=== PATIENT | male | born 1965 | race Caucasian/White ===

== ENCOUNTER → 2023-09-15 10:35 | Outpatient (REF) | payer MEDICARE, BC, SELFPAY ==
[2023-09-15 15:52] LABS: % Basophils 0.8 % (0-2); % Eosinophils 1.5 % (0-6); % Immature Granulocytes 1.2 % (0-0.5); % Lymphocytes 13.1 % (20.5-51.1); % Monocytes 11.1 % (1.7-9.3); % Neutrophils 72.3 % (42.2-75.2); Absolute Basophils 0.1 10^3/uL (0-0.2); Absolute Eosinophils 0.1 10^3/uL (0-0.7); Absolute Immature Granulocytes 0.1 10^3/uL (0-0.05); Absolute Monocytes 0.9 10^3/uL (0.1-0.6); Absolute Neutrophils 5.7 10^3/uL (1.4-6.5); Hematocrit 36.7 % (39.0-52.0); Hemoglobin 12.4 g/dL (13.0-18.0); Mean Corp Hgb Conc. 33.8 g/dL (33.0-37.0); Mean Corpuscular Hgb 31.1 pg (27.0-31.0); Nucleated Red Blood Cells % 0 % (-); Platelet Count 257 10^3/uL (130-400); Red Blood Cell Count 3.99 10^6/uL (4.70-6.10); Red Cell Dist. Width 13.3 % (11.5-14.5); White Blood Cell Count 7.8 10^3/uL (4.8-10.8)
[2023-09-15 16:05] LABS: ALT (SGPT) 15 U/L (0-50); AST (SGOT) 20 U/L (17-59); Albumin 4.1 g/dl (3.5-5.0); Alkaline Phosphatase 45 U/L (38-126); Blood Urea Nitrogen 20 mg/dl (9-20); Calcium 9.7 mg/dl (8.4-10.2); Carbon Dioxide 25 mmol/L (22-30); Chloride 103 mmol/L (98-107); Glucose 131 mg/dl (70-99); HDL Cholesterol 68 mg/dl; LDL Cholesterol, Calculated 117 mg/dl; Potassium 4.5 mmol/L (3.5-5.1); Sodium 138 mmol/L (135-145); Total Bilirubin 1.1 mg/dl (0.2-1.3); Total Cholesterol 228 mg/dl (50-199); Triglyceride 216 mg/dl (10-149); Very Low Density Lipoprotein 43 mg/dl (0-30); eGFR > 60.00
[2023-09-15 16:24] LABS: Microalbumin, Random Urine 0.6 mg/dl (0.6-1.7); Microalbumin/creatinine Ratio 2.4 mg/g
[2023-09-15 16:31] LABS: PSA, Total - Screen 1.17 ng/ml (0.0-4.0)
[2023-09-16 09:07] LABS: Glycohemoglobin (HgbA1c) 6.5 % (4.0-5.6)
== END ==
LOC: HWLAB 10:35
PROVIDERS: ATTENDING PHYSICIAN Family Medicine
DX: E11.9 Type 2 diabetes mellitus without complications (principal); E78.5 Hyperlipidemia, unspecified; I10 Essential (primary) hypertension; Z12.5 Encounter for screening for malignant neoplasm of prostate
CPT/HCPCS: 36415; 80053; 80061; 82043; 82570; 83036; 85025; G0103

== ENCOUNTER → 2023-12-10 09:44 | Outpatient (REF) | payer MEDICARE, BC, SELFPAY ==
[2023-12-10 12:38] LABS: ALT (SGPT) 25 U/L (0-50); AST (SGOT) 32 U/L (17-59); Alkaline Phosphatase 33 U/L (38-126); Blood Urea Nitrogen 12 mg/dl (9-20); Calcium 8.6 mg/dl (8.4-10.2); Carbon Dioxide 27 mmol/L (22-30); Chloride 98 mmol/L (98-107); Glucose 122 mg/dl (70-99); HDL Cholesterol 88 mg/dl; LDL Cholesterol, Calculated 114 mg/dl; Potassium 3.7 mmol/L (3.5-5.1); Sodium 140 mmol/L (135-145); Total Bilirubin 1.3 mg/dl (0.2-1.3); Total Cholesterol 245 mg/dl (50-199); Total Protein 6.9 g/dl (6.3-8.2); Triglyceride 217 mg/dl (10-149); Very Low Density Lipoprotein 43 mg/dl (0-30); eGFR > 60.00
== END ==
LOC: HWLAB 09:44
PROVIDERS: ATTENDING PHYSICIAN Family Medicine
DX: E78.5 Hyperlipidemia, unspecified (principal); E11.9 Type 2 diabetes mellitus without complications; I10 Essential (primary) hypertension
CPT/HCPCS: 36415; 80053; 80061; 83036

== ENCOUNTER 2024-01-24 21:31 | Inpatient (IN) | payer MEDICARE, BC, SELFPAY ==
[2024-01-24] VITALS (31 sets, daily range): BP systolic 72–152; BP diastolic 29–61; BMI 34.5; BMI 35.1
[2024-01-24 18:58] LABS: Glucose - Point of Care 94 mg/dl (70-99)
[2024-01-24 19:17] LABS: % Basophils 0.4 % (0-2); % Eosinophils 0.1 % (0-6); % Immature Granulocytes 2.5 % (0-0.5); % Lymphocytes 6.5 % (20.5-51.1); % Neutrophils 81.5 % (42.2-75.2); Absolute Immature Granulocytes 0.2 10^3/uL (0-0.05); Absolute Lymphocytes 0.6 10^3/uL (1.2-3.4); Absolute Monocytes 0.8 10^3/uL (0.1-0.6); Absolute Neutrophils 6.9 10^3/uL (1.4-6.5); Hematocrit 38.1 % (39.0-52.0); Hemoglobin 12.1 g/dL (13.0-18.0); Mean Corp Hgb Conc. 31.8 g/dL (33.0-37.0); Mean Corpuscular Hgb 31.6 pg (27.0-31.0); Mean Corpuscular Volume 99.5 fL (80.0-94.0); Mean Platelet Volume 9.7 fL (7.4-10.4); Nucleated Red Blood Cells % 0 % (-); Platelet Count 188 10^3/uL (130-400); Red Blood Cell Count 3.83 10^6/uL (4.70-6.10); Red Cell Dist. Width 13.8 % (11.5-14.5); White Blood Cell Count 8.5 10^3/uL (4.8-10.8)
[2024-01-24 19:40] LABS: ALT (SGPT) 22 U/L (0-50); AST (SGOT) 32 U/L (17-59); Alkaline Phosphatase 54 U/L (38-126); Blood Urea Nitrogen 107 mg/dl (9-20); Calcium 5.2 mg/dl (8.4-10.2); Carbon Dioxide < 5 mmol/L (22-30); Chloride 84 mmol/L (98-107); Glucose 86 mg/dl (70-99); Potassium 5.8 mmol/L (3.5-5.1); Sodium 131 mmol/L (135-145); Total Bilirubin 0.4 mg/dl (0.2-1.3); Total Protein 6.3 g/dl (6.3-8.2)
--- NOTE | 2024-01-24 19:51 | ED.GENMED ---
History of Present Illness
<DONNA Nunez - Last Filed: 01/24/24 23:03>
General
Chief Complaint: Dehydration Symptoms
Source: patient and spouse
Exam Limitations: none
Time Seen by Provider: 01/24/24 19:30
History of Present Illness
History of Present Illness:
This is a 58 year old male that comes in with c/o vomiting and unable to keep anything down. States that this has been going on for the past 3 days. States that he has been unable to take any of his medication. States that he is very dehydrated and
has been vomiting. States that he has abd discomfort, nausea, vomiting. Denies any fever, chills, chest pain, SOB, headache, dizziness, urinary burning.
Past History
<DONNA Nunez - Last Filed: 01/24/24 23:03>
Past History
ED Past Medical History: Cancer (Skin Cancer melanoma), HTN, Hypercholesterolemia, NIDDM and Other (Sleep apnea, CPAP)
ED Past Surgical History: Orthopedic (Right knee Menisectomy) and Other (Deviated septum, Turbinectomy)
Social History
Tobacco: Former smoker
Alcohol: Daily (Vodka, states 2 bottles, )
Personal:
Living: with family
Review of Systems
<DONNA Nunez - Last Filed: 01/24/24 23:03>
Review of Systems
All Other Systems: ROS reviewed and negative except as documented in HPI and ROS
Constitutional: Reports no symptoms; Denies fever or chills
EENT: Reports no symptoms
Respiratory: Reports no symptoms; Denies cough or trouble breathing
Cardiac: Reports no symptoms; Denies chest pain
ABD/GI: Reports abdominal pain, nausea and vomiting; Denies diarrhea
: Reports no symptoms; Denies dysuria, frequency or urgency
Musculoskeletal: Reports no symptoms
Skin: Reports no symptoms
Neurological: Reports no symptoms; Denies dizzy or headache
Psychiatric: Reports no symptoms
Phy Exam
<DONNA Nunez - Last Filed: 01/24/24 23:03>
General Physical Exam
General Presentation: mild distress
General age: appears stated age
General Skin: warm, dry and pale
General Habitus: normal
General Mental: alert
General Hydration: dry mucous membranes
ENT Exam
ENT Exam: TM's normal, pharynx normal and neck supple
Eye Exam
Eye Exam: EOMI
Cardiovascular Exam
Cardiovascular Exam: regular rate/rhythm, no murmur, normal peripheral pulses and other (Slight lower leg edema nonpitting)
Pulmonary Exam
Pulmonary Exam: lungs clear, no respiratory distress, no rales, chest non tender, no crackles, no rhonchi, no wheezing and no cough
Gastrointestinal Exam
Gastrointestinal Exam: normal bowel sounds, non tender, soft, no organomegaly, no pulsatile mass and non distended
Musculoskeletal Exam
Musculoskeletal Exam: full ROM
Skin Exam
Skin Exam: normal color, warm/dry, no rash and no petechia
Psychiatric Exam
Psychiatric Exam: normal mood/affect
Course
<DONNA Nunez - Last Filed: 01/24/24 23:03>
Orders/Labs/Results
Orders:
Orders
01/24/24 19:04
Alcohol Urgent
B-Hydroxybutyrate Urgent
Comment: ADDON
Complete Blood Count/With Diff Urgent
Comprehensive Metabolic Panel Urgent
Creatine Phosphokinase Urgent
Comment: ADDON
Magnesium Urgent
Comment: ADD ON
Phosphorus Urgent
Comment: ADD ON
Serum Osmolality Urgent
Comment: ADD ON
01/24/24 19:48
0.9% Sodium Chloride 1000 ml [Nss] 1,000 ml IV BOLUS
01/24/24 19:49
Sodium Zirconium Cyclosilicate [Lokelma] 10 gram PO NOW STA
01/24/24 19:51
Ondansetron Injectable [Zofran] 4 mg IV NOW STA
01/24/24 19:52
Add On- LAB Urgent
Tests Added?: alcohol
Add On- LAB Urgent
Tests Added?: magnesium Phosphoresis
Lorazepam [Ativan] 0.5 mg IV NOW STA
01/24/24 19:53
Bladder Scan- Treatment ONCE
01/24/24 19:54
Osmolality, Random Urine Urgent
Date Specimen was Collected: 01/24/24
Time Specimen was Collected: 20:19
Urine Drug Abuse Screen Urgent
Date Specimen was Collected: 01/24/24
Time Specimen was Collected: 20:19
01/24/24 20:05
Sodium Bicarbonate 100 meq IV NOW STA
01/24/24 20:07
Navarrete Placement- Treatment ONCE
Reason for insertion: Acute Kidney Injury
01/24/24 20:09
Add On- LAB Urgent
Tests Added?: Aspirin
01/24/24 20:10
Electrocardiogram (*1) Urgent
Reason for Study: Other
Other Reason for Exam: Abnormal labs
EKG- Treatment ONCE
CR Chest Portable - 1 View Urgent
Comment:
Reason For Exam: SOB
Reason Study Needs to be Portable: Patient Unstable
01/24/24 20:13
Add On- LAB Urgent
Tests Added?: serum osmo
01/24/24 20:17
Thiamine Injection 100 mg IV NOW STA
01/24/24 20:29
Consult Nephrology [NEPHROLOGY CONSULT] Urgent
Consulting Provider: Radha Celis
Was physician already notified: Yes
01/24/24 20:37
Prothrombin Time Urgent
VerifyNow Aspirin Urgent
01/24/24 20:50
ABG [Arterial Blood Gas] Urgent
%Oxygen/Room Air: room air
01/24/24 21:00
Calcium Gluconate 4,000 mg 0.9% Sodium Chloride 250 ml [Nss] 250 ml IV ONCE
01/24/24 21:13
Admit/Transfer Patient As Directed
Co-Sign Provider:
Level of Care: Inpatient admission
Assign to:: ICU
Physician / Group: Hospitalist
Diagnosis: Acute renal failure
Reason for Hospitalization: Renal failure
Expected length of stay greater than two midnights?: Yes
ELOS- Estimated Length of Stay in days: 2
I certify the patient meets the requirements for IP care: Yes
PRN Pain Medication Management As Directed
May give lesser potent ordered pain med per pt: Yes
preference::
Protocol:: Medication orders for pain may be administered in a
manner that supports deferring to patient preference
when the pt is:
- Requesting an ordered lesser potent pain medication.
Least to most potent pain medications are defined
as: acetaminophen < NSAID < tramadol < opioids
(morphine, oxycodone, hydromorphone).
- Requesting a lesser dose of the same medication IF
ORDERED.
- Requesting a less intrusive route of administration
if both routes are prescribed by the provider (PO <
IV).
01/24/24 21:15
Dextrose 5%/Water 1000 ml [D5w] 1,000 ml Sodium Bicarbonate 150 meq IV 150 mls/hr
01/24/24 21:16
Add On- LAB Urgent
Tests Added?: CPK, B-Hydroxybutarate
01/24/24 21:30
NORepinephrine 4 MG/250 ML [Levophed] 4 mg in 250 ml IV PER PROTOCOL
Initial dose in mcg/min, then titrate:: 2
Titrate to keep:: SBP > 90 mmHg
Titrate by mcg/min:: 1-2 mcg/min
Frequency of titrations (minutes):: 5
Maximum dose in ICU in mcg/min:: 30
Maximum dose in IMU in mcg/min:: 8
Maximum dose in IVU in mcg/min:: 4
Begin to taper infusion when:: Remained at goal for 4hrs
Taper by mcg/min:: 1-2 mcg/min
Frequency of taper (minutes) if patient maintains goal:: 30
Taper to off?: Yes
If infusion off & no longer maintaining goal:: Contact Provider
01/24/24 21:36
0.9% Sodium Chloride [Nss (Preservative Free)] See Protocol IV PRN PRN
Lorazepam [Ativan] 1 mg IV Q1HPRN PRN
Lorazepam [Ativan] 2 mg IV Q1HPRN PRN
01/24/24 22:00
Flush (0.9% Sodium Chloride) [Flush (Nss)] See Dose Instructions IV PER PROTOCOL
01/24/24 22:39
Bisacodyl [Dulcolax] 10 mg RECTAL [id number] PRN
Docusate W/Senna [Senokot-S] 1 tablet PO BIDPRN PRN
FOLic ACID [Folvite] 1 mg 0.9% Sodium Chloride 50 ml [Nss] 50 ml IV DAILYPRN
Lorazepam [Ativan] 1 mg PO Q2HPRN PRN
Polyethylene Glycol Powder [Miralax] 17 grams PO DAILYPRN PRN
01/24/24 22:39
Case Management Consult Once
Case Management Consult: Other
Comment: Substance abuse counseling
DIETARY CONSULT Routine
Reason for Consult: Nutrition support, possible refeeding guidelines
Urine Drug Abuse Screen Routine
Activity As Directed
Activity Level: With Assistance
MSAS SCORE As Directed
MSAS Score 0-4: Repeat MSAS every 2 hours until 0-4 for three consecutive assessments, then every 4 hours x 48
hours.
MSAS Score 5-7: For MILD withdrawl symptoms. Repeat MSAS and RASS every 2 hours
MSAS Score 8-11: For MODERATE withdrawal symptoms. Repeat MSAS and RASS every 1 hour. Consider ICU or IMU
level of care.
MSAS Score > 11: For SEVERE withdrawal symptoms. Repeat MSAS and RASS every 1 hour. Notify provider, consider
ICU level of care.
MSAS Additional Instructions: If no improvement or no decrease in score from severe to moderate within 12
hours, consult psychiatry
MSAS Notify Provider: Notify provider if patient requires more than 10 mg of Lorazepam in eight hour period.
Vital Signs As Directed
Frequency: Per unit guidelines
DX Deep Vein Thrombosis Video Routine
01/24/24 22:46
GGTP Urgent
Lactic Acid Urgent
PTT Urgent
01/24/24 23:30
Urinalysis Reflex To Culture Urgent
Date Specimen was Collected: 01/24/24
Time Specimen was Collected: 20:19
01/25/24 00:00
Heparin 5,000 units SC Q8
Thiamine Injection 200 mg IV Q8
01/25/24 08:00
FOLic ACID [Folvite] 1 mg PO DAILY
01/28/24 08:00
Thiamine HCl [Vitamin B1] 100 mg PO BID
Abnormal Lab Results
01/24/24 01/24/24 01/24/24
19:04 20:37 20:50
RBC 3.83 L 10^6/uL
(4.70-6.10)
Hgb 12.1 L g/dL
(13.0-18.0)
Hct 38.1 L %
(39.0-52.0)
MCV 99.5 H fL
(80.0-94.0)
MCH 31.6 H pg
(27.0-31.0)
MCHC 31.8 L g/dL
(33.0-37.0)
Abs Immat Gran (auto) 0.2 H 10^3/uL
(0-0.05)
Absolute Neuts (auto) 6.9 H 10^3/uL
(1.4-6.5)
Absolute Lymphs (auto) 0.6 L 10^3/uL
(1.2-3.4)
Absolute Monos (auto) 0.8 H 10^3/uL
(0.1-0.6)
Immature Gran % 2.5 H %
(0-0.5)
Neutrophils % 81.5 H %
(42.2-75.2)
Lymphocytes % 6.5 L %
(20.5-51.1)
PT 16.1 H Sec
(11.4-14.6)
pH 7.09 L*
(7.35-7.45)
pCO2 13 L* mmHg
(35-48)
pO2 134 H mmHg
(83-108)
HCO3 3.9 L* mmol/L
(21-28)
ABG O2 Sat (Measured) 99.4 H %
(94-98)
Sodium 131 L mmol/L
(135-145)
Potassium 5.8 H mmol/L
(3.5-5.1)
Chloride 84 L mmol/L
(98-107)
Carbon Dioxide < 5 L* mmol/L
(22-30)
BUN 107 H* mg/dl
(9-20)
Creatinine > 28.0 H* mg/dL
(0.7-1.3)
Serum Osmolality 318 H mOsm/kg
(275-300)
Calcium 5.2 L* mg/dl
(8.4-10.2)
Phosphorus 14.9 H mg/dl
(2.5-4.5)
Magnesium 1.1 L mg/dl
(1.6-2.3)
Creatine Kinase 243 H U/L
(55-170)
B-Hydroxybutyrate 6.92 H mmol/L
(0.02-0.27)
01/24/24 19:04
01/24/24 19:04
Anemia, hyponatremia, Hyperkalemia, Hypochloremia, Acute renal failure, Hypocalcemia. Magnesium slightly low
Vital Signs
Initial and Last Documented VS:
Initial Vital Signs
Pulse Resp BP Pulse Ox
57 19 102/46 98
01/24/24 18:52 01/24/24 18:52 01/24/24 18:52 01/24/24 18:52
Last Documented Vital Signs
Temp Pulse Resp BP Pulse Ox
92.1 F L 62 23 88/44 99
01/24/24 21:44 01/24/24 21:45 01/24/24 21:45 01/24/24 22:00 01/24/24 21:40
<Catalino To MD - Last Filed: 01/24/24 21:58>
Orders/Labs/Results
Orders:
Orders
01/24/24 19:04
Alcohol Urgent
B-Hydroxybutyrate Urgent
Comment: ADDON
Complete Blood Count/With Diff Urgent
Comprehensive Metabolic Panel Urgent
Creatine Phosphokinase Urgent
Comment: ADDON
Magnesium Urgent
Comment: ADD ON
Phosphorus Urgent
Comment: ADD ON
Serum Osmolality Urgent
Comment: ADD ON
01/24/24 19:48
0.9% Sodium Chloride 1000 ml [Nss] 1,000 ml IV BOLUS
01/24/24 19:49
Sodium Zirconium Cyclosilicate [Lokelma] 10 gram PO NOW STA
01/24/24 19:51
Ondansetron Injectable [Zofran] 4 mg IV NOW STA
01/24/24 19:52
Add On- LAB Urgent
Tests Added?: alcohol
Add On- LAB Urgent
Tests Added?: magnesium Phosphoresis
Lorazepam [Ativan] 0.5 mg IV NOW STA
01/24/24 19:53
Bladder Scan- Treatment ONCE
01/24/24 19:54
Osmolality, Random Urine Urgent
Date Specimen was Collected: 01/24/24
Time Specimen was Collected: 20:19
Urine Drug Abuse Screen Urgent
Date Specimen was Collected: 01/24/24
Time Specimen was Collected: 20:19
01/24/24 20:05
Sodium Bicarbonate 100 meq IV NOW STA
01/24/24 20:07
Navarrete Placement- Treatment ONCE
Reason for insertion: Acute Kidney Injury
01/24/24 20:09
Add On- LAB Urgent
Tests Added?: Aspirin
01/24/24 20:10
Electrocardiogram (*1) Urgent
Reason for Study: Other
Other Reason for Exam: Abnormal labs
EKG- Treatment ONCE
CR Chest Portable - 1 View Urgent
Comment:
Reason For Exam: SOB
Reason Study Needs to be Portable: Patient Unstable
01/24/24 20:13
Add On- LAB Urgent
Tests Added?: serum osmo
01/24/24 20:17
Thiamine Injection 100 mg IV NOW STA
01/24/24 20:29
Consult Nephrology [NEPHROLOGY CONSULT] Urgent
Consulting Provider: Radha Celis
Was physician already notified: Yes
01/24/24 20:37
Prothrombin Time Urgent
VerifyNow Aspirin Urgent
01/24/24 20:50
ABG [Arterial Blood Gas] Urgent
%Oxygen/Room Air: room air
01/24/24 21:00
Calcium Gluconate 4,000 mg 0.9% Sodium Chloride 250 ml [Nss] 250 ml IV ONCE
01/24/24 21:13
Admit/Transfer Patient As Directed
Co-Sign Provider:
Level of Care: Inpatient admission
Assign to:: ICU
Physician / Group: Hospitalist
Diagnosis: Acute renal failure
Reason for Hospitalization: Renal failure
Expected length of stay greater than two midnights?: Yes
ELOS- Estimated Length of Stay in days: 2
I certify the patient meets the requirements for IP care: Yes
PRN Pain Medication Management As Directed
May give lesser potent ordered pain med per pt: Yes
preference::
Protocol:: Medication orders for pain may be administered in a
manner that supports deferring to patient preference
when the pt is:
- Requesting an ordered lesser potent pain medication.
Least to most potent pain medications are defined
as: acetaminophen < NSAID < tramadol < opioids
(morphine, oxycodone, hydromorphone).
- Requesting a lesser dose of the same medication IF
ORDERED.
- Requesting a less intrusive route of administration
if both routes are prescribed by the provider (PO <
IV).
01/24/24 21:15
Dextrose 5%/Water 1000 ml [D5w] 1,000 ml Sodium Bicarbonate 150 meq IV 150 mls/hr
01/24/24 21:16
Add On- LAB Urgent
Tests Added?: CPK, B-Hydroxybutarate
01/24/24 21:30
NORepinephrine 4 MG/250 ML [Levophed] 4 mg in 250 ml IV PER PROTOCOL
Initial dose in mcg/min, then titrate:: 2
Titrate to keep:: SBP > 90 mmHg
Titrate by mcg/min:: 1-2 mcg/min
Frequency of titrations (minutes):: 5
Maximum dose in ICU in mcg/min:: 30
Maximum dose in IMU in mcg/min:: 8
Maximum dose in IVU in mcg/min:: 4
Begin to taper infusion when:: Remained at goal for 4hrs
Taper by mcg/min:: 1-2 mcg/min
Frequency of taper (minutes) if patient maintains goal:: 30
Taper to off?: Yes
If infusion off & no longer maintaining goal:: Contact Provider
01/24/24 21:36
0.9% Sodium Chloride [Nss (Preservative Free)] See Protocol IV PRN PRN
Lorazepam [Ativan] 1 mg IV Q1HPRN PRN
Lorazepam [Ativan] 2 mg IV Q1HPRN PRN
01/24/24 22:00
Flush (0.9% Sodium Chloride) [Flush (Nss)] See Dose Instructions IV PER PROTOCOL
01/24/24 22:39
Bisacodyl [Dulcolax] 10 mg RECTAL [id number] PRN
Docusate W/Senna [Senokot-S] 1 tablet PO BIDPRN PRN
FOLic ACID [Folvite] 1 mg 0.9% Sodium Chloride 50 ml [Nss] 50 ml IV DAILYPRN
Lorazepam [Ativan] 1 mg PO Q2HPRN PRN
Polyethylene Glycol Powder [Miralax] 17 grams PO DAILYPRN PRN
01/24/24 22:39
Case Management Consult Once
Case Management Consult: Other
Comment: Substance abuse counseling
DIETARY CONSULT Routine
Reason for Consult: Nutrition support, possible refeeding guidelines
Urine Drug Abuse Screen Routine
Activity As Directed
Activity Level: With Assistance
MSAS SCORE As Directed
MSAS Score 0-4: Repeat MSAS every 2 hours until 0-4 for three consecutive assessments, then every 4 hours x 48
hours.
MSAS Score 5-7: For MILD withdrawl symptoms. Repeat MSAS and RASS every 2 hours
MSAS Score 8-11: For MODERATE withdrawal symptoms. Repeat MSAS and RASS every 1 hour. Consider ICU or IMU
level of care.
MSAS Score > 11: For SEVERE withdrawal symptoms. Repeat MSAS and RASS every 1 hour. Notify provider, consider
ICU level of care.
MSAS Additional Instructions: If no improvement or no decrease in score from severe to moderate within 12
hours, consult psychiatry
MSAS Notify Provider: Notify provider if patient requires more than 10 mg of Lorazepam in eight hour period.
Vital Signs As Directed
Frequency: Per unit guidelines
DX Deep Vein Thrombosis Video Routine
01/24/24 22:46
GGTP Urgent
Lactic Acid Urgent
PTT Urgent
01/24/24 23:30
Urinalysis Reflex To Culture Urgent
Date Specimen was Collected: 01/24/24
Time Specimen was Collected: 20:19
01/25/24 00:00
Heparin 5,000 units SC Q8
Thiamine Injection 200 mg IV Q8
01/25/24 08:00
FOLic ACID [Folvite] 1 mg PO DAILY
01/28/24 08:00
Thiamine HCl [Vitamin B1] 100 mg PO BID
Abnormal Lab Results
01/24/24 01/24/24 01/24/24
19:04 20:37 20:50
RBC 3.83 L 10^6/uL
(4.70-6.10)
Hgb 12.1 L g/dL
(13.0-18.0)
Hct 38.1 L %
(39.0-52.0)
MCV 99.5 H fL
(80.0-94.0)
MCH 31.6 H pg
(27.0-31.0)
MCHC 31.8 L g/dL
(33.0-37.0)
Abs Immat Gran (auto) 0.2 H 10^3/uL
(0-0.05)
Absolute Neuts (auto) 6.9 H 10^3/uL
(1.4-6.5)
Absolute Lymphs (auto) 0.6 L 10^3/uL
(1.2-3.4)
Absolute Monos (auto) 0.8 H 10^3/uL
(0.1-0.6)
Immature Gran % 2.5 H %
(0-0.5)
Neutrophils % 81.5 H %
(42.2-75.2)
Lymphocytes % 6.5 L %
(20.5-51.1)
PT 16.1 H Sec
(11.4-14.6)
pH 7.09 L*
(7.35-7.45)
pCO2 13 L* mmHg
(35-48)
pO2 134 H mmHg
(83-108)
HCO3 3.9 L* mmol/L
(21-28)
ABG O2 Sat (Measured) 99.4 H %
(94-98)
Sodium 131 L mmol/L
(135-145)
Potassium 5.8 H mmol/L
(3.5-5.1)
Chloride 84 L mmol/L
(98-107)
Carbon Dioxide < 5 L* mmol/L
(22-30)
BUN 107 H* mg/dl
(9-20)
Creatinine > 28.0 H* mg/dL
(0.7-1.3)
Serum Osmolality 318 H mOsm/kg
(275-300)
Calcium 5.2 L* mg/dl
(8.4-10.2)
Phosphorus 14.9 H mg/dl
(2.5-4.5)
Magnesium 1.1 L mg/dl
(1.6-2.3)
Creatine Kinase 243 H U/L
(55-170)
B-Hydroxybutyrate 6.92 H mmol/L
(0.02-0.27)
01/24/24 19:04
01/24/24 19:04
Vital Signs
Initial and Last Documented VS:
Initial Vital Signs
Pulse Resp BP Pulse Ox
57 19 102/46 98
01/24/24 18:52 01/24/24 18:52 01/24/24 18:52 01/24/24 18:52
Last Documented Vital Signs
Temp Pulse Resp BP Pulse Ox
92.1 F L 62 23 88/44 99
01/24/24 21:44 01/24/24 21:45 01/24/24 21:45 01/24/24 22:00 01/24/24 21:40
<DONNA Nunez - Last Filed: 01/24/24 23:03>
MDM/Problems Addressed
Differential Diagnosis Includes:
Alcoholic ketoacidosis,
MDM/Problems Addressed:
This is a 58 year old male that comes in with c/o vomiting for the past 3 days and unable to keep anything down. States that he dose drink about 1 bottle in a week but states that it is 2 bottles.
Will check labs and give IV fluids.
Explained to patient that he will be admitted. Blood work is grossly abnormal. Spoke with the Weight Engineer and orders given. Hospitalist notified about admission. Patient was also seen by Dr. To.
Chronic conditions affecting care: DM
Acute Exacerbation and/or Progression of Chronic Illness: DM
<DONNA Nunez - Last Filed: 01/24/24 23:03>
*Radiology
Radiology exam reviewed: radiology read reviewed (Chest-NO acute cardiopulmonary process)
*Pulse Oximetry
Patient hypoxic: no
*EKG
Interpreted by ED Provider?: Yes
Heart Rate: 61
Rate: normal
Rhythm: sinus
[place]: normal axis
Interval: first degree heart block
QRS Pattern: normal QRS
Ischemia: no ischemia
*Senior Credit Analyst Interpretation
Rate: normal
Heart Rate: 60
Rhythm: sinus
*Critical Care Note
Total Time (30-74mins, 75-104mins- exclusive of procedures): 45 min
ED Attending Note
<DONNA Nunez - Last Filed: 01/24/24 23:03>
-
Portions of this chart may have been created with voice recognition software.� Occasional wrong word or��sound alike� substitutions may have occurred due to the inherent limitations of voice recognition software.
<Catalino To MD - Last Filed: 01/24/24 21:58>
ED Attending Note
Patient seen and examined by attending physician: Yes
I performed the substantive portion of visit, reviewed & personally made and approve the management plan that is documented in note by myself or RODNEY.: Yes
ED Attending Note:
58-year-old male complaining of just not feeling well. Started 2 to 3 days ago. Also did note some decreased urination. Also noted increased breathing last 2 to 3 days. History of alcohol use. States 2-3 daily. states more. Last drink 2
to 3 days ago. Denies overdose or unusual ingestion. Denies aspirin. Denies other alcohols. Denies chest pain.
On exam patient is hyperventilating. Lungs are clear. Clearly hyperventilating. regular rate and rhythm. Abdomen nontender. No suprapubic distention. Warm and dry. Perfusing well.
Patient with significant lab abnormalities including acute renal failure, severe acidosis, hyperkalemia, hypocalcemia.
Lengthy discussion with renal. IV fluids, bicarb x 2 push. Calcium 4 g over an hour. We will add thiamine. Small dose of Ativan. Additional labs and testing including ABG lactic acid osmolalities Navarrete catheter.
Crit care=45
Discharge Plan
Departure
Patient Disposition: Admit
Date of Disposition: 01/24/24
Time of Disposition: 20:11
Admit to: ICU
Presentation/result/management discussed w/ accepting MD/DO: Hospitalist
Patient with high blood pressure during this ER visit?: No
Condition: Fair
Covid-19: Not Applicable
Discharge Problem:
Alcoholic ketoacidosis
Interventions
Interventions:
*Risk Screen - Suicide Last Done: 01/24/24 18:52
*General Assessment Last Done: 01/24/24 18:52
*Neglect/Abuse Screening Last Done: 01/24/24 18:52
ED- Fall Risk Assessment Last Done: 01/24/24 21:23
*Nursing Disposition Last Done: 01/24/24 22:42
ED- Cardiac Assessment Last Done: 01/24/24 21:23
ED- Neurological Assessment Last Done: 01/24/24 21:23
ED- Pulmonary Assessment Last Done: 01/24/24 21:23
Discharge Date and Time
Discharge Date/Time: 01/24/24 22:42
[2024-01-24 19:53] LABS: eGFR 1.59
[2024-01-24] MEDS: NSS 1000 IV (20:06)
[2024-01-24] MEDS: LOKELMA 10 GRAM PO (20:06)
[2024-01-24 20:07] LABS: Alcohol 12 mg/dl; Magnesium 1.1 mg/dl (1.6-2.3)
[2024-01-24] MEDS: ATIVAN 0.5 MG IV (20:08)
[2024-01-24] MEDS: ZOFRAN 4 MG IV (20:08)
[2024-01-24 20:19] LABS: Phosphorus 14.9 mg/dl (2.5-4.5)
[2024-01-24 20:24] LABS: Osmolality Serum 318 mOsm/kg (275-300)
[2024-01-24] MEDS: SODIUM BICARBONATE 100 MEQ IV (20:29)
[2024-01-24] MEDS: THIAMINE INJECTION 100 MG IV (20:32)
[2024-01-24 21:00] LABS: INR 1.27; PT 16.1 Sec (11.4-14.6)
--- NOTE | 2024-01-24 21:02 | HPS.HSE ---
Family Physician
-
Family Physician:
Chief Complaint
-
Dehydration
History of Present Illness
This is a 58-year-old with past medical history significant for diabetes, hypertension, chronic alcohol dependence, who presents to the emergency department with worsening nausea, dehydration and weakness and was found to be in acute renal failure.
Patient was a fairly poor historian. According to spouse he appears to have developed a flulike illness starting about 4 days ago. He said he was in usual state of health prior to that. He is a chronic drinker drinking up to 2 bottles of vodka a
day and up to 5 over a week intermittently. He said about 3 to 4 days ago started having nausea and was unable to tolerate p.o. He reports projectile vomiting but no bilious or bloody emesis. He denies any diarrhea. He denies abdominal pain or
abdominal distention. Patient denies any urinary symptoms but was unable to tell me the last time he urinated. He has no prior history of urinary retention kidney stones or BPH. Patient denies any known fevers or chills. He denies any recent
travels. He does have a child as a sick contact. Patient has recurrent falls but denies any prolonged immobilization. Patient has a chronic cough, prior smoker quit few years ago. He denies any hemoptysis. He denies any lower extremity edema.
He denies any rash. He denies having chest pain. He reports chronic osteo and is pending knee replacement surgery. No known history of RA or lupus or other connective tissue disease. Patient has type 2 diabetes for which he is on metformin and
has no prior history of DKA. He reports that his last drink was less than 48 hours ago. Patient did take few doses of ibuprofen for his cough and neck pain but denies consistent use of NSAIDs.
On arrival in the emergency department his blood pressure was low at 102/46 with a pulse of 57, respiratory rate was 19 and he was afebrile. ECG pending, CBC is mostly unremarkable with a white count of 8.5 but a significant left shift, hemoglobin
was 12 and a platelet count was 188. He has marked abnormalities in electrolytes BUN/creatinine. He is BUN was 107 and a creatinine of 28. Sodium was 131 potassium 5.8 chloride 84 bicarb less than 5 anion gap of 40 his calcium was markedly low at
5.2 with normal albumin and LFTs.
Medical History
Past Medical History
Past Medical History: Reports HTN, Hypercholesterolemia, NIDDM and Psychiatric (Alcohol dependence)
Past Surgical History: Reports Orthopedic
Social History
Tobacco: Former Smoker
Alcohol: Daily
Drug: None
Personal:
Living: With Family
Employment: Employed
Family History
Family History: Not pertinent
Allergies / Home Medications
Allergies reflects when Allergies were last updated in [facility] [facility].
Home Medications with original date entered in [facility]
Allergy/Medication List:
Allergies
Allergy/AdvReac Type Severity Reaction Status Date / Time
naproxen sodium [From Aleve] Allergy Tongue Verified 01/06/23 15:44
Swelling
NSAIDS (Non-Steroidal Allergy Unknown Verified 01/06/23 15:44
Anti-Inflamma
wheat [Wheat] Allergy congestion Verified 01/06/23 15:44
Home Medications
Aspirin 81 mg PO DAILY 07/31/21
Fenofibric Acid 135 mg PO DAILY 07/31/21
Furosemide 20 mg PO DAILY 07/31/21
Losartan Potassium 100 mg PO QPM 07/31/21
Simvastatin 40 mg PO DAILY 07/31/21
amlodipine 5 mg tablet 5 mg PO QPM 07/31/21
carvedilol 25 mg tablet (Coreg) 25 mg PO BID 07/31/21
fexofenadine 180 mg tablet 180 mg PO DAILY 07/31/21
metformin 1,000 mg tablet 2,000 mg PO QPM 07/31/21
oxycodone-acetaminophen 5 mg-325 mg tablet 1 - 2 tab PO Q4HPRN PRN moderate to severe pain #20 tabs 08/06/21
lorazepam 1 mg tablet (Ativan) 1 mg PO TID PRN alcohol withdrawal #10 tabs 01/06/23
Review of Systems
-
History Source: Patient and Family
Constitutional: Reports Fatigue
EENT: Reports No Symptoms
Respiratory: Reports Cough
Cardiac: Reports No Symptoms
Abdomen/GI: Reports Nausea and Vomiting
: Reports No Symptoms
Musculoskeletal: Reports No Symptoms
Skin: Reports No Symptoms
Neurological: Reports Weakness
Endocrine: Reports No Symptoms
Hematologic/Lymphatic: Reports No Symptoms
Psych: Reports No Symptoms
Physical Exam
Vital Signs
Vital Signs
Pulse Resp BP Pulse Ox
57 19 102/46 98
01/24/24 18:52 01/24/24 18:52 01/24/24 18:52 01/24/24 18:52
Physical Exam
General: Well Developed, Well Nourished and Conversant
HEENT: NormoCephalic, Anicteric and Atraumatic
Respiratory: Clear
Cardiac: S1/S2 and Regular Rhythm
Breast: Deferred by me
GI: Soft
Genito-urinary: Navarrete (No urine output)
Musculoskeletal: No Clubbing, No Cyanosis and No Edema
Skin: Warm
Neuro: AO x 3
Hematologic/Lymphatic: No Lymphadenopathy
Psych: Calm
Laboratory Results
-
01/24/24 19:04
01/24/24 19:04
Laboratory Results
PT 16.1 Sec (11.4-14.6) H 01/24/24 20:37
INR 1.27 01/24/24 20:37
Total Bilirubin 0.4 mg/dl (0.2-1.3) 01/24/24 19:04
AST 32 U/L (17-59) 01/24/24 19:04
ALT 22 U/L (0-50) 01/24/24 19:04
Alkaline Phosphatase 54 U/L (38-126) 01/24/24 19:04
Data Reviewed
-
Medical Tests (Nuc Med, Echo, EKG etc): Image Personally Visualized and interpreted
Lab Data: Labs Reviewed by me
Old Records: Reviewed
Impression/Plan
-
IMPRESSION:
58 M with history of significant etoh dependence w/o h/o liver disease presenting to ED with complaints of a few days of nausea and projectile vomiting (non-bloody and non-bilious) without abdominal pain, diarrhea, fevers or chills and was found to
be in anuric renal failure with severe hyperchloremic and AG acidosis. He was initially coherent and providing history but soon decompensated rapidly with etiology essentially unclear. Presumed sepsis of unknown source and likely severe ATN.
PLAN:
1. Sepsis/shock - Hypotensive, hypothermic, no leukocytosis but immature neutrophils on differential. Chest is clear. CT head unremarkable. No urine. Abdomen benign with normal lfts. No recent surgeries and no skin or joint findings
- blood cultures and empiric cefepime and vancomycin
- unable to scan abdomen due to instability
- no ascites, abscess or other fluid collection to check
- on multiple pressors, no known heart disease, consider Echo.
2. Renal Failure - Cr 28, BUN 107. Bicarb < 5. pH 7.08, K 5.8. Anuric. Suspected ATN which may have been ongoing for weeks as phosphate level is 14. Hypocalcemic to 5.2 w/ normal albumin. Looks dehydrated on exam w/ mixed acid base d/o
including lactic/alcohol ketoacidosis, unlikely DKA.
- s/p 2 L bolus of NS
- 100 meq bicarb bushes and initiated bicarb gtt
- 4 g calcium gluconate
- urinary catheter placed
- nephrology aware and made recommendations.
- IR consulted for DIRECTOR SECURITY MANAGEMENT catheter and patient started on CRRT
- etiology of ARF still not clear but likely ATN.
- very poor prognosis due to worsening hemodynamics
- patient intubated due to agitation, need for sedation and reduced capacity for respiratory compensation
3. Pulm
- intubated slightly expectantly due to worsening mental status and acidosis, chest xray clear w/o infiltrates or edema and normal O2 on RA.
- vent settings adjusted to increase CO2 clearance
3. ETOH - daily bottle of vodka drinker. No prior hospitalizations for w/ withdrawal. Developing tremors w/ worsening confusion in ED
- thiamine IV
- on withdrawal protocol initially but now intubated on propofol, monitor for seizures
4. DM II
- accuchecks for now w/ sliding scale coverage
DVT PPX - heparin sq
Code status - Full Code. Discussed prognosis with family and nephrology specifically indicated very poor prognosis but remains full code for now.
[2024-01-24 21:03] LABS: Creatine Phosphokinase 243 U/L (55-170)
[2024-01-24 21:06] LABS: B.E. -23.8 mmol/L; O2 Saturation % 99.4 % (94-98); PO2 134 mmHg (83-108)
[2024-01-24 21:10] LABS: HCO3 3.9 mmol/L (21-28); PCO2 13 mmHg (35-48); pH 7.09 (7.35-7.45)
[2024-01-24] MEDS: CALCIUM GLUCONATE 290 MG IV (21:26)
[2024-01-24] MEDS: SODIUM BICARBONATE 1150 MEQ IV (21:27)
[2024-01-24 21:28] LABS: VerifyNow Aspirin 350 ARU
[2024-01-24] MEDS: LEVOPHED 250 IV (21:32)
[2024-01-24 21:39] LABS: B-Hydroxybutyrate 6.92 mmol/L (0.02-0.27)
[2024-01-24] MEDS: ATIVAN 2 MG IV (21:41)
[2024-01-24] MEDS: SODIUM BICARBONATE 50 MEQ IV (21:56)
[2024-01-24] MEDS: MAXIPIME 2000 MG IV (21:58)
--- NOTE | 2024-01-24 22:15 | W.CON.NEPH ---
Consultation
-
Date/Time Consultation Requested: 01/24/241999
Date/Time Consultation Performed: 01/24/242199
Requesting Provider: Jade Barragan
Performing Provider: Radha Boswell
Reason for Consultation: KALI
Medical History
-
Chief Complaint: n/v, decreased po intake
History of Present Illness:
58 year old male with PMH of DM on metformin, HTN on Amlodipine, coreg, Losartan, HLD on fenofibrate,statin that comes in with c/o vomiting and unable to keep anything down for past 3-4days. He was also not able to take his meds. He reports not able
to urinate for 3days atleast. He drinks alcohol daily 3-4 bottles of Vodka in week and gets shakes when he does not drink as per . history is limited as pt just received Ativan for DT. Reportedly he c/o abd discomfort too, borges placed with no
urine in return. His labs noted cr over 28, bicarb <5, k 5.8, na 131, BUN 107, abad 5.2, mg 1.1. He received 2lit of NS and BP are low at 79 during visit. He received 2 amps of bicarb and Ph was at 7.09. He is also hypothermic on joselito hugger.
Nephrology consulted for KALI and multiple metabolic derangements. No regular use of NSAIDs, only took 2-3 ibuprofen today per .
Past Medical History
HTN
HLD
DM
Obesity
ETOH abuse
Past Surgical History: Other ( Tonsillectomy 09/09/2012 Turbinectomy/deviated septum torn Menicus melanoma Colonoscopy 10/2014 robotic ass lat JULIAN repair umbilical hernia ([facility]) 08/2021 Left TKA DOS 9.8.2021 JS
11/22)
Social History
Tobacco: Former Smoker
Alcohol: Daily (vodka 3-4 bottles in week)
Personal:
Living: With Family
Employment: Retired
Family History
Father lung ca
Mother-cad, HTN
no CKD known-per
Family History: Not Pertinent
Allergies / Home Medications
Allergy/AdvReac Type Severity Reaction Status Date / Time
naproxen sodium [From Aleve] Allergy Tongue Verified 01/06/23 15:44
Swelling
NSAIDS (Non-Steroidal Allergy Unknown Verified 01/06/23 15:44
Anti-Inflamma
wheat [Wheat] Allergy congestion Verified 01/06/23 15:44
�Medication �Instructions �Recorded �Confirmed �Type
Aspirin 81 mg PO DAILY 07/31/21 08/06/21 History
Fenofibric Acid 135 mg PO DAILY 07/31/21 08/06/21 History
Furosemide 20 mg PO DAILY 07/31/21 08/06/21 History
Losartan Potassium 100 mg PO QPM 07/31/21 08/06/21 History
Simvastatin 40 mg PO DAILY 07/31/21 08/06/21 History
amlodipine 5 mg tablet 5 mg PO QPM 07/31/21 08/06/21 History
carvedilol 25 mg tablet (Coreg) 25 mg PO BID 07/31/21 08/06/21 History
fexofenadine 180 mg tablet 180 mg PO DAILY 07/31/21 08/06/21 History
metformin 1,000 mg tablet 2,000 mg PO QPM 07/31/21 08/06/21 History
oxycodone-acetaminophen 5 mg-325 1 - 2 tab PO Q4HPRN PRN moderate 08/06/21 Rx
mg tablet to severe pain #20 tabs
lorazepam 1 mg tablet (Ativan) 1 mg PO TID PRN alcohol withdrawal 01/06/23 Rx
#10 tabs
Review of Systems
-
unable to obtain, pt post ativan
Physical Exam
Vital Signs
Vital Signs
Temp Pulse Resp BP Pulse Ox
92.1 F L 62 23 88/44 99
01/24/24 21:44 01/24/24 21:45 01/24/24 21:45 01/24/24 22:00 01/24/24 21:40
Lab Results
WBC 8.5 10^3/uL (4.8-10.8) 01/24/24 19:04
RBC 3.83 10^6/uL (4.70-6.10) L 01/24/24 19:04
Hgb 12.1 g/dL (13.0-18.0) L 01/24/24 19:04
Hct 38.1 % (39.0-52.0) L 01/24/24 19:04
Plt Count 188 10^3/uL (130-400) 01/24/24 19:04
Sodium 131 mmol/L (135-145) L 01/24/24 19:04
Potassium 5.8 mmol/L (3.5-5.1) H 01/24/24 19:04
Chloride 84 mmol/L (98-107) L 01/24/24 19:04
Carbon Dioxide < 5 mmol/L (22-30) L* 01/24/24 19:04
BUN 107 mg/dl (9-20) H* 01/24/24 19:04
Creatinine > 28.0 mg/dL (0.7-1.3) H* 01/24/24 19:04
eGFR 1.59 01/24/24 19:04
Glucose 86 mg/dl (70-99) 01/24/24 19:04
Calcium 5.2 mg/dl (8.4-10.2) L* 01/24/24 19:04
Phosphorus Cancelled 01/24/24 19:48
Albumin 4.0 g/dl (3.5-5.0) 01/24/24 19:04
Physical Exam
General: Awake and Alert
HEENT: EOMI, Facial Symmetry and Neck Supple
Respiratory: Clear
Cardiac: S1/S2 and Regular Rate/Rhythm
Breast: Deferred by me
Abdomen: Soft and Nontender
Musculoskeletal: No Cyanosis and No Edema
Skin: No Rash
Neuro: Nonfocal/Grossly Intact
Psych: Other (unable to assess)
Data Reviewed
-
Radiology: Report Reviewed by me and Discussed with Family
Medical Tests (Nuc Med, Echo etc): Report Reviewed by me
Labs: Labs Reviewed by me, Discussed with Physician and Discussed with Family
Assessment/Plan
-
IMP:
Severe KALI
Acidemia with severe metabolic acidosis- A gap
hypotension
Hyperkalemia
Hyponatremia
Hypocalcemia
Hypomagnesemia
Hyperphosphatemia
suspected ETOH withdrawal-DTs
h/o HTN
NIDDM
Obesity
ETOH abuse
Plan:
A/w n/v, poor po intake
severe anuric KALI-cr over 28, baseline cr 0.9 in Oct
highly suspect ATN, will send other w/u
need CT abd to r/o any other cause-with c/o abd discomfort
CK not elevated, no UOP in borges
osmo gap only 13 and alcohol level 12, no h/o other alcohol ingestion per history
await L acid and ketone level
acidemia Ph 7.09 post Iv bicarb 2 amps, will try more IV push once abad repleted
cotn iv bicarb gtt as ordered
hyperkalemia expect to improve as acidosis corrects, s/p Lokelma in ER
he will need HD once hemodynamically stabilized
hypotension and hypothermia-w/u per primary
cont NS bolus for hypotension, start pressors to keep MAP>65
he also seem to be in DTs too, ativan prn with cautions
low threshold to intubate
replace mg too
he is critically ill , d/w on phone , understands need of HD
primary team will inform IR to place temp HD catheter when stabilized
will consider CRRT if hemodynamics demand
CC time spent 45min
d/w primary and ER
[2024-01-24 23:04] LABS: APTT 37.1 Sec (23.4-35.0)
[2024-01-24] MEDS: VERSED 2 MG IV (23:05)
[2024-01-24 23:09] LABS: Lactic Acid 8.5 mmol/L (0.7-2.0)
[2024-01-24 23:11] LABS: GGTP 34 U/L (15-73)
--- NOTE | 2024-01-24 23:20 | W.PN.ANESINT ---
Anesthesia Intubation Note
- Intubation Note
Intubation Note:
Diagnosis: Respiratory Distress, Hypoxia
Blade: Glidescope 4
Tube Size: 8.0
Depth: 24
Side Taped: Right
Drugs Used: Versed 2 mg, Propofol 30 mg, Rocuronium 50 mg
Grade View: I
EtCO2 Present: Yes
Atraumatic: Yes
Attempts: 1
Insertion Start and Stop Time: 01/24/242256, 01/24/242301
SaO2 Pre: 100%
SaO2 Post: 100%
Glidescope Used: Yes
Other Airway Adjustments: None
Pre-Oxygenated: Yes
Portable Chest X-Ray: Pending
RSI: Yes
Suctioned: Yes
Bilateral Breath Sounds Confirmed: Yes
Vent Settings:
Settings per ICU_Attending Physician
--- NOTE | 2024-01-24 23:22 | W.PN.ANS.LIN ---
Anesthesia IV & A-Line Note
- IV/Arterial Line
Right Radial Arrow 20 (05/04)
Diagnosis: Norepinephrine and Vasopressin infusion
IV Line Comments: Uneventful Procedure
Allens test completed pre-procedure: Yes
A-Line Comments: Sterile technique as per standard protocol, Uneventful procedure, Seldinger technique used, Ultrasound guided insertion, Biopatch applied
Funtioning A-line in situ: Yes
A-line Insertion Start Time: 23:10
A-line Insertion Stop Time: 23:15
A-line in at:: 23:12
[2024-01-24] MEDS: DIPRIVAN 100 IV (23:30)
[2024-01-24] MEDS: PITRESSIN 100 IV (23:30)
[2024-01-24 23:39] LABS: B.E. -23.9 mmol/L; PCO2 20 mmHg (35-48); PO2 370 mmHg (83-108)
[2024-01-24 23:43] LABS: HCO3 5.3 mmol/L (21-28); pH 7.03 (7.35-7.45)
[2024-01-25] VITALS (9 sets, daily range): BP systolic 93–145; BP diastolic 42–72; BMI 35.1
--- NOTE | 2024-01-25 00:08 | W.PN.UPDATE ---
Addendum entered and electronically signed by DONNA Lebron 01/25/24 03:04:
Case reviewed again with nephrology service Eugenia Medeiros. CRRT ordered. Updated patient Roseann about his condition and explained she was welcome to come in. She will try in the morning. Third pressor added (addis).
Original Note:
Update Note
Progress Note Update
Patient transferred to ICU. Intubated for airway protection and A-Line placed, IR here for HD catheter placement.
[2024-01-25 00:13] LABS: Triglycerides 313 mg/dl (10-149)
[2024-01-25 00:15] LABS: Blood Urea Nitrogen 102 mg/dl (9-20); Calcium 5.6 mg/dl (8.4-10.2); Carbon Dioxide < 5 mmol/L (22-30); Chloride 88 mmol/L (98-107); Glucose 133 mg/dl (70-99); Potassium 5.8 mmol/L (3.5-5.1); Sodium 131 mmol/L (135-145)
[2024-01-25 00:31] LABS: Estimated Creatinine Clearance 4 ml/min; eGFR 1.59
[2024-01-25] MEDS: LEVOPHED 250 IV ×3 (00:55→05:34)
[2024-01-25] MEDS: MAGNESIUM SULFATE 50 IV (00:55)
[2024-01-25] MEDS: SODIUM BICARBONATE 100 MEQ IV (00:55)
[2024-01-25] MEDS: THIAMINE INJECTION 200 MG IV ×4 (00:56→23:46)
[2024-01-25] MEDS: HEPARIN 5000 UNITS SC ×4 (00:56→23:46)
[2024-01-25] MEDS: SUBLIMAZE 50 MCG IV ×4 (00:56→03:05)
--- NOTE | 2024-01-25 01:07 | W.PN.UPDATE ---
Update Note
Progress Note Update
Reviewed case with nursing
pt remains hypotensive and requiring 2nd pressor
ongoing persistent acidemia
hence will start CRRT 2k bath
3ltt- dialysate
will make adjustment after repeat labs
[2024-01-25] MEDS: SUBLIMAZE 100 IV ×3 (01:24→21:02)
[2024-01-25] MEDS: RFP-400 HD Soln (K+ 2 mEq/L) 15000 ML CRRT-IRR ×2 (01:27→05:58)
[2024-01-25] MEDS: CALCIUM GLUCONATE 10% INJECTION 290 MG IV (01:58)
[2024-01-25] MEDS: NEO-SYNEPHRINE 250 IV ×2 (02:03→08:26)
[2024-01-25] MEDS: DIPRIVAN 100 IV ×9 (02:09→22:51)
[2024-01-25 03:24] LABS: Lactic Acid 4.8 mmol/L (0.7-2.0)
[2024-01-25 04:19] LABS: B.E. -17.7 mmol/L; PCO2 23 mmHg (35-48); PO2 277 mmHg (83-108)
[2024-01-25 04:25] LABS: HCO3 8.8 mmol/L (21-28); pH 7.19 (7.35-7.45)
--- NOTE | 2024-01-25 04:33 | PTCARENOTE ---
received patient from ER around 2244. pt with confused conversation and stridor breathing, admits to SOB with turning in bed. on RA, levo/bicarb/IVF infusing. house FIXTURE FABRICATOR REPAIRER to bedside to evaluate patient. patient quickly intubated with #8 ETT, 24 at lip.
AC 18/550/100%/5. prop/fent gtts started. WAREHOUSE DELIVERY MANAGER also placed arterial line at bedside. b/l soft wrist restraints applied. borges and joselito hugger in place upon arrival. rectal temp 92.1. no UOP from borges. IR to bedside to place HD cath with pigtail.
lady repleted. plan originally for HD in AM, but pt BP continued to decrease. repeat labs sent, house FIXTURE FABRICATOR REPAIRER and nephrology updated and decision to initiate CRRT made. CRRT running by 0300. vaso and addis gtts added to maintain MAP >65. pt temp
improving, joselito hugger still on at this time, goal temp 97 degrees. bicarb gtt continues. repeat labs due at 0600. FiO2 decreased to 60% after AM ABG. care ongoing.
[2024-01-25] MEDS: SODIUM BICARBONATE 1150 MEQ IV ×2 (05:01→12:29)
[2024-01-25] MEDS: VANCOCIN 540 MG IV (05:06)
[2024-01-25 06:14] LABS: Ionized Calcium 0.88 mMOL/L (1.15-1.33)
[2024-01-25 06:22] LABS: Hematocrit 32.9 % (39.0-52.0); Hemoglobin 10.8 g/dL (13.0-18.0); Mean Corp Hgb Conc. 32.8 g/dL (33.0-37.0); Mean Corpuscular Hgb 32.2 pg (27.0-31.0); Mean Corpuscular Volume 98.2 fL (80.0-94.0); Platelet Count 177 10^3/uL (130-400); Red Blood Cell Count 3.35 10^6/uL (4.70-6.10); Red Cell Dist. Width 13.6 % (11.5-14.5); White Blood Cell Count 11.4 10^3/uL (4.8-10.8)
[2024-01-25 06:25] LABS: Lactic Acid 2.1 mmol/L (0.7-2.0)
[2024-01-25 06:26] LABS: APTT 34.9 Sec (23.4-35.0)
--- NOTE | 2024-01-25 06:42 | HPS.HSE ---
Family Physician
-
Family Physician: INTERVIEWE UNKNOWN - PT NOT
Chief Complaint
-
Vomiting.
History of Present Illness
This is a 58-year-old with history of hypertension, hyperlipidemia vaa-yzptesr-inilistkq diabetes and chronic alcohol use who presents to the emergency department with nausea vomiting.
Patient is a fairly poor historian despite being alert and oriented unable to provide history. He reports that he is a heavy drinker and drinks vodka bottle daily usually. He stated that he started having nausea and vomiting about 3 to 4 days ago.
It was more persistent today so he decided come to the emergency department. He reports projectile vomiting but it was nonbloody and nonbilious. He denied abdominal pain. He denied having any diarrhea. He denies fevers or chills. He reports
that his last drink was about 36 hours ago. He was unable to tell me when he last urinated. He denies any prior history of urinary symptoms including dysuria, frequency urgency incontinence or urinary retention. No prior history of kidney stones.
Initial vital signs in ED showed a blood pressure 102/46 with a pulse of 57 normal oxygen saturation on room air. Measured temp was 98. A repeat rectal temperature was 92. White count was normal with a left shift hemoglobin and platelets were
within normal limits. He had marked elevation in BUN to 107 and creatinine to 28. Calcium was 5.2. Sodium 121 potassium 5.8 chloride 84 and bicarb was less than 5. pH of 7.0. LFTs were within normal limits with normal lipase. CT of the head
was unremarkable. Chest x-ray shows no acute infiltrates. ECG with a normal sinus rhythm but prolonged QTc of 535. Troponin negative.
Medical History
Past Medical History
Past Medical History: Reports HTN, Hypercholesterolemia and NIDDM
Past Surgical History: Reports Other
Social History
Tobacco: Non-smoker
Alcohol: Daily
Drug: None
Personal:
Living: With Family
Employment: Not Employed
Family History
Family History: Not pertinent
Allergies / Home Medications
Allergies reflects when Allergies were last updated in [facility].
Home Medications with original date entered in [facility]
Allergy/Medication List:
Allergies
Allergy/AdvReac Type Severity Reaction Status Date / Time
naproxen sodium [From Aleve] Allergy Tongue Verified 01/06/23 15:44
Swelling
NSAIDS (Non-Steroidal Allergy Unknown Verified 01/06/23 15:44
Anti-Inflamma
wheat [Wheat] Allergy congestion Verified 01/06/23 15:44
Home Medications
Aspirin 81 mg PO DAILY 07/31/21
Fenofibric Acid 135 mg PO DAILY 07/31/21
Furosemide 20 mg PO DAILY 07/31/21
Losartan Potassium 100 mg PO QPM 07/31/21
Simvastatin 40 mg PO DAILY 07/31/21
amlodipine 5 mg tablet 5 mg PO QPM 07/31/21
carvedilol 25 mg tablet (Coreg) 25 mg PO BID 07/31/21
fexofenadine 180 mg tablet 180 mg PO DAILY 07/31/21
metformin 1,000 mg tablet 2,000 mg PO QPM 07/31/21
oxycodone-acetaminophen 5 mg-325 mg tablet 1 - 2 tab PO Q4HPRN PRN moderate to severe pain #20 tabs 08/06/21
lorazepam 1 mg tablet (Ativan) 1 mg PO TID PRN alcohol withdrawal #10 tabs 01/06/23
Review of Systems
-
History Source: Patient and Family
Constitutional: Reports Fatigue
EENT: Reports No Symptoms
Cardiac: Reports No Symptoms
Abdomen/GI: Reports Nausea and Vomiting
: Reports No Symptoms
Musculoskeletal: Reports No Symptoms
Skin: Reports No Symptoms
Neurological: Reports No Symptoms
Endocrine: Reports No Symptoms
Hematologic/Lymphatic: Reports No Symptoms
Psych: Reports No Symptoms
Physical Exam
Vital Signs
Vital Signs
Temp Pulse Resp BP Pulse Ox
96.6 F L 64 0 111/52 98
01/25/24 06:00 01/25/24 06:15 01/25/24 06:15 01/25/24 04:00 01/25/24 06:15
Physical Exam
General: No Apparent Distress
HEENT: NormoCephalic, Anicteric, Atraumatic, PERRLA and No Ptosis
Respiratory: Clear
Cardiac: S1/S2 and Regular Rhythm
Breast: Deferred by me
GI: Soft, Non Tender, Non Distended and Normal Bowel Sounds
Genito-urinary: Deferred by me
Musculoskeletal: No Clubbing, No Cyanosis and No Edema
Skin: Warm
Neuro: AO x 3
Hematologic/Lymphatic: No Lymphadenopathy
Psych: Anxious
Laboratory Results
-
01/25/24 05:50
Laboratory Results
PT 16.1 Sec (11.4-14.6) H 01/24/24 20:37
INR 1.27 01/24/24 20:37
APTT 34.9 Sec (23.4-35.0) 01/25/24 05:50
pH 7.19 (7.35-7.45) L* 01/25/24 04:02
pCO2 23 mmHg (35-48) L 01/25/24 04:02
pO2 277 mmHg (83-108) H 01/25/24 04:02
HCO3 8.8 mmol/L (21-28) L* 01/25/24 04:02
Lactic Acid 2.1 mmol/L (0.7-2.0) H 01/25/24 05:50
Total Bilirubin 0.4 mg/dl (0.2-1.3) 01/24/24 19:04
AST 32 U/L (17-59) 01/24/24 19:04
ALT 22 U/L (0-50) 01/24/24 19:04
Alkaline Phosphatase 54 U/L (38-126) 01/24/24 19:04
Data Reviewed
-
Diagnostic Radiology: Image Personally Visualized and interpreted
Medical Tests (Nuc Med, Echo, EKG etc): Image Personally Visualized and interpreted
Lab Data: Labs Reviewed by me
Old Records: Reviewed
Impression/Plan
-
IMPRESSION:
Jonathan Arechiga 58N.� h/o NIDDM, alcohol use/dependence and HTN comes in due to vomiting and weakness found to be in anuric renal failure and shock.� Patient initially was hemodynamically stable and oriented but rapidly decompensated with finding of
hypothermia and shock.� Source on known.� CT head normal.� Xray clear.� abdominal exam benign, normal lfts, no urine produced despite borges.� On cefepime/vanc and now on 3 pressors.� �Anuric eliane w/ acidemia.� ATN suspected.� Fluids and electrolyte
corrections as per renal.� Dialysis catheter placed and patient started on CRRT.� Intubated for agitation requiring sedation and compromise of respiratory compensation for acidemia.� Very poor prognosis.� Full code per spouse and family has been
updated�
PLAN:
1. Sepsis - Sepsis of unknown source likely with severe dehydration. Hypothermic and hypotensive. CT head negative and intially mentating well. Xray clear, abdomen benign, normal LFTs. No rash or joint findings.
- admit to icu
- cultures of blood sent, no urine to culture
- no bleeding, no ascites
- Cefepime 2g once pending CRRT, then redose per CRRT
- Vancomycin dosing per CRRT
- consider ID consult but now on multiple pressors rather quickly
2. Pulm - Initially, metabolic acidosis with some respiratory compensation. Agitated and decline in mental status necessitated intubation to prevent metabolic collapse. Lungs clear, no infiltrates.
- vent initially setting for hyperventilation and adjusted as tolerated
- sedatives, propofol for now
- solid fiber paster operator consultation
3. Renal Failure - Anuric renal failure with severe metabolic acidosis. Mixed likely lactic acidosis, ketoacidosis and renal failure. Suspect ATN and likely ongoing for some time with severe elevation in serum phosphate. Normal cpk. No NSAIDs.
- renal consulted and appreciate all recommendations
- IR consulted, dialysis catheter placed and started on CRRT
- dose meds accordingly
- additional renal w/u per nephrology
4. DM II
- q6 sliding scale for now
5. ETOH - suspect ongoing withdrawal
- thiamine iv
- on propofol now and intubated, monitor for seizures
DVT PPX - heparin sq
Code status - Full Code
Extremely guarded and poor prognosis. I, Nephrology and ICU discussed this with family and kept spouse updated.
[2024-01-25 06:53] LABS: Blood Urea Nitrogen 88 mg/dl (9-20); Calcium 6.3 mg/dl (8.4-10.2); Carbon Dioxide 8 mmol/L (22-30); Chloride 88 mmol/L (98-107); Glucose 293 mg/dl (70-99); Magnesium 1.4 mg/dl (1.6-2.3); Phosphorus 10.3 mg/dl (2.5-4.5); Potassium 4.3 mmol/L (3.5-5.1); Sodium 130 mmol/L (135-145)
[2024-01-25] MEDS: MAGNESIUM SULFATE 100 IV ×2 (07:01→16:41)
[2024-01-25 07:06] LABS: Estimated Creatinine Clearance 10 ml/min; eGFR 5.04
[2024-01-25] MEDS: CALCIUM GLUCONATE 130 MG IV ×4 (07:20→22:51)
[2024-01-25] MEDS: ATIVAN 1 MG IV ×3 (07:20→19:53)
[2024-01-25] MEDS: FOLVITE PO (07:21)
[2024-01-25] MEDS: MIRALAX TUBE (07:21)
--- NOTE | 2024-01-25 07:45 | CON.INTV ---
Consultation
Consultation Request
Date/Time Consultation Requested: 01/25/2024-7 AM
Date/Time Consultation Performed: 01/25/2024-7:30 AM
Requesting Provider: Hospitalist
Performing Provider: Dr. Kruse
Reason for Consultation: Ventilator/sepsis/critical care management
Medical History
-
Chief Complaint: Nausea/vomiting
History of Present Illness:
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 Patient is intubated, sedated and review of systems was unobtainable.
Past Medical History
Past Medical History: None (Hypertension. Hyperlipidemia. Diabetes. Alcohol use disorder.)
Social History
Tobacco: Non-smoker
Alcohol: Daily
Drug: None
Personal:
Living: With Family
Occupational Exposures: No known asbestos exposure
Environmental Exposures: No known tuberculosis exposure
Family History
Family History: Reviewed & Not Pertinent
Allergies / Home Medications
Allergies
Allergy/AdvReac Type Severity Reaction Status Date / Time
naproxen sodium [From Aleve] Allergy Tongue Verified 01/06/23 15:44
Swelling
NSAIDS (Non-Steroidal Allergy Unknown Verified 01/06/23 15:44
Anti-Inflamma
wheat [Wheat] Allergy congestion Verified 01/06/23 15:44
Home Medications
�Medication �Instructions �Recorded �Confirmed �Last Taken �Type
Aspirin 81 mg PO DAILY 07/31/21 08/06/21 08/05/21 19:00 History
Fenofibric Acid 135 mg PO DAILY 07/31/21 08/06/21 08/05/21 19:00 History
Furosemide 20 mg PO DAILY 07/31/21 08/06/21 08/05/21 19:00 History
Losartan Potassium 100 mg PO QPM 07/31/21 08/06/21 08/05/21 19:00 History
Simvastatin 40 mg PO DAILY 07/31/21 08/06/21 08/05/21 19:00 History
amlodipine 5 mg tablet 5 mg PO QPM 07/31/21 08/06/21 08/06/21 07:30 History
carvedilol 25 mg tablet (Coreg) 25 mg PO BID 07/31/21 08/06/21 08/06/21 07:30 History
fexofenadine 180 mg tablet 180 mg PO DAILY 07/31/21 08/06/21 08/05/21 20:00 History
metformin 1,000 mg tablet 2,000 mg PO QPM 07/31/21 08/06/21 08/03/21 19:00 History
oxycodone-acetaminophen 5 mg-325 1 - 2 tab PO Q4HPRN PRN moderate 08/06/21 Unknown Rx
mg tablet to severe pain #20 tabs
lorazepam 1 mg tablet (Ativan) 1 mg PO TID PRN alcohol withdrawal 01/06/23 Unknown Rx
#10 tabs
Review of Systems
-
Unable to Obtain full review of systems at this time due to: Patient Intubation
Vitals / Labs / Diagnostic Testing
Vital Signs
Temp Pulse Resp BP Pulse Ox
96.7 F L 67 18 111/52 97
01/25/24 07:37 01/25/24 07:37 01/25/24 07:37 01/25/24 07:37 01/25/24 07:37
Lab Data
01/25/24 05:50
01/25/24 05:50
Laboratory Results
01/24/24 01/24/24 01/24/24
20:37 20:50 22:46
PT 16.1 H
INR 1.27
APTT 37.1 H
pH 7.09 L*
pCO2 13 L*
pO2 134 H
HCO3 3.9 L*
O2 Delivery Level
01/24/24 01/25/24 01/25/24
23:28 04:02 05:50
PT
INR
APTT 34.9
pH 7.03 L* 7.19 L*
pCO2 20 L 23 L
pO2 370 H 277 H
HCO3 5.3 L* 8.8 L*
O2 Delivery Level
Diagnostic Testing:
Physical Exam
-
Exam:
Well-nourished and well-developed in no apparent distress
HEENT-atraumatic, normocephalic, oral tracheal intubation
Neck-supple, no JVD, no bruit
Heart-regular rate and rhythm-no murmurs, rubs or gallops
Chest-clear to auscultation, no wheezes, crackles
Abdomen-soft, nontender, nondistended, no hepatosplenomegaly
Extremities-no cyanosis, clubbing, edema and good peripheral pulses
Integument-intact, no rashes, lesions or ecchymosis
Neurologically not alert, not oriented and not moving extremities sedated on a ventilator
Assessment
-
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
Sepsis of unclear source
Severe metabolic acidosis-ABG 01/24/2024--13/134/7.09
Lactic acidosis
KALI-BUN/creatinine-107/>28
Respiratory failure-due to severe acidosis
Intubated 01/24/2024
Extubated
Alcohol use disorder with suspected withdrawal
Leukocytosis-WBC 11.4
Aspiration risk-left basilar infiltrate-atelectasis versus pneumonia
Nsegmz-ozighblcxt-gnygcnxevf 10.8
Hyperkalemia
Mild hyponatremia
Conditions present prior to admission:
Hypertension
Hyperlipidemia
Diabetes
Alcohol use disorder
Plan
Admit patient to medical intensive care unit for persistent hypotension despite fluid resuscitation requiring pressors
Patient intubated mechanically ventilated
Ventilator settings reviewed
ABG reviewed
Minute ventilation increased-to maximally compensate
Follow ABG
VAP prevention protocol
Nebulizers if needed-currently not bronchospastic
Spontaneous breathing trial once stabilized
Follow chest x-ray
Nephrology following-correspondence reviewed-reviewed the case with them
Emergent hemodialysis for electrolyte correction, etc.
Bicarb drip
Follow ABG
Replace electrolytes as needed
Obtain cultures
Empiric antibiotics
Consider Infectious disease consultation
Monitor leukocytosis
Fluid resuscitation with 30 mL/kg crystalloid-preferably lactated ringer-(less KALI) with subsequent boluses as needed-currently on bicarb drip due to severe metabolic acidosis
Monitor lactate
Follow CVP if possible
Attempt noninvasive bedside tissue perfusion evaluation to see if fluid bolus responsive
Measure pulse pressure and stroke volume variation if patient on ventilator, passively breathing without arrhythmia and with temporary large tidal volume ventilation and if > 13% then likely fluid bolus responsive
If patient active then consider measuring bedside leg lift for 3 minutes and if cardiac output increases or if there is a rise of 2-4 on end-tidal CO2 then fluid bolus
If bedside ultrasound available then measure IVC diameter variation to evaluate for fluid bolus responsiveness
Begin pressors as needed for MAP goal of 65-Norepinephrine first, then Vasopressin and consider Angiotensin II if continues to be hypotensive
Consider methylene blue if available-specific inhibitor of induced nitric oxide synthase iNOS and its downstream enzyme soluble guanylate cyclase-noninferiority study shown to reduce time to vasopressor discontinuation, decreased ICU length of stay,
hospital stay but no change in mortality-published Critical Care 05/13/2022
If persistently hypotensive then consider checking random cortisol-hydrocortisone if random less than 3, if 3-15 then consider ACTH stimulation test
If persistently hyperthermic then correcting hyperthermia can decrease pressor requirements, increased chances of reversal of shock and decrease mortality
Alcohol withdrawal treatment protocol
Follow MSAS
Alcohol withdrawal treatment protocol will continue
Supplements glucose and thiamine to prevent Wernicke's encephalopathy
Supplement multivitamins and folate
Replete deficiencies and glucose, potassium, magnesium and phosphorus
Benzodiazepines as needed-diazepam or lorazepam
Precedex drip if needed
If refractory DTs then would consider Phenobarbital 130-260 mg IV every 20 minutes
Alcohol cessation counseling
Consider psychiatry evaluation
Consider rehabilitation
DVT prophylaxis-on subcu heparin
Early nutrition if possible
Early mobilization/bedside range of motion
Critical care statement: A total of 65 minutes of critical care time was provided for this patient today. This includes management of unstable vital signs, evaluation of the patient at bedside, reviewing the patient's pertinent medical records
including radiographs, management of ventilator, spontaneous breathing trial, pressors microbiology, laboratory evaluations, and discussion with primary team, consultants, pharmacy, nutrition, physical therapy, case management, charge nurse,
critical care nursing, and respiratory therapy.
Diagnostic data:
Chest x-ray 01/24/2024-NAD
Chest x-ray 01/25/2024-low lung volumes, mild left basilar atelectasis
Data Reviewed
-
EKG: Report reviewed by me
Radiology: Image personally visualized and interpreted and Report reviewed by me
Medical Tests (Nuc Med, Echo etc): Report reviewed by me
Labs: Labs reviewed by me
Old Records: Reviewed
Critical Care Time (in minutes): 65
--- NOTE | 2024-01-25 07:48 | W.PN.HOSP.TC ---
Today's Communication/Plan
-
Continue pressors, antibiotics, mechanical ventilation
IV fluids, wean off pressors and ventilator as per ICU team
Continue CRRT as per nephrology
Assessment / Plan
Assessment / Plan
Physical Exam
General: No Apparent Distress
HEENT: Normocephalic
Respiratory: Equal air entry bilaterally. Intubated with mechanical ventilation ongoing.
Cardiac: S1/S2 and Regular Rhythm
GI: Soft, Non Tender, Non Distended and Normal Bowel Sounds
Musculoskeletal: No Cyanosis and No Edema
Skin: Warm
Neuro: Sedated
Assessment/Plan
Jonathan Arechiga 58N.� h/o NIDDM, alcohol use/dependence and HTN presented with vomiting and weakness found to be in anuric renal failure and shock.� Patient initially was hemodynamically stable and oriented but rapidly decompensated with finding of
hypothermia and shock.� Source unknown.� CT head normal.� Xray clear.� abdominal exam benign, normal lfts, no urine produced despite borges.� On cefepime/vanc and now on 3 pressors.� �Anuric kali w/ acidemia.� ATN suspected.� Fluids and electrolyte
corrections as per renal.� Dialysis catheter placed and patient started on CRRT.� Intubated for agitation requiring sedation and compromise of respiratory compensation for acidemia.� Very poor prognosis.� Full code per spouse and family has been
updated�
Sepsis of unknown source likely with severe dehydration
Concern for Septic Shock
Acute Hypoxic Respiratory Failure -- Secondary to Acidosis
Hypothermic and hypotensive.
- Continue monitoring in ICU
- cultures of blood sent, no urine to culture
- no bleeding, no ascites
- Continue broad spectrum antibiotics -- Cefepime and Vancomycin
- ID consulted, appreciate their evaluation and recommendations
- Continue mechanical ventilation
- IV fluids as per calibration tester
Severe metabolic acidosis
Lactic acidosis
KALI
Hyperkalemia
Hyponatremia
-Continue CRRT
-Appreciate Nephrology
Leukocytosis-WBC 11.4
Aspiration risk-left basilar infiltrate-atelectasis versus pneumonia
-Continue antibiotics as above
Puiofp-boldzklriw-dzrkpekitt 10.8
Hypertension - hold home antihypertensives
Hyperlipidemia
Diabetes Mellitus
Alcohol Use Disorder - suspect ongoing withdrawal
- thiamine iv
- on propofol now and intubated, monitor for seizures
DVT PPX - heparin sq
Code status - Full Code
I spoke to patient's family today inside patient's room. All questions and concerns answered to satisfaction.
High risk encounter since shock needing 3 pressors.
Anticipated Discharge: > 48 hours
Subjective/Interval History
-
Date of Service: January 25, 2024
Patient was seen and examined. He remained intubated and sedated.
Objective Data
-
Labs:
Laboratory Results
01/24/24 01/24/24 01/24/24
19:04 20:37 20:50
WBC
Hgb
Hct
Plt Count
PT 16.1 H
INR 1.27
APTT
HCO3 3.9 L*
Sodium
Potassium
Chloride
Carbon Dioxide
BUN
Creatinine > 28.0 H*
Glucose
Calcium
01/24/24 01/24/24 01/24/24
22:46 23:27 23:28
WBC
Hgb
Hct
Plt Count
PT
INR
APTT 37.1 H
HCO3 5.3 L*
Sodium 131 L
Potassium 5.8 H
Chloride 88 L
Carbon Dioxide < 5 L*
BUN 102 H*
Creatinine > 28 H*
Glucose 133 H
Calcium 5.6 L*
01/25/24 01/25/24
04:02 05:50
WBC 11.4 H
Hgb 10.8 L
Hct 32.9 L
Plt Count 177
PT
INR
APTT 34.9
HCO3 8.8 L*
Sodium 130 L
Potassium 4.3 D
Chloride 88 L
Carbon Dioxide 8 L*
BUN 88 H
Creatinine 10.7 H*
Glucose 293 H
Calcium 6.3 L*
Vital Signs:
Vital Signs
Temp Pulse Resp BP Pulse Ox
96.7 F L 67 18 111/52 97
01/25/24 07:37 01/25/24 07:37 01/25/24 07:37 01/25/24 07:37 01/25/24 07:37
I&O
01/24/24 01/25/24 01/26/24
06:59 06:59 06:59
Intake Total 2196.8 / 2543.0 346.2 / 346.2
Output Total 15.75 / 18.67 2.92 / 2.92
Balance 2181.05 / 2524.33 343.28 / 343.28
--- NOTE | 2024-01-25 08:09 | PHA.VAN.IN ---
Assessment
- Assessment
Renal Function: Other (Currently on CRRT)
Minimum Temperature: 92.1
Concomitant Antimicrobials: Cefepime x1, regimen TBD per ID
Plan
- Plan
Initial / Loading Dose: Vanco 2G loading dose given 01/25/24 at 0506
Maintenance Regimen: Dose by level
Monitoring: Random level at 01/25/24 1600
Pharmacokinetics Vancomycin I
- -
Patient Age: 58
Patient Sex: Male
Vancomycin Day #: 1
Indication: Other
Requesting Provider: Kd Gonzáles
Pertinent Antimicrobial Allergies:
No known Antibiotics Allergies
Height / Weight:
Height 5 ft 11 in
Actual Weight 114 kg
- Vital Signs / Lab Results
Temp Pulse Resp BP Pulse Ox
96.7 F L 67 18 111/52 97
01/25/24 07:37 01/25/24 07:37 01/25/24 07:37 01/25/24 07:37 01/25/24 07:37
Lab Results - Hematology
01/24/24 01/25/24
19:04 05:50
WBC 8.5 11.4 H
Lab Results - Chemistry
01/24/24 01/24/24 01/25/24
19:04 23:27 05:50
BUN 107 H* 102 H* 88 H
Creatinine > 28.0 H* > 28 H* 10.7 H*
Estimated Creat Clear 4 10
Albumin 4.0
01/24/24 01/25/24 01/25/24
22:46 02:43 05:50
Lactic Acid 8.5 H* 4.8 H* 2.1 H
Lab Results - Urine
01/24/24
23:27
Urine Nitrite (Reflex) Cancelled
Leukocyte Esterase Rfl Cancelled
--- NOTE | 2024-01-25 09:33 | PTCARENOTE ---
Critical care update with draw operator team, nephrology and respiratory cares team all at bedside. Follow up new orders with renal at bedside. Bath changes asper Renal, CRRT as ordered with hourly or more frequent trends, protocol labs. Ventilator
changes with pulmonary/draw operator team at bedside. Ongoing assessment with respiratory cares team. Family at bedside. Updated concerns, plan in cares, updates with md and review critical care team, function and plan of cares. Ongoing emotional
support and supportive cares with teaching as needed.
--- NOTE | 2024-01-25 09:57 | W.PN.NEPH.PH ---
Today's Communication / Plan
-
see plan
Assessment/Plan
-
IMP:
Severe KALI
Acidemia with severe metabolic acidosis- A gap
hypotension
Hyperkalemia
Hyponatremia
Hypocalcemia
Hypomagnesemia
Hyperphosphatemia
suspected ETOH withdrawal-DTs
h/o HTN
NIDDM
Obesity
ETOH abuse
Plan:
A/w n/v, poor po intake
severe anuric KALI-cr over 28 on admit, baseline cr 0.9 in Dec
highly suspect ATN, will send serologies
need abd imaging to r/o any other cause
CK not elevated, 35cc UOP in borges
osmo gap only 13 and alcohol level 12, no h/o other alcohol ingestion per history
elevated L acid and B hydroxy-L acid better now
acidemia improving on bicarb IVF, s/p VDRF now
CRRT initiated midnight for refractory acidosis
now that k is normal change to 4k bath
cont replace abad, mg per protocol, check vit d and PTH
As acidosis improves likely adjust IVF later today
cont pressors to keep MAP>65, currently on 3
concentrate all drips
cont sedation for DTs
he is critically ill
CC time spent 35min
d/w nursing and ICU
-
-
Date of Service: January 25, 2024
CC / HPI / ROS
-
Chief Complaint:
KALI
History of Present Illness:
CRRT started at 3 am for refractory acidosis
now on 3 pressors. no fever
last Ph 7.19 at 4am, bicarb 8, k at 4.3
hb decreasing to 10.8
abad 6.3, mg 1.4
Review of Systems:
sedated and intubated, 60% Fio2
Labs
-
Labs:
WBC 11.4 10^3/uL (4.8-10.8) H 01/25/24 05:50
RBC 3.35 10^6/uL (4.70-6.10) L 01/25/24 05:50
Hgb 10.8 g/dL (13.0-18.0) L 01/25/24 05:50
Hct 32.9 % (39.0-52.0) L 01/25/24 05:50
Plt Count 177 10^3/uL (130-400) 01/25/24 05:50
eGFR 5.04 01/25/24 05:50
Albumin 4.0 g/dl (3.5-5.0) 01/24/24 19:04
Physical Exam
-
Vital Signs:
Vital Signs
Temp Pulse Resp BP Pulse Ox
97.4 F 62 0 119/59 98
01/25/24 09:00 01/25/24 09:15 01/25/24 09:15 01/25/24 08:00 01/25/24 09:15
Cardiovascular:: Regular rate and rhythm
Respiratory:: Bilateral: CTA (clear antriorly)
Lung Excursion:: Abnormal
Abdomen:: Nontender and Soft
Extremity Edema:: None: Bilateral:
Borges Catheter: Yes
[2024-01-25] MEDS: PITRESSIN 100 IV ×2 (10:20→18:01)
[2024-01-25] MEDS: NEO-SYNEPHRINE 1% 260 MG IV (10:20)
[2024-01-25] MEDS: LEVOPHED 258 MG IV ×2 (10:21→17:12)
[2024-01-25 10:22] LABS: B.E. -9.4 mmol/L; PCO2 28 mmHg (35-48); PO2 143 mmHg (83-108); pH 7.34 (7.35-7.45)
[2024-01-25 10:25] LABS: Ionized Calcium 0.99 mMOL/L (1.15-1.33)
[2024-01-25 10:26] LABS: HCO3 15.1 mmol/L (21-28)
[2024-01-25 10:34] LABS: Amphetamines Negative (Negative); Barbiturates Negative (Negative); Benzodiazepines Negative (Negative); Buprenorphine Negative (Negative); Cocaine Negative (Negative); Marijuana Negative (Negative); Methadone Negative (Negative); Methamphetamines Negative (Negative); Opiates Negative (Negative); Phencyclidine Negative (Negative); Tricyclic Antidepressants Negative (Negative)
--- NOTE | 2024-01-25 10:38 | CON.ID ---
Consultation
-
Date/Time Consultation Requested: 01/25/2024 0948
Date/Time Consultation Performed: 01/25/2024 1038
Requesting Provider: Dr. Birmingham
Performing Provider: Dr. Wade
Reason for Consultation: Clinical sepsis
Chief Complaint / Past History
History of Present Illness
Jonathan Arechiga is a 58-year-old man being evaluated at the request of Dr. Birmingham regarding clinical sepsis. History is obtained from chart review, and that obtained from the patient's and daughter who are at the bedside. No history was
available from the patient as the patient is currently intubated.
The patient has a significant past medical history for DM, hypertension, and daily vodka ingestion, who presented to [facility] late last evening with complaints of vomiting for the past 3 days. At that time he admitted to abdominal
discomfort, but denied any fevers, chills, chest pain, shortness of breath..
According to the family, he has been characterized as an alcoholic for at least the past 10 years, but his drinking has worsened and increased over the past 3 years since he retired. He reportedly has several drinks daily, with a full bottle of
vodka on the weekends. Family believes that he had not urinated for 3 days prior to admission. No history of fevers prior to admission, but he reported occasional chills.
In the emergency room he was found to be in acute renal failure, and has been started on CRRT. Additionally, he developed respiratory distress, and has been intubated. He is currently on 3 pressors, on the vent in the ICU.
Past History
Additional Past Medical History:
HTN
Dyslipidemia
DM
Sleep apnea (CPAP)
Additional Past Surgical History:
Left knee replacement
Allergy History:
naproxen sodium [From Aleve] Allergy (Verified 01/06/23 15:44)
Tongue Swelling
NSAIDS (Non-Steroidal Anti-Inflamma Allergy (Verified 01/06/23 15:44)
Unknown
wheat [Wheat] Allergy (Verified 01/06/23 15:44)
congestion
Medications Reviewed: Yes
Current Antibiotics:
Vancomycin
Cefepime
Social History
Tobacco: Former Smoker
Alcohol: Chronic Alcoholic (1 bottle vodka Sat / Sun. 2-3 drinks Mon-Fri.)
Drug: None
Personal:
Living: With Family
Employment: Retired
Family History
Family History: Not Pertinent
Review of Systems
Vital Signs
Temp Pulse Resp BP Pulse Ox
97.1 F 62 0 119/59 98
01/25/24 10:00 01/25/24 09:15 01/25/24 09:15 01/25/24 08:00 01/25/24 09:15
Physical Exam
Physical Exam
Constitutional: Acutely Ill, Chronically Ill and Toxic
Head: Normocephalic
Eyes: Pupils Equal, Pupils Round, No Conjunctival Hemorrhage and Sclera Anicteric
Oral: Other (ET tube in place.)
Cardiovascular: S1/S2; Negative S3/S4
Pulmonary: Coarse; Negative Rhonchi
Gastrointestinal: Soft, Non Distended, Decreased Bowel Sounds, No Rebound and No Guarding
Genito-Urinary: Navarrete and Clear Urine
Extremities: Edema; Negative Cyanosis or Erythema
Neurological: Other (Responsive to touch.)
Lab / Diagnostic Study Results
Abs Immat Gran (auto) 0.2 10^3/uL (0-0.05) H 01/24/24 19:04
Absolute Neuts (auto) 6.9 10^3/uL (1.4-6.5) H 01/24/24 19:04
Absolute Lymphs (auto) 0.6 10^3/uL (1.2-3.4) L 01/24/24 19:04
Absolute Monos (auto) 0.8 10^3/uL (0.1-0.6) H 01/24/24 19:04
Absolute Basos (auto) 0.0 10^3/uL (0-0.2) 01/24/24 19:04
Immature Gran % 2.5 % (0-0.5) H 01/24/24 19:04
Neutrophils % 81.5 % (42.2-75.2) H 01/24/24 19:04
Lymphocytes % 6.5 % (20.5-51.1) L 01/24/24 19:04
Monocytes % 9.0 % (1.7-9.3) 01/24/24 19:04
Eosinophils % 0.1 % (0-6) 01/24/24 19:04
Basophils % 0.4 % (0-2) 01/24/24 19:04
PT 16.1 Sec (11.4-14.6) H 01/24/24 20:37
INR 1.27 01/24/24 20:37
Lactic Acid 2.1 mmol/L (0.7-2.0) H 01/25/24 05:50
Microbiology Results
Micro:
01/25/24 10:10 MRSA Screen - Pending
Nose
01/24/24 22:37 Blood Culture - Pending
Blood/Venous
01/24/24 22:37 Blood Culture - Pending
Blood/Venous
Imaging:
01/25/2024 CXR (portable): Low lung volumes with mild left base atelectasis noted. No acute infiltrate seen. Please see full dictation for additional detail. Film personally viewed.
Assessment / Plan
VDRF
KALI; currently on CRRT
Hypotension; on 3 pressors
Clinical sepsis
Leukocytosis
Lactic acidosis
HTN
Dyslipidemia
DM
Sleep apnea (CPAP)
Recommendations:
Continue with current antibiotic therapy.
Given KALI and CRRT, vancomycin will be dosed by levels.
Will continue cefepime at 2 g every 24 hours.
Monitor white count temperature curve.
Will follow pending blood cultures. Repeat blood cultures x 2 should patient spike a temperature greater than 101 degrees.
Wean pressors as able, keep MAP greater than 65.
Continue with supportive measures.
Patient critically ill on vent, on 3 pressors, in intensive care unit.
Care Review
Plan reviewed with: Nurse and Physician (Hospitalist)
[2024-01-25 10:39] LABS: Blood Urea Nitrogen 72 mg/dl (9-20); Calcium 7.1 mg/dl (8.4-10.2); Carbon Dioxide 13 mmol/L (22-30); Chloride 91 mmol/L (98-107); Glucose 288 mg/dl (70-99); Magnesium 2.3 mg/dl (1.6-2.3); Phosphorus 7.6 mg/dl (2.5-4.5); Potassium 4.2 mmol/L (3.5-5.1); Sodium 128 mmol/L (135-145)
[2024-01-25 10:40] LABS: Lactic Acid 2.1 mmol/L (0.7-2.0)
[2024-01-25 10:50] LABS: Estimated Creatinine Clearance 12 ml/min; eGFR 6.94
[2024-01-25] MEDS: RFP-401 HD Soln (K+ 4 mEq/L) 15000 ML CRRT-IRR ×2 (10:56→16:08)
--- NOTE | 2024-01-25 11:00 | W.PN.UPDATE ---
Update Note
Progress Note Update
CRRT note:
Orders adjusted to 4k bath
dialysate changed to 1.5lit/hr,
dose meds GFR 25cc/min
cont labs checks
bld flow 200-300ml/min
no UF
[2024-01-25] MEDS: NOVOLOG FLEXPEN-MODERATE RESISTANCE 5 UNITS SC (11:40)
--- NOTE | 2024-01-25 12:14 | PTCARENOTE ---
Update again with patient family. Going home at this assessment. CRRT continues with adjustments as per nephrology. Continue taper wean pressors as ordered. Assessment remains unchanged. Patient wakes easily follows commands then falls asleep. Nods
appropriate to simple questions. Follow up labs as ordered and as per renal. Continue with critical care nursing at bedside. Follow up consults. Hospitalist team at bedside, infectious disease team at bedside continue follow up with trauma therapist
team. Oral cares skin cares as per unit based protocols.
--- NOTE | 2024-01-25 14:31 | CM ---
Spoke with Varun and dgt Celine in room due to pt intubated. 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 Pt has been retired x 3 years and alcohol consumption
has increased to 3-5 bottles of Vodka or wine.Last 3 days he has had N/V which increased.He has had increased falls.Family wants him in an in patient alcohol rehab at [place]. [place] [facility] will have [facility] follow up when appropriate.He has hx of
HTN, increased cholesterol,depression.He has a hx of DUI.
Pharmacy [facility]
PCP DR Mehta
PLAN CM ill continue to assess and assist with dc planning
[2024-01-25 16:08] LABS: Ionized Calcium 1.02 mMOL/L (1.15-1.33)
[2024-01-25 16:09] LABS: Hematocrit 28.8 % (39.0-52.0); Hemoglobin 10.3 g/dL (13.0-18.0); Mean Corp Hgb Conc. 35.8 g/dL (33.0-37.0); Mean Corpuscular Hgb 31.8 pg (27.0-31.0); Mean Corpuscular Volume 88.9 fL (80.0-94.0); Mean Platelet Volume 9.6 fL (7.4-10.4); Platelet Count 152 10^3/uL (130-400); Red Blood Cell Count 3.24 10^6/uL (4.70-6.10); Red Cell Dist. Width 13.2 % (11.5-14.5); White Blood Cell Count 9.4 10^3/uL (4.8-10.8)
--- NOTE | 2024-01-25 16:16 | SUR.PHASEI ---
LA BASILIC PICC RETRACTED 2.5CM PER INDICATED BY RADIOLOGIST, PRIMARY RN AWARE.
[2024-01-25 16:19] LABS: Lactic Acid 3.4 mmol/L (0.7-2.0)
[2024-01-25 16:22] LABS: Blood Urea Nitrogen 65 mg/dl (9-20); Calcium 7.6 mg/dl (8.4-10.2); Carbon Dioxide 17 mmol/L (22-30); Chloride 93 mmol/L (98-107); Estimated Creatinine Clearance 14 ml/min; Glucose 246 mg/dl (70-99); Magnesium 1.9 mg/dl (1.6-2.3); Potassium 3.8 mmol/L (3.5-5.1); Sodium 128 mmol/L (135-145); eGFR 8.11
[2024-01-25 16:24] LABS: Vancomycin Random 14.6 ug/ml
[2024-01-25 16:28] LABS: Absolute Neutrophils -Man Diff 7.1 10^3/uL (1.4-6.5); Band Neutrophils 0 % (0-3); Lymphocytes 14 % (20-51); Monocytes 10 % (2-9); Normal RBC Morphology Yes; Platelets Checked Yes; Segmented Neutrophils 76 % (42-75); Smudge Cells Slight; Total Cells Counted 100
--- NOTE | 2024-01-25 16:45 | PTCARENOTE ---
Assessment unchanged. Patient sleeping lightly on sedation. Weaned neosynephrine to off. Levophed presently at 16mcg/min. CRRT continues with lyte replacement as ordered. Weaned fio2 to 50% on ventilator. PICC line placed follow up vac protocols and
line cares. Continue oral cares and skin cares. Update with Lens Silverer ongoing. Continue follow up ivf and drips. Critical care nursing remains at bedside. Updates with patient ongoing, with supportive cares and emotional support.
[2024-01-25] MEDS: NOVOLOG FLEXPEN-MODERATE RESISTANCE 3 UNITS SC (18:01)
[2024-01-25] MEDS: VANCOCIN HCL 500 MG 100 IV (18:33)
[2024-01-25] MEDS: SODIUM BICARBONATE 1075 MEQ IV (19:18)
[2024-01-25 20:03] LABS: Ionized Calcium 1.13 mMOL/L (1.15-1.33)
[2024-01-25 20:24] LABS: Blood Urea Nitrogen 58 mg/dl (9-20); Calcium 7.7 mg/dl (8.4-10.2); Carbon Dioxide 21 mmol/L (22-30); Chloride 93 mmol/L (98-107); Estimated Creatinine Clearance 14 ml/min; Glucose 213 mg/dl (70-99); Magnesium 2.5 mg/dl (1.6-2.3); Potassium 3.5 mmol/L (3.5-5.1); Sodium 129 mmol/L (135-145); eGFR 8.25
[2024-01-25 20:25] LABS: Lactic Acid 4.4 mmol/L (0.7-2.0)
[2024-01-25] MEDS: KCL 100 IV (20:37)
--- NOTE | 2024-01-25 20:47 | PTCARENOTE ---
assessment as documented. 1999 CRRT labs sent. K and calcium to be repleted. LA 4.4, ICU TUBE CLOSING MACHINE OPERATOR aware, will keep trending. pt responds to verbal stimuli, nods appropriately, is restless at times, MSAS with PRN ativan continues. SB on monnitor. arterial
line leveled and zeroed, MAP goal >65, titrating levo and vaso per protocol. #8 ETT, 24 @ lip, adjusted to center. AC 22/550/5/50%. pt remains NPO. borges intact, oliguria noted. prop/fent continue for sedation. new bicarb gtt hung. CRRT continues,
4K bath, TFR 1.5, BFR 250, no UF ordered. next set of labs due at 0000. family updated via phone. care continues.
[2024-01-25] MEDS: MAXIPIME 2000 MG IV (21:06)
[2024-01-25] MEDS: STERILE WATER FOR INJECTION 10 ML IV (21:06)
[2024-01-25 21:53] LABS: Urine Albumin 2+ (Neg - Trace); Urine Bilirubin Negative (Negative); Urine Character Very Cloudy (Clear); Urine Color Amber; Urine Glucose 1+ (Negative); Urine Ketone Negative (Negative); Urine Leukocyte 2+ (Negative); Urine Nitrite Negative (Negative); Urine Occult Blood 4+ (Negative); Urine Specific Gravity 1.015 (<1.030); Urine Urobilinogen Negative (Neg - 1+)
[2024-01-25 22:05] LABS: Osmolality Urine 294 mOsm/kg (300-900)
[2024-01-25 22:07] LABS: Urine Granular Cast 0-2 /LPF (0); Urine Red Blood Cell 30-40 /HPF (0-2)
[2024-01-25 22:08] LABS: Urine Bacteria Moderate (Negative)
[2024-01-25 22:16] LABS: Urine Sodium 96 mmol/L (30-90)
[2024-01-25] MEDS: NOVOLOG FLEXPEN-MODERATE RESISTANCE 1 UNITS SC (23:57)
[2024-01-26] VITALS (9 sets, daily range): BP systolic 97–134; BP diastolic 56–71; BMI 37.9
[2024-01-26 00:07] LABS: Ionized Calcium 1.21 mMOL/L (1.15-1.33)
[2024-01-26 00:08] LABS: Glucose - Point of Care 178 mg/dl (70-99)
--- NOTE | 2024-01-26 00:15 | PTCARENOTE ---
midnight labs sent. no change in assessment noted. weaning pressors as tolerated, CRRT ongoing. care continues.
[2024-01-26] MEDS: RFP-401 HD Soln (K+ 4 mEq/L) 15000 ML CRRT-IRR ×3 (00:18→20:12)
[2024-01-26 00:21] LABS: Lactic Acid 3.2 mmol/L (0.7-2.0)
[2024-01-26 00:29] LABS: Blood Urea Nitrogen 54 mg/dl (9-20); Calcium 8.5 mg/dl (8.4-10.2); Carbon Dioxide 20 mmol/L (22-30); Chloride 96 mmol/L (98-107); Estimated Creatinine Clearance 16 ml/min; Glucose 166 mg/dl (70-99); Magnesium 2.3 mg/dl (1.6-2.3); Phosphorus 3.3 mg/dl (2.5-4.5); Potassium 3.9 mmol/L (3.5-5.1); Sodium 131 mmol/L (135-145); eGFR 9.52
[2024-01-26] MEDS: ATIVAN 1 MG IV ×4 (01:23→23:51)
[2024-01-26] MEDS: DIPRIVAN 100 IV ×7 (01:23→19:55)
[2024-01-26 01:51] LABS: Complement C3 103 mg/dl (88-165)
[2024-01-26] MEDS: LEVOPHED 258 MG IV (03:50)
[2024-01-26] MEDS: SODIUM BICARBONATE 1075 MEQ IV (03:50)
[2024-01-26 04:08] LABS: B.E. 1.8 mmol/L; HCO3 22.5 mmol/L (21-28); O2 Saturation % 99.5 % (94-98); PCO2 24 mmHg (35-48); PO2 85 mmHg (83-108); pH 7.58 (7.35-7.45)
[2024-01-26 04:10] LABS: O2 Therapy 40
[2024-01-26 04:15] LABS: Ionized Calcium 1.18 mMOL/L (1.15-1.33)
[2024-01-26 04:33] LABS: INR 1.09; PT 14.4 Sec (11.4-14.6)
[2024-01-26 04:35] LABS: Hematocrit 28.6 % (39.0-52.0); Hemoglobin 10.6 g/dL (13.0-18.0); Mean Corp Hgb Conc. 37.1 g/dL (33.0-37.0); Mean Corpuscular Hgb 32.8 pg (27.0-31.0); Mean Corpuscular Volume 88.5 fL (80.0-94.0); Mean Platelet Volume 9.6 fL (7.4-10.4); Platelet Count 130 10^3/uL (130-400); Red Blood Cell Count 3.23 10^6/uL (4.70-6.10); Red Cell Dist. Width 13.2 % (11.5-14.5); White Blood Cell Count 7.3 10^3/uL (4.8-10.8)
[2024-01-26 04:46] LABS: Lactic Acid 2.6 mmol/L (0.7-2.0)
[2024-01-26 04:47] LABS: Albumin 2.5 g/dl (3.5-5.0); Carbon Dioxide 21 mmol/L (22-30); Estimated Creatinine Clearance 16 ml/min; eGFR 9.52
[2024-01-26 04:49] LABS: APTT 35.2 Sec (23.4-35.0)
[2024-01-26 04:56] LABS: ALT (SGPT) 25 U/L (0-50); AST (SGOT) 34 U/L (17-59); Alkaline Phosphatase 65 U/L (38-126); Blood Urea Nitrogen 49 mg/dl (9-20); Calcium 8.2 mg/dl (8.4-10.2); Chloride 97 mmol/L (98-107); Glucose 118 mg/dl (70-99); Magnesium 2.2 mg/dl (1.6-2.3); Phosphorus 2.8 mg/dl (2.5-4.5); Potassium 3.8 mmol/L (3.5-5.1); Sodium 132 mmol/L (135-145); Total Bilirubin 0.4 mg/dl (0.2-1.3); Total Protein 4.7 g/dl (6.3-8.2)
[2024-01-26] MEDS: CALCIUM GLUCONATE 130 MG IV ×2 (05:21→20:37)
--- NOTE | 2024-01-26 05:25 | PTCARENOTE ---
AM labs sent, no changes in assessment noted. calcium repleted this AM. US at bedside currently. care ongoing.
[2024-01-26] MEDS: NOVOLOG FLEXPEN-MODERATE RESISTANCE SC ×3 (05:26→17:19)
[2024-01-26] MEDS: SUBLIMAZE 100 IV ×2 (05:56→17:11)
--- NOTE | 2024-01-26 07:05 | W.PN.INTV ---
Today's Communication / Plan
Recommendations
Remains critically ill, on CRRT per renal
Adjust vent settings, repeat ABG
Add phenobarb protocol, wean sedation/pressors as tolerated
Check ECHO
Abx continued, check urine/sputum cultures
Trend labs
Assessment
-
58-year-old male with history of hypertension, hyperlipidemia, diabetes and chronic alcohol abuse presented with nausea, vomiting felt to be septic, severe acidosis, KALI requiring intubation and emergent dialysis-forecast analyst consulted for alcohol
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
Sepsis of unclear source, possible UTI (UA + mod bacteria/+LE)
Severe metabolic acidosis-ABG 01/24/2024--13/134/7.09
Lactic acidosis
KALI-BUN/creatinine-107/>28
Respiratory failure-due to severe acidosis
Intubated 01/24/2024
Extubated
Alcohol use disorder with suspected withdrawal
Leukocytosis-WBC 11.4
Aspiration risk-left basilar infiltrate-atelectasis versus pneumonia
Zfgydn-saldfazfez-ojphfbinno 10.8
Hyperkalemia
Mild hyponatremia
Conditions present prior to admission:
Hypertension
Hyperlipidemia
Diabetes
Alcohol use disorder
NIDDM
Plan
Sedation: Fent/prop
On MSAS for severe ETOH w/d likely-drinks 2L per day (liquor, reportedly)
Add on high dose phenobarb taper, wean sedation as tolerated
Precedex if needed
Thiamine/Folate
Head CT 2022 negative in past, some mild volume loss/leukoaraiosis
Eval MS further upon extubation
Unstable, placed on pressors, weaning down
H/o HTN, no other cardiac history noted
Prio ECHO in 2014 with normal biV function
No clear reason for hypotension, will recheck ECHO
Monitor on telemetry
Patient intubated mechanically ventilated, hypoxemia/unresponsiveness
Ventilator settings reviewed--550/22/50/5+, change RR to 14 (based on CO2)
ABG(s) reviewed, repeat pending change
Nebulizers if needed-currently not bronchospastic
Spontaneous breathing trial once stabilized
Follow chest x-ray--overall low lung volumes, no acute findings
NPO, DHT placement today
Can start TFs, PO meds
Aspiration precautions
GI ppx, add on
Monitor BMs
Severe KALI, new, improving
Likely combo pre-renal and intrinsic renal disease
Nephrology following-correspondence reviewed
Emergent hemodialysis for electrolyte correction, CRRT ongoing
Eventual transition to HD when able
Volume removal
Replace electrolytes as needed, serial labs
Renal US pending, may need eventual bx
Placed on abx for presumed infection
Cultures reviewed-- negative blood, UA + but no reflex to urine
Add urine and sputum culture
If culture negative, would d/c abx and observe off
Monitor leukocytosis
Procal likely of no value in setting of renal failure
No bleeding/coagulopathy noted, follow CBC
Mild anemia, likely critically ill/dilutional
Transfused as needed for Hb <7, plt <10
DVT ppx
No history of thyroid disease
TSH 1.58
NIDDM, on metformin as OP
Follow q6 PRN SS
Hba1c 12/07/23 6.0, prior 6.5
Diagnostic data:
Chest x-ray 01/24/2024-NAD
Chest x-ray 01/25/2024-low lung volumes, mild left basilar atelectasis
ECHO 12/02/14- Normal biventricular size and systolic function without regional wall motion abnormality. No significant valvular disease. No prior study available for comparison.
-----
Critical Care time 76 mins -- The patient is admitted for acute critical illness for the treatment of vital organ failure and/or prevention of further life-threatening conditions. Total care includes time spent in review of history, physical exam,
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
Case presented by resident (see separate note).
Subjective Dataa
Subjective Data
Date of Service:
Date of Service: January 26, 2024
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
Subjective:
No events ON, remains critically ill on vent
CRRT ongoing
Weaning off pressors/sedation
Objective Data
Data Reviewed
Vital Signs / I&O / Oxygen:
Vital Signs
Temp Pulse Resp BP Pulse Ox
97.7 F 52 0 124/65 97
01/26/24 04:07 01/26/24 06:30 01/26/24 06:30 01/26/24 06:14 01/26/24 06:30
Intake and Output
01/25/24 01/26/24 01/27/24
06:59 06:59 06:59
Intake Total 2196.8 / 2543.0 6360.0 / 6360.0
Output Total 15.75 / 18.67 366.96 / 366.96
Balance 2181.05 / 2524.33 5993.04 / 5993.04
SaO2 [A/C] 96
SaO2 97
Physical Exam
General: Comfortable and Other (NAD)
HEENT: Normocephalic, Anicteric and Moist Mucous Membranes
Cardiovascular: S1-S2 and Regular Rhythm
Respiratory: Clear, Non-Labored Respirations and ET Tube
GI: Soft, Non Distended and Non Tender
Neurology: No Motor Deficits, Lethargic (sedated/intubated) and Non Verbal
Skin: Warm, Dry and Good Color
Labs/Micro/Reports
Lab Data
01/26/24 03:59
Laboratory Results
01/25/24 01/26/24
10:10 03:59
PT 14.4
INR 1.09
APTT 35.2 H
pH 7.34 L 7.58 H
pCO2 28 L 24 L
pO2 143 H 85
HCO3 15.1 L* 22.5
O2 Delivery Level 40
Microbiology
01/24/24 22:37 Blood/Venous Blood Culture - Preliminary
No Growth in 24 hours- Final report to follow
01/24/24 22:37 Blood/Venous Blood Culture - Preliminary
No Growth in 24 hours- Final report to follow
[2024-01-26] MEDS: HEPARIN 5000 UNITS SC ×3 (07:41→23:32)
[2024-01-26] MEDS: MIRALAX TUBE (07:41)
[2024-01-26] MEDS: THIAMINE INJECTION 200 MG IV ×3 (07:41→23:32)
[2024-01-26] MEDS: FOLVITE PO (07:48)
[2024-01-26 07:53] LABS: Absolute Neutrophils -Man Diff 4.9 10^3/uL (1.4-6.5); Band Neutrophils 4 % (0-3); Eosinophils 1 % (0-6); Lymphocytes 16 % (20-51); Metamyelocytes 1 % (-); Monocytes 14 % (2-9); Normal RBC Morphology Yes; Platelets Checked Yes; Segmented Neutrophils 64 % (42-75)
[2024-01-26 07:54] LABS: Total Cells Counted 100
--- NOTE | 2024-01-26 07:58 | W.PN.NEPH.PH ---
Today's Communication / Plan
-
DC sodium bicarbonate IV fluid
Maintain pressors to keep systolic blood pressure over 110
CRRT orders provided, maintain even I's and O's
ABG reviewed respiratory alkalosis noted with subsequent alkalemia
Decrease ventilation re PCO2 at 24
Assessment/Plan
-
IMP:
Severe KALI
Acidemia with severe metabolic acidosis- A gap
hypotension
Hyperkalemia
Hyponatremia
Hypocalcemia
Hypomagnesemia
Hyperphosphatemia
suspected ETOH withdrawal-DTs
h/o HTN
NIDDM
Obesity
ETOH abuse
Plan:
A/w n/v, poor po intake
severe anuric KALI-cr over 28 on admit, baseline cr 0.9 in Oct
highly suspect ATN, s/p serologies sent
renal u/s report pending
CK not elevated,325 cc UOP in borges
alkalemia on ABG (d/c hco3 IVFs)
osmo gap only 13 and alcohol level 12, no h/o other alcohol ingestion per history
elevated L acid and B hydroxy-L acid better now
acidemia improving on bicarb IVF and CRRT
CRRT initiated midnight for refractory acidosis in setting of KALI
continue pressors to keep MAP>65, currently on 3
concentrated all drips
continue sedation for DTs
he is critically ill , remains intubated and on CRRT with one pressor support
CC time spent 31min
d/w nursing and ICU
-
-
Date of Service: January 26, 2024
CC / HPI / ROS
-
Chief Complaint:
KALI
History of Present Illness:
CRRT started for refractory acidosis and KALI
now on 1 pressors.
last Ph 7.58
hb decreasing to 10.6
Review of Systems:
sedated and intubated, 40% Fio2
weight up 9Kg
Labs
-
Labs:
WBC 7.3 10^3/uL (4.8-10.8) 01/26/24 03:59
RBC 3.23 10^6/uL (4.70-6.10) L 01/26/24 03:59
Hgb 10.6 g/dL (13.0-18.0) L 01/26/24 03:59
Hct 28.6 % (39.0-52.0) L 01/26/24 03:59
Plt Count 130 10^3/uL (130-400) 01/26/24 03:59
eGFR 9.52 01/26/24 03:59
Albumin 2.5 g/dl (3.5-5.0) L D 01/26/24 03:59
Physical Exam
-
Vital Signs:
Vital Signs
Temp Pulse Resp BP Pulse Ox
96.1 F L 48 0 124/65 97
01/26/24 07:53 01/26/24 07:45 01/26/24 07:45 01/26/24 06:14 01/26/24 07:57
Cardiovascular:: Regular rate and rhythm
Respiratory:: Bilateral: CTA (coarse anteriorally)
Lung Excursion:: Abnormal
Abdomen:: Nontender and Soft
Extremity Edema:: None: Bilateral:
Borges Catheter: Yes
--- NOTE | 2024-01-26 08:16 | W.PN.UPDATE ---
Update Note
Progress Note Update
CRRT note'
sbp 130 on one pressor support
u/f even
qb250 ml/minute
4K bath
1.5 liter replacement rate
[2024-01-26 09:07] LABS: Ionized Calcium 1.22 mMOL/L (1.15-1.33)
--- NOTE | 2024-01-26 09:12 | W.PN.HOSP.TC ---
Today's Communication/Plan
-
see note
Assessment / Plan
Assessment / Plan
1. Acute renal failure requiring CKRT
Hyperkalemia
Severe metabolic acidosis
Hyponatremia
Hyperphosphatemia
Hypocalcemia
Hypomagnesemia
-Reason for initial renal failure remains unclear,suspected combination of hypovolemia/shock related ATN with intrinsic renal disease
-Renal ultrasound showing renal cyst. Normal kidney parenchyma
-UA showed some pyuria, mild microalbuminuria and some hematuria
-Vasculitis panel has been sent, result pending
-At admission creatinine greater than 28 requiring emergent dialysis catheter placement and initiation of CKRT
-Nephrology on board and managing renal replacement therapy, Possibly may transition to interval hemodialysis next 24 to 48-hours
-Calcium/magnesium replacement as needed. RF Associated electrolyte imbalance has been improved, continue monitoring with RT.
2. Septic shock
-Chest x-ray clear. UA showing some pyuria and bacteriuria
-Blood culture/respiratory culture has been collected
-Patient was on vancomycin and cefepime, vancomycin has been discontinued.
-WBC has normalized, have some bandemia. Afebrile. Hypothermic with CRRT likely, continue monitor.
-Patient on small dose of vasopressor, continue weaning off as possible
3. Lactic acidosis
-trended down
4. Alcohol use disorder
Alcohol withdrawal
-At admission blood alcohol level of 12, reported 1 bottle of vodka drinking daily
-Despite being on fentanyl/propofol patient was awake and having high RAAS score
-Patient started on phenobarbital protocol with as needed Ativan
5. Chronic normocytic anemia
-suspecting alcohol use related bone marrow suppression
-can have mixed Anemia as well, check iron/B12/Folate
6. Hypothermia
-Likely with CKRT
-TSH/free T4 within normal limit. Random cortisol marginally low 8.1
7. Vent dependent respiratory failure
-Patient intubated for airway protection and with severe metabolic derangement
-Vent weaning per hair worker
Essential Hypertension - hold home antihypertensives
Hyperlipidemia
Type II DM - A1c 6 in dec 24
DVT PPX - heparin sq
Code status - Full Code
Total critical care time 43 mins. Total critical care time documented does not include time spent on separately billed procedures or the services of residents, students, nurses or physician assistants. I personally saw and examined the patient. I
have reviewed all diagnostic interpretations and treatment plans as written. I was present for the garcia portions of any procedures performed and the inclusive time noted in any critical care statement. Critical care time includes patient management
by me, time spent at the patients bedside, time to review lab and imaging results, discussing patient care, documentation in the medical record, and time spent with the family or caregiver.
Anticipated Discharge: > 48 hours
Subjective/Interval History
-
Date of Service: January 26, 2024
Patient remains intubated on small dose of vasopressor
Sedated with propofol/fentanyl
Remains hypothermic and requiring external warming blanket
No major events overnight
Objective Data
-
Labs:
Laboratory Results
01/25/24 01/26/24 01/26/24
23:58 03:59 08:52
WBC 7.3
Hgb 10.6 L
Hct 28.6 L
Plt Count 130
PT 14.4
INR 1.09
APTT 35.2 H
HCO3 22.5
Sodium 131 L 132 L
Potassium 3.9 3.8
Chloride 96 L 97 L
Carbon Dioxide 20 L 21 L
BUN 54 H 49 H
Creatinine 6.3 H* 6.3 H*
Glucose 166 H 118 H
Calcium 8.5 8.2 L Pending
Total Bilirubin 0.4
AST 34
ALT 25
Alkaline Phosphatase 65
01/26/24
08:53
WBC
Hgb
Hct
Plt Count
PT
INR
APTT
HCO3
Sodium Pending
Potassium Pending
Chloride Pending
Carbon Dioxide Pending
BUN Pending
Creatinine Pending
Glucose Pending
Calcium Pending
Total Bilirubin
AST
ALT
Alkaline Phosphatase
Vital Signs:
Vital Signs
Temp Pulse Resp BP Pulse Ox
96.1 F L 46 0 134/71 99
01/26/24 08:00 01/26/24 09:00 01/26/24 09:00 01/26/24 07:58 01/26/24 09:00
I&O
01/25/24 01/26/24 01/27/24
06:59 06:59 06:59
Intake Total 2196.8 / 2543.0 6360.0 / 6504.2 330.0 / 330.0
Output Total 15.75 / 18.67 366.96 / 368.40 67.92 / 67.92
Balance 2181.05 / 2524.33 5993.04 / 6135.80 262.08 / 262.08
Review of Systems
-
Unable to obtain full review of systems at this time due to: Patient Intubation
Physical Exam
-
General: Comfortable
HEENT: Other (Mechanically ventilated)
Respiratory: Clear to Auscultation
Cardiac: Regular Rhythm and S1/S2; Negative Murmur or Rub
GI: Soft, Nontender and Nondistended
Musculoskeletal: Edema, Right Lower Extrem and Edema, Left Lower Extrem
Neuro: Sedated
Psych: Calm
[2024-01-26 09:18] LABS: Lactic Acid 1.9 mmol/L (0.7-2.0)
[2024-01-26 09:25] LABS: Vancomycin Random 13.3 ug/ml
[2024-01-26 09:25] LABS: Blood Urea Nitrogen 46 mg/dl (9-20); Calcium 8.5 mg/dl (8.4-10.2); Carbon Dioxide 22 mmol/L (22-30); Chloride 97 mmol/L (98-107); Estimated Creatinine Clearance 19 ml/min; Glucose 117 mg/dl (70-99); Magnesium 2.1 mg/dl (1.6-2.3); Phosphorus 2.7 mg/dl (2.5-4.5); Potassium 3.6 mmol/L (3.5-5.1); Sodium 131 mmol/L (135-145); eGFR 10.74
[2024-01-26] MEDS: FOLVITE 50.2 MG IV (09:36)
--- NOTE | 2024-01-26 09:41 | PHA.VAN.FU ---
Vancomycin Assessment / Plan
- Assessment
Hemodialysis Schedule: Other ([facility] @ 1.5 L/H)
WBC's are: WNL
Concomitant Antimicrobials: cefepime
- Assessment - Therapeutic Drug Monitoring
Random Level: 13.3 - drawn ~14.5H after previous dose of 500mg
- Dosing Plan
Dosing by Level: Re-dose today (Vanc 1250mg, ~10mg/kg)
- Monitoring Plan
Random Level: 01/26 06
- Follow Up
Pharmacy will continue to follow.
Vancomycin Follow UP
- -
Patient Age: 58
Patient Sex: Male
Vancomycin Day #: 2
Indication: Other
Requesting Provider: Sree Gonzáles / Dr. Wade
Pertinent Antimicrobial Allergies:
No known Antibiotics Allergies
Height / Weight:
Height 5 ft 11 in
Actual Weight 123.3 kg
Pertinent Past Medical History: BMI ~38, DM
- Vital Signs / Lab Results
Temp Pulse Resp BP Pulse Ox
96.1 F L 46 0 134/71 99
01/26/24 08:00 01/26/24 09:00 01/26/24 09:00 01/26/24 07:58 01/26/24 09:00
Lab Results - Hematology
01/24/24 01/25/24 01/25/24
19:04 05:50 15:54
WBC 8.5 11.4 H 9.4
Band Neutrophils 0
01/26/24
03:59
WBC 7.3
Band Neutrophils 4 H
Lab Results - Chemistry
01/24/24 01/24/24 01/25/24
19:04 23:27 05:50
BUN 107 H* 102 H* 88 H
Creatinine > 28.0 H* > 28 H* 10.7 H*
Estimated Creat Clear 4 10
Albumin 4.0
01/25/24 01/25/24 01/25/24
10:10 15:54 19:57
BUN 72 H 65 H 58 H
Creatinine 8.2 H* 7.2 H* 7.1 H*
Estimated Creat Clear 12 14 14
Albumin
01/25/24 01/26/24 01/26/24
23:58 03:59 08:53
BUN 54 H 49 H 46 H
Creatinine 6.3 H* 6.3 H* 5.7 H*
Estimated Creat Clear 16 16 19
Albumin 2.5 L D
01/24/24 01/25/24 01/25/24
22:46 02:43 05:50
Lactic Acid 8.5 H* 4.8 H* 2.1 H
01/25/24 01/25/24 01/25/24
10:10 15:54 19:57
Lactic Acid 2.1 H 3.4 H 4.4 H*
01/25/24 01/26/24 01/26/24
23:58 04:01 08:53
Lactic Acid 3.2 H 2.6 H 1.9
Lab Results - Urine
01/25/24
21:45
Urine Nitrite Negative
Ur Leukocyte Esterase 2+ A
Urine WBC 11-15 A
Urine Bacteria Moderate A
Microbiology Results
01/24/24 22:37 Blood Culture - Preliminary
Blood/Venous No Growth in 24 hours- Final report to follow
01/24/24 22:37 Blood Culture - Preliminary
Blood/Venous No Growth in 24 hours- Final report to follow
Therapeutic Drug Monitoring
Random Vancomycin 13.3 ug/ml 01/26/24 08:52
[2024-01-26 10:02] LABS: Calcium 8.5 mg/dl (8.4-10.2)
[2024-01-26 10:53] LABS: Free T4 1.65 ng/dl (0.78-2.19)
[2024-01-26 11:07] LABS: Cortisol, Random 8.1 ug/dl; TSH 1.58 uIU/ml (0.47-4.68)
--- NOTE | 2024-01-26 11:46 | PTCARENOTE ---
Updated am rounds. Follow up with critical care team, Mds Nurse, respiratory cares team and pharmacy all at bedside for continued plan of cares. at bedside, updated events of day. Follow up plan of cares and emotional support ongoing. Update
with hospitalist team, nephrology updates, assessment and CRRT review ongoing and as per protocol. Circuit and cartridge change secondary to clot/pressure alarms. Line cares, follow up return to CRRT ongoing. Continue with assessment and lab trends.
Update with nephrology review events and ongoing CRRT plans. Critical care nursing remains at bedside.
[2024-01-26] MEDS: VANCOCIN 275 MG IV (12:27)
[2024-01-26] MEDS: PHENOBARBITAL 97.5 MG IV ×3 (12:32→23:32)
--- NOTE | 2024-01-26 13:15 | W.PN.ID1 ---
Date of Service
Date of Service: January 26, 2024
Today's Communication
Narrow to cefepime. Discontinue further vancomycin.
Assessment / Plan
VDRF
KALI; currently on CRRT
Hypotension
- Improved; now on single pressor
Clinical sepsis
Leukocytosis
Lactic acidosis
HTN
Dyslipidemia
DM
Sleep apnea (CPAP)
Recommendations:
Cultures no growth to date.
Narrow to cefepime alone.
Monitor white count temperature curve.
Will follow pending blood cultures. Repeat blood cultures x 2 should patient spike a temperature greater than 101 degrees.
Wean pressors as able, keep MAP greater than 65.
Continue with supportive measures.
Patient critically ill on vent, on pressor, in intensive care unit.
Chief Complaint
-: Clinical Sepsis
Subjective / Review of Systems
Patient seen and examined. Remains on vent at this time. Continues on CRRT. Pressors being weaned.
Vital Signs / Physical Exam
Vital Signs
Vital Signs
Temp Pulse Resp BP Pulse Ox
97.1 F 48 0 134/71 96
01/26/24 13:00 01/26/24 13:00 01/26/24 13:00 01/26/24 07:58 01/26/24 13:00
Physical Exam
Constitutional: Acutely Ill, Toxic and Obese
Head: Normocephalic
Eyes: Sclera Anicteric
Cardiovascular: S1/S2; Negative S3/S4
Pulmonary: Other (ET tube to vent)
Gastrointestinal: Non Distended, Decreased Bowel Sounds, No Rebound and No Guarding
Extremities: Edema; Negative Cyanosis or Erythema
Skin: Negative Rash or Jaundice
Lines: HD Cath (Right IJ temporary catheter)
Objective Data
Lab Data
Lab Results
01/26/24 03:59
PT 14.4 Sec (11.4-14.6) 01/26/24 03:59
INR 1.09 01/26/24 03:59
APTT 35.2 Sec (23.4-35.0) H 01/26/24 03:59
Estimated Creat Clear 19 ml/min 01/26/24 08:53
Lactic Acid 1.9 mmol/L (0.7-2.0) 01/26/24 08:53
Total Bilirubin 0.4 mg/dl (0.2-1.3) 01/26/24 03:59
GGT 34 U/L (15-73) 01/24/24 22:46
AST 34 U/L (17-59) 01/26/24 03:59
ALT 25 U/L (0-50) 01/26/24 03:59
Alkaline Phosphatase 65 U/L (38-126) 01/26/24 03:59
Most recent labs reviewed.
Micro Results:
01/26/24 08:53 Urine Culture - Pending
Urine
01/24/24 22:37 Blood Culture - Preliminary
Blood/Venous No Growth in 24 hours- Final report to follow
01/24/24 22:37 Blood Culture - Preliminary
Blood/Venous No Growth in 24 hours- Final report to follow
01/25/24 10:10 MRSA Screen - Pending
Nose
Imaging:
01/25/2024 CXR (portable): Low lung volumes with mild left base atelectasis noted. No acute infiltrate seen. Please see full dictation for additional detail. Film personally viewed.
Care Review
Plan reviewed with: Nurse
--- NOTE | 2024-01-26 13:17 | W.PN.INTV ---
Today's Communication / Plan
Recommendations
Continue CRRT
Wean pressors and sedation as able
Adjust vent settings pending repeat ABG
Dobbhoff tube placement
Echo pending
Cultures pending
And phenobarbital taper for alcohol withdrawal
Assessment
-
58-year-old male with history of hypertension, hyperlipidemia, diabetes and alcohol use disorder presented with nausea, vomiting, no urine output for prior 3 days diagnosed with severe septic shock, severe acidosis, KALI with cr >28 requiring
intubation and emergent dialysis. Addmited to ICU for acute hypoxemic failure on mechanical ventilation, CRRT for KALI with severe acidosis and alcohol withdrawal.
#Sepsis of unclear source, possible UTI (UA + mod bacteria/+LE)
#Severe metabolic acidosis-ABG 01/24/2024--13/134/7.09
#Lactic acidosis
#KALI-BUN/creatinine-107/>28
#Respiratory failure-due to severe acidosis
Intubated 01/24/2024
#Alcohol use disorder with suspected withdrawal
#Leukocytosis-WBC 11.4
#Aspiration risk-left basilar infiltrate-atelectasis versus pneumonia
#Elipos-egquskpyyt-sucacqnjzf 10.8
#Hyperkalemia
#Mild hyponatremia
Conditions present prior to admission:
Hypertension
Hyperlipidemia
Type 2 diabetes
Alcohol use disorder
Plan
Neurology
-Alcohol use disorder
-Sedation with mechanical ventilation
-MSAS
-Reportedly drinks a bottle of vodka a day
-Thiamine and folic acid
-Phenobarbital taper
-Precedex if needed
Respiratory
-Acute hypoxemic respiratory failure secondary to severe acidosis
-Intubated 01/24/2024
-Signs of resp. alkalosis on ABG ->decrease RR. 550/22/50/5+ -> RR14
-Repeat ABG pending
-Nebs if needed - currently not bronchospastic
-SBT when stable
-Aspiration precautions
Cardiovascular
-Septic shock 2/2 unclear source
-On levo, able to wean off vasopressin and phenylephrine - continue to wean as able
-Nss with sodium bicarb discontinued per nephro
-CRRT net neutral
-Monitor I&O
-No clear cause for shock
-Repeat Echo pending to rule out cariogenic cause
-Prior echo 12/2014 EF 50-60%
GI
- dobhoff tube placement today
- early nutrition as possible - start tube feeds and PO meds
- Protonix IV GI prophylaxsis
Renal
-Severe KALI
-Acidemia with severe metabolic acidosis
-Cr >28 on admission. 6.3 today
-Unclear etiology - likely pre-renal vs intra-renal?
-Renal US simple right renal cyst - unremarkable for post-renal causes, no hydronephrosis
-On CRRT
-Net neutral volume goals
-Replete electrolytes per protocol
-Nephrology following
-Plans to transition to HD when stable
ID
Septic shock with unclear source
-Cefepime and vancomycin day 3 renally dosed
-Source of infx unclear - UA 2+ LE and mod bacteria -> culture.
-Sputum culture and blood cultures pending
-Chest x-ray low lung ordonez with mild basilar atelectasis not highly concerning for pneumonia
-Consider d/c vanco pending MRSA swab and narrow to ceftriaxone
-WBC wnl - monitor
-Pro-abad unlikely to be helpful in setting of renal failure
Hemeonc
-DVT SQ heparin q8
-Anemia
-Likely dilutional in setting of critically ill pt recieving fluids
-Transfuse <7
Endocrine
-Hx DM2
-On metformin at home
-Last hgA1c 12/07/23 6.0
-BG goals 140-180
-SSI as needed
-No hx of thyroid disorder
DVT SQ Heparin q8
Full code
Subjective Dataa
Subjective Data
Date of Service:
Date of Service: January 26, 2024
Chief Complaint: Loom Starter Follow Up
Review of Systems
General: Unobtainable - Sedation
Objective Data
Data Reviewed
Vital Signs / I&O / Oxygen:
Vital Signs
Temp Pulse Resp BP Pulse Ox
97.1 F 48 0 134/71 96
01/26/24 13:00 01/26/24 13:00 01/26/24 13:00 01/26/24 07:58 01/26/24 13:00
Intake and Output
01/25/24 01/26/24 01/27/24
06:59 06:59 06:59
Intake Total 2196.8 / 2543.0 6360.0 / 6504.2 748.4 / 748.4
Output Total 15.75 / 18.67 366.96 / 368.40 209.12 / 209.12
Balance 2181.05 / 2524.33 5993.04 / 6135.80 539.28 / 539.28
SaO2 [A/C] 96
SaO2 96
Physical Exam
General: Respiratory Distress (Mechanical intubation) and Fever (n)
HEENT: Normocephalic
Cardiovascular: S1-S2
Respiratory: Clear and ET Tube
GI: Soft, Non Distended and Normal Bowel Sounds (decreased )
Neurology: Unresponsive (Evaluation s/p Ativan ) and Other (Mechanical intubation)
Skin: Warm
Labs/Micro/Reports
Lab Data
01/26/24 03:59
Laboratory Results
01/26/24
03:59
PT 14.4
INR 1.09
APTT 35.2 H
pH 7.58 H
pCO2 24 L
pO2 85
HCO3 22.5
O2 Delivery Level 40
Microbiology
01/24/24 22:37 Blood/Venous Blood Culture - Preliminary
No Growth in 24 hours- Final report to follow
01/24/24 22:37 Blood/Venous Blood Culture - Preliminary
No Growth in 24 hours- Final report to follow
[2024-01-26] MEDS: MAXIPIME 2000 MG IV ×2 (13:50→22:02)
[2024-01-26] MEDS: STERILE WATER FOR INJECTION 10 ML IV ×2 (13:50→22:02)
--- NOTE | 2024-01-26 15:05 | CM ---
CM following re:discharge planning.
Discussed in rounds, reviewed pt's chart, met with pt. Per Rounds meeting, pt remains intubated and sedated, continue CRRT, continue supportive care.
D/C plan: uncertain at this time and will depend on pt's progress
CM will follow with discharge plan updates as hospitalization progresses
[2024-01-26 15:07] LABS: B.E. -0.6 mmol/L; HCO3 22.8 mmol/L (21-28); O2 Saturation % 99.2 % (94-98); PCO2 32 mmHg (35-48); PO2 91 mmHg (83-108); pH 7.46 (7.35-7.45)
[2024-01-26 15:26] LABS: Blood Urea Nitrogen 43 mg/dl (9-20); Calcium 8.2 mg/dl (8.4-10.2); Carbon Dioxide 23 mmol/L (22-30); Chloride 98 mmol/L (98-107); Estimated Creatinine Clearance 21 ml/min; Glucose 109 mg/dl (70-99); Phosphorus 3.2 mg/dl (2.5-4.5); Potassium 3.6 mmol/L (3.5-5.1); Sodium 131 mmol/L (135-145); eGFR 12.27
--- NOTE | 2024-01-26 16:46 | PTCARENOTE ---
No noted assessment changes. CRRT continues as ordered. Follow up lab trends ongoing. Follow up with critical care team and outside sales representative. Abg as noted, weaned to 40% fio2 Oral cares and et cares with respiratory cares team. Family and at bedside
home at this time. Continue supportive cares, emotional support and teaching thru shift. Follow up medications with pharmacy team and via [facility]. Critical care nursing remains at bedside.
--- NOTE | 2024-01-26 18:12 | PTCARENOTE ---
Hospitalist update at bedside. Continue with lab, assessment, drip and critical care review. Will update labs follow nephrology plan of cares. CRRT continues as ordered. Complete skin cares CHG cares provided.
[2024-01-26 19:53] LABS: Ionized Calcium 1.19 mMOL/L (1.15-1.33)
[2024-01-26 20:20] LABS: Blood Urea Nitrogen 39 mg/dl (9-20); Calcium 8.2 mg/dl (8.4-10.2); Carbon Dioxide 22 mmol/L (22-30); Chloride 99 mmol/L (98-107); Estimated Creatinine Clearance 22 ml/min; Glucose 105 mg/dl (70-99); Magnesium 1.9 mg/dl (1.6-2.3); Phosphorus 2.9 mg/dl (2.5-4.5); Potassium 3.6 mmol/L (3.5-5.1); Sodium 132 mmol/L (135-145)
[2024-01-26] MEDS: MAGNESIUM SULFATE 100 IV (20:37)
--- NOTE | 2024-01-26 20:50 | PTCARENOTE ---
assessment as documented, 1999 labs sent, mag and calcium repleted. CRRT continues, 4K bath, TFR 1.5, BFR 270, no UF at this time. levo/fent/prop gtts continue, titrated per protocols. joselito flores w/ goal temp 97. #8 ETT, 24 @ lip, adjusted to
center. AC 14/550/5/40%. pt remains NPO. borges with improving UOP. q4h labs continue. care ongoing.
[2024-01-27] MEDS: DIPRIVAN 100 IV ×4 (00:07→23:36)
[2024-01-27] MEDS: NOVOLOG FLEXPEN-MODERATE RESISTANCE SC ×4 (00:15→17:32)
[2024-01-27 00:26] LABS: Glucose - Point of Care 97 mg/dl (70-99)
[2024-01-27 00:41] LABS: Blood Urea Nitrogen 36 mg/dl (9-20); Calcium 8.6 mg/dl (8.4-10.2); Carbon Dioxide 22 mmol/L (22-30); Chloride 99 mmol/L (98-107); Estimated Creatinine Clearance 24 ml/min; Glucose 106 mg/dl (70-99); Potassium 3.6 mmol/L (3.5-5.1); Sodium 131 mmol/L (135-145); eGFR 14.26
--- NOTE | 2024-01-27 00:44 | PTCARENOTE ---
assessment unchanged, midnight labs sent, no lytes to be repleted. CRRT continues, levo gtt currently titrated off, pt maintaining MAP goal. care ongoing
[2024-01-27] MEDS: SUBLIMAZE 100 IV ×2 (02:15→13:50)
[2024-01-27 04:18] LABS: B.E. 1.4 mmol/L; HCO3 24.4 mmol/L (21-28); O2 Saturation % 99.3 % (94-98); PCO2 32 mmHg (35-48); PO2 93 mmHg (83-108); pH 7.49 (7.35-7.45)
[2024-01-27 04:25] LABS: O2 Therapy 40%
[2024-01-27] MEDS: RFP-401 HD Soln (K+ 4 mEq/L) 15000 ML CRRT-IRR ×2 (04:26→21:55)
[2024-01-27 04:36] LABS: Hematocrit 28.3 % (39.0-52.0); Hemoglobin 9.8 g/dL (13.0-18.0); Mean Corp Hgb Conc. 34.6 g/dL (33.0-37.0); Mean Corpuscular Hgb 31.8 pg (27.0-31.0); Mean Corpuscular Volume 91.9 fL (80.0-94.0); Mean Platelet Volume 9.6 fL (7.4-10.4); Platelet Count 96 10^3/uL (130-400); Red Blood Cell Count 3.08 10^6/uL (4.70-6.10); Red Cell Dist. Width 13.8 % (11.5-14.5); White Blood Cell Count 6.3 10^3/uL (4.8-10.8)
[2024-01-27 05:01] LABS: ALT (SGPT) 20 U/L (0-50); AST (SGOT) 29 U/L (17-59); Albumin 2.1 g/dl (3.5-5.0); Alkaline Phosphatase 60 U/L (38-126); Blood Urea Nitrogen 33 mg/dl (9-20); Calcium 8.6 mg/dl (8.4-10.2); Carbon Dioxide 22 mmol/L (22-30); Chloride 101 mmol/L (98-107); Estimated Creatinine Clearance 27 ml/min; Glucose 102 mg/dl (70-99); Iron 97 ug/dl (49-181); Magnesium 2.6 mg/dl (1.6-2.3); Phosphorus 2.7 mg/dl (2.5-4.5); Potassium 3.5 mmol/L (3.5-5.1); Sodium 134 mmol/L (135-145); Total Bilirubin 0.2 mg/dl (0.2-1.3); Total Protein 4.2 g/dl (6.3-8.2); Triglycerides 321 mg/dl (10-149); eGFR 16.93
[2024-01-27 05:10] LABS: Percent Saturation 67 % (20-50); Total Iron Binding Capacity 144 ug/dl (261-462)
[2024-01-27] MEDS: KCL 100 IV (05:15)
[2024-01-27 06:00] VITALS: BMI 38.8
[2024-01-27 06:06] LABS: Folate 3.4 ng/ml (2.76-20); Vitamin B12 309 pg/ml (239-931)
--- NOTE | 2024-01-27 06:12 | PTCARENOTE ---
AM labs sent, K repleted. CRRT continues. assessment unchanged. pressors off completely at this time. prop/fent continue. care ongoing.
[2024-01-27 06:23] LABS: Glucose - Point of Care 105 mg/dl (70-99)
[2024-01-27 06:36] VITALS: BP 113/66
--- NOTE | 2024-01-27 07:07 | W.PN.INTV ---
Today's Communication / Plan
Recommendations
Remains on CRRT, now off pressors
Wean sedation to off, continue ETOH w/d protocol
DHT placement, TFs to begin
Volume removal per HD
Stop abx and observe
Eval for SBT trials if off sedation
Assessment
-
58-year-old male with history of hypertension, hyperlipidemia, diabetes and chronic alcohol abuse presented with nausea, vomiting felt to be septic, severe acidosis, KALI requiring intubation and emergent dialysis-claim adjuster consulted for alcohol
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
Sepsis of unclear source, possible UTI (UA + mod bacteria/+LE)
Severe metabolic acidosis-ABG 01/24/2024--13/134/7.09
Lactic acidosis
KALI-BUN/creatinine-107/>28
Respiratory failure-due to severe acidosis s/p intubation 01/24/2024
Acute HFpEF, volume overload
Alcohol use disorder with suspected withdrawal
Leukocytosis-WBC 11.4
Aspiration risk-left basilar infiltrate-atelectasis versus pneumonia
Uxbatl-iedzvfjcoy-axqqyzxkbi 10.8
Hyperkalemia
Mild hyponatremia
Moderate PH on ECHO, likely due to volume overload
Conditions present prior to admission:
Hypertension
Hyperlipidemia
Diabetes
Alcohol use disorder
NIDDM
Plan
Sedation: Fent/prop-wean to off
On MSAS for severe ETOH w/d likely-drinks 2L per day (liquor, reportedly)
High dose phenobarb taper, continue
Precedex if needed
Thiamine/Folate
Head CT 2022 negative in past, some mild volume loss/leukoaraiosis
Eval MS further upon extubation
Currently off pressors, doing well
H/o HTN, no other cardiac history noted
Prio ECHO in 2014 with normal biV function
Repeat ECHO stable function but there is moderately elevated PASP-56mmHg
Diuresis as tolerated, per HD
Monitor on telemetry
Patient intubated mechanically ventilated, hypoxemia/unresponsiveness
Ventilator settings reviewed--550/22/50/5+, change TV to 500
ABG(s) reviewed, repeat pending change
Nebulizers if needed-currently not bronchospastic
Spontaneous breathing trial once stabilized
Follow chest x-ray--overall low lung volumes, no acute findings
NPO, DHT placement today
Can start TFs, PO meds
Aspiration precautions
GI ppx, add on
Monitor BMs
Severe KALI, new, improving
Likely combo pre-renal and intrinsic renal disease
Nephrology following-correspondence reviewed
Emergent hemodialysis for electrolyte correction, CRRT ongoing
Eventual transition to HD when able
Volume removal
Replace electrolytes as needed, serial labs
Renal US neg
Placed on abx for presumed infection
Cultures reviewed-- negative blood, UA + but no reflex to urine
urine and sputum culture negative
d/c abx and observe off
Monitor leukocytosis
Procal likely of no value in setting of renal failure
No bleeding/coagulopathy noted, follow CBC
Mild anemia, likely critically ill/dilutional
Transfused as needed for Hb <7, plt <10
DVT ppx
No history of thyroid disease
TSH 1.58
NIDDM, on metformin as OP
Follow q6 PRN SS
Hba1c 12/07/23 6.0, prior 6.5
Diagnostic data:
Chest x-ray 01/24/2024-NAD
Chest x-ray 01/25/2024-low lung volumes, mild left basilar atelectasis
ECHO 12/02/14- Normal biventricular size and systolic function without regional wall motion abnormality. No significant valvular disease. No prior study available for comparison.
01/26/24- Normal biventricular size and systolic function without regional wall motion abnormality. Estimated LVEF 65-70%. Trace tricuspid regurgitation. Severely elevated PASP. Estimated pulmonary
artery pressure of 56 mmHg. Assuming a right atrial pressure of 15 mmHg. Compared to 12/02/14: PASP has increased from 39 mmHg to 56 mmHg.
-----
Critical Care time 75 mins -- The patient is admitted for acute critical illness for the treatment of vital organ failure and/or prevention of further life-threatening conditions. Total care includes time spent in review of history, physical exam,
medications, hemodynamic/ventilator parameters, laboratory data, imaging and discussion with house staff, pharmacy, respiratory therapy, fourdrinier operator, and nursing.
Case presented by resident (see separate note).
Subjective Dataa
Subjective Data
Date of Service:
Date of Service: January 27, 2024
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
Subjective:
No acute events ON, remains critically ill
On CRRT
Objective Data
Data Reviewed
Vital Signs / I&O / Oxygen:
Vital Signs
Temp Pulse Resp BP Pulse Ox
97.6 F 52 0 113/66 97
01/27/24 06:00 01/27/24 06:36 01/27/24 06:36 01/27/24 06:36 01/27/24 06:36
Intake and Output
01/26/24 01/27/24 01/28/24
06:59 06:59 06:59
Intake Total 6360.0 / 6504.2 1608.5 / 1608.5
Output Total 366.96 / 368.40 973.89 / 975.36 1.47 / 1.47
Balance 5993.04 / 6135.80 634.61 / 633.14 -1.47 / -1.47
SaO2 [A/C] 97
SaO2 97
Physical Exam
General: Respiratory Distress (Mechanical intubation) and Fever (n)
HEENT: Normocephalic, Anicteric and Moist Mucous Membranes
Cardiovascular: S1-S2, Regular Rhythm and Peripheral Edema
Respiratory: Crackles, Non-Labored Respirations and ET Tube
GI: Soft, Non Distended, Non Tender and Normal Bowel Sounds (decreased )
Neurology: Unresponsive (Evaluation s/p Ativan ), Lethargic, Non Verbal and Other (Mechanical intubation/sedated)
Skin: Warm and Dry
Labs/Micro/Reports
Lab Data
01/27/24 04:04
Laboratory Results
01/26/24 01/27/24
14:54 04:04
pH 7.46 H 7.49 H
pCO2 32 L 32 L
pO2 91 93
HCO3 22.8 24.4
O2 Delivery Level 40%
Microbiology
01/24/24 22:37 Blood/Venous Blood Culture - Preliminary
No Growth in 48 hours- Final report to follow
01/24/24 22:37 Blood/Venous Blood Culture - Preliminary
No Growth in 48 hours- Final report to follow
01/26/24 14:54 Sputum Gram Stain - Preliminary
01/25/24 10:10 Nose MRSA Screen - Final
No Methicillin Resistant Staphylococcus aureus isolated.
[2024-01-27] MEDS: FOLVITE PO (07:58)
[2024-01-27] MEDS: MIRALAX TUBE (07:59)
[2024-01-27] MEDS: NSS (PRESERVATIVE FREE) 10 ML IV (07:59)
[2024-01-27] MEDS: HEPARIN 5000 UNITS SC ×3 (07:59→23:36)
[2024-01-27] MEDS: PROTONIX IV 40 MG IV (08:00)
--- NOTE | 2024-01-27 08:00 | PTCARENOTE ---
Addendum entered by Shon Awad RN 01/28/24 17:37:
As per Dr. Guzman's request yesterday, urine output has been documented in I+O flowsheet only, not in CRRT flowsheet. Will communicate to oncoming shift as well.
Original Note:
Pt rec'd from previous RN 06:45, maintained on CRRT, see flowsheet. Plan discussed with Nephrology Dr. Guzman. Orders rec'd. Pt remains sedated and intubated with fent and prop infusing via left PICC, see worklist. Pt is arousable to voice, opens
eyes slowly but does not follow commands. Localizes to pain. Pt tolerating current vent settings AC 15/550/40%/5. #8 ETT 24 at lip on right side. Oral care provided, suctioned for small amount blood tinged secretions. Lung sounds extremely coarse
t/o. +2 Generalized anasarca noted. Round obese abd with hypo BS. Borges remains in place for KALI, urine output clear yellow. Pt maintained on Q2 turning schedule, borges care and oral hygiene care provided, skin assessed. Safe environment
maintained.
[2024-01-27] MEDS: THIAMINE INJECTION 200 MG IV ×2 (08:01→15:38)
[2024-01-27] MEDS: PHENOBARBITAL 97.5 MG IV ×3 (08:01→21:35)
[2024-01-27 08:10] VITALS: BP 106/82
--- NOTE | 2024-01-27 08:10 | W.PN.NEPH.PH ---
Today's Communication / Plan
-
CRRT provided
Assessment/Plan
-
IMP:
Severe KALI
Acidemia with severe metabolic acidosis- A gap
hypotension
Hyperkalemia
Hyponatremia
Hypocalcemia
Hypomagnesemia
Hyperphosphatemia
suspected ETOH withdrawal-DTs
h/o HTN
NIDDM
Obesity
ETOH abuse
Plan:
A/w n/v, poor po intake
severe anuric KALI-cr over 28 on admit, baseline cr 0.9 in Dec
highly suspect ATN, s/p serologies sent
renal u/s report : without siginificant findings
CK not elevated,940 cc UOP in borges
weights up > 12kg, will set u/f to 50cc net negative per hr
osmo gap only 13 and alcohol level 12, no h/o other alcohol ingestion per history
elevated L acid and B hydroxy-L acid better now
acidemia resolved after CRRT
concentrated all drips
continue sedation for DTs
he is critically ill , remains intubated and on CRRT
CC time spent 31min
d/w nursing and ICU
-
-
Date of Service: January 27, 2024
CC / HPI / ROS
-
Chief Complaint:
KALI
History of Present Illness:
CRRT started for refractory acidosis and KALI
now off pressors
remains intubated
Review of Systems:
sedated and intubated, 40% Fio2
weight up 12Kg
non oliguric
Labs
-
Labs:
WBC 6.3 10^3/uL (4.8-10.8) 01/27/24 04:04
RBC 3.08 10^6/uL (4.70-6.10) L 01/27/24 04:04
Hgb 9.8 g/dL (13.0-18.0) L 01/27/24 04:04
Hct 28.3 % (39.0-52.0) L 01/27/24 04:04
Plt Count 96 10^3/uL (130-400) L D 01/27/24 04:04
eGFR 16.93 01/27/24 04:04
Albumin 2.1 g/dl (3.5-5.0) L 01/27/24 04:04
Physical Exam
-
Vital Signs:
Vital Signs
Temp Pulse Resp BP Pulse Ox
97.9 F 53 0 113/66 96
01/27/24 07:00 01/27/24 07:30 01/27/24 07:30 01/27/24 06:36 01/27/24 07:43
Cardiovascular:: Regular rate and rhythm
Respiratory:: Bilateral: Coarse
Lung Excursion:: Abnormal
Abdomen:: Nontender and Soft
Bowel Sounds:: Decreased
Extremity Edema:: +1: Bilateral:
Borges Catheter: Yes
--- NOTE | 2024-01-27 08:25 | W.PN.UPDATE ---
Update Note
Progress Note Update
CRRT note'
sbp 106 now off pressors
u/f to be 50cc/hr
qb250 ml/minute
4K bath
1.5 liter replacement rate
[2024-01-27 08:30] LABS: Ionized Calcium 1.29 mMOL/L (1.15-1.33)
--- NOTE | 2024-01-27 08:45 | W.PN.INTV ---
Today's Communication / Plan
Recommendations
CRRT net negative -50 cc/hr
Continue cefepime per ID discretion, but will likely dc as cultures unremarkable
Wean sedation
SBT
Repeat CBC in pm to monitor ptl
Start tube feeds
Assessment
-
58-year-old male with history of hypertension, hyperlipidemia, diabetes and alcohol use disorder presented with nausea, vomiting, no urine output for prior 3 days diagnosed with severe septic shock, severe acidosis, KALI with cr >28 requiring
intubation and emergent dialysis. Addmited to ICU for acute hypoxemic failure on mechanical ventilation, CRRT for KALI with severe acidosis and alcohol withdrawal.
#Sepsis of unclear source, possible UTI (UA + mod bacteria/+LE)
#Severe metabolic acidosis-ABG 01/24/2024--13/134/7.09
#Lactic acidosis
#KALI-BUN/creatinine-107/>28
#Respiratory failure-due to severe acidosis
Intubated 01/24/2024
#Alcohol use disorder with suspected withdrawal
#Leukocytosis-WBC 11.4
#Aspiration risk-left basilar infiltrate-atelectasis versus pneumonia
#Rlochj-saffbvzqqn-kdxixjaltb 10.8
#Hyperkalemia
#Mild hyponatremia
Conditions present prior to admission:
Hypertension
Hyperlipidemia
Type 2 diabetes
Alcohol use disorder
Plan
Neurology
-Alcohol use disorder
-Sedation with mechanical ventilation
-MSAS - Reportedly drinks a bottle of vodka a day
-Thiamine and folic acid
-Phenobarbital taper
-Precedex if needed
-This am on propofol 25, fentanyl 100 current RAAS -5 ->wean sedation with goal RAAS -1 to 0
Respiratory
-Acute hypoxemic respiratory failure secondary to severe acidosis
-Intubated 01/24/2024
-SBT pending weaning off sedation as no longer on pressors
-Signs of resp. alkalosis on ABG ->decrease RR. 550/22/50/5+ -> 550/14/50/5 -> repeat ABG still slight resp. alkalosis. Decrease TV
-Will attempt SBT today after decrease sedation
-Supplemental O2 as needed
-Nebs if needed - currently not bronchospastic
-Aspiration precautions
Cardiovascular
-Septic shock 2/2 unclear source
-Weaned off levo, vasopressin and phenylephrine - currently hemodynamically stable
-Volume overload with increase of 14kg since admission - lower extremity edema present
-will monitor BP as CRRT net negative 50cc/hr today
-Monitor I&O
-No clear cause for shock
-Repeat Echo LVEF 65-70%, pulm artery pressure 39-56 mmHg with trace tricuspid regurg ruling out cardiac etiology for shock
-Elevated pulm artery pressures likely secondary to volume overload
-LA downtrending
-Hx HTN - holding all home antihypertensives until increase in BP
GI
- dobhoff tube placement today
- early nutrition as possible - start tube feeds and PO meds
- Protonix IV GI prophylaxis - will consider d/c if tolerates tube feeds and successful SBT as no hx GERD
Renal
-Severe KALI
-Acidemia with severe metabolic acidosis
-Cr >28 on admission. 3.9 today
-Unclear etiology - likely pre-renal vs intra-renal?
-Renal US simple right renal cyst - unremarkable for post-renal causes, no hydronephrosis
-Suspect ATN per nephro - serologies pending
-Vasculitis work up also started per hospitalist team
-On CRRT on net negative -50cc/hr as currently volume overloaded
-Replete electrolytes per protocol
-Nephrology following
-Plans to transition to HD when stable
-Follow strict I&Os
-Hypothermia
-likely secondary to CRRT
-TSH/free T4 wnl. Random cortisol marginally low 8.1
ID
-Septic shock with unclear source
-Cefepime day 4 renally dosed, vanco d/c yesterday per ID - consider d/c antibiotics all together as no apparent source, afebrile and WBC wnl
-Source of infx unclear - UA 2+ LE and mod bacteria -> culture no growth
-Sputum culture no growth
-Prelim blood cultures no growth in 48 hrs
-Chest x-ray low lung ordonez with mild basilar atelectasis not highly concerning for pneumonia
-WBC wnl - monitor
-Pro-abad unlikely to be helpful in setting of renal failure
Hemeonc
-DVT SQ heparin q8
-Anemia
-Macrocytic anemia 12.1 on admission, folate and B12 wnl - chronic alcoholic
-Hg 10.6 ->9.8 Likely dilutional in setting of critically ill pt receiving fluids
-Transfuse <7
-Thrombocytopenia
-130->96 drop from yesterday to today
-Repeat CBC in afternoon
-Unlikely to be HIT as today is day 4 of his hospital stay, but will monitor
Endocrine
-Hx DM2
-On metformin 2,000 hs at home
-Last hgA1c 12/07/23 6.0
-BG goals 140-180
-DHT placement successful with tube feed starting today
-Accuchecks per protocol with mod sliding scale insulin as needed
-No hx of thyroid disorder
DVT SQ Heparin q8
Full code
Subjective Dataa
Subjective Data
Date of Service:
Date of Service: January 27, 2024
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
Review of Systems
General: Unobtainable - Sedation
Objective Data
Data Reviewed
Vital Signs / I&O / Oxygen:
Vital Signs
Temp Pulse Resp BP Pulse Ox
97.9 F 53 0 113/66 96
01/27/24 07:00 01/27/24 07:30 01/27/24 07:30 01/27/24 06:36 01/27/24 07:43
Intake and Output
01/26/24 01/27/24 01/28/24
06:59 06:59 06:59
Intake Total 6360.0 / 6504.2 1608.5 / 1635.6 27.1 / 27.1
Output Total 366.96 / 368.40 973.89 / 975.36 2.94 / 2.94
Balance 5993.04 / 6135.80 634.61 / 660.24 24.16 / 24.16
SaO2 [A/C] 97
SaO2 96
Physical Exam
General: Respiratory Distress (Mechanical intubation) and Fever (n)
HEENT: Normocephalic
Cardiovascular: S1-S2
Respiratory: Clear and ET Tube
GI: Soft, Non Distended and Normal Bowel Sounds (decreased )
Neurology: Unresponsive (Evaluation s/p Ativan ) and Other (Mechanical intubation)
Skin: Warm
Labs/Micro/Reports
Lab Data
01/27/24 04:04
Laboratory Results
01/26/24 01/27/24
14:54 04:04
pH 7.46 H 7.49 H
pCO2 32 L 32 L
pO2 91 93
HCO3 22.8 24.4
O2 Delivery Level 40%
Microbiology
01/24/24 22:37 Blood/Venous Blood Culture - Preliminary
No Growth in 48 hours- Final report to follow
01/24/24 22:37 Blood/Venous Blood Culture - Preliminary
No Growth in 48 hours- Final report to follow
01/26/24 14:54 Sputum Gram Stain - Preliminary
01/25/24 10:10 Nose MRSA Screen - Final
No Methicillin Resistant Staphylococcus aureus isolated.
[2024-01-27 08:52] LABS: Blood Urea Nitrogen 31 mg/dl (9-20); Calcium 8.4 mg/dl (8.4-10.2); Carbon Dioxide 25 mmol/L (22-30); Chloride 103 mmol/L (98-107); Estimated Creatinine Clearance 26 ml/min; Glucose 95 mg/dl (70-99); Magnesium 2.4 mg/dl (1.6-2.3); Phosphorus 2.6 mg/dl (2.5-4.5); Potassium 4.4 mmol/L (3.5-5.1); Sodium 134 mmol/L (135-145); eGFR 15.49
[2024-01-27] MEDS: MAXIPIME 2000 MG IV (09:39)
[2024-01-27] MEDS: STERILE WATER FOR INJECTION 10 ML IV (09:42)
[2024-01-27] MEDS: SUBLIMAZE 50 MCG IV ×6 (10:04→23:44)
--- NOTE | 2024-01-27 10:29 | PTCARENOTE ---
Grand rounds with care team completed, orders rec'd. Nephrology at bedside, case reviewed, orders rec'd to edit UF rate, see flowsheet. DHT placed at 10:20 via right nare (70cm) pt tolerated well. CXR pending. and daughter at bedside, emotional
support provided.
[2024-01-27] MEDS: NSS (PRESERVATIVE FREE) 0.5 ML IV ×2 (10:46→11:47)
[2024-01-27] MEDS: ATIVAN 1 MG IV ×2 (10:46→11:47)
[2024-01-27 11:00] LABS: Intact PTH 34.4 pg/ml (13.6-85.8)
[2024-01-27 11:40] VITALS: BP 156/75
[2024-01-27 11:49] LABS: Glucose - Point of Care 97 mg/dl (70-99)
[2024-01-27 11:56] VITALS: BP_SYST 156
[2024-01-27] MEDS: SODIUM PHOSPHATE IV (12:00)
[2024-01-27] MEDS: SODIUM PHOSPHATE 260 MEQ IV (12:01)
[2024-01-27 12:36] LABS: Ionized Calcium 1.31 mMOL/L (1.15-1.33)
[2024-01-27 12:39] LABS: Blood Urea Nitrogen 29 mg/dl (9-20); Calcium 8.5 mg/dl (8.4-10.2); Carbon Dioxide 26 mmol/L (22-30); Chloride 103 mmol/L (98-107); Estimated Creatinine Clearance 29 ml/min; Glucose 108 mg/dl (70-99); Magnesium 2.4 mg/dl (1.6-2.3); Phosphorus 2.5 mg/dl (2.5-4.5); Sodium 135 mmol/L (135-145); eGFR 18.04
[2024-01-27] MEDS: RFP-401 HD Soln (K+ 4 mEq/L) 5000 ML CRRT-IRR ×3 (12:39→13:48)
--- NOTE | 2024-01-27 12:57 | W.PN.ID1 ---
Date of Service
Date of Service: January 27, 2024
Today's Communication
Discontinue further antibiotics with close clinical observation.
Assessment / Plan
VDRF
KALI; currently on CRRT
Hypotension
- resolved; now off pressors.
Clinical sepsis
- appears resolved
Leukocytosis
- resolved
Lactic acidosis
HTN
Dyslipidemia
DM
Sleep apnea (CPAP)
Recommendations:
Cultures no growth to date.
White count is normalized. Pressors now off.
Discontinue further antibiotics with close clinical observation.
Monitor white count temperature curve.
Repeat blood cultures x 2 should patient spike a temperature greater than 101 degrees.
Continue with supportive measures.
Patient remains critically ill on vent in intensive care unit.
����������������������������������������������������������
Chief Complaint
-: Clinical Sepsis
Subjective / Review of Systems
Patient seen and examined. Remains intubated on vent, but pressors have been weaned to off.
Review of Systems: No Fever
Vital Signs / Physical Exam
Vital Signs
Vital Signs
Temp Pulse Resp BP Pulse Ox
98 F 71 13 106/82 95
01/27/24 08:00 01/27/24 11:56 01/27/24 11:56 01/27/24 08:10 01/27/24 12:16
Physical Exam
Constitutional: Comfortable, Acutely Ill, Non-toxic and Obese
Head: Normocephalic
Eyes: Sclera Anicteric
Cardiovascular: Regular Rate and S1/S2; Negative S3/S4
Pulmonary: Other (ET tube to vent)
Gastrointestinal: Non Distended, Decreased Bowel Sounds, No Rebound and No Guarding
Extremities: Edema (3+ B/L LE); Negative Cyanosis or Erythema
Skin: Negative Rash or Jaundice
Neurological: Other (Sedated)
Lines: HD Cath (Right IJ temporary catheter)
Objective Data
Lab Data
Lab Results
01/27/24 12:12
PT 14.4 Sec (11.4-14.6) 01/26/24 03:59
INR 1.09 01/26/24 03:59
APTT 35.2 Sec (23.4-35.0) H 01/26/24 03:59
Estimated Creat Clear 29 ml/min 01/27/24 12:12
Lactic Acid 1.9 mmol/L (0.7-2.0) 01/26/24 08:53
Total Bilirubin 0.2 mg/dl (0.2-1.3) 01/27/24 04:04
GGT 34 U/L (15-73) 01/24/24 22:46
AST 29 U/L (17-59) 01/27/24 04:04
ALT 20 U/L (0-50) 01/27/24 04:04
Alkaline Phosphatase 60 U/L (38-126) 01/27/24 04:04
Most recent labs reviewed.
Micro Results:
01/26/24 14:54 Respiratory Culture - Preliminary
Sputum NO GROWTH
Gram Stain - Preliminary
01/26/24 08:53 Urine Culture - Preliminary
Urine NO GROWTH
01/24/24 22:37 Blood Culture - Preliminary
Blood/Venous No Growth in 48 hours- Final report to follow
01/24/24 22:37 Blood Culture - Preliminary
Blood/Venous No Growth in 48 hours- Final report to follow
01/25/24 10:10 MRSA Screen - Final
Nose No Methicillin Resistant Staphylococcus aureus isolated.
Imaging:
01/25/2024 CXR (portable): Low lung volumes with mild left base atelectasis noted. No acute infiltrate seen. Please see full dictation for additional detail. Film personally viewed.
Care Review
Plan reviewed with: Physician (Critical Care Sequins Slinger; Critical Care Attending)
--- NOTE | 2024-01-27 13:31 | PTCARENOTE ---
SAT initiated; Pt is awake and following commands appropriately. SBT initiated by RT, pt tolerated SBT for approx 20 min. Frequently alarming for apnea, backup settings activated x2 during wean. RT notified and placed back on AC settings. Elevated
SBPs during wean up to 190s noted. Elevated CPOT bolused with PRN IV Fent, see MAR, gtt restarted-see flowsheet.
--- NOTE | 2024-01-27 14:04 | CM ---
CM following re:discharge planning.
Discussed in rounds, reviewed pt's chart, met with pt. Pt's family at bedside. Per Rounds meeting, pt remains intubated and sedated, continue CRRT, continue supportive care.
D/C plan: uncertain at this time and will depend on pt's progress
CM will follow with discharge plan updates as hospitalization progresses
[2024-01-27 16:04] LABS: Ionized Calcium 1.25 mMOL/L (1.15-1.33)
--- NOTE | 2024-01-27 16:09 | W.PN.HOSP.TC ---
Today's Communication/Plan
-
see note
Assessment / Plan
Assessment / Plan
1. Acute renal failure requiring CKRT
Hyperkalemia
Severe metabolic acidosis
Hyponatremia
Hyperphosphatemia
Hypocalcemia
Hypomagnesemia
-Reason for initial renal failure remains unclear,suspected combination of hypovolemia/shock related ATN with intrinsic renal disease
-Renal ultrasound showing renal cyst. Normal kidney parenchyma
-UA showed some pyuria, mild microalbuminuria and some hematuria
-Vasculitis panel has been sent, result pending. Complement level WNL.
-At admission creatinine greater than 28 requiring emergent dialysis catheter placement and initiation of CKRT
-Nephrology on board and managing renal replacement therapy, Possibly may transition to interval hemodialysis next 24 to 48-hours
-Calcium/magnesium replacement as needed. RF Associated electrolyte imbalance has been improved, continue monitoring with RT.
2. Septic shock - Improved
-Chest x-ray clear. UA showing some pyuria and bacteriuria
-Blood culture/respiratory culture has been collected
-WBC has normalized, have some bandemia. Afebrile. Hypothermic with CRRT likely, continue monitor.
-Patient on small dose of vasopressor, continue weaning off as possible
-Patient on cefepime only. vanc has been discontinued.
3. Lactic acidosis - resolved
4. Alcohol use disorder
Alcohol withdrawal
-At admission blood alcohol level of 12, reported 1 bottle of vodka drinking daily
-Despite being on fentanyl/propofol patient was not sedated at times
-Patient started on phenobarbital protocol with as needed Ativan
5. Chronic normocytic anemia
-suspecting alcohol use related bone marrow suppression
-B12/Folate/Iron studies normal
6. Hypothermia
-Likely with CKRT
-TSH/free T4 within normal limit. Random cortisol marginally low 8.1
7. Vent dependent respiratory failure
-Patient intubated for airway protection and with severe metabolic derangement
-Vent weaning per detective private eye
Essential Hypertension - hold home antihypertensives
Hyperlipidemia
Type II DM - A1c 6 in dec 24
DVT PPX - heparin sq
Code status - Full Code
Total critical care time 36 mins. Total critical care time documented does not include time spent on separately billed procedures or the services of residents, students, nurses or physician assistants. I personally saw and examined the patient. I
have reviewed all diagnostic interpretations and treatment plans as written. I was present for the garcia portions of any procedures performed and the inclusive time noted in any critical care statement. Critical care time includes patient management
by me, time spent at the patients bedside, time to review lab and imaging results, discussing patient care, documentation in the medical record, and time spent with the family or caregiver.
Anticipated Discharge: > 48 hours
Subjective/Interval History
-
Date of Service: January 27, 2024
remains intubated
off of levophed, A-line in place continue to monitor
on CKRT,
no acute events reported
Objective Data
-
Labs:
Laboratory Results
01/27/24 01/27/24 01/27/24
04:04 08:22 12:12
WBC 6.3
Hgb 9.8 L
Hct 28.3 L
Plt Count 96 L D
HCO3 24.4
Sodium 134 L 134 L 135
Potassium 3.5 4.4 D 4.0
Chloride 101 103 103
Carbon Dioxide 22 25 26
BUN 33 H 31 H 29 H
Creatinine 3.9 H 4.2 H* 3.7 H
Glucose 102 H 95 108 H
Calcium 8.6 8.4 8.5
Total Bilirubin 0.2
AST 29
ALT 20
Alkaline Phosphatase 60
01/27/24
15:50
WBC Pending
Hgb Pending
Hct Pending
Plt Count Pending
HCO3
Sodium Pending
Potassium Pending
Chloride Pending
Carbon Dioxide Pending
BUN Pending
Creatinine Pending
Glucose Pending
Calcium Pending
Total Bilirubin
AST
ALT
Alkaline Phosphatase
Vital Signs:
Vital Signs
Temp Pulse Resp BP Pulse Ox
97.5 F 66 0 156/75 96
01/27/24 15:22 01/27/24 15:00 01/27/24 15:00 01/27/24 11:40 01/27/24 15:23
I&O
01/26/24 01/27/24 01/28/24
06:59 06:59 06:59
Intake Total 6360.0 / 6504.2 1608.5 / 1635.6 615.5 / 615.5
Output Total 366.96 / 368.40 973.89 / 1030.36 939.47 / 939.47
Balance 5993.04 / 6135.80 634.61 / 605.24 -323.97 / -323.97
Review of Systems
-
Unable to obtain full review of systems at this time due to: Acuity and Patient Intubation
Physical Exam
-
General: Comfortable
HEENT: Other (Mechanically ventilated)
Respiratory: Clear to Auscultation
Cardiac: Regular Rhythm and S1/S2; Negative Murmur or Rub
GI: Soft, Nontender and Nondistended
Musculoskeletal: Edema, Right Lower Extrem and Edema, Left Lower Extrem
Neuro: Sedated
Psych: Calm
[2024-01-27 16:13] LABS: Blood Urea Nitrogen 27 mg/dl (9-20); Calcium 8.3 mg/dl (8.4-10.2); Carbon Dioxide 25 mmol/L (22-30); Chloride 103 mmol/L (98-107); Estimated Creatinine Clearance 30 ml/min; Glucose 125 mg/dl (70-99); Magnesium 2.2 mg/dl (1.6-2.3); Phosphorus 4.1 mg/dl (2.5-4.5); Potassium 3.8 mmol/L (3.5-5.1); Sodium 135 mmol/L (135-145); eGFR 18.64
[2024-01-27 16:22] LABS: Hematocrit 29.8 % (39.0-52.0); Hemoglobin 10.3 g/dL (13.0-18.0); Mean Corp Hgb Conc. 34.6 g/dL (33.0-37.0); Mean Corpuscular Hgb 32.5 pg (27.0-31.0); Mean Platelet Volume 9.9 fL (7.4-10.4); Platelet Count 93 10^3/uL (130-400); Red Blood Cell Count 3.17 10^6/uL (4.70-6.10); Red Cell Dist. Width 13.8 % (11.5-14.5); White Blood Cell Count 7.4 10^3/uL (4.8-10.8)
--- NOTE | 2024-01-27 17:17 | PTCARENOTE ---
Pt reassessed; Warming blanket reapplied for temp 96.8 at 16:50. Pt turned and repositioned, resting when undisturbed, tolerating vent settings. Safe environment maintained.
[2024-01-27 17:38] LABS: Glucose - Point of Care 101 mg/dl (70-99)
--- NOTE | 2024-01-27 19:30 | PTCARENOTE ---
On assessment pt intubated and sedated, maintained on CRRT see flow sheet, pt coughing and restless at this time PRN meds given see MAR, opens eyes but does not follow commands, FEN and PROP gtt infusingper orders, SR on the monitor, +2 generalized
edema, + pulses, #8 ETT, 24 at the lip, lungs coarse, oral care provided, hypoactive BS, TF at 10ml per hour, borges in place, joselito hugger on at this time, skin assessed, RIJ port for CRRT, L PICC and R radial brenda in place.
[2024-01-27 20:24] LABS: Ionized Calcium 1.25 mMOL/L (1.15-1.33)
[2024-01-27 20:44] LABS: Blood Urea Nitrogen 25 mg/dl (9-20); Calcium 8.3 mg/dl (8.4-10.2); Carbon Dioxide 26 mmol/L (22-30); Chloride 103 mmol/L (98-107); Estimated Creatinine Clearance 32 ml/min; Glucose 108 mg/dl (70-99); Magnesium 2.1 mg/dl (1.6-2.3); Phosphorus 3.3 mg/dl (2.5-4.5); Potassium 3.8 mmol/L (3.5-5.1); Sodium 134 mmol/L (135-145); eGFR 19.96
[2024-01-28] MEDS: NOVOLOG FLEXPEN-MODERATE RESISTANCE SC ×4 (00:01→17:06)
[2024-01-28 00:03] LABS: Glucose - Point of Care 95 mg/dl (70-99)
--- NOTE | 2024-01-28 00:47 | PTCARENOTE ---
no changes from prior assessment, oral and karla care completed see flow sheet, pt repositioned q2h, CRRT maintained.
[2024-01-28] MEDS: SUBLIMAZE 100 IV (02:00)
[2024-01-28] MEDS: SUBLIMAZE 50 MCG IV ×2 (02:45→05:56)
[2024-01-28 03:50] LABS: ANA, IgG Reflex to HEp-2 None Detected (None Detected)
[2024-01-28 03:56] LABS: Blood Urea Nitrogen 24 mg/dl (9-20); Calcium 8.3 mg/dl (8.4-10.2); Carbon Dioxide 26 mmol/L (22-30); Chloride 104 mmol/L (98-107); Estimated Creatinine Clearance 33 ml/min; Glucose 113 mg/dl (70-99); Magnesium 2.1 mg/dl (1.6-2.3); Phosphorus 3.2 mg/dl (2.5-4.5); Potassium 3.9 mmol/L (3.5-5.1); Sodium 138 mmol/L (135-145); eGFR 20.69
[2024-01-28 04:38] LABS: Ionized Calcium 1.23 mMOL/L (1.15-1.33)
--- NOTE | 2024-01-28 04:42 | PTCARENOTE ---
pt restless around 0230, PRN meds given see MAR, increased TF to 20ml/hr per order and tolerating
--- NOTE | 2024-01-28 04:46 | DOWNTIME ---
There was a [employer] Client Nurse Assessor Downtime on 01/28/2024 from 0100 to 01/28/2024 at 0350. Downtime documentation of patient's care, including medication administrations, has been reconciled in the electronic record per guidelines. Refer to the
patient's paper chart under the miscellaneous tab to see printed paper medication records and downtime forms.
[2024-01-28 05:03] LABS: ALT (SGPT) 19 U/L (0-50); AST (SGOT) 26 U/L (17-59); Albumin 2.1 g/dl (3.5-5.0); Alkaline Phosphatase 65 U/L (38-126); Blood Urea Nitrogen 22 mg/dl (9-20); Calcium 8.3 mg/dl (8.4-10.2); Carbon Dioxide 26 mmol/L (22-30); Chloride 105 mmol/L (98-107); Estimated Creatinine Clearance 34 ml/min; Glucose 126 mg/dl (70-99); Potassium 3.7 mmol/L (3.5-5.1); Sodium 138 mmol/L (135-145); Total Bilirubin 0.3 mg/dl (0.2-1.3); Total Protein 4.5 g/dl (6.3-8.2); eGFR 21.47
[2024-01-28 05:11] LABS: Hematocrit 31.2 % (39.0-52.0); Hemoglobin 10.1 g/dL (13.0-18.0); Mean Corp Hgb Conc. 32.4 g/dL (33.0-37.0); Mean Corpuscular Hgb 31.7 pg (27.0-31.0); Mean Corpuscular Volume 97.8 fL (80.0-94.0); Mean Platelet Volume 9.8 fL (7.4-10.4); Platelet Count 93 10^3/uL (130-400); Red Blood Cell Count 3.19 10^6/uL (4.70-6.10); Red Cell Dist. Width 13.9 % (11.5-14.5); White Blood Cell Count 7.5 10^3/uL (4.8-10.8)
[2024-01-28] MEDS: RFP-401 HD Soln (K+ 4 mEq/L) 15000 ML CRRT-IRR (05:47)
[2024-01-28 05:58] LABS: Glucose - Point of Care 108 mg/dl (70-99)
[2024-01-28 06:00] VITALS: BMI 38.5
--- NOTE | 2024-01-28 06:49 | W.PN.INTV ---
Today's Communication / Plan
Recommendations
CRRT with net negative 100-200 cc/hr
Consider SBT tmrw after volume removal
Goal off of sedation continue PRN lorazepam for alcohol withdrawal and Dilaudid for pain
ABG pending
Assessment
-
58-year-old male with history of hypertension, hyperlipidemia, diabetes and alcohol use disorder presented with nausea, vomiting, no urine output for prior 3 days diagnosed with severe septic shock, severe acidosis, KALI with cr >28 requiring
intubation and emergent dialysis. Admitted to ICU for acute hypoxemic failure on mechanical ventilation, CRRT for KALI with severe acidosis and alcohol withdrawal.
#Sepsis of unclear source, possible UTI (UA + mod bacteria/+LE)
#Severe metabolic acidosis-ABG 01/24/2024--/134/7.09
#Lactic acidosis
#KALI-BUN/creatinine-107/>28
#Respiratory failure-due to severe acidosis
Intubated 01/24/2024
#Alcohol use disorder with suspected withdrawal
#Leukocytosis-WBC 11.4
#Aspiration risk-left basilar infiltrate-atelectasis versus pneumonia
#Wbemyh-sckpbjrsem-lygjbbajjn 10.8
#Hyperkalemia
#Mild hyponatremia
Conditions present prior to admission:
Hypertension
Hyperlipidemia
Diabetes
Alcohol use disorder
NIDDM
Plan
Neurology
-Alcohol use disorder
-Sedation with mechanical ventilation
-Propofol 25->10 and fentanyl 100 ->125
-RAAS -1 to 0 following commands
-MSAS 0-2 overnight - Reportedly drinks a bottle of vodka a day
-MSAS/ lorazepam for signs of withdrawal per nursing observations
-Thiamine and folic acid
-Phenobarb taper scheduled to finish yesterday -> will continue one more day as aim to come off sedatives
-Goal to come off propofol and fentanyl -> PRN lorazepam for alcohol withdrawal
-PRN Dilaudid for pain
Respiratory
-Acute hypoxemic respiratory failure secondary to severe acidosis
-Intubated 01/24/2024
-SBT yesterday failed
-Repeat chest x-ray am increase RLL airspace opacities - likely failed in setting of volume overload
-Will repeat SBT potentially tomorrow after more fluid taken off per CRRT
-Vent settings 500/14/50/5 - ABG pending
-Aspiration precautions
-Nebs not needed - not bronchospastic with no hx pulm disease
Cardiovascular
-Shock 2/2 unclear source
-Weaned off levo, vasopressin and phenylephrine - currently hemodynamically stable
-Volume overload with admission weight 112kg now 125.1 - lower extremity edema present
-will monitor BP as CRRT net negative 100-200cc/hr
-Monitor I&O
-No clear cause for shock - cultures all (-)
-Repeat Echo LVEF 65-70%, pulm artery pressure 39-56 mmHg with trace tricuspid regurg ruling out cardiac etiology for shock
-Elevated pulm artery pressures likely secondary to volume overload
GI
- NPO, Tolerating DHT feeds
- Aspiration precaution
- Protonix IV GI prophylaxis - will consider d/c if tolerates tube feeds and successful SBT as no hx GERD
- Bowel regimen today as no bowel movement since admission and decreased bowel sounds
Renal
-Severe KALI
-Acidemia with severe metabolic acidosis
-Cr >28 on admission. 3.2 today
-Unclear etiology - likely pre-renal vs intra-renal combo?
-Renal US simple right renal cyst - unremarkable for post-renal causes, no hydronephrosis
-Suspect ATN per nephro - serologies pending
-Vasculitis work up also started per hospitalist team
-On CRRT on net negative -100 to 200 cc/hr as currently volume overloaded
-Replete electrolytes per protocol
-Nephrology following
-Plans to transition to HD when stable
-Follow strict I&Os
-Urine output range 30-60mls/hr in last 24 hrs
-Hypothermia
-Keven hugger
-likely secondary to CRRT
-TSH/free T4 wnl. Random cortisol marginally low 8.1
ID
-Shock secondary to unknown source
-Placed on antibiotics for presumed infx
-Urine, sputum, blood cultures (-), chest x-ray not suspicious for pneumonia, remains afebrile, WBC wnl
-Anti-biotics d/c and observe
-Pro-abad not helpful in setting of renal failure
-Cont to monitor WBC and temp.
HemeOnc
-DVT SQ heparin q8
-Anemia
-Macrocytic anemia 12.1 on admission, folate and B12 wnl - chronic alcoholic
-Hg steady slow decline from admission 12.1 ->>>10.1 today in setting of volume overload
-Transfuse <7
-Thrombocytopenia
-130->96 drop from yesterday ->93
-Unlikely to be HIT as today is day 5 of his hospital stay and now appears to be steady
-More likely secondary to CRRT
-Monitor ptl
Endocrine
-Hx DM2
-On metformin 2,000 hs at home
-Last hgA1c 12/07/23 6.0
-BG goals 140-180
-Monitor BG with now regular tube feeds
-Accuchecks per protocol with mod sliding scale insulin as needed
-No hx of thyroid disorder
Diagnostic data:
Chest x-ray 01/24/2024- no acute cardiopulmonary findings
Chest x-ray 01/25/2024-low lung volumes, mild left basilar atelectasis
Chest x-ray 01/27/2024 - Low lung volumes, increase RLL airspace opacities from prior. Correct ET tube placement
ECHO 12/02/14- Normal biventricular size and systolic function without regional wall motion abnormality. No significant valvular disease. No prior study available for comparison.
01/26/24- Normal biventricular size and systolic function without regional wall motion abnormality. Estimated LVEF 65-70%. Trace tricuspid regurgitation. Severely elevated PASP. Estimated pulmonary
artery pressure of 56 mmHg. Assuming a right atrial pressure of 15 mmHg. Compared to 12/02/14: PASP has increased from 39 mmHg to 56 mmHg.
Subjective Dataa
Subjective Data
Date of Service:
Date of Service: January 28, 2024
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
Review of Systems
General: Pain (Nodded no to pain ) and Other (Full ROS unobtainable, on vent)
Objective Data
Data Reviewed
Vital Signs / I&O / Oxygen:
Vital Signs
Temp Pulse Resp BP Pulse Ox
97.5 F 75 0 156/75 94
01/28/24 06:00 01/28/24 06:00 01/28/24 06:00 01/27/24 11:40 01/28/24 06:00
Intake and Output
01/26/24 01/27/24 01/28/24
06:59 06:59 06:59
Intake Total 6360.0 / 6504.2 1608.5 / 1635.6 1189.7 / 1189.7
Output Total 366.96 / 368.40 973.89 / 1030.36 3518.47 / 3518.47
Balance 5993.04 / 6135.80 634.61 / 605.24 -2328.77 / -2328.77
SaO2 [A/C] 97
SaO2 94
Physical Exam
General: Respiratory Distress (Mechanical intubation) and Fever (n)
HEENT: Normocephalic, Anicteric and Moist Mucous Membranes
Cardiovascular: S1-S2, Regular Rhythm and Peripheral Edema
Respiratory: Crackles, Non-Labored Respirations and ET Tube
GI: Soft, Non Distended, Non Tender and Normal Bowel Sounds (decreased )
Neurology: Unresponsive (Evaluation s/p Ativan ), Lethargic, Non Verbal and Other (Mechanical intubation/sedated)
Skin: Warm and Dry
Labs/Micro/Reports
Lab Data
01/28/24 04:13
Microbiology
01/24/24 22:37 Blood/Venous Blood Culture - Preliminary
No Growth in 72 hours- Final report to follow
01/24/24 22:37 Blood/Venous Blood Culture - Preliminary
No Growth in 72 hours- Final report to follow
01/26/24 14:54 Sputum Respiratory Culture - Preliminary
NO GROWTH
01/26/24 14:54 Sputum Gram Stain - Preliminary
01/26/24 08:53 Urine Urine Culture - Preliminary
NO GROWTH
01/25/24 10:10 Nose MRSA Screen - Final
No Methicillin Resistant Staphylococcus aureus isolated.
--- NOTE | 2024-01-28 07:09 | W.PN.INTV ---
Today's Communication / Plan
Recommendations
Doing well with weaning sedation, keep awake/calm
Reviewed dosing off sedation, change fent to dilaudid
MSAS continued
UF per renal
Await SBT trials until more dry
Assessment
-
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
Sepsis of unclear source, possible UTI (UA + mod bacteria/+LE)
Severe metabolic acidosis-ABG 01/24/2024--/134/7.09
Lactic acidosis
KALI-BUN/creatinine-107/>28
Respiratory failure-due to severe acidosis s/p intubation 01/24/2024
Acute HFpEF, volume overload
Alcohol use disorder with suspected withdrawal
Leukocytosis-WBC 11.4
Aspiration risk-left basilar infiltrate-atelectasis versus pneumonia
Zppdhe-qajvaadpwj-lhutrffhgc 10.8
Hyperkalemia
Mild hyponatremia
Moderate PH on ECHO, likely due to volume overload
Thrombocytopenia
Conditions present prior to admission:
Hypertension
Hyperlipidemia
Diabetes
Alcohol use disorder
NIDDM
Plan
Sedation: Fent/prop-wean to off
On MSAS for severe ETOH w/d likely-drinks 2L per day (liquor, reportedly)
High dose phenobarb taper, continue
Precedex if needed
Thiamine/Folate
Head CT 2022 negative in past, some mild volume loss/leukoaraiosis
Keep off gtts, ativan/MSAS to be used
Currently off pressors, doing well
H/o HTN, no other cardiac history noted
Prio ECHO in 2014 with normal biV function
Repeat ECHO stable function but there is moderately elevated PASP-56mmHg
Diuresis as tolerated, per HD
Monitor on telemetry
Patient intubated mechanically ventilated, hypoxemia/unresponsiveness
Ventilator settings reviewed--550/22/50/5+, change TV to 500
ABG(s) reviewed, repeat pending change
Nebulizers if needed-currently not bronchospastic
Follow chest x-ray--overall low lung volumes, more congestion noted on today's report
SBT trials are premature given significant volume overload
Hold trials until more diuresis occurs
NPO, DHT placement with TFs to goal
Aspiration precautions
GI ppx continued
Monitor BMs, bowel regiment PRN
Severe KALI, new, improving
Likely combo pre-renal and intrinsic renal disease
Nephrology following-correspondence reviewed
Emergent hemodialysis for electrolyte correction, CRRT likely transition to UF
Eventual transition to HD when able
Volume removal
Replace electrolytes as needed, serial labs
Renal US neg
Placed on abx for presumed infection
Cultures reviewed-- negative blood, UA + but no reflex to urine
urine and sputum culture negative
d/c abx and observe off
Monitor leukocytosis
Procal likely of no value in setting of renal failure
No bleeding/coagulopathy noted, follow CBC
Mild anemia, likely critically ill/dilutional
Transfused as needed for Hb <7, plt <10
DVT ppx
No history of thyroid disease
TSH 1.58
NIDDM, on metformin as OP
Follow q6 PRN SS
Hba1c 12/07/23 6.0, prior 6.5
Diagnostic data:
Chest x-ray 01/24/2024-NAD
Chest x-ray 01/25/2024-low lung volumes, mild left basilar atelectasis
ECHO 12/02/14- Normal biventricular size and systolic function without regional wall motion abnormality. No significant valvular disease. No prior study available for comparison.
01/26/24- Normal biventricular size and systolic function without regional wall motion abnormality. Estimated LVEF 65-70%. Trace tricuspid regurgitation. Severely elevated PASP. Estimated pulmonary
artery pressure of 56 mmHg. Assuming a right atrial pressure of 15 mmHg. Compared to 12/02/14: PASP has increased from 39 mmHg to 56 mmHg.
-----
Critical Care time 75 mins -- The patient is admitted for acute critical illness for the treatment of vital organ failure and/or prevention of further life-threatening conditions. Total care includes time spent in review of history, physical exam,
medications, hemodynamic/ventilator parameters, laboratory data, imaging and discussion with house staff, pharmacy, respiratory therapy, community mental health social worker, and nursing.
Case presented by resident (see separate note).
Subjective Dataa
Subjective Data
Date of Service:
Date of Service: January 28, 2024
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
Subjective:
Doing well today, more awake, on less sedation
SBT yesterday with fail
Still edematous
Objective Data
Data Reviewed
Vital Signs / I&O / Oxygen:
Vital Signs
Temp Pulse Resp BP Pulse Ox
97.5 F 75 0 156/75 94
01/28/24 06:00 01/28/24 06:00 01/28/24 06:00 01/27/24 11:40 01/28/24 06:00
Intake and Output
01/27/24 01/28/24 01/29/24
06:59 06:59 06:59
Intake Total 1608.5 / 1635.6 1189.7 / 1254.8 65.1 / 65.1
Output Total 973.89 / 1030.36 3518.47 / 3699.47 181 / 181
Balance 634.61 / 605.24 -2328.77 / -2444.67 -115.9 / -115.9
SaO2 [A/C] 97
SaO2 94
Physical Exam
General: Respiratory Distress (Mechanical intubation) and Fever (n)
HEENT: Normocephalic, Anicteric and Moist Mucous Membranes
Cardiovascular: S1-S2, Regular Rhythm and Peripheral Edema
Respiratory: Crackles, Non-Labored Respirations and ET Tube
GI: Soft, Non Distended, Non Tender and Normal Bowel Sounds (decreased )
Neurology: Awake, Alert, Oriented, No Motor Deficits and Other (nodding yes/no)
Skin: Warm and Dry
Labs/Micro/Reports
Lab Data
01/28/24 04:13
Microbiology
01/24/24 22:37 Blood/Venous Blood Culture - Preliminary
No Growth in 72 hours- Final report to follow
01/24/24 22:37 Blood/Venous Blood Culture - Preliminary
No Growth in 72 hours- Final report to follow
01/26/24 14:54 Sputum Respiratory Culture - Preliminary
NO GROWTH
01/26/24 14:54 Sputum Gram Stain - Preliminary
01/26/24 08:53 Urine Urine Culture - Preliminary
NO GROWTH
01/25/24 10:10 Nose MRSA Screen - Final
No Methicillin Resistant Staphylococcus aureus isolated.
--- NOTE | 2024-01-28 08:00 | PTCARENOTE ---
Pt rec'd from shift coordinator intubated and sedated, maintained on CRRT see flow sheet, pt calm and resting when undisturbed at this time, opens eyes and does follow commands, FEN and PROP gtt infusing per orders, SR on the monitor, +2 generalized
edema, + pulses, #8 ETT, 24 at the lip, lungs coarse, oral care provided, borges care done, hypoactive BS, TF at 10ml per hour, increased at 0900 to 20 ml/hr per orders, borges in place, joselito hugger off at this time, skin assessed, RIJ for CRRT, L
PICC and R radial brenda in place. Safe environment maintained. Meds and assessement as documented, see MAY.
[2024-01-28] MEDS: MIRALAX 17 GRAMS TUBE (08:23)
[2024-01-28] MEDS: LUMINAL 64.8 MG PO (08:23)
[2024-01-28] MEDS: FOLVITE 1 MG PO (08:23)
[2024-01-28] MEDS: VITAMIN B1 100 MG PO ×2 (08:23→21:10)
[2024-01-28] MEDS: PROTONIX IV 40 MG IV (08:23)
[2024-01-28] MEDS: HEPARIN 5000 UNITS SC ×2 (08:24→15:42)
[2024-01-28] MEDS: NSS (PRESERVATIVE FREE) 10 ML IV ×2 (08:24→10:02)
[2024-01-28 08:31] LABS: Ionized Calcium 1.25 mMOL/L (1.15-1.33)
[2024-01-28 08:36] VITALS: BP 126/85
[2024-01-28 08:55] LABS: Blood Urea Nitrogen 21 mg/dl (9-20); Calcium 8.2 mg/dl (8.4-10.2); Carbon Dioxide 29 mmol/L (22-30); Chloride 104 mmol/L (98-107); Estimated Creatinine Clearance 35 ml/min; Glucose 121 mg/dl (70-99); Phosphorus 2.9 mg/dl (2.5-4.5); Potassium 3.8 mmol/L (3.5-5.1); Sodium 136 mmol/L (135-145)
--- NOTE | 2024-01-28 09:06 | CM ---
Patient seen at bedside. Patient remains in ICU at this time. Per review of chart and speaking with nursing, concern about alcohol consumption expressed by family early in the hospital stay. CM will need to resend referrals to [facility] as appropriate
pending patient and family confirmation of intrest.. CM will continue to follow for discharge planning needs.
Plan; pending patient functional assessments and needs.
[2024-01-28] MEDS: HEPARIN 1200 UNITS INTRACATH ×2 (09:35)
--- NOTE | 2024-01-28 09:48 | PTCARENOTE ---
CRRT machine alarming, clots noted in line, Edge Molder Dr. Celis notified, summer internship Dr. Villarreal and care team at bedside for rounds, CRRT stopped at this time. Arterial and venous lines flushed and hep locked per MD order. Orders rec'd for PRN
Dilaudid and Ativan, fent and prop gtts stopped at 09:42.
[2024-01-28] MEDS: ATIVAN 1 MG IV ×3 (10:02→19:38)
--- NOTE | 2024-01-28 10:06 | W.PN.ID1 ---
Date of Service
Date of Service: January 28, 2024
Today's Communication
Continue to observe off antibiotics.
Assessment / Plan
VDRF
KALI; remains on CRRT
Hypotension
- resolved; now off pressors.
Clinical sepsis
- appears resolved. Cultures have remained negative.
Leukocytosis
- resolved
Lactic acidosis
HTN
Dyslipidemia
DM
Sleep apnea (CPAP)
Recommendations:
Cultures no growth to date.
White count is normalized. Pressors now off.
Continue with close clinical observation while off antibiotics.
Monitor white count temperature curve.
Repeat blood cultures x 2 should patient spike a temperature greater than 101 degrees.
Continue with supportive measures.
Patient remains critically ill on vent in intensive care unit.
����������������������������������������������������������
Chief Complaint
-: Clinical Sepsis
Subjective / Review of Systems
Patient seen and examined. Remains vent dependent at this time. Continues on CRRT.
Review of Systems: No Fever
Vital Signs / Physical Exam
Vital Signs
Vital Signs
Temp Pulse Resp BP Pulse Ox
97.7 F 69 0 126/85 92
01/28/24 07:29 01/28/24 09:00 01/28/24 09:00 01/28/24 08:36 01/28/24 09:00
Physical Exam
Constitutional: Comfortable, Acutely Ill, Non-toxic and Obese
Head: Normocephalic
Eyes: Sclera Anicteric
Cardiovascular: Regular Rate and S1/S2; Negative S3/S4
Pulmonary: Other (ET tube to vent)
Gastrointestinal: Non Distended, Decreased Bowel Sounds, No Rebound and No Guarding
Extremities: Edema (3+ B/L LE); Negative Cyanosis or Erythema
Skin: Negative Rash or Jaundice
Neurological: Other (Sedated, but arousable to touch and voice. Sedation being weaned.)
Psychological: Calm
Lines: HD Cath (Right IJ temporary catheter)
Objective Data
Lab Data
Lab Results
01/28/24 04:13
01/28/24 08:21
PT 14.4 Sec (11.4-14.6) 01/26/24 03:59
INR 1.09 01/26/24 03:59
APTT 35.2 Sec (23.4-35.0) H 01/26/24 03:59
Estimated Creat Clear 35 ml/min 01/28/24 08:21
Lactic Acid 1.9 mmol/L (0.7-2.0) 01/26/24 08:53
Total Bilirubin 0.3 mg/dl (0.2-1.3) 01/28/24 04:13
GGT 34 U/L (15-73) 01/24/24 22:46
AST 26 U/L (17-59) 01/28/24 04:13
ALT 19 U/L (0-50) 01/28/24 04:13
Alkaline Phosphatase 65 U/L (38-126) 01/28/24 04:13
Most recent labs reviewed.
Micro Results:
01/26/24 08:53 Urine Culture - Final
Urine NO GROWTH
01/24/24 22:37 Blood Culture - Preliminary
Blood/Venous No Growth in 72 hours- Final report to follow
01/24/24 22:37 Blood Culture - Preliminary
Blood/Venous No Growth in 72 hours- Final report to follow
01/26/24 14:54 Respiratory Culture - Preliminary
Sputum NO GROWTH
Gram Stain - Preliminary
01/25/24 10:10 MRSA Screen - Final
Nose No Methicillin Resistant Staphylococcus aureus isolated.
Imaging:
01/28/2024 CXR (portable): Extremely low lung volumes, with crowding of the central/vascular markings. No pneumothorax seen. No pneumothorax or significant pleural effusion seen. Please see full dictation for additional detail. Film personally
viewed.
01/25/2024 CXR (portable): Low lung volumes with mild left base atelectasis noted. No acute infiltrate seen. Please see full dictation for additional detail. Film personally viewed.
Care Review
Plan reviewed with: Physician (Critical Care)
--- NOTE | 2024-01-28 11:26 | W.PN.NEPH.PH ---
Today's Communication / Plan
-
start SCUF
Assessment/Plan
-
IMP:
Severe KALI
Acidemia with severe metabolic acidosis- A gap
hypotension
Hyperkalemia
Hyponatremia
Hypocalcemia
Hypomagnesemia
Hyperphosphatemia
suspected ETOH withdrawal-DTs
h/o HTN
NIDDM
Obesity
ETOH abuse
Plan:
A/w n/v, poor po intake
severe anuric KALI-cr over 28 on admit, baseline cr 0.9 in Dec
highly suspect ATN, s/p serologies sent
renal u/s report : without siginificant findings
non oliguric with borges
however wt significantly high 13kg, will resume CRRT in form of SCUF as he does not need clearance at this time
UF gaol 150-200cc/hr and can try lasix as needed too
BP stable off pressors
concentrated all drips
continue ativan for DTs
he is critically ill , remains intubated
CC time spent 31min
d/w nursing and ICU
-
-
Date of Service: January 28, 2024
CC / HPI / ROS
-
Chief Complaint:
KALI
History of Present Illness:
CRRT started for refractory acidosis and KALI, off this am since clotted circuit
now off pressors, bp labile
remains intubated, 13kg over admit wt
plt low 93
Review of Systems:
sedated and intubated, 40% Fio2
non oliguric
Labs
-
Labs:
WBC 7.5 10^3/uL (4.8-10.8) 01/28/24 04:13
RBC 3.19 10^6/uL (4.70-6.10) L 01/28/24 04:13
Hgb 10.1 g/dL (13.0-18.0) L 01/28/24 04:13
Hct 31.2 % (39.0-52.0) L 01/28/24 04:13
Plt Count 93 10^3/uL (130-400) L 01/28/24 04:13
eGFR 22.30 01/28/24 08:21
Physical Exam
-
Vital Signs:
Vital Signs
Temp Pulse Resp BP Pulse Ox
97.7 F 76 0 126/85 96
01/28/24 07:29 01/28/24 11:00 01/28/24 11:00 01/28/24 08:36 01/28/24 11:00
Cardiovascular:: Regular rate and rhythm
Respiratory:: Bilateral: Coarse
Lung Excursion:: Abnormal
Abdomen:: Nontender and Soft
Extremity Edema:: +2: Bilateral:
Borges Catheter: Yes
[2024-01-28 11:27] LABS: ALT (SGPT) 19 U/L (0-50); AST (SGOT) 25 U/L (17-59); Albumin 2.2 g/dl (3.5-5.0); Alkaline Phosphatase 70 U/L (38-126); Direct Bilirubin 0.2 mg/dl (0.0-0.4); Total Bilirubin 0.3 mg/dl (0.2-1.3); Total Protein 4.5 g/dl (6.3-8.2)
[2024-01-28 12:05] LABS: B.E. -1.8 mmol/L; HCO3 23.1 mmol/L (21-28); O2 Saturation % 98.1 % (94-98); PCO2 39 mmHg (35-48); PO2 85 mmHg (83-108); pH 7.38 (7.35-7.45)
[2024-01-28 12:08] LABS: Ionized Calcium 1.24 mMOL/L (1.15-1.33)
[2024-01-28 12:19] LABS: Blood Urea Nitrogen 23 mg/dl (9-20); Calcium 8.3 mg/dl (8.4-10.2); Carbon Dioxide 27 mmol/L (22-30); Chloride 104 mmol/L (98-107); Estimated Creatinine Clearance 32 ml/min; Glucose 136 mg/dl (70-99); Potassium 3.7 mmol/L (3.5-5.1); Sodium 136 mmol/L (135-145); eGFR 19.96
--- NOTE | 2024-01-28 13:03 | PTCARENOTE ---
CRRT restarted at 13:00 per orders- SCUF mode- see flowsheet. Pt resting comfortably s/p previous Ativan administration at 10:00. Daughter and in to visit briefly, update provided.
--- NOTE | 2024-01-28 13:14 | W.PN.HOSP.TC ---
Today's Communication/Plan
-
HD/CKRT per nephro
vent weaning effort per pulm
monitor off abx
Assessment / Plan
Assessment / Plan
1. Acute renal failure requiring CKRT
Hyperkalemia
Severe metabolic acidosis
Hyponatremia
Hyperphosphatemia
Hypocalcemia
Hypomagnesemia
-Reason for initial renal failure remains unclear,suspected combination of hypovolemia/shock related ATN with intrinsic renal disease
-Renal ultrasound showing renal cyst. Normal kidney parenchyma
-UA showed some pyuria, mild microalbuminuria and some hematuria
-Vasculitis panel has been sent, result pending. Complement level WNL.
-At admission creatinine greater than 28 requiring emergent dialysis catheter placement and initiation of CKRT
-Nephrology on board and managing renal replacement therapy, Possibly may transition to interval hemodialysis tomorrow.
-Calcium/magnesium replacement as needed. RF Associated electrolyte imbalance has been improved, continue monitoring with RT.
2. Septic shock - Improved
-Chest x-ray clear. UA showing some pyuria and bacteriuria
-Blood culture/respiratory culture has been collected
-WBC has normalized, have some bandemia. Afebrile. Hypothermic with CRRT likely, continue monitor.
-Patient on small dose of vasopressor, continue weaning off as possible
-Patient taken off of abx and planned to be monitored.
3. Lactic acidosis - resolved
4. Alcohol use disorder
Alcohol withdrawal
-At admission blood alcohol level of 12, reported 1 bottle of vodka drinking daily
-Despite being on fentanyl/propofol patient was not sedated at times
-Patient started on phenobarbital protocol with as needed Ativan
5. Chronic normocytic anemia
-suspecting alcohol use related bone marrow suppression
-B12/Folate/Iron studies normal
6. Hypothermia
-Likely with CKRT
-TSH/free T4 within normal limit. Random cortisol marginally low 8.1
7. Vent dependent respiratory failure
-Patient intubated for airway protection and with severe metabolic derangement
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
8. Thrombocytopenia
-CKRT related? HIT is differential
-b12/folate wnl. was presumably septic but now better. not bacteremic
-continue monitor
Essential Hypertension - hold home antihypertensives
Hyperlipidemia
Type II DM - A1c 6 in dec 24
DVT PPX - heparin sq
Code status - Full Code
Total critical care time 38 mins. Total critical care time documented does not include time spent on separately billed procedures or the services of residents, students, nurses or physician assistants. I personally saw and examined the patient. I
have reviewed all diagnostic interpretations and treatment plans as written. I was present for the garcia portions of any procedures performed and the inclusive time noted in any critical care statement. Critical care time includes patient management
by me, time spent at the patients bedside, time to review lab and imaging results, discussing patient care, documentation in the medical record, and time spent with the family or caregiver.
Anticipated Discharge: > 48 hours
Subjective/Interval History
-
Date of Service: January 28, 2024
Remains intubated on vent
off of vasopressors
remains off of warming blanket
no reported acute issues overnight
Objective Data
-
Labs:
Laboratory Results
01/28/24 01/28/24 01/28/24
00:04 04:13 08:21
WBC 7.5
Hgb 10.1 L
Hct 31.2 L
Plt Count 93 L
HCO3
Sodium 138 138 136
Potassium 3.9 3.7 3.8
Chloride 104 105 104
Carbon Dioxide 26 26 29
BUN 24 H 22 H 21 H
Creatinine 3.3 H 3.2 H 3.1 H
Glucose 113 H 126 H 121 H
Calcium 8.3 L 8.3 L 8.2 L
Total Bilirubin 0.3 0.3
AST 26 25
ALT 19 19
Alkaline Phosphatase 65 70
01/28/24 01/28/24 01/28/24
11:52 11:53 16:00
WBC
Hgb
Hct
Plt Count
HCO3 23.1
Sodium 136 Pending
Potassium 3.7 Pending
Chloride 104 Pending
Carbon Dioxide 27 Pending
BUN 23 H Pending
Creatinine 3.4 H Pending
Glucose 136 H Pending
Calcium 8.3 L Pending
Total Bilirubin
AST
ALT
Alkaline Phosphatase
Vital Signs:
Vital Signs
Temp Pulse Resp BP Pulse Ox
99.7 F 78 0 126/85 95
01/28/24 12:20 01/28/24 12:00 01/28/24 12:00 01/28/24 08:36 01/28/24 12:00
I&O
01/27/24 01/28/24 01/29/24
06:59 06:59 06:59
Intake Total 1608.5 / 1635.6 1189.7 / 1254.8 585.3 / 585.3
Output Total 973.89 / 1030.36 3518.47 / 3699.47 609 / 609
Balance 634.61 / 605.24 -2328.77 / -2444.67 -23.7 / -23.7
Review of Systems
-
Unable to obtain full review of systems at this time due to: Patient Intubation
Physical Exam
-
General: Comfortable
Respiratory: Clear to Auscultation and Other (intubated on MV)
Cardiac: Regular Rhythm and S1/S2; Negative Murmur or Rub
GI: Soft, Nontender and Nondistended
Musculoskeletal: Edema, Right Lower Extrem and Edema, Left Lower Extrem
Neuro: Sedated
Psych: Calm
[2024-01-28] MEDS: NSS (PRESERVATIVE FREE) 0.5 ML IV ×2 (13:44→19:38)
[2024-01-28] MEDS: SENOKOT-S 1 TABLET PO (13:54)
[2024-01-28] MEDS: LUMINAL 32.4 MG PO (13:55)
--- NOTE | 2024-01-28 15:32 | W.PN.UPDATE ---
Update Note
Progress Note Update
SCUF note:
Pt seen during CRRT
UF was at 150cc/he, will increase to 200cc/hr
bld flow 150-300cc/min
BP stable in 140 range
f/u labs later today
[2024-01-28] MEDS: PHENOBARBITAL 97.5 MG IV ×2 (15:42→21:10)
[2024-01-28 16:11] LABS: Ionized Calcium 1.23 mMOL/L (1.15-1.33)
[2024-01-28 16:34] LABS: Blood Urea Nitrogen 25 mg/dl (9-20); Calcium 8.3 mg/dl (8.4-10.2); Carbon Dioxide 26 mmol/L (22-30); Chloride 105 mmol/L (98-107); Estimated Creatinine Clearance 32 ml/min; Glucose 136 mg/dl (70-99); Phosphorus 3.2 mg/dl (2.5-4.5); Potassium 3.8 mmol/L (3.5-5.1); Sodium 135 mmol/L (135-145); eGFR 19.96
--- NOTE | 2024-01-28 16:52 | PTCARENOTE ---
Pt remains off sedation, PRN lorazepam administered twice this afternoon for periods of agitation with +response; see flowsheet for times. Pt with occ periods of desaturation to mid 80s, suctioned frequently for thick wang sputum, RT and freight traffic consultant
notified-orders rec'd for sputum culture and CXR which were both obtained. Pt turned and repositioned, CHG bath completed. PRN Senna given for constipation. Safe environment maintained.
[2024-01-28] MEDS: DILAUDID 0.5 MG IV ×2 (17:23→22:13)
--- NOTE | 2024-01-28 17:27 | PTCARENOTE ---
Tube feeds increased to 40 ml/hr at this time per order. Pt nodding 'yes' when asked if he was in pain, PRN Dilaudid administered per orders. and daughter in to visit.
[2024-01-28 17:56] LABS: Myeloperoxidase Antibody 0 AU/mL (0-19); Serine Protease-3, IgG 0 AU/mL (0-19)
--- NOTE | 2024-01-28 20:00 | PTCARENOTE ---
CRRT maintained as ordered, SCUF, 200 extra off hourly. Pt remains off all drips, PRNs as needed for agitation along with ATC Phenobarb taper. Following simple commands, calm in between care. Afebrile. NSR, BP maintained without pressors. Remains
intubated, rhonchi/rales throughout. Tolerating tube feeds. No BM. Bowel regimen. Hypoactive bowel sounds. Navarrete draining 30-40 clear, yellow urine. Will monitor closely.
[2024-01-28 20:13] LABS: Ionized Calcium 1.22 mMOL/L (1.15-1.33)
[2024-01-28 20:27] LABS: Lactic Acid 0.7 mmol/L (0.7-2.0)
[2024-01-28 20:32] LABS: Blood Urea Nitrogen 28 mg/dl (9-20); Calcium 8.4 mg/dl (8.4-10.2); Carbon Dioxide 26 mmol/L (22-30); Chloride 104 mmol/L (98-107); Estimated Creatinine Clearance 30 ml/min; Glucose 134 mg/dl (70-99); Phosphorus 3.4 mg/dl (2.5-4.5); Potassium 3.7 mmol/L (3.5-5.1); Sodium 136 mmol/L (135-145); eGFR 18.64
[2024-01-29 00:01] LABS: Ionized Calcium 1.22 mMOL/L (1.15-1.33)
--- NOTE | 2024-01-29 00:13 | PTCARENOTE ---
Pt reassessed, no change in previous assessment. Will monitor.
[2024-01-29 00:16] LABS: Blood Urea Nitrogen 28 mg/dl (9-20); Calcium 8.4 mg/dl (8.4-10.2); Carbon Dioxide 26 mmol/L (22-30); Chloride 104 mmol/L (98-107); Estimated Creatinine Clearance 28 ml/min; Glucose 135 mg/dl (70-99); Magnesium 2.1 mg/dl (1.6-2.3); Phosphorus 3.4 mg/dl (2.5-4.5); Potassium 3.6 mmol/L (3.5-5.1); Sodium 135 mmol/L (135-145); eGFR 17.47
[2024-01-29] MEDS: NOVOLOG FLEXPEN-MODERATE RESISTANCE SC ×4 (00:30→17:57)
[2024-01-29] MEDS: DILAUDID 0.5 MG IV ×3 (01:13→21:53)
[2024-01-29] MEDS: ATIVAN 1 MG IV ×3 (02:21→18:14)
--- NOTE | 2024-01-29 05:00 | PTCARENOTE ---
Pt reassessed, no change in assessment. AM labs sent and resulted. Care provided. WIll monitor.
[2024-01-29 05:18] LABS: Ionized Calcium 1.21 mMOL/L (1.15-1.33)
[2024-01-29 05:26] LABS: Hemoglobin 10.8 g/dL (13.0-18.0); Mean Corp Hgb Conc. 33.8 g/dL (33.0-37.0); Mean Corpuscular Hgb 32.6 pg (27.0-31.0); Mean Corpuscular Volume 96.7 fL (80.0-94.0); Mean Platelet Volume 10.2 fL (7.4-10.4); Platelet Count 113 10^3/uL (130-400); Red Blood Cell Count 3.31 10^6/uL (4.70-6.10); Red Cell Dist. Width 13.7 % (11.5-14.5); White Blood Cell Count 11.9 10^3/uL (4.8-10.8)
[2024-01-29 05:32] VITALS: BMI 37.0
[2024-01-29 05:34] LABS: ALT (SGPT) 17 U/L (0-50); AST (SGOT) 23 U/L (17-59); Albumin 2.3 g/dl (3.5-5.0); Alkaline Phosphatase 80 U/L (38-126); Blood Urea Nitrogen 31 mg/dl (9-20); Calcium 8.3 mg/dl (8.4-10.2); Carbon Dioxide 27 mmol/L (22-30); Chloride 105 mmol/L (98-107); Estimated Creatinine Clearance 27 ml/min; Glucose 121 mg/dl (70-99); Potassium 3.8 mmol/L (3.5-5.1); Sodium 138 mmol/L (135-145); Total Bilirubin 0.2 mg/dl (0.2-1.3); Total Protein 4.8 g/dl (6.3-8.2); eGFR 16.93
[2024-01-29 05:36] LABS: Magnesium 2.1 mg/dl (1.6-2.3); Phosphorus 3.7 mg/dl (2.5-4.5)
[2024-01-29] MEDS: NSS (PRESERVATIVE FREE) 0.5 ML IV (05:44)
--- NOTE | 2024-01-29 06:13 | W.PN.INTV ---
Today's Communication / Plan
Recommendations
Continue volume removal per HD
Wean phenobarb taper today, keep off sedation
Repeat sputum culture sent given copious secretions
SBT trials
Monitor CBC
Assessment
-
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
Sepsis of unclear source, possible UTI (UA + mod bacteria/+LE)
Severe metabolic acidosis-ABG 01/24/2024--13/134/7.09
Lactic acidosis
KALI-BUN/creatinine-107/>28
Respiratory failure-due to severe acidosis s/p intubation 01/24/2024
Acute HFpEF, volume overload
Alcohol use disorder with suspected withdrawal
Leukocytosis-WBC 11.4
Aspiration risk-left basilar infiltrate-atelectasis versus pneumonia
Zuxlhc-ytzhblwayg-yvgngxqwmx 10.8
Hyperkalemia
Mild hyponatremia
Moderate PH on ECHO, likely due to volume overload
Thrombocytopenia
Conditions present prior to admission:
Hypertension
Hyperlipidemia
Diabetes
Alcohol use disorder
NIDDM
Plan
Sedation: Fent/prop-weaned off x 24 hours
On MSAS for severe ETOH w/d likely-drinks 2L per day (liquor, reportedly)
High dose phenobarb taper, will start to wean today
Thiamine/Folate
Head CT 2022 negative in past, some mild volume loss/leukoaraiosis
Keep off gtts, ativan/MSAS to be used
Currently off pressors, doing well
H/o HTN, no other cardiac history noted
Prio ECHO in 2014 with normal biV function
Repeat ECHO stable function but there is moderately elevated PASP-56mmHg
Diuresis as tolerated, per HD
Monitor on telemetry
Patient intubated mechanically ventilated, hypoxemia/unresponsiveness
Ventilator settings reviewed--550/22/50/5+, change TV to 500
ABG(s) reviewed, repeat with adequate ventilation
Nebulizers if needed-currently not bronchospastic
Follow chest x-ray--overall low lung volumes, more R sided edema
SBT trials daily
NPO, DHT placement with TFs to goal
Aspiration precautions
GI ppx continued
Monitor BMs, bowel regiment PRN
Severe KALI, new, improving
Likely combo pre-renal and intrinsic renal disease
Nephrology following-correspondence reviewed
Emergent hemodialysis for electrolyte correction, CRRT likely transition to UF
Eventual transition to HD when able
Volume removal
Replace electrolytes as needed, serial labs
Renal US neg
Placed on abx for presumed infection
Cultures reviewed-- negative blood, UA + but no reflex to urine
urine and sputum culture negative
d/c abx and observe off
Monitor leukocytosis
Procal likely of no value in setting of renal failure
No bleeding/coagulopathy noted, plts are declining but within functional range
Mild anemia, likely critically ill/dilutional
Continue to follow CBC
Transfused as needed for Hb <7, plt <10
DVT ppx
No history of thyroid disease
TSH 1.58
NIDDM, on metformin as OP
Follow q6 PRN SS
Hba1c 12/07/23 6.0, prior 6.5
Diagnostic data:
Chest x-ray 01/24/2024-NAD
Chest x-ray 01/25/2024-low lung volumes, mild left basilar atelectasis
ECHO 12/02/14- Normal biventricular size and systolic function without regional wall motion abnormality. No significant valvular disease. No prior study available for comparison.
01/26/24- Normal biventricular size and systolic function without regional wall motion abnormality. Estimated LVEF 65-70%. Trace tricuspid regurgitation. Severely elevated PASP. Estimated pulmonary
artery pressure of 56 mmHg. Assuming a right atrial pressure of 15 mmHg. Compared to 12/02/14: PASP has increased from 39 mmHg to 56 mmHg.
-----
Critical Care time 40 mins -- The patient is admitted for acute critical illness for the treatment of vital organ failure and/or prevention of further life-threatening conditions. Total care includes time spent in review of history, physical exam,
medications, hemodynamic/ventilator parameters, laboratory data, imaging and discussion with house staff, pharmacy, respiratory therapy, screw machine operator single spindle, and nursing.
Subjective Dataa
Subjective Data
Date of Service:
Date of Service: January 29, 2024
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
Subjective:
Hypoxia noted, more sputum production but not requiring more on vent
Sedation off, more awake
Objective Data
Data Reviewed
Vital Signs / I&O / Oxygen:
Vital Signs
Temp Pulse Resp BP Pulse Ox
98.1 F 72 0 126/85 99
01/29/24 05:37 01/29/24 05:00 01/29/24 05:00 01/28/24 08:36 01/29/24 04:00
Intake and Output
01/27/24 01/28/24 01/29/24
06:59 06:59 06:59
Intake Total 1608.5 / 1635.6 1189.7 / 1254.8 1855.3 / 1855.3
Output Total 973.89 / 1030.36 3518.47 / 3699.47 5596 / 5596
Balance 634.61 / 605.24 -2328.77 / -2444.67 -3740.7 / -3740.7
SaO2 [A/C] 99
SaO2 100
Physical Exam
General: Respiratory Distress (Mechanical intubation) and Fever (n)
HEENT: Normocephalic, Anicteric and Moist Mucous Membranes
Cardiovascular: S1-S2, Regular Rhythm and Peripheral Edema
Respiratory: Crackles, Rhonchi (R), Non-Labored Respirations and ET Tube
GI: Soft, Non Distended, Non Tender and Normal Bowel Sounds (decreased )
Neurology: Awake, Alert, Oriented, No Motor Deficits and Other (nodding yes/no)
Skin: Warm and Dry
Labs/Micro/Reports
Lab Data
01/29/24 04:51
01/29/24 04:51
Laboratory Results
01/28/24
11:52
pH 7.38
pCO2 39
pO2 85
HCO3 23.1
O2 Delivery Level
Microbiology
01/24/24 22:37 Blood/Venous Blood Culture - Preliminary
No Growth in 4 days- Final report to follow
01/24/24 22:37 Blood/Venous Blood Culture - Preliminary
No Growth in 4 days- Final report to follow
01/26/24 14:54 Sputum Respiratory Culture - Final
NO GROWTH
01/26/24 14:54 Sputum Gram Stain - Final
01/26/24 08:53 Urine Urine Culture - Final
NO GROWTH
01/25/24 10:10 Nose MRSA Screen - Final
No Methicillin Resistant Staphylococcus aureus isolated.
--- NOTE | 2024-01-29 07:26 | W.PN.INTV ---
Today's Communication / Plan
Recommendations
Continue CRRT at net negative -200
SBT
Sputum cultures pending
Taper off phenobarb
Assessment
-
58-year-old male with history of hypertension, hyperlipidemia, diabetes and alcohol use disorder presented with nausea, vomiting, no urine output for prior 3 days diagnosed with severe septic shock, severe acidosis, KALI with cr >28 requiring
intubation and emergent dialysis. Admitted to ICU for acute hypoxemic failure on mechanical ventilation, CRRT for KALI with severe acidosis and alcohol withdrawal.
#Sepsis of unclear source, possible UTI (UA + mod bacteria/+LE)
#Severe metabolic acidosis-ABG 01/24/2024--13/134/7.09
#Lactic acidosis
#KALI-BUN/creatinine-107/>28
#Respiratory failure-due to severe acidosis
Intubated 01/24/2024
#Alcohol use disorder with suspected withdrawal
#Leukocytosis-WBC 11.4
#Aspiration risk-left basilar infiltrate-atelectasis versus pneumonia
#Oxwiug-ydssdwknbh-oeldicguot 10.8
#Hyperkalemia
#Mild hyponatremia
Conditions present prior to admission:
Hypertension
Hyperlipidemia
Diabetes
Alcohol use disorder
NIDDM
Plan
Neurology
-Alcohol use disorder
-Sedation with mechanical ventilation
-Off propofol and fentanyl as of yesterday 10am
-Goal RAAS -1 to 0. At goal RAAS -1 to 0 following commands, nodding yes and no, wanted to watch sports on TV yesterday per nursing report
-MSAS/ lorazepam for signs of withdrawal per nursing observations - did require a few pushes of lorazepam and Dilaudid overnight
-Thiamine and folic acid
-Wean phenobarb taper today
-PRN lorazepam for alcohol withdrawal
-PRN Dilaudid for pain
Respiratory
-Acute hypoxemic respiratory failure secondary to severe acidosis
-Intubated 01/24/2024
-SBT today as down 5kg since yesterday
-Repeat chest x-ray 01/27 am increase RLL airspace opacities - chest x-ray 01/27 pm ordered as pt experienced a few desaturation events and increased sputum production
-Increased RLL airspace opacities noted from prior am chest x-ray - sputum culture sent
-Vent settings today 500/14/50/5
-yesterday ABG good - no signs of resp. alkalosis
-Aspiration precautions
-Nebs not needed - not bronchospastic with no hx pulm disease
Cardiovascular
-Shock 2/2 unclear source
-Weaned off levo, vasopressin and phenylephrine since 01/26 - currently hemodynamically stable
-Volume overload with admission weight 112kg - yesterday 125.1 kg ->120.2 - lower extremity edema present
-will monitor BP as CRRT net negative 200cc/hr
-Monitor I&O
-No clear cause for shock - cultures all (-)
-Repeat Echo LVEF 65-70%, pulm artery pressure 39-56 mmHg with trace tricuspid regurg ruling out cardiac etiology for shock
-Elevated pulm artery pressures likely secondary to volume overload
-Hx HTN
-Cont to hold antihypertensives until BP increases
GI
- NPO, Tolerating DHT feeds now at goal 50ml/hr
- Aspiration precaution
- Protonix IV GI prophylaxis - will consider d/c if tolerates tube feeds and successful SBT as no hx GERD
- Bowel regimen today as no bowel movement since admission - increased bowel sounds this am
- LFTs all wnl
Renal
-Severe KALI
-Acidemia with severe metabolic acidosis
-Cr >28 on admission. 3.2->3.9 today - monitor
-Unclear etiology - likely pre-renal vs intra-renal combo?
-Renal US simple right renal cyst - unremarkable for post-renal causes, no hydronephrosis
-Suspect ATN per nephro
-Proteinase, myeloperoxidase and CHANDA IgG (-), complement wnl
-On SCUF with net negative - 200 cc/hr as currently volume overloaded
-Replete electrolytes per protocol
-Nephrology following
-Plans to transition to HD when stable
-Follow strict I&Os
-Urine output range 30-60mls/hr in last 24 hrs
-Hypothermia - resolved
ID
-Shock secondary to unknown source
-Placed on antibiotics for presumed infx
-Original Urine, sputum, blood cultures (-), chest x-ray not suspicious for pneumonia, remains afebrile
-WBC 11.4 on 01/24, then downtrended wnl until today 01/28 with WBC 11.9
-Increased resp. secretions yesterday and increased airspace opacities on chest x-ray from prior
-Repeat sputum culture pending
-Anti-biotics d/c on 01/26 - Now cont to monitor WBC and temp closely
-Pro-abad not helpful in setting of renal failure
HemeOnc
-DVT SQ heparin q8
-Anemia
-Macrocytic anemia 12.1 on admission, folate and B12 wnl - chronic alcoholic
-Hg steady slow decline from admission 12.1 ->>>10.8 today in setting of volume overload
-Transfuse <7
-Thrombocytopenia
-130->96 drop from yesterday ->93 ->113
-Unlikely to be HIT as today is day 5 of his hospital stay and now appears to be steady/improving
-More likely secondary to CRRT
-Monitor ptl
Endocrine
-Hx DM2
-On metformin 2,000 hs at home
-Last hgA1c 12/07/23 6.0
-BG goals 140-180
-Monitor BG with now regular tube feeds
-Accuchecks per protocol with mod sliding scale insulin as needed
-No hx of thyroid disorder
Imaging:
Chest x-ray 01/24/2024- no acute cardiopulmonary findings
Chest x-ray 01/25/2024-low lung volumes, mild left basilar atelectasis
Chest x-ray 01/28/2024 6:00 am- Low lung volumes, increase RLL airspace opacities from prior. Correct ET tube placement
Chest x-ray 01/28/2024 15:56 pm -low lung volumes, increased right lower lobe airspace opacities from a.m. x-ray
ECHO 12/02/14- Normal biventricular size and systolic function without regional wall motion abnormality. No significant valvular disease. No prior study available for comparison.
01/26/24- Normal biventricular size and systolic function without regional wall motion abnormality. Estimated LVEF 65-70%. Trace tricuspid regurgitation. Severely elevated PASP. Estimated pulmonary
artery pressure of 56 mmHg. Assuming a right atrial pressure of 15 mmHg. Compared to 12/02/14: PASP has increased from 39 mmHg to 56 mmHg.
Subjective Dataa
Subjective Data
Date of Service:
Date of Service: January 29, 2024
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
Review of Systems
General: Unobtainable - Pat Unresp
Objective Data
Data Reviewed
Vital Signs / I&O / Oxygen:
Vital Signs
Temp Pulse Resp BP Pulse Ox
98.1 F 68 0 126/85 99
01/29/24 07:17 01/29/24 07:00 01/29/24 07:00 01/28/24 08:36 01/29/24 07:00
Intake and Output
01/28/24 01/29/24 01/30/24
06:59 06:59 06:59
Intake Total 1189.7 / 1254.8 1930.3 / 2005.3 75 / 75
Output Total 3518.47 / 3699.47 5631 / 5906 275 / 275
Balance -2328.77 / -2444.67 -3700.7 / -3900.7 -200 / -200
SaO2 [A/C] 99
SaO2 99
Physical Exam
General: Respiratory Distress (Mechanical intubation) and Fever (n)
HEENT: Normocephalic, Anicteric and Moist Mucous Membranes
Cardiovascular: S1-S2, Regular Rhythm and Peripheral Edema
Respiratory: Crackles (n), Rhonchi (n), Non-Labored Respirations, ET Tube and Other (Course breath sounds)
GI: Soft, Non Distended and Normal Bowel Sounds (increased bowel sounds)
Neurology: Awake, Alert, Oriented, No Motor Deficits and Other (nodding yes/no)
Skin: Warm and Dry
Labs/Micro/Reports
Lab Data
01/29/24 04:51
Laboratory Results
01/28/24
11:52
pH 7.38
pCO2 39
pO2 85
HCO3 23.1
O2 Delivery Level
Microbiology
01/24/24 22:37 Blood/Venous Blood Culture - Preliminary
No Growth in 4 days- Final report to follow
01/24/24 22:37 Blood/Venous Blood Culture - Preliminary
No Growth in 4 days- Final report to follow
01/26/24 14:54 Sputum Respiratory Culture - Final
NO GROWTH
01/26/24 14:54 Sputum Gram Stain - Final
01/26/24 08:53 Urine Urine Culture - Final
NO GROWTH
01/25/24 10:10 Nose MRSA Screen - Final
No Methicillin Resistant Staphylococcus aureus isolated.
[2024-01-29 07:57] VITALS: BP_SYST 147
[2024-01-29 08:02] VITALS: BP_SYST 147
--- NOTE | 2024-01-29 08:05 | PTCARENOTE ---
Received pt with eyes close.Eyes open to voice.Nods/shakes head appropriately to questions.Consistently follows commands.Assists with repositioning.Dnies anxiety or pain at this time.SR noted.Right HD cath intact.Right radial A Line intact and
zeroed,placed at midaxillary.Left DL PICC intact.No blood return from both ports.VAT RN made aware.+2 Anasarca.#8 ETT to vent.SBT 5/5 initiated at 0757.Coarse breath sounds throughout.Suctioned for moderate amount thick wang secretions.POX
97%Dobbhoff intact with Nepro at goal.No BM.Navarrete draining yellow urine.CRRT SCUF is ongoing as per MD order.Skin integrity intact.Plan of care discussed with pt.
[2024-01-29 08:15] VITALS: BP_SYST 147
[2024-01-29] MEDS: MIRALAX 17 GRAMS TUBE (08:21)
[2024-01-29] MEDS: NSS (PRESERVATIVE FREE) 10 ML IV (08:21)
[2024-01-29] MEDS: PROTONIX IV 40 MG IV (08:21)
[2024-01-29] MEDS: VITAMIN B1 100 MG PO ×2 (08:21→19:18)
[2024-01-29] MEDS: HEPARIN 5000 UNITS SC ×3 (08:21→16:28)
[2024-01-29] MEDS: LUMINAL 64.8 MG PO ×3 (08:21→22:02)
[2024-01-29] MEDS: FOLVITE 1 MG PO (08:21)
[2024-01-29 08:29] LABS: Ionized Calcium 1.25 mMOL/L (1.15-1.33)
[2024-01-29 08:33] VITALS: BP_SYST 125
[2024-01-29 08:41] LABS: Lactic Acid 0.7 mmol/L (0.7-2.0)
[2024-01-29 08:49] LABS: Blood Urea Nitrogen 29 mg/dl (9-20); Calcium 7.6 mg/dl (8.4-10.2); Carbon Dioxide 24 mmol/L (22-30); Chloride 107 mmol/L (98-107); Estimated Creatinine Clearance 29 ml/min; Glucose 134 mg/dl (70-99); Magnesium 1.9 mg/dl (1.6-2.3); Phosphorus 3.3 mg/dl (2.5-4.5); Potassium 3.2 mmol/L (3.5-5.1); Sodium 138 mmol/L (135-145); eGFR 18.64
[2024-01-29 08:51] VITALS: BP_SYST 147
[2024-01-29] MEDS: KCL 100 IV (09:23)
[2024-01-29 09:24] VITALS: BP_SYST 147
[2024-01-29] MEDS: MAGNESIUM SULFATE 100 IV (09:37)
--- NOTE | 2024-01-29 09:45 | W.PN.ID1 ---
Date of Service
Date of Service: January 29, 2024
Today's Communication
Continue with close clinical observation while off antibiotics.
Monitor white count temperature curve.
Repeat blood cultures x 2 should patient spike a temperature greater than 101 degrees.
Continue with supportive measures.
Patient remains critically ill on vent in intensive care unit.
Assessment / Plan
VDRF
KALI; remains on CRRT
Hypotension
- resolved; now off pressors.
Clinical sepsis
- appears resolved. Cultures have remained negative.
Leukocytosis
- resolved
Lactic acidosis
HTN
Dyslipidemia
DM
Sleep apnea (CPAP)
Recommendations:
Cultures no growth to date.
Repeat resp culture 01/27- in progress - will follow up
White count is normalized. Pressors remain off
Continue with close clinical observation while off antibiotics.
Monitor white count temperature curve.
Repeat blood cultures x 2 should patient spike a temperature greater than 101 degrees.
Continue with supportive measures.
Patient remains critically ill on vent in intensive care unit.
����������������������������������������������������������
Chief Complaint
-: Clinical Sepsis
Subjective / Review of Systems
afebrile
bp stable
no significant events overnight
Vital Signs / Physical Exam
Vital Signs
Vital Signs
Temp Pulse Resp BP Pulse Ox
98.1 F 78 11 126/85 98
01/29/24 07:17 01/29/24 09:24 01/29/24 09:24 01/28/24 08:36 01/29/24 09:24
Physical Exam
Constitutional: No Acute Distress
Cardiovascular: Regular Rate and S1/S2; Negative Murmur or Rub
Pulmonary: Clear and Symmetric; Negative Wheezes or Rales
Gastrointestinal: Soft, Non Tender, Non Distended and Normal Bowel Sounds
Skin: Warm and Dry; Negative Rash or Jaundice
Lines: Other (ETT - no sputum, lines no erythema/tenderness or drainage)
Objective Data
Lab Data
Lab Results
01/29/24 04:51
PT 14.4 Sec (11.4-14.6) 01/26/24 03:59
INR 1.09 01/26/24 03:59
APTT 35.2 Sec (23.4-35.0) H 01/26/24 03:59
Estimated Creat Clear 29 ml/min 01/29/24 08:16
Lactic Acid 0.7 mmol/L (0.7-2.0) 01/29/24 08:16
Total Bilirubin 0.2 mg/dl (0.2-1.3) 01/29/24 04:51
GGT 34 U/L (15-73) 01/24/24 22:46
AST 23 U/L (17-59) 01/29/24 04:51
ALT 17 U/L (0-50) 01/29/24 04:51
Alkaline Phosphatase 80 U/L (38-126) 01/29/24 04:51
Most recent labs reviewed.
Micro Results:
01/24/24 22:37 Blood Culture - Preliminary
Blood/Venous No Growth in 4 days- Final report to follow
01/24/24 22:37 Blood Culture - Preliminary
Blood/Venous No Growth in 4 days- Final report to follow
01/28/24 16:05 Respiratory Culture - Pending
Endotracheal Gram Stain - Pending
01/26/24 14:54 Respiratory Culture - Final
Sputum NO GROWTH
Gram Stain - Final
01/26/24 08:53 Urine Culture - Final
Urine NO GROWTH
01/25/24 10:10 MRSA Screen - Final
Nose No Methicillin Resistant Staphylococcus aureus isolated.
Imaging:
01/28/2024 CXR (portable): Extremely low lung volumes, with crowding of the central/vascular markings. No pneumothorax seen. No pneumothorax or significant pleural effusion seen. Please see full dictation for additional detail. Film personally
viewed.
01/25/2024 CXR (portable): Low lung volumes with mild left base atelectasis noted. No acute infiltrate seen. Please see full dictation for additional detail. Film personally viewed.
--- NOTE | 2024-01-29 09:58 | PTCARENOTE ---
Pt stacking breathsand tachypneic .RT made aware.SBT ended at 0930.Pt tolerated SBT for 90 minutes. Potassium and Magnesium repleted as ordered.
[2024-01-29] MEDS: SENNA SYRUP 8.8 MG TUBE ×2 (10:11→19:18)
[2024-01-29] MEDS: DULCOLAX 10 MG RECTAL (10:12)
--- NOTE | 2024-01-29 10:26 | W.PN.NEPH.PH ---
Today's Communication / Plan
-
cont SCUF
Assessment/Plan
-
IMP:
Severe KALI
Acidemia with severe metabolic acidosis- A gap
hypotension
Hyperkalemia
Hyponatremia
Hypocalcemia
Hypomagnesemia
Hyperphosphatemia
suspected ETOH withdrawal-DTs
h/o HTN
NIDDM
Obesity
ETOH abuse
Plan:
A/w n/v, poor po intake
severe anuric KALI-cr over 28 on admit, baseline cr 0.9 in Dec
highly suspect ATN, neg serologies
renal u/s report : without siginificant findings
non oliguric with borges
improving hypervolemia with SCUF, 5kg down, still 7kg up from admit
will cont SCUF today, if filter clots not resume CRRT
likely will plan HD soon based on his labs
can try lasix as needed too
BP stable
continue supportive care, remains on vent
he is critically ill
CC time spent 31min
d/w nursing
-
-
Date of Service: January 29, 2024
CC / HPI / ROS
-
Chief Complaint:
KALI
History of Present Illness:
CRRT started for refractory acidosis and KALI, off this am since clotted circuit
BP stable
remains intubated, 7kg over admit wt, probably wean soon
plt low 113, WBC increasing to 11.9, no fever
Review of Systems:
off sedation and intubated, 40% Fio2
non oliguric
Labs
-
Labs:
WBC 11.9 10^3/uL (4.8-10.8) H 01/29/24 04:51
RBC 3.31 10^6/uL (4.70-6.10) L 01/29/24 04:51
Hgb 10.8 g/dL (13.0-18.0) L 01/29/24 04:51
Hct 32.0 % (39.0-52.0) L 01/29/24 04:51
Plt Count 113 10^3/uL (130-400) L D 01/29/24 04:51
eGFR 18.64 01/29/24 08:16
Albumin 2.3 g/dl (3.5-5.0) L 01/29/24 04:51
Physical Exam
-
Vital Signs:
Vital Signs
Temp Pulse Resp BP Pulse Ox
98 F 78 11 126/85 96
01/29/24 11:10 01/29/24 09:24 01/29/24 09:24 01/28/24 08:36 01/29/24 11:12
Cardiovascular:: Regular rate and rhythm
Respiratory:: Bilateral: Coarse
Lung Excursion:: Abnormal
Abdomen:: Nontender and Soft
Extremity Edema:: +2: Bilateral:
Borges Catheter: Yes
[2024-01-29 11:41] LABS: Glucose - Point of Care 114 mg/dl (70-99)
[2024-01-29] MEDS: CATHFLO/ACTIVASE 2 MG INTRACATH (11:46)
--- NOTE | 2024-01-29 12:30 | PTCARENOTE ---
Pt assessed.Small amount hemoptysis during ETT suctioning noted.MD made aware and at bedside.VAT RN flushed PICC with Actiflow. + liquid brown BM.
--- NOTE | 2024-01-29 12:30 | W.PN.HOSP.TC ---
Today's Communication/Plan
-
vent weaning per web administrator
f/u electrolytes, replace PRN
HD per nephro
Assessment / Plan
Assessment / Plan
1. Acute renal failure requiring CKRT
Hyperkalemia
Severe metabolic acidosis
Hyponatremia
Hyperphosphatemia
Hypocalcemia
Hypomagnesemia
-Reason for initial renal failure remains unclear,suspected combination of hypovolemia/shock related ATN with intrinsic renal disease
-Renal ultrasound showing renal cyst. Normal kidney parenchyma
-UA showed some pyuria, mild microalbuminuria and some hematuria
-Vasculitis panel has been sent, result pending. Complement level WNL.
-At admission creatinine greater than 28 requiring emergent dialysis catheter placement and initiation of CKRT
-Calcium/magnesium replacement as needed. RF Associated electrolyte imbalance has been improved, continue monitoring with RT.
-Nephrology considering transition from CKRT to intermittent HD
2. Septic shock - Improved
-Chest x-ray clear. UA showing some pyuria and bacteriuria
-Blood culture/respiratory culture remains NTD
-WBC has normalized, have some bandemia. Afebrile. Hypothermic with CKRT likely, continue monitor.
-Patient taken off of abx and planned to be monitored.
3. Lactic acidosis - resolved
4. Alcohol use disorder
Alcohol withdrawal
-At admission blood alcohol level of 12, reported 1 bottle of vodka drinking daily
-Despite being on fentanyl/propofol patient was not sedated at times
-Patient started on phenobarbital protocol with as needed Ativan
5. Chronic normocytic anemia
-suspecting alcohol use related bone marrow suppression
-B12/Folate/Iron studies normal
6. Hypothermia
-Likely with CKRT
-TSH/free T4 within normal limit. Random cortisol marginally low 8.1
7. Vent dependent respiratory failure
-Patient intubated for airway protection and with severe metabolic derangement
-Vent weaning per web administrator
8. Thrombocytopenia - Improving
-CKRT related? HIT is differential
-b12/folate wnl. was presumably septic but now better. not bacteremic
-continue monitor
Essential Hypertension - hold home antihypertensives
Hyperlipidemia
Type II DM - A1c 6 in dec 24
DVT PPX - heparin sq
Code status - Full Code
Total critical care time 36 mins. Total critical care time documented does not include time spent on separately billed procedures or the services of residents, students, nurses or physician assistants. I personally saw and examined the patient. I
have reviewed all diagnostic interpretations and treatment plans as written. I was present for the garcia portions of any procedures performed and the inclusive time noted in any critical care statement. Critical care time includes patient management
by me, time spent at the patients bedside, time to review lab and imaging results, discussing patient care, documentation in the medical record, and time spent with the family or caregiver.
Anticipated Discharge: > 48 hours
Subjective/Interval History
-
Date of Service: January 29, 2024
remains on vent
waking up off sedation
no need of pressors
no fever
no acute issues overnight
Objective Data
-
Labs:
Laboratory Results
01/29/24 01/29/24 01/29/24
04:51 08:16 12:19
WBC 11.9 H
Hgb 10.8 L
Hct 32.0 L
Plt Count 113 L D
Sodium 138 138 Pending
Potassium 3.8 3.2 L Pending
Chloride 105 107 Pending
Carbon Dioxide 27 24 Pending
BUN 31 H 29 H Pending
Creatinine 3.9 H 3.6 H Pending
Glucose 121 H 134 H Pending
Calcium 8.3 L 7.6 L Pending
Total Bilirubin 0.2
AST 23
ALT 17
Alkaline Phosphatase 80
01/29/24
16:00
WBC
Hgb
Hct
Plt Count
Sodium Pending
Potassium Pending
Chloride Pending
Carbon Dioxide Pending
BUN Pending
Creatinine Pending
Glucose Pending
Calcium Pending
Total Bilirubin
AST
ALT
Alkaline Phosphatase
Vital Signs:
Vital Signs
Temp Pulse Resp BP Pulse Ox
98 F 78 11 126/85 96
01/29/24 11:10 01/29/24 09:24 01/29/24 09:24 01/28/24 08:36 01/29/24 11:12
I&O
01/28/24 01/29/24 01/30/24
06:59 06:59 06:59
Intake Total 1189.7 / 1254.8 1930.3 / 2005.3 709.1 / 709.1
Output Total 3518.47 / 3699.47 5631 / 5936 2375 / 2375
Balance -2328.77 / -2444.67 -3700.7 / -3930.7 -1665.9 / -1665.9
Review of Systems
-
Respiratory: Reports No Symptoms
Cardiac: Reports No Symptoms
Abdomen/GI: Reports No Symptoms
Physical Exam
-
General: Comfortable
Respiratory: Clear to Auscultation and Other (intubated on MV)
Cardiac: Regular Rhythm and S1/S2; Negative Murmur or Rub
GI: Soft, Nontender and Nondistended
Musculoskeletal: Edema, Right Lower Extrem and Edema, Left Lower Extrem
Neuro: Awake (following command off sedation)
Psych: Calm
--- NOTE | 2024-01-29 12:31 | W.PN.UPDATE ---
Update Note
Progress Note Update
CRRT notes:
SCUF 200cc/hr to continue, aim another 5kg wt loss by am
bld flow 270cc/min
no heparin
[2024-01-29 12:50] LABS: Ionized Calcium 1.26 mMOL/L (1.15-1.33)
[2024-01-29 12:54] LABS: Lactic Acid 1.1 mmol/L (0.7-2.0)
[2024-01-29 13:07] LABS: Blood Urea Nitrogen 33 mg/dl (9-20); Calcium 8.5 mg/dl (8.4-10.2); Carbon Dioxide 26 mmol/L (22-30); Chloride 104 mmol/L (98-107); Estimated Creatinine Clearance 26 ml/min; Glucose 136 mg/dl (70-99); Magnesium 3.2 mg/dl (1.6-2.3); Phosphorus 3.6 mg/dl (2.5-4.5); Potassium 4.1 mmol/L (3.5-5.1); Sodium 137 mmol/L (135-145); eGFR 16.43
--- NOTE | 2024-01-29 16:11 | PTCARENOTE ---
Pt assessed.No change in assessment noted.Liquid brown BM x 3.Left PICC exchanged to midline as per MD order.
[2024-01-29 16:24] LABS: Ionized Calcium 1.23 mMOL/L (1.15-1.33)
[2024-01-29 16:37] LABS: Lactic Acid 0.7 mmol/L (0.7-2.0)
[2024-01-29 16:42] LABS: Blood Urea Nitrogen 35 mg/dl (9-20); Calcium 8.6 mg/dl (8.4-10.2); Carbon Dioxide 26 mmol/L (22-30); Chloride 104 mmol/L (98-107); Estimated Creatinine Clearance 27 ml/min; Glucose 131 mg/dl (70-99); Phosphorus 3.6 mg/dl (2.5-4.5); Sodium 136 mmol/L (135-145); eGFR 16.93
[2024-01-29 17:47] LABS: Glucose - Point of Care 126 mg/dl (70-99)
[2024-01-29 19:59] LABS: Ionized Calcium 1.24 mMOL/L (1.15-1.33)
[2024-01-29 20:11] LABS: Lactic Acid 0.9 mmol/L (0.7-2.0)
[2024-01-29 20:22] LABS: Blood Urea Nitrogen 37 mg/dl (9-20); Calcium 8.7 mg/dl (8.4-10.2); Carbon Dioxide 26 mmol/L (22-30); Chloride 103 mmol/L (98-107); Estimated Creatinine Clearance 26 ml/min; Glucose 134 mg/dl (70-99); Magnesium 2.9 mg/dl (1.6-2.3); Phosphorus 3.7 mg/dl (2.5-4.5); Potassium 4.1 mmol/L (3.5-5.1); Sodium 137 mmol/L (135-145); eGFR 15.95
[2024-01-30] MEDS: NOVOLOG FLEXPEN-MODERATE RESISTANCE SC ×4 (00:30→17:42)
[2024-01-30] MEDS: DILAUDID 0.5 MG IV ×6 (00:39→21:27)
[2024-01-30] MEDS: HEPARIN 5000 UNITS SC ×3 (00:40→16:35)
[2024-01-30 00:56] LABS: Ionized Calcium 1.24 mMOL/L (1.15-1.33)
[2024-01-30 01:18] LABS: Blood Urea Nitrogen 38 mg/dl (9-20); Calcium 8.7 mg/dl (8.4-10.2); Carbon Dioxide 27 mmol/L (22-30); Chloride 103 mmol/L (98-107); Estimated Creatinine Clearance 26 ml/min; Glucose 131 mg/dl (70-99); Magnesium 2.8 mg/dl (1.6-2.3); Phosphorus 3.8 mg/dl (2.5-4.5); Potassium 3.9 mmol/L (3.5-5.1); Sodium 138 mmol/L (135-145); Triglycerides 125 mg/dl (10-149); eGFR 16.43
--- NOTE | 2024-01-30 02:00 | PTCARENOTE ---
CRRT alarming. Unable to restart. Blood was successfully returned. Treatment ended shortly before 0200. Order noted to hold CRRT with possibility of regular HD in the near future. No change in previous assessment. Will monitor.
[2024-01-30] MEDS: ATIVAN 1 MG IV ×3 (02:53→20:07)
[2024-01-30] MEDS: NSS (PRESERVATIVE FREE) 0.5 ML IV (02:53)
[2024-01-30 04:21] LABS: PCO2 42 mmHg (35-48); PO2 116 mmHg (83-108)
[2024-01-30 04:53] LABS: Hematocrit 30.7 % (39.0-52.0); Hemoglobin 10.3 g/dL (13.0-18.0); Mean Corp Hgb Conc. 33.6 g/dL (33.0-37.0); Mean Corpuscular Hgb 32.1 pg (27.0-31.0); Mean Corpuscular Volume 95.6 fL (80.0-94.0); Platelet Count 144 10^3/uL (130-400); Red Blood Cell Count 3.21 10^6/uL (4.70-6.10)
[2024-01-30 05:03] LABS: Blood Urea Nitrogen 41 mg/dl (9-20); Calcium 8.6 mg/dl (8.4-10.2); Carbon Dioxide 27 mmol/L (22-30); Chloride 104 mmol/L (98-107); Estimated Creatinine Clearance 26 ml/min; Glucose 126 mg/dl (70-99); Magnesium 2.8 mg/dl (1.6-2.3); Sodium 138 mmol/L (135-145); eGFR 16.43
[2024-01-30 05:04] VITALS: BMI 35.1
--- NOTE | 2024-01-30 05:11 | PTCARENOTE ---
Pt reassessed, no change in previous assessment. AM care provided. Labs sent and resulted. Pt calm with PRN agitation meds. Copious amount of secretions via ETT, aggressive pulmonary toileting overnight. Will continue to monitor.
--- NOTE | 2024-01-30 07:03 | W.PN.INTV ---
Today's Communication / Plan
Recommendations
Transition to HD at nephrology discretion
40mg IV lasix
Monitor WBC and temp
SBT
Repeat sputum culture sent
Assessment
-
58-year-old male with history of hypertension, hyperlipidemia, diabetes and alcohol use disorder presented with nausea, vomiting, no urine output for prior 3 days diagnosed with severe septic shock, severe acidosis, KALI with cr >28 requiring
intubation and emergent dialysis. Admitted to ICU for acute hypoxemic failure on mechanical ventilation, CRRT for KALI with severe acidosis and alcohol withdrawal.
#Sepsis of unclear source, possible UTI (UA + mod bacteria/+LE)
#Severe metabolic acidosis-ABG 01/24/2024--134/7.09
#Lactic acidosis
#KALI-BUN/creatinine-107/>28
#Respiratory failure-due to severe acidosis
Intubated 01/24/2024
#Alcohol use disorder with suspected withdrawal
#Leukocytosis-WBC 11.4
#Aspiration risk-left basilar infiltrate-atelectasis versus pneumonia
#Vdhfdx-xlkdedmavy-rhhmlwghkk 10.8
#Hyperkalemia
#Mild hyponatremia
Conditions present prior to admission:
Hypertension
Hyperlipidemia
Diabetes
Alcohol use disorder
NIDDM
Plan
Neurology
-Alcohol use disorder
-Sedation with mechanical ventilation
-Off propofol and fentanyl 01/27
-Goal RAAS -1 to 0. At goal RAAS -1 to 0 following commands, nodding yes and no, wanted to watch sports on TV
-MSAS/lorazepam for signs of withdrawal per nursing observations - did not require overnight
-PRN Dilaudid for pain - did require 3 0.5 pushes overnight
-Thiamine and folic acid
-Wean phenobarb taper today
Respiratory
-Acute hypoxemic respiratory failure secondary to severe acidosis
-Intubated 01/24/2024
-SBT yesterday failed due to increased WOB ->re-attempt today
-Increased airspace opacities in chest x-ray Repeat chest x-ray 01/27 am increase RLL airspace opacities - chest x-ray 01/27 pm ordered as pt experienced a few desaturation events and increased sputum production
-Increased RLL airspace opacities noted from prior am chest x-ray - sputum culture pending
-Repeat chest x-ray 01/29 am due to increasing amount of desat events and increased secretions-> improved aeration since prior
-Vent settings today 500/14/40/5+
-ABG good
-Aspiration precautions
-Nebs not needed - not bronchospastic with no hx pulm disease
Cardiovascular
-Shock 2/2 unclear source
-Weaned off levo, vasopressin and phenylephrine since 01/26 - currently hemodynamically stable
-Volume overload with admission weight 112kg - yesterday 125.1 kg ->120.2 ->114.1 today
-Increased left upper extremity edema compared to right -> RUE US pending to rule out DVT
-CRRT clotted overnight -> plans for hemodialysis for fluid removal per nephrology
-40mg IV lasix one time dose in the meantime
-Monitor I&O
-No clear cause for shock - cultures all (-)
-Repeat Echo LVEF 65-70%, pulm artery pressure 39-56 mmHg with trace tricuspid regurg ruling out cardiac etiology for shock
-Elevated pulm artery pressures likely secondary to volume overload
-Hx HTN
-Cont to hold antihypertensives until BP increases
GI
- NPO, Tolerating DHT feeds now at goal 50ml/hr
- Decrease free fluid flushes with feeds to 10ml instead of 25 as goal to decrease fluid intake per nephro
- Aspiration precaution
- Protonix IV GI prophylaxis on vent >48 hrs -> famotidine renally dosed to decrease fluid intake
- Patient had a bowel movement - now rectal trumpet placed
- LFTs all wnl
Renal
-Severe KALI
-Acidemia with severe metabolic acidosis
-Cr >28 on admission. 3.9->4.0 today - monitor
-Unclear etiology - likely pre-renal vs intra-renal combo?
-Renal US simple right renal cyst - unremarkable for post-renal causes, no hydronephrosis
-Suspect ATN per nephro
-Proteinase, myeloperoxidase and CHANDA IgG (-), complement wnl
-SCUF clogged overnight now off -> plans for HD today
-One dose 40mg IV lasix to remove fluid in the meantime
-Replete electrolytes as needed
-Nephrology following
-Follow strict I&Os - maintain Navarrete
-Urine output range 30-60mls/hr in last 24 hrs
-Hypothermia - resolved
ID
-Shock secondary to unknown source
-Placed on antibiotics for presumed infx
-Original Urine, sputum, blood cultures (-), chest x-ray not suspicious for pneumonia, remains afebrile
-WBC 11.4 on 01/24, then downtrended wnl until 01/28 with WBC 11.9 -> now 14.0
-Increased resp. secretions yesterday and increased airspace opacities on chest x-ray 01/27 from prior -> sputum culture sent -> negative
-Repeat chest xray 01/29 am revealed improvement from prior ->repeat culture pending
-Anti-biotics d/c on 01/26 - Now cont to monitor WBC and temp closely
-ID sent another sputum culture - cont off antibiotics and observe
-Pro-abad not helpful in setting of renal failure
HemeOnc
-DVT SQ heparin q8
-Anemia
-Macrocytic anemia 12.1 on admission, folate and B12 wnl - chronic alcoholic
-Hg steady slow decline from admission 12.1 ->>>10.3 today in setting of volume overload
-Transfuse <7
-Thrombocytopenia
-130->96 drop from yesterday ->93 ->113->144 - resolving
-Unlikely to be HIT as today is day 5 of his hospital stay and now appears to be steady/improving
-More likely secondary to CRRT
-Monitor ptl
Endocrine
-Hx DM2
-On metformin 2,000 hs at home
-Last hgA1c 12/07/23 6.0
-BG goals 140-180
-Monitor BG with now regular tube feeds
-Accuchecks per protocol with mod sliding scale insulin as needed
-No hx of thyroid disorder
Imaging:
Chest x-ray 01/24/2024- no acute cardiopulmonary findings
Chest x-ray 01/25/2024-low lung volumes, mild left basilar atelectasis
Chest x-ray 01/28/2024 6:00 am- Low lung volumes, increase RLL airspace opacities from prior. Correct ET tube placement
Chest x-ray 01/28/2024 15:56 pm -low lung volumes, increased right lower lobe airspace opacities from a.m. x-ray
Chest x-ray 01/30/2024 improvement from prior with increased aeration in RLL. LLL mild hazy opacification remains
ECHO 12/02/14- Normal biventricular size and systolic function without regional wall motion abnormality. No significant valvular disease. No prior study available for comparison.
01/26/24- Normal biventricular size and systolic function without regional wall motion abnormality. Estimated LVEF 65-70%. Trace tricuspid regurgitation. Severely elevated PASP. Estimated pulmonary
artery pressure of 56 mmHg. Assuming a right atrial pressure of 15 mmHg. Compared to 12/02/14: PASP has increased from 39 mmHg to 56 mmHg.
Subjective Dataa
Subjective Data
Date of Service:
Date of Service: January 30, 2024
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
Review of Systems
General: Unobtainable - Pat Unresp
Objective Data
Data Reviewed
Vital Signs / I&O / Oxygen:
Vital Signs
Temp Pulse Resp BP Pulse Ox
98.2 F 73 0 126/85 96
01/30/24 05:10 01/30/24 06:00 01/30/24 06:00 01/28/24 08:36 01/30/24 06:00
Intake and Output
01/29/24 01/30/24 01/31/24
06:59 06:59 06:59
Intake Total 1930.3 / 2004.3 2201.1 / 220.1
Output Total 5631 / 5936 6702 / 6702
Balance -3700.7 / -3930.7 -4500.9 / -4500.9
SaO2 [CPAP/PSV] 97
SaO2 [A/C] 98
SaO2 96
Physical Exam
General: Respiratory Distress (Mechanical intubation) and Fever (n)
HEENT: Normocephalic, Anicteric and Moist Mucous Membranes
Cardiovascular: S1-S2, Regular Rhythm and Peripheral Edema (Increased left upper extremity as compared to right )
Respiratory: Crackles (n), Rhonchi (n), Non-Labored Respirations, ET Tube and Other (Course breath sounds)
GI: Soft, Non Distended and Normal Bowel Sounds
Neurology: Awake, Alert, Oriented and Other (nodding yes/no)
Skin: Warm and Dry
Labs/Micro/Reports
Lab Data
01/30/24 04:09
01/30/24 04:09
Laboratory Results
01/30/24
04:09
pH 7.40
pCO2 42
pO2 116 H
HCO3 26.0
O2 Delivery Level
Microbiology
01/24/24 22:37 Blood/Venous Blood Culture - Final
No Growth - Final Report
01/24/24 22:37 Blood/Venous Blood Culture - Final
No Growth - Final Report
01/28/24 16:05 Endotracheal Gram Stain - Preliminary
01/26/24 14:54 Sputum Respiratory Culture - Final
NO GROWTH
01/26/24 14:54 Sputum Gram Stain - Final
01/26/24 08:53 Urine Urine Culture - Final
NO GROWTH
--- NOTE | 2024-01-30 07:31 | W.PN.INTV ---
Today's Communication / Plan
Recommendations
Low sat on vent, likely de-recruiting on SBT
Sputum cultures negative thus far, observe off abx
Add lasix trials, follow UO/weights
Continue phenobarb taper to off
Assessment
-
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
Sepsis of unclear source, possible UTI (UA + mod bacteria/+LE)
Severe metabolic acidosis-ABG 01/24/2024--13/134/7.09
Lactic acidosis
KALI-BUN/creatinine-107/>28
Respiratory failure-due to severe acidosis s/p intubation 01/24/2024
Acute HFpEF, volume overload
Alcohol use disorder with suspected withdrawal
Leukocytosis-WBC 11.4
Aspiration risk-left basilar infiltrate-atelectasis versus pneumonia
Chwzxj-csdnledanp-vscuxmuwyf 10.8
Hyperkalemia
Mild hyponatremia
Moderate PH on ECHO, likely due to volume overload
Thrombocytopenia
Conditions present prior to admission:
Hypertension
Hyperlipidemia
Diabetes
Alcohol use disorder
NIDDM
Plan
Sedation: Fent/prop-weaned off x 48 hours
On MSAS for severe ETOH w/d likely-drinks 2L per day (liquor, reportedly)
High dose phenobarb taper, weaning down
Thiamine/Folate
Head CT 2022 negative in past, some mild volume loss/leukoaraiosis
Keep off gtts, ativan/MSAS to be used
RASS: 0 to -1
Currently off pressors, doing well
H/o HTN, no other cardiac history noted
Prio ECHO in 2014 with normal biV function
Repeat ECHO stable function but there is moderately elevated PASP-56mmHg
Diuresis as tolerated, per HD
Monitor on telemetry
Patient intubated mechanically ventilated, hypoxemia/unresponsiveness
Ventilator settings reviewed--550/22/50/5+, change TV to 500
ABG(s) reviewed, repeat with adequate ventilation
Nebulizers if needed-currently not bronchospastic
Follow chest x-ray--overall low lung volumes, more R sided edema
Repeat CXR today given low sats on vent
SBT trials daily but likely de-recruiting with trials
NPO, DHT placement with TFs to goal
Aspiration precautions
GI ppx continued
Monitor BMs, bowel regiment PRN
Severe KALI, new, improving
Likely combo pre-renal and intrinsic renal disease
Nephrology following-correspondence reviewed
Emergent hemodialysis for electrolyte correction, CRRT likely transition to UF
Eventual transition to HD when able
Volume removal
Replace electrolytes as needed, serial labs
Renal US neg
Lasix trial today
Placed on abx for presumed infection
Cultures reviewed-- negative blood, UA + but no reflex to urine
urine and sputum culture negative
d/c abx and observe off
Monitor leukocytosis
Procal likely of no value in setting of renal failure
No bleeding/coagulopathy noted, plts are declining but within functional range
Mild anemia, likely critically ill/dilutional
Continue to follow CBC
Transfused as needed for Hb <7, plt <10
DVT ppx
No history of thyroid disease
TSH 1.58
NIDDM, on metformin as OP
Follow q6 PRN SS
Hba1c 12/07/23 6.0, prior 6.5
Diagnostic data:
Chest x-ray 01/24/2024-NAD
Chest x-ray 01/25/2024-low lung volumes, mild left basilar atelectasis
ECHO 12/02/14- Normal biventricular size and systolic function without regional wall motion abnormality. No significant valvular disease. No prior study available for comparison.
01/26/24- Normal biventricular size and systolic function without regional wall motion abnormality. Estimated LVEF 65-70%. Trace tricuspid regurgitation. Severely elevated PASP. Estimated pulmonary
artery pressure of 56 mmHg. Assuming a right atrial pressure of 15 mmHg. Compared to 12/02/14: PASP has increased from 39 mmHg to 56 mmHg.
-----
Critical Care time 40 mins -- The patient is admitted for acute critical illness for the treatment of vital organ failure and/or prevention of further life-threatening conditions. Total care includes time spent in review of history, physical exam,
medications, hemodynamic/ventilator parameters, laboratory data, imaging and discussion with house staff, pharmacy, respiratory therapy, production control supervisor, and nursing.
Subjective Dataa
Subjective Data
Date of Service:
Date of Service: January 30, 2024
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
Subjective:
Remains intubated, SBT trials daily but not able to last long
Copious secretions noted, not blood tinged
Hypoxia on vent, 90%
No other events
Objective Data
Data Reviewed
Vital Signs / I&O / Oxygen:
Vital Signs
Temp Pulse Resp BP Pulse Ox
98.2 F 73 0 126/85 96
01/30/24 05:10 01/30/24 06:00 01/30/24 06:00 01/28/24 08:36 01/30/24 07:23
Intake and Output
01/29/24 01/30/24 01/31/24
06:59 06:59 06:59
Intake Total 1930.3 / 2004.3 2201.1 / 2201.1
Output Total 5631 / 5936 6702 / 6702
Balance -3700.7 / -3930.7 -4500.9 / -4500.9
SaO2 [CPAP/PSV] 97
SaO2 [A/C] 98
SaO2 96
Physical Exam
General: Respiratory Distress (Mechanical intubation) and Fever (n)
HEENT: Normocephalic, Anicteric and Moist Mucous Membranes
Cardiovascular: S1-S2, Regular Rhythm and Peripheral Edema
Respiratory: Crackles (n), Rhonchi (n), Non-Labored Respirations, ET Tube and Other (Course breath sounds)
GI: Soft, Non Distended and Normal Bowel Sounds (increased bowel sounds)
Neurology: Awake, Alert, Oriented, No Motor Deficits and Other (nodding yes/no)
Skin: Warm and Dry
Labs/Micro/Reports
Lab Data
01/30/24 04:09
01/30/24 04:09
Laboratory Results
01/30/24
04:09
pH 7.40
pCO2 42
pO2 116 H
HCO3 26.0
O2 Delivery Level
Microbiology
01/24/24 22:37 Blood/Venous Blood Culture - Final
No Growth - Final Report
01/24/24 22:37 Blood/Venous Blood Culture - Final
No Growth - Final Report
01/28/24 16:05 Endotracheal Gram Stain - Preliminary
01/26/24 14:54 Sputum Respiratory Culture - Final
NO GROWTH
01/26/24 14:54 Sputum Gram Stain - Final
01/26/24 08:53 Urine Urine Culture - Final
NO GROWTH
[2024-01-30] MEDS: LUMINAL 64.8 MG PO ×3 (07:46→21:43)
[2024-01-30] MEDS: PROTONIX IV 40 MG IV (07:46)
[2024-01-30] MEDS: MIRALAX 17 GRAMS TUBE (07:46)
[2024-01-30] MEDS: NSS (PRESERVATIVE FREE) 10 ML IV ×2 (07:46→13:31)
[2024-01-30] MEDS: VITAMIN B1 100 MG PO ×2 (07:46→20:07)
[2024-01-30] MEDS: SENNA SYRUP 8.8 MG TUBE (07:46)
[2024-01-30] MEDS: FOLVITE 1 MG PO (07:46)
--- NOTE | 2024-01-30 08:00 | PTCARENOTE ---
Received pt from previous RN. Pt opens eyes spontaneously, nods head appropriately, follows commands. Restraints in place (see order). NSR on the monitor. Received pt on AC 14/500/40%/5, O2 sat 96%, lungs coarse/crackles/rhonchi. ETT #8 24 @ lip
left. Frequent frothy sputum. Dobbhoff in the right nare, TF nepro @ 50ml/hr, [address]. Navarrete in place for acute kidney, hygiene provided. Q2T provided. Safe environment maintained.
--- NOTE | 2024-01-30 08:50 | W.PN.ID1 ---
Addendum entered and electronically signed by Yen Olmos MD 01/30/24 12:44:
gram stain on sputum back - moderate GNR
added meropenem - deescalate pending ID/sensi
Original Note:
Date of Service
Date of Service: January 30, 2024
Today's Communication
send sputum will follow up gram stain
scheduled cathartics held, has PRNs available; diarrhea is due to cathartics
Assessment / Plan
VDRF
KALI; remains on CRRT
Hypotension
- resolved; now off pressors.
Clinical sepsis
- appears resolved. Cultures have remained negative.
Leukocytosis
- resolved
Lactic acidosis
HTN
Dyslipidemia
DM
Sleep apnea (CPAP)
Recommendations:
increasing leukocytosis today
note copious secretions for the ETT - repeat resp gram stain/culture - will follow up gram stain
liquid stool x3 on two scheduled cathartics and two PRN cathartics - held BID scheduled senna, and miralax for now; PRNs available - diarrhea is due to cathartics, no workup warranted at this moment
CBC with diff in the AM
01/24 MRSA screen negative
Pressors remain off
Monitor temperature curve.
Repeat blood cultures x 2 should patient spike a temperature greater than 101 degrees or develop shock.
Continue with supportive measures.
Patient remains critically ill on vent in intensive care unit.
����������������������������������������������������������
Chief Complaint
-: Clinical Sepsis
Subjective / Review of Systems
afebrile
bp stable
remains on the vent, 40% FiO2
copious secretions via ETT reported however looks frothy
CRRT held - may start HD soon
liquid stool x3 on two scheduled cathartics and two PRN cathartics - held BID scheduled senna - diarrhea is due to cathartics, no workup warranted
Vital Signs / Physical Exam
Vital Signs
Vital Signs
Temp Pulse Resp BP Pulse Ox
99.1 F 84 0 126/85 92
01/30/24 08:00 01/30/24 08:00 01/30/24 06:00 01/28/24 08:36 01/30/24 08:44
Objective Data
Lab Data
Lab Results
01/30/24 04:09
01/30/24 04:09
PT 14.4 Sec (11.4-14.6) 01/26/24 03:59
INR 1.09 01/26/24 03:59
APTT 35.2 Sec (23.4-35.0) H 01/26/24 03:59
Estimated Creat Clear 26 ml/min 01/30/24 04:09
Lactic Acid 0.9 mmol/L (0.7-2.0) 01/29/24 19:48
Total Bilirubin 0.2 mg/dl (0.2-1.3) 01/29/24 04:51
GGT 34 U/L (15-73) 01/24/24 22:46
AST 23 U/L (17-59) 01/29/24 04:51
ALT 17 U/L (0-50) 01/29/24 04:51
Alkaline Phosphatase 80 U/L (38-126) 01/29/24 04:51
Most recent labs reviewed. note increased wbc count, plt improved
Micro Results:
01/28/24 16:05 Respiratory Culture - Preliminary
Endotracheal Usual Respiratory Laina
Gram Stain - Preliminary
01/24/24 22:37 Blood Culture - Final
Blood/Venous No Growth - Final Report
01/24/24 22:37 Blood Culture - Final
Blood/Venous No Growth - Final Report
01/26/24 14:54 Respiratory Culture - Final
Sputum NO GROWTH
Gram Stain - Final
01/26/24 08:53 Urine Culture - Final
Urine NO GROWTH
01/25/24 10:10 MRSA Screen - Final
Nose No Methicillin Resistant Staphylococcus aureus isolated.
Imaging:
01/28/2024 CXR (portable): Extremely low lung volumes, with crowding of the central/vascular markings. No pneumothorax seen. No pneumothorax or significant pleural effusion seen. Please see full dictation for additional detail. Film personally
viewed.
01/25/2024 CXR (portable): Low lung volumes with mild left base atelectasis noted. No acute infiltrate seen. Please see full dictation for additional detail. Film personally viewed.
Care Review
Plan reviewed with: Nurse (secretions)
[2024-01-30] MEDS: LASIX 40 MG IV (09:27)
--- NOTE | 2024-01-30 09:50 | PTCARENOTE ---
PRN Dilaudid given (see MAR). Pt more awake, attempting to pull ETT. Pt mouthing he has to pee, pt is reassured he has a catheter in his bladder and his urine is emptying into the bag. Pt bladder scanned, bladder is empty.
--- NOTE | 2024-01-30 10:36 | W.PN.NEPH.PH ---
Today's Communication / Plan
-
ok for lasix trial
HD today
Assessment/Plan
-
IMP:
Severe KALI
Acidemia with severe metabolic acidosis- A gap
hypotension
Hyperkalemia
Hyponatremia
Hypocalcemia
Hypomagnesemia
Hyperphosphatemia
suspected ETOH withdrawal-DTs
h/o HTN
NIDDM
Obesity
ETOH abuse
Plan:
A/w n/v, poor po intake
severe anuric KALI-cr over 28 on admit, baseline cr 0.9 in Dec
highly suspect ATN, neg serologies
renal u/s report : without siginificant findings
non oliguric -keep borges
improving hypervolemia with SCUF, 6kg down
cr slowly increasing and persistent hypervolemia on exam
will do HD today , add lasix
wean vent per ICU
BP stable
continue supportive care
CC time spent 31min
d/w nursing and ICU
-
-
Date of Service: January 30, 2024
CC / HPI / ROS
-
Chief Complaint:
KALI
History of Present Illness:
CRRT started for refractory acidosis and KALI, 01/24
BP stable
remains intubated, wt decreasing, off SCUF since 2am
plt improved, WBC increasing to 14, no fever
Review of Systems:
off sedation and intubated, 40% Fio2
non oliguric
Labs
-
Labs:
WBC 14.0 10^3/uL (4.8-10.8) H 01/30/24 04:09
RBC 3.21 10^6/uL (4.70-6.10) L 01/30/24 04:09
Hgb 10.3 g/dL (13.0-18.0) L 01/30/24 04:09
Hct 30.7 % (39.0-52.0) L 01/30/24 04:09
Plt Count 144 10^3/uL (130-400) D 01/30/24 04:09
Sodium 138 mmol/L (135-145) 01/30/24 04:09
Potassium 4.0 mmol/L (3.5-5.1) 01/30/24 04:09
Chloride 104 mmol/L (98-107) 01/30/24 04:09
Carbon Dioxide 27 mmol/L (22-30) 01/30/24 04:09
BUN 41 mg/dl (9-20) H 01/30/24 04:09
Creatinine 4.0 mg/dL (0.7-1.3) H 01/30/24 04:09
eGFR 16.43 01/30/24 04:09
Glucose 126 mg/dl (70-99) H 01/30/24 04:09
Calcium 8.6 mg/dl (8.4-10.2) 01/30/24 04:09
Phosphorus 3.8 mg/dl (2.5-4.5) 01/30/24 00:38
Albumin 2.3 g/dl (3.5-5.0) L 01/29/24 04:51
Physical Exam
-
Vital Signs:
Vital Signs
Temp Pulse Resp BP Pulse Ox
99.1 F 81 0 155/72 95
01/30/24 08:00 01/30/24 10:00 01/30/24 06:00 01/30/24 09:27 01/30/24 10:00
Cardiovascular:: Regular rate and rhythm
Respiratory:: Bilateral: Coarse
Lung Excursion:: Abnormal
Abdomen:: Nontender and Soft
Extremity Edema:: +1: Bilateral:
Borges Catheter: Yes
--- NOTE | 2024-01-30 10:38 | PTCARENOTE ---
Reviewed plan of care during rounds. Discussed with Dr. Celis borges to be maintained due to KALI. 40 mg of IV Lasix x1 administered (see MAR), will monitor urinary output for pt response for possibly another dose or HD later in the day. Sputum
culture sent due to copious frothy wang colored sputum, chest xray obtained.
--- NOTE | 2024-01-30 10:49 | W.PN.HOSP.TC ---
Today's Communication/Plan
-
vent weaning effort ongoing, failing SBT
Nephro planning to do HD
abx per ID
Assessment / Plan
Assessment / Plan
1. Acute renal failure requiring CKRT
Hyperkalemia
Severe metabolic acidosis
Hyponatremia
Hyperphosphatemia
Hypocalcemia
Hypomagnesemia
-Reason for initial renal failure remains unclear,suspected combination of hypovolemia/shock related ATN with intrinsic renal disease
-Renal ultrasound showing renal cyst. Normal kidney parenchyma
-UA showed some pyuria, mild microalbuminuria and some hematuria
-Vasculitis panel has been sent, result pending. Complement level WNL.
-At admission creatinine greater than 28 requiring emergent dialysis catheter placement and initiation of CKRT
-Calcium/magnesium replacement as needed. RF Associated electrolyte imbalance has been improved, continue monitoring with RT.
-Nephrology considering transition from CKRT to intermittent HD
2. Septic shock - Improved
-Chest x-ray clear. UA showing some pyuria and bacteriuria
-Blood culture/respiratory culture remains NTD
-WBC has normalized, have some bandemia. Afebrile. Hypothermic with CKRT likely, continue monitor.
-ID considering restarting abx with increasing leukocytosis
3. Lactic acidosis - resolved
4. Alcohol use disorder
Alcohol withdrawal
-At admission blood alcohol level of 12, reported 1 bottle of vodka drinking daily
-Despite being on fentanyl/propofol patient was not sedated at times
-Patient started on phenobarbital protocol with as needed Ativan
5. Chronic normocytic anemia
-suspecting alcohol use related bone marrow suppression
-B12/Folate/Iron studies normal
6. Hypothermia
-Likely with CKRT
-TSH/free T4 within normal limit. Random cortisol marginally low 8.1
7. Vent dependent respiratory failure
-Patient intubated for airway protection and with severe metabolic derangement
-Vent weaning per health and safety director
8. Thrombocytopenia -Resolved
-CKRT related? HIT is differential
-b12/folate wnl. was presumably septic but now better. not bacteremic
-continue monitor
Essential Hypertension - hold home antihypertensives
Hyperlipidemia
Type II DM - A1c 6 in dec 24
DVT PPX - heparin sq
Code status - Full Code
Total critical care time 34 mins. Total critical care time documented does not include time spent on separately billed procedures or the services of residents, students, nurses or physician assistants. I personally saw and examined the patient. I
have reviewed all diagnostic interpretations and treatment plans as written. I was present for the garcia portions of any procedures performed and the inclusive time noted in any critical care statement. Critical care time includes patient management
by me, time spent at the patients bedside, time to review lab and imaging results, discussing patient care, documentation in the medical record, and time spent with the family or caregiver.
Anticipated Discharge: > 48 hours
Subjective/Interval History
-
Date of Service: January 30, 2024
remains intubated
not on vasopressors
aferbrile
on CKRT
no other issues reported
Objective Data
-
Labs:
Laboratory Results
01/30/24 01/30/24
00:38 04:09
WBC 14.0 H
Hgb 10.3 L
Hct 30.7 L
Plt Count 144 D
HCO3 26.0
Sodium 138 138
Potassium 3.9 4.0
Chloride 103 104
Carbon Dioxide 27 27
BUN 38 H 41 H
Creatinine 4.0 H 4.0 H
Glucose 131 H 126 H
Calcium 8.7 8.6
Vital Signs:
Vital Signs
Temp Pulse Resp BP Pulse Ox
99.1 F 81 0 155/72 95
01/30/24 08:00 01/30/24 10:00 01/30/24 06:00 01/30/24 09:27 01/30/24 10:00
I&O
01/29/24 01/30/24 01/31/24
06:59 06:59 06:59
Intake Total 1930.3 / 2004.3 2201.1 / 2276.1 360 / 360
Output Total 5631 / 5936 6702 / 6702 245 / 245
Balance -3700.7 / -3930.7 -4500.9 / -4425.9 115 / 115
Review of Systems
-
Unable to obtain full review of systems at this time due to: Acuity and Patient Intubation
Physical Exam
-
General: Comfortable
Respiratory: Clear to Auscultation and Other (intubated on MV)
Cardiac: Regular Rhythm and S1/S2; Negative Murmur or Rub
GI: Soft, Nontender and Nondistended
Musculoskeletal: Edema, Right Lower Extrem and Edema, Left Lower Extrem
Neuro: Sedated
Psych: Calm
[2024-01-30 11:37] LABS: Glucose - Point of Care 131 mg/dl (70-99)
--- NOTE | 2024-01-30 12:24 | CM ---
CM following re:discharge planning.
Discussed in rounds, reviewed pt's chart, met with pt. Per Rounds meeting, pt remains intubated and sedated, temporary HD treatment today, continue supportive care.
D/C plan: uncertain at this time and will depend on pt's progress
CM will follow with discharge plan updates as hospitalization progresses
--- NOTE | 2024-01-30 12:36 | PTCARENOTE ---
SBT ongoing 5/5 and 40% FiO2, O2 sat 92%. HD orders. No other changes from previous assessment. Safe environment maintained.
[2024-01-30] MEDS: HEPARIN 500 UNITS IV ×2 (12:45→13:45)
[2024-01-30] MEDS: MANNITOL 25% 12.5 GRAMS IV (13:05)
[2024-01-30] MEDS: FLEXBUMIN 25% FOR HEMODIALYSIS 12.5 GRAMS IV (13:05)
--- NOTE | 2024-01-30 13:14 | PTCARENOTE ---
s/p repositioning after HD initiated. Pt awake, moving his head side to side. Increase tidal volumes 900's on ventilator. HENSON, restless. Hydromorphone administered as ordered and pt was placed back on AC by RPT. HD nurse Mila having difficulty with
rising venous pressures. Will initiate Levophed PRN MAP>65 as ordered.
[2024-01-30 13:29] LABS: Hepatitis B Surface Antigen Negative (Negative)
[2024-01-30 13:47] LABS: Hepatitis B Core Ab, Total Negative (Negative); Hepatitis B Surface Antibody Negative; Hepatitis C Antibody Negative (Negative)
--- NOTE | 2024-01-30 15:06 | W.PN.NEPH.HD ---
Assessment
-
pt seen during HD
catheter seem very positional and venous port have issues
ok for alteplase after HD
Bp sensitive to dilaudid
UF as tolerates
no significant response to lasix earlier
Progress Note - Hemodialysis
-
Date of Service: January 30, 2024
Duration: 30 minutes and 3 hours
Potassium Bath: 3
Calcium Bath: 2.5
Opti-Dialyzer: 160
Ultrafiltration: Other (2.5-3kg)
Blood Flow: 300
Dialysate Flow: 600
Heparin: yesx2
EPO: no
[2024-01-30] MEDS: CATHFLO/ACTIVASE 2 MG INTRACATH (16:13)
[2024-01-30] MEDS: HEPARIN 1200 UNITS INTRACATH (16:13)
[2024-01-30] MEDS: MERREM 500 MG IV (16:34)
[2024-01-30] MEDS: STERILE WATER FOR INJECTION 10 ML IV (16:35)
[2024-01-30 17:54] LABS: Glucose - Point of Care 140 mg/dl (70-99)
[2024-01-30] MEDS: PRECEDEX 100 IV (21:42)
[2024-01-30 22:17] VITALS: BP 82/43
[2024-01-30] MEDS: ProAmatine 5 MG TUBE (22:30)
--- NOTE | 2024-01-30 23:37 | PTCARENOTE ---
Assumed care of pt at 1900. Received pt intubated, #8 ETT, 24cm at lip, AC 14/500/40/5. Pt with large amount of frothy, blood tinged secretions. Course rhonchi throughout all lung ordonez. Pt not on any continuous sedation, has received Ativan x1 and
Dilaudid x1 so far this shift, see EMAR. At one point, during bedside ultrasound, pt was dyssynchronous with the vent, hypertensive in 220s, tachycardic, sats dropping, coughing. This necessitated the Dilaudid push, and in addition Precedex was
added, started around 2145. Within 30 minutes pt was sustaining a BP in the low 80s, MAPs in 50s. Precedex stopped when BP low, Midodrine administered, see EMAR. BP now 132/58. See nursing shift assessment flowsheet for full physical assessment
details.
[2024-01-31] MEDS: NOVOLOG FLEXPEN-MODERATE RESISTANCE SC ×4 (00:06→17:45)
[2024-01-31 00:16] LABS: Glucose - Point of Care 114 mg/dl (70-99)
[2024-01-31] MEDS: HEPARIN 5000 UNITS SC ×4 (00:30→23:22)
[2024-01-31] MEDS: ATIVAN 1 MG IV ×2 (00:47→21:37)
--- NOTE | 2024-01-31 01:17 | PTCARENOTE ---
Midnight assessment unchanged. BP improved after Midodrine and then pt became hypertensive again, when agitated and coughing will go up to the 200s. Precedex restarted at 0.2mcg/kg/min, see med titration flowsheet for details. Continues on same vent
settings, current SpO2 92%. SR 80s on monitor. Continues with frothy pink sputum.
[2024-01-31] MEDS: DILAUDID 0.5 MG IV ×2 (03:22→22:31)
[2024-01-31 03:49] VITALS: BMI 34.3
--- NOTE | 2024-01-31 04:47 | PTCARENOTE ---
Assessment unchanged. SR 60s on monitor. Continues on Precedex at 0.2mcg/kg/min. Remains on same vent settings, SpO2 currently 93%, has dropped to 88-89% range occasionally. Still with large amount of frothy blood-tinged secretions through ETT and
thick oral secretions as well. CHG cloth bath done, linens changed.
[2024-01-31 04:52] LABS: B.E. 4.4 mmol/L; HCO3 29.2 mmol/L (21-28); O2 Saturation % 98.6 % (94-98); PCO2 44 mmHg (35-48); PO2 78 mmHg (83-108); pH 7.43 (7.35-7.45)
[2024-01-31 05:06] LABS: Hematocrit 27.1 % (39.0-52.0); Hemoglobin 9.1 g/dL (13.0-18.0); Mean Corp Hgb Conc. 33.6 g/dL (33.0-37.0); Mean Corpuscular Hgb 32.5 pg (27.0-31.0); Mean Corpuscular Volume 96.8 fL (80.0-94.0); Mean Platelet Volume 9.5 fL (7.4-10.4); Platelet Count 165 10^3/uL (130-400); Red Cell Dist. Width 14.4 % (11.5-14.5); White Blood Cell Count 16.2 10^3/uL (4.8-10.8)
[2024-01-31] MEDS: ProAmatine 5 MG TUBE (05:09)
[2024-01-31 05:22] LABS: Blood Urea Nitrogen 35 mg/dl (9-20); Calcium 8.3 mg/dl (8.4-10.2); Carbon Dioxide 28 mmol/L (22-30); Chloride 103 mmol/L (98-107); Estimated Creatinine Clearance 35 ml/min; Glucose 130 mg/dl (70-99); Magnesium 2.3 mg/dl (1.6-2.3); Potassium 4.2 mmol/L (3.5-5.1); Sodium 138 mmol/L (135-145); eGFR 24.16
--- NOTE | 2024-01-31 07:07 | W.PN.INTV ---
Today's Communication / Plan
Recommendations
Trial of lasix, minimal output
HD planning per renal
SBT trials continued, not quite lasting several hours, cautious extubation given prolongation
Maintain supportive care
Assessment
-
58-year-old male with history of hypertension, hyperlipidemia, diabetes and chronic alcohol abuse presented with nausea, vomiting felt to be septic, severe acidosis, KALI requiring intubation and emergent dialysis-community development officer consulted for alcohol
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
Sepsis of unclear source, possible UTI (UA + mod bacteria/+LE)
Severe metabolic acidosis-ABG 01/24/2024--13/134/7.09
Lactic acidosis
KALI-BUN/creatinine-107/>28
Respiratory failure-due to severe acidosis s/p intubation 01/24/2024
Acute HFpEF, volume overload
Alcohol use disorder with suspected withdrawal
Leukocytosis-WBC 11.4
Aspiration risk-left basilar infiltrate-atelectasis versus pneumonia
Jdmqqj-axhbedniik-djhdhufrqs 10.8
Hyperkalemia
Mild hyponatremia
Moderate PH on ECHO, likely due to volume overload
Thrombocytopenia
Conditions present prior to admission:
Hypertension
Hyperlipidemia
Diabetes
Alcohol use disorder
NIDDM
Plan
Sedation: Fent/prop-weaned off >72 hours
On MSAS for severe ETOH w/d likely-drinks 2L per day (liquor, reportedly)
High dose phenobarb taper, weaning down to off
Thiamine/Folate
Head CT 2022 negative in past, some mild volume loss/leukoaraiosis
Keep off gtts, ativan/MSAS to be used
RASS: 0 to -1
Currently off pressors, doing well
H/o HTN, no other cardiac history noted
Prio ECHO in 2014 with normal biV function
Repeat ECHO stable function but there is moderately elevated PASP-56mmHg
Diuresis as tolerated, per HD
Monitor on telemetry
Patient intubated mechanically ventilated, hypoxemia/unresponsiveness
Ventilator settings reviewed--550/22/50/5+, change TV to 500
ABG(s) reviewed, repeat with adequate ventilation
Nebulizers if needed-currently not bronchospastic
Follow chest x-ray--overall low lung volumes, more R sided edema
Repeat CXR 01/29--improved
SBT trials daily but not able to prolong efforts
NPO, DHT placement with TFs to goal
Aspiration precautions
GI ppx continued
Monitor BMs, bowel regiment PRN
Severe KALI, new, improving
Likely combo pre-renal and intrinsic renal disease
Nephrology following-correspondence reviewed
Emergent hemodialysis for electrolyte correction, CRRT likely transition to UF
Eventual transition to HD when able
Volume removal
Replace electrolytes as needed, serial labs
Renal US neg
Lasix trial today--minimal output, continue diuresis
Placed on abx for presumed infection
Cultures reviewed-- negative blood, UA + but no reflex to urine
urine and sputum culture negative
d/c abx and observe off
Monitor leukocytosis
Procal likely of no value in setting of renal failure
No bleeding/coagulopathy noted, plts are declining but within functional range
Mild anemia, likely critically ill/dilutional
Continue to follow CBC
Transfused as needed for Hb <7, plt <10
DVT ppx
No history of thyroid disease
TSH 1.58
NIDDM, on metformin as OP
Follow q6 PRN SS
Hba1c 12/07/23 6.0, prior 6.5
Diagnostic data:
Chest x-ray 01/24/2024-NAD
Chest x-ray 01/25/2024-low lung volumes, mild left basilar atelectasis
ECHO 12/02/14- Normal biventricular size and systolic function without regional wall motion abnormality. No significant valvular disease. No prior study available for comparison.
01/26/24- Normal biventricular size and systolic function without regional wall motion abnormality. Estimated LVEF 65-70%. Trace tricuspid regurgitation. Severely elevated PASP. Estimated pulmonary
artery pressure of 56 mmHg. Assuming a right atrial pressure of 15 mmHg. Compared to 12/02/14: PASP has increased from 39 mmHg to 56 mmHg.
-----
Critical Care time 36 mins -- The patient is admitted for acute critical illness for the treatment of vital organ failure and/or prevention of further life-threatening conditions. Total care includes time spent in review of history, physical exam,
medications, hemodynamic/ventilator parameters, laboratory data, imaging and discussion with house staff, pharmacy, respiratory therapy, plastering supervisor, and nursing.
Subjective Dataa
Subjective Data
Date of Service:
Date of Service: January 31, 2024
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
Subjective:
Remains intubated, trials daily
Awake/alert, following commands
Secretions noted
Objective Data
Data Reviewed
Vital Signs / I&O / Oxygen:
Vital Signs
Temp Pulse Resp BP Pulse Ox
99.6 F 58 0 87/40 93
01/31/24 03:41 01/31/24 06:00 01/31/24 04:00 01/31/24 05:09 01/31/24 06:00
Intake and Output
01/30/24 01/31/24 02/01/24
06:59 06:59 06:59
Intake Total 2201.1 / 2276.1 1785 / 1785
Output Total 6702 / 6702 1385 / 1385
Balance -4500.9 / -4425.9 400 / 400
SaO2 [CPAP/PSV] 97
SaO2 [A/C] 90
SaO2 93
Physical Exam
General: Respiratory Distress (Mechanical intubation) and Fever (n)
HEENT: Normocephalic, Anicteric and Moist Mucous Membranes
Cardiovascular: S1-S2, Regular Rhythm and Peripheral Edema (Increased left upper extremity as compared to right )
Respiratory: Crackles (n), Rhonchi (n), Non-Labored Respirations, ET Tube and Other (Course breath sounds)
GI: Soft, Non Distended and Normal Bowel Sounds
Neurology: Awake, Alert, Oriented and Other (nodding yes/no)
Skin: Warm and Dry
Labs/Micro/Reports
Lab Data
01/31/24 04:44
01/31/24 04:44
Laboratory Results
01/31/24
04:44
pH 7.43
pCO2 44
pO2 78 L
HCO3 29.2 H
O2 Delivery Level
Microbiology
01/30/24 09:37 Sputum Gram Stain - Preliminary
01/28/24 16:05 Endotracheal Respiratory Culture - Preliminary
Usual Respiratory Laina
01/28/24 16:05 Endotracheal Gram Stain - Preliminary
01/24/24 22:37 Blood/Venous Blood Culture - Final
No Growth - Final Report
01/24/24 22:37 Blood/Venous Blood Culture - Final
No Growth - Final Report
01/26/24 14:54 Sputum Respiratory Culture - Final
NO GROWTH
01/26/24 14:54 Sputum Gram Stain - Final
01/26/24 08:53 Urine Urine Culture - Final
NO GROWTH
--- NOTE | 2024-01-31 08:00 | PTCARENOTE ---
pt on vent , precedex increased this am for agitation and restlessness , pt needs frequent oral and ETT suctioning for clear mucous , NSR on monitor BP is 162/73, labs noted , plan of wean on CPAP and PS today as tolerated, then to return to
previous vent settings overnight as per pipe supervisor , pt is drowsy but follows commands
[2024-01-31 08:08] LABS: Absolute Neutrophils -Man Diff 11.1 10^3/uL (1.4-6.5); Atypical Lymphocytes 1 %; Band Neutrophils 1 % (0-3); Eosinophils 1 % (0-6); Lymphocytes 8 % (20-51); Metamyelocytes 5 % (-); Monocytes 14 % (2-9); Myelocytes 2 % (-); Platelets Checked Yes; Segmented Neutrophils 68 % (42-75)
[2024-01-31 08:09] LABS: Anisocytosis 1+; Hypochromasia 1+; Normal RBC Morphology No; Polychromasia 1+; Total Cells Counted 100
--- NOTE | 2024-01-31 08:23 | W.PN.ID1 ---
Date of Service
Date of Service: January 31, 2024
Today's Communication
note copious secretions for the ETT - moderate GNR on gram stain of resp secretions
continue meropenem - deescalate as able
Assessment / Plan
VDRF
KALI; remains on CRRT
Hypotension
- resolved; now off pressors.
Clinical sepsis
- appears resolved. Cultures have remained negative.
Leukocytosis
- resolved
Lactic acidosis
HTN
Dyslipidemia
DM
Sleep apnea (CPAP)
Recommendations:
further increasing leukocytosis today
note copious secretions for the ETT - moderate GNR on gram stain of resp secretions
continue meropenem - deescalate as able
Pressors remain off
Monitor temperature curve.
Repeat blood cultures x 2 should patient spike a temperature greater than 101 degrees or develop shock.
Continue with supportive measures.
Patient remains critically ill on vent in intensive care unit.
����������������������������������������������������������
Chief Complaint
-: Clinical Sepsis and Pneumonia
Subjective / Review of Systems
afebrile
mild hypotension since last night - new
RR 0 recorded most of last 24 hours - asked RN to address
ongoing large amount of frothy secretions in ETT, some thick secretions as well
HD started yesterday
Vital Signs / Physical Exam
Vital Signs
Vital Signs
Temp Pulse Resp BP Pulse Ox
99.6 F 58 0 87/40 93
01/31/24 03:41 01/31/24 06:00 01/31/24 04:00 01/31/24 05:09 01/31/24 06:00
Physical Exam
Constitutional: No Acute Distress
Cardiovascular: Regular Rate and S1/S2; Negative Murmur or Rub
Pulmonary: Symmetric and Coarse; Negative Wheezes or Rales
Gastrointestinal: Soft, Non Tender, Non Distended and Normal Bowel Sounds
Skin: Warm and Dry; Negative Rash or Jaundice
Neurological: Negative Awake
Lines: Other (intubated)
Objective Data
Lab Data
Lab Results
01/31/24 04:44
01/31/24 04:44
PT 14.4 Sec (11.4-14.6) 01/26/24 03:59
INR 1.09 01/26/24 03:59
APTT 35.2 Sec (23.4-35.0) H 01/26/24 03:59
Estimated Creat Clear 35 ml/min 01/31/24 04:44
Lactic Acid 0.9 mmol/L (0.7-2.0) 01/29/24 19:48
Total Bilirubin 0.2 mg/dl (0.2-1.3) 01/29/24 04:51
GGT 34 U/L (15-73) 01/24/24 22:46
AST 23 U/L (17-59) 01/29/24 04:51
ALT 17 U/L (0-50) 01/29/24 04:51
Alkaline Phosphatase 80 U/L (38-126) 01/29/24 04:51
Most recent labs reviewed
further increased leukocytosis 14 to 16, no left shift, eos present
PV US: SVT of l arm
01/29 CXR: report slightly improved aeration, my read: possible
Micro Results:
01/30/24 09:37 Respiratory Culture - Pending
Sputum Gram Stain - Preliminary
gram stain moderate GNR, many wbc
01/28/24 16:05 Respiratory Culture - Preliminary
Endotracheal Usual Respiratory Laina
Gram Stain - Preliminary
01/24/24 22:37 Blood Culture - Final
Blood/Venous No Growth - Final Report
01/24/24 22:37 Blood Culture - Final
Blood/Venous No Growth - Final Report
01/26/24 14:54 Respiratory Culture - Final
Sputum NO GROWTH
Gram Stain - Final
01/26/24 08:53 Urine Culture - Final
Urine NO GROWTH
01/25/24 10:10 MRSA Screen - Final
Nose No Methicillin Resistant Staphylococcus aureus isolated.
Imaging:
01/28/2024 CXR (portable): Extremely low lung volumes, with crowding of the central/vascular markings. No pneumothorax seen. No pneumothorax or significant pleural effusion seen. Please see full dictation for additional detail. Film personally
viewed.
01/25/2024 CXR (portable): Low lung volumes with mild left base atelectasis noted. No acute infiltrate seen. Please see full dictation for additional detail. Film personally viewed.
--- NOTE | 2024-01-31 08:30 | W.PN.NEPH.PH ---
Today's Communication / Plan
-
Observe
Next dialysis will be planned for Friday if needed
Will follow I's and O's, if patient becomes more positive over next 24 hours we will also add IV Lasix
Weights currently at admission weight
Assessment/Plan
-
IMP:
Severe KALI
Acidemia with severe metabolic acidosis- A gap
hypotension
Hyperkalemia
Hyponatremia
Hypocalcemia
Hypomagnesemia
Hyperphosphatemia
suspected ETOH withdrawal-DTs
h/o HTN
NIDDM
Obesity
ETOH abuse
Plan:
A/w n/v, poor po intake
severe anuric KALI-cr over 28 on admit, baseline cr 0.9 in Oct
highly suspect ATN, neg serologies
renal u/s report : without siginificant findings
non oliguric -keep borges
improving hypervolemia with SCUF, 6kg down
cr slowly increasing and persistent hypervolemia on exam , uop ~760cc
Patient remains critically ill with acute renal failure on ventilator
wean vent per ICU
BP stable
continue supportive care
CC time spent 31min
d/w nursing and ICU
-
-
Date of Service: January 31, 2024
CC / HPI / ROS
-
Chief Complaint:
KALI
History of Present Illness:
CRRT started for refractory acidosis and KALI, 01/24
BP stable, elevated
remains intubated, wt decreasing,
Had dialysis yesterday
plt improved, WBC increasing to 14, no fever
Review of Systems:
off sedation and intubated, 40% Fio2
non oliguric via borges: 760cc
Labs
-
Labs:
WBC 16.2 10^3/uL (4.8-10.8) H 01/31/24 04:44
RBC 2.80 10^6/uL (4.70-6.10) L 01/31/24 04:44
Hgb 9.1 g/dL (13.0-18.0) L 01/31/24 04:44
Hct 27.1 % (39.0-52.0) L 01/31/24 04:44
Plt Count 165 10^3/uL (130-400) 01/31/24 04:44
Sodium 138 mmol/L (135-145) 01/31/24 04:44
Potassium 4.2 mmol/L (3.5-5.1) 01/31/24 04:44
Chloride 103 mmol/L (98-107) 01/31/24 04:44
Carbon Dioxide 28 mmol/L (22-30) 01/31/24 04:44
BUN 35 mg/dl (9-20) H 01/31/24 04:44
Creatinine 2.9 mg/dL (0.7-1.3) H 01/31/24 04:44
eGFR 24.16 01/31/24 04:44
Glucose 130 mg/dl (70-99) H 01/31/24 04:44
Calcium 8.3 mg/dl (8.4-10.2) L 01/31/24 04:44
Phosphorus 3.8 mg/dl (2.5-4.5) 01/30/24 00:38
Albumin 2.3 g/dl (3.5-5.0) L 01/29/24 04:51
Physical Exam
-
Vital Signs:
Vital Signs
Temp Pulse Resp BP Pulse Ox
99.6 F 58 0 87/40 94
01/31/24 03:41 01/31/24 06:00 01/31/24 04:00 01/31/24 05:09 01/31/24 08:18
Cardiovascular:: Regular rate and rhythm
Respiratory:: Bilateral: Coarse
Lung Excursion:: Abnormal
Abdomen:: Nontender and Soft
Extremity Edema:: +1: Bilateral:
Borges Catheter: Yes
Other Findings::
GEN: Intubated but arousable and weakly follows commands
[2024-01-31] MEDS: LUMINAL 32.4 MG PO ×3 (08:31→21:37)
[2024-01-31] MEDS: PEPCID 10 MG TUBE (08:31)
[2024-01-31] MEDS: FOLVITE 1 MG PO (08:31)
[2024-01-31] MEDS: VITAMIN B1 100 MG PO ×2 (08:31→21:37)
--- NOTE | 2024-01-31 08:42 | W.PN.HOSP.TC ---
Today's Communication/Plan
-
see note
Assessment / Plan
Assessment / Plan
1. Acute renal failure requiring CKRT
Hyperkalemia
Severe metabolic acidosis
Hyponatremia
Hyperphosphatemia
Hypocalcemia
Hypomagnesemia
-Reason for initial renal failure remains unclear,suspected combination of hypovolemia/shock related ATN with intrinsic renal disease
-Renal ultrasound showing renal cyst. Normal kidney parenchyma
-UA showed some pyuria, mild microalbuminuria and some hematuria
-Vasculitis panel has been sent, result pending. Complement level WNL.
-At admission creatinine greater than 28 requiring emergent dialysis catheter placement and initiation of CKRT
-Calcium/magnesium replacement as needed. RF Associated electrolyte imbalance has been improved, continue monitoring with RT.
-Patient off of CKRT, next HD on friday
-Started on IV lasix - monitor UOP
2. Septic shock - Improved
-Chest x-ray clear. UA showing some pyuria and bacteriuria
-Blood culture/respiratory culture remains NTD
-WBC has normalized, have some bandemia. Afebrile. Hypothermic with CKRT likely, continue monitor.
-ID started empiric abx based on ET tube gram stain
3. Lactic acidosis - resolved
4. Alcohol use disorder
Alcohol withdrawal
-At admission blood alcohol level of 12, reported 1 bottle of vodka drinking daily
-Despite being on fentanyl/propofol patient was not sedated at times
-Patient started on phenobarbital protocol with as needed Ativan
5. Chronic normocytic anemia
-suspecting alcohol use related bone marrow suppression
-B12/Folate/Iron studies normal
6. Hypothermia
-Likely with CKRT
-TSH/free T4 within normal limit. Random cortisol marginally low 8.1
7. Vent dependent respiratory failure
-Patient intubated for airway protection and with severe metabolic derangement
-Vent weaning per sterile processing manager
8. Thrombocytopenia -Resolved
-CKRT related? HIT is differential
-b12/folate wnl. was presumably septic but now better. not bacteremic
-continue monitor
Essential Hypertension - hold home antihypertensives
Hyperlipidemia
Type II DM - A1c 6 in dec 24
DVT PPX - heparin sq
Code status - Full Code
Total critical care time 33 mins. Total critical care time documented does not include time spent on separately billed procedures or the services of residents, students, nurses or physician assistants. I personally saw and examined the patient. I
have reviewed all diagnostic interpretations and treatment plans as written. I was present for the garcia portions of any procedures performed and the inclusive time noted in any critical care statement. Critical care time includes patient management
by me, time spent at the patients bedside, time to review lab and imaging results, discussing patient care, documentation in the medical record, and time spent with the family or caregiver.
Anticipated Discharge: > 48 hours
Subjective/Interval History
-
Date of Service: January 31, 2024
remains intubated
not on pressors
afebrile
UOP remains < 1 L
Objective Data
-
Labs:
Laboratory Results
01/31/24
04:44
WBC 16.2 H
Hgb 9.1 L
Hct 27.1 L
Plt Count 165
HCO3 29.2 H
Sodium 138
Potassium 4.2
Chloride 103
Carbon Dioxide 28
BUN 35 H
Creatinine 2.9 H
Glucose 130 H
Calcium 8.3 L
Vital Signs:
Vital Signs
Temp Pulse Resp BP Pulse Ox
99.6 F 58 0 87/40 94
01/31/24 07:05 01/31/24 06:00 01/31/24 04:00 01/31/24 05:09 01/31/24 08:18
I&O
01/30/24 01/31/24 02/01/24
06:59 06:59 06:59
Intake Total 2201.1 / 2276.1 1785 / 1785
Output Total 6702 / 6702 1385 / 1385
Balance -4500.9 / -4425.9 400 / 400
Review of Systems
-
Unable to obtain full review of systems at this time due to: Acuity and Patient Intubation
Physical Exam
-
General: Comfortable
Respiratory: Clear to Auscultation and Other (intubated on MV)
Cardiac: Regular Rhythm and S1/S2; Negative Murmur or Rub
GI: Soft, Nontender and Nondistended
Musculoskeletal: Edema, Right Lower Extrem and Edema, Left Lower Extrem
Neuro: Sedated
Psych: Calm
[2024-01-31 11:20] LABS: Glucose - Point of Care 128 mg/dl (70-99)
[2024-01-31] MEDS: PRECEDEX 100 IV ×2 (12:03→23:22)
[2024-01-31 12:21] LABS: Glucose - Point of Care 122 mg/dl (70-99)
--- NOTE | 2024-01-31 13:26 | PTCARENOTE ---
no changes , tolerating CPAP and PS wean , pt family at bedside and updated on current plan of care and condition
[2024-01-31] MEDS: STERILE WATER FOR INJECTION 10 ML IV (17:46)
[2024-01-31] MEDS: MERREM 500 MG IV (17:46)
[2024-01-31 17:50] LABS: Glucose - Point of Care 145 mg/dl (70-99)
--- NOTE | 2024-01-31 17:53 | PTCARENOTE ---
tolerating vent wean on Cpap and PS since 0800 , urine output increasing throughout day
--- NOTE | 2024-01-31 20:29 | PTCARENOTE ---
Assumed care of pt at 1900. Received pt intubated, #8 ETT 24cm at lip, pt has been on a wean since this AM, PS of 8, PEEP 5, 40% FiO2. Pt currently with SpO2 91%, TV have been 350-500 range, RR in high teens to low 20s. Pt still with copious frothy
secretions in ETT, sometimes blood tinged, and thick clear oral secretions. Course rhonchi noted throughout all lung ordonez. See nursing shift assessment flowsheet for full physical assessment details. Pt currently on Precedex infusion at
0.3mcg/kg/min. SB/SR on monitor, 50s-60s.
[2024-02-01] VITALS (15 sets, daily range): BP systolic 134–168; BP diastolic 74–95; PULSE 2–84; BMI 34.4
[2024-02-01] MEDS: NOVOLOG FLEXPEN-MODERATE RESISTANCE SC ×3 (00:04→12:14)
[2024-02-01 00:06] LABS: Glucose - Point of Care 142 mg/dl (70-99)
--- NOTE | 2024-02-01 00:30 | PTCARENOTE ---
Assessment unchanged. Remains on same vent settings, continues on Precedex infusion. Sinus dustin on monitor, HR in 50s. Has required PRN doses of Dilaudid and Ativan, each x1, see EMAR.
[2024-02-01] MEDS: DILAUDID 0.5 MG IV ×2 (01:56→06:27)
--- NOTE | 2024-02-01 04:15 | PTCARENOTE ---
Assessment unchanged. Precedex continues, now at 0.4mcg/kg/min. SpO2 94% on same vent settings, SB 50s on monitor. Has received two more doses of Dilaudid, for a total of 3 this shift (plus the one dose of Ativan from earlier). Pt has been trying to
talk over the tube and becoming more agitated, and his BP will go up to the 170s-180s.
[2024-02-01 06:25] LABS: Glucose - Point of Care 128 mg/dl (70-99)
[2024-02-01 06:55] LABS: Blood Urea Nitrogen 48 mg/dl (9-20); Calcium 8.7 mg/dl (8.4-10.2); Carbon Dioxide 28 mmol/L (22-30); Chloride 103 mmol/L (98-107); Estimated Creatinine Clearance 36 ml/min; Glucose 141 mg/dl (70-99); Potassium 4.2 mmol/L (3.5-5.1); Sodium 140 mmol/L (135-145)
[2024-02-01 07:04] LABS: Hematocrit 28.7 % (39.0-52.0); Hemoglobin 9.1 g/dL (13.0-18.0); Mean Corp Hgb Conc. 31.7 g/dL (33.0-37.0); Mean Corpuscular Hgb 31.9 pg (27.0-31.0); Mean Corpuscular Volume 100.7 fL (80.0-94.0); Mean Platelet Volume 9.3 fL (7.4-10.4); Platelet Count 229 10^3/uL (130-400); Red Blood Cell Count 2.85 10^6/uL (4.70-6.10); Red Cell Dist. Width 14.3 % (11.5-14.5); White Blood Cell Count 13.6 10^3/uL (4.8-10.8)
--- NOTE | 2024-02-01 07:25 | W.PN.INTV ---
Today's Communication / Plan
Recommendations
SBT trials improving, able to tolerate >12 hours yesterday
Plan to extubate today, BIPAP PRN/nightly use
Continue diuresis per renal
OOB, PT/OT post extubation
Keep DHT, speech eval
Assessment
-
58-year-old male with history of hypertension, hyperlipidemia, diabetes and chronic alcohol abuse presented with nausea, vomiting felt to be septic, severe acidosis, KALI requiring intubation and emergent dialysis-etl informatica architect consulted for alcohol
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
Sepsis of unclear source, possible UTI (UA + mod bacteria/+LE)
Severe metabolic acidosis-ABG 01/24/2024--13/134/7.09
Lactic acidosis
KALI-BUN/creatinine-107/>28
Respiratory failure-due to severe acidosis s/p intubation 01/24/2024
Acute HFpEF, volume overload
Alcohol use disorder with suspected withdrawal
Leukocytosis-WBC 11.4
Aspiration risk-left basilar infiltrate-atelectasis versus pneumonia
Otgdoq-cnpgrxwhya-zsryofnhrr 10.8
Hyperkalemia
Mild hyponatremia
Moderate PH on ECHO, likely due to volume overload
Thrombocytopenia
Conditions present prior to admission:
Hypertension
Hyperlipidemia
Diabetes
Alcohol use disorder
NIDDM
Plan
Sedation: Fent/prop-weaned off >72 hours
On MSAS for severe ETOH w/d likely-drinks 2L per day (liquor, reportedly)
High dose phenobarb taper, weaning down to off
Thiamine/Folate
Head CT 2022 negative in past, some mild volume loss/leukoaraiosis
Keep off gtts, ativan/MSAS to be used
RASS: 0 to -1
Currently off pressors, doing well
H/o HTN, no other cardiac history noted
Prio ECHO in 2014 with normal biV function
Repeat ECHO stable function but there is moderately elevated PASP-56mmHg
Diuresis as tolerated, per HD
Monitor on telemetry
Patient intubated mechanically ventilated, hypoxemia/unresponsiveness
Ventilator settings reviewed--550/22/50/5+, change TV to 500
ABG(s) reviewed, repeat with adequate ventilation
Nebulizers if needed-currently not bronchospastic
Follow chest x-ray--overall low lung volumes, more R sided edema
Repeat CXR 01/29--improved
SBT trials, able to >12 hours yesterday
Extubate today with plan for BIPAP at night/PRN
NPO, DHT placement with TFs to goal
Aspiration precautions
GI ppx continued
Monitor BMs, bowel regiment PRN
Severe KALI, new, improving
Likely combo pre-renal and intrinsic renal disease
Nephrology following-correspondence reviewed
Emergent hemodialysis for electrolyte correction, CRRT likely transition to UF
Eventual transition to HD when able
Volume removal
Replace electrolytes as needed, serial labs
Renal US neg
Lasix trial today--minimal output, continue diuresis
Placed on abx for presumed infection
Cultures reviewed-- negative blood, UA + but no reflex to urine
urine and sputum culture negative
d/c abx and observe off
Monitor leukocytosis
Procal likely of no value in setting of renal failure
No bleeding/coagulopathy noted, plts are declining but within functional range
Mild anemia, likely critically ill/dilutional
Continue to follow CBC
Transfused as needed for Hb <7, plt <10
DVT ppx
No history of thyroid disease
TSH 1.58
NIDDM, on metformin as OP
Follow q6 PRN SS
Hba1c 12/07/23 6.0, prior 6.5
Diagnostic data:
Chest x-ray 01/24/2024-NAD
Chest x-ray 01/25/2024-low lung volumes, mild left basilar atelectasis
ECHO 12/02/14- Normal biventricular size and systolic function without regional wall motion abnormality. No significant valvular disease. No prior study available for comparison.
01/26/24- Normal biventricular size and systolic function without regional wall motion abnormality. Estimated LVEF 65-70%. Trace tricuspid regurgitation. Severely elevated PASP. Estimated pulmonary
artery pressure of 56 mmHg. Assuming a right atrial pressure of 15 mmHg. Compared to 12/02/14: PASP has increased from 39 mmHg to 56 mmHg.
-----
Critical Care time 38 mins -- The patient is admitted for acute critical illness for the treatment of vital organ failure and/or prevention of further life-threatening conditions. Total care includes time spent in review of history, physical exam,
medications, hemodynamic/ventilator parameters, laboratory data, imaging and discussion with house staff, pharmacy, respiratory therapy, unleavened dough mixer, and nursing.
Subjective Dataa
Subjective Data
Date of Service:
Date of Service: February 01, 2024
Chief Complaint: Survey Engineer Follow Up
Subjective:
Doing well today on wean, no events ON
Remains intubated but able to open eyes/communicate
Objective Data
Data Reviewed
Vital Signs / I&O / Oxygen:
Vital Signs
Temp Pulse Resp BP Pulse Ox
99.6 F 61 14 87/40 96
02/01/24 07:00 02/01/24 06:00 02/01/24 06:00 01/31/24 05:09 02/01/24 06:00
Intake and Output
01/31/24 02/01/24 02/02/24
06:59 06:59 06:59
Intake Total 1785 / 1785 1799.6 / 1799.6
Output Total 1385 / 1385 1400 / 1400
Balance 400 / 400 399.6 / 399.6
SaO2 [CPAP/PSV] 95
SaO2 [A/C] 96
SaO2 96
Physical Exam
General: Respiratory Distress (Mechanical intubation) and Fever (n)
HEENT: Normocephalic, Anicteric and Moist Mucous Membranes
Cardiovascular: S1-S2, Regular Rhythm and Peripheral Edema (Increased left upper extremity as compared to right )
Respiratory: Crackles, Non-Labored Respirations, ET Tube and Other (Course breath sounds)
GI: Soft, Non Distended and Normal Bowel Sounds
Neurology: Awake, Alert, Oriented, No Motor Deficits and Other (nodding yes/no)
Skin: Warm and Dry
Labs/Micro/Reports
Lab Data
02/01/24 04:47
02/01/24 04:47
Microbiology
01/30/24 09:37 Sputum Respiratory Culture - Preliminary
01/30/24 09:37 Sputum Gram Stain - Preliminary
01/28/24 16:05 Endotracheal Respiratory Culture - Final
Usual Respiratory Laina
01/28/24 16:05 Endotracheal Gram Stain - Final
01/24/24 22:37 Blood/Venous Blood Culture - Final
No Growth - Final Report
01/24/24 22:37 Blood/Venous Blood Culture - Final
No Growth - Final Report
[2024-02-01] MEDS: HEPARIN 5000 UNITS SC ×3 (08:03→23:01)
[2024-02-01] MEDS: FOLVITE 1 MG PO (08:03)
[2024-02-01] MEDS: PRECEDEX 100 IV (08:03)
[2024-02-01] MEDS: VITAMIN B1 100 MG PO ×2 (08:04→20:07)
[2024-02-01] MEDS: PEPCID 10 MG TUBE (08:04)
[2024-02-01] MEDS: LUMINAL 32.4 MG PO ×3 (08:04→21:47)
[2024-02-01] MEDS: NSS (PRESERVATIVE FREE) IV (08:04)
--- NOTE | 2024-02-01 08:07 | W.PN.NEPH.PH ---
Today's Communication / Plan
-
80 mg IV Lasix
Evaluation for possible dialysis tomorrow
Maintain Borges catheter
Assessment/Plan
-
IMP:
Severe KALI
Acidemia with severe metabolic acidosis- A gap
hypotension
Hyperkalemia
Hyponatremia
Hypocalcemia
Hypomagnesemia
Hyperphosphatemia
suspected ETOH withdrawal-DTs
h/o HTN
NIDDM
Obesity
ETOH abuse
Plan:
A/w n/v, poor po intake
severe anuric KALI-cr over 28 on admit, baseline cr 0.9 in Dec
highly suspect ATN, neg serologies
renal u/s report : without significant findings
non oliguric -keep borges,weights stable,
last HD was Friday, creatinine down to 2.8
We will give 80 mg of IV Lasix and evaluate for possible dialysis tomorrow, he may be recovering
Possible extubation today
cr slowly increasing and persistent hypervolemia on exam , uop ~1 liter
Patient remains critically ill with acute renal failure on ventilator
wean vent per ICU
BP stable
continue supportive care
CC time spent 31min
d/w nursing and ICU
-
-
Date of Service: February 01, 2024
CC / HPI / ROS
-
Chief Complaint:
KALI
History of Present Illness:
CRRT started for refractory acidosis and KALI, 01/24
BP stable, elevated
remains intubated, wt decreasing,
Last dialysis was on 01/29
Review of Systems:
off sedation and intubated, 40% Fio2
non oliguric via borges: 1 litercc
Labs
-
Labs:
WBC 13.6 10^3/uL (4.8-10.8) H 02/01/24 04:47
RBC 2.85 10^6/uL (4.70-6.10) L 02/01/24 04:47
Hgb 9.1 g/dL (13.0-18.0) L 02/01/24 04:47
Hct 28.7 % (39.0-52.0) L 02/01/24 04:47
Plt Count 229 10^3/uL (130-400) D 02/01/24 04:47
Sodium 140 mmol/L (135-145) 02/01/24 04:47
Potassium 4.2 mmol/L (3.5-5.1) 02/01/24 04:47
Chloride 103 mmol/L (98-107) 02/01/24 04:47
Carbon Dioxide 28 mmol/L (22-30) 02/01/24 04:47
BUN 48 mg/dl (9-20) H 02/01/24 04:47
Creatinine 2.8 mg/dL (0.7-1.3) H 02/01/24 04:47
eGFR 25.20 02/01/24 04:47
Glucose 141 mg/dl (70-99) H 02/01/24 04:47
Calcium 8.7 mg/dl (8.4-10.2) 02/01/24 04:47
Phosphorus 3.8 mg/dl (2.5-4.5) 01/30/24 00:38
Albumin 2.3 g/dl (3.5-5.0) L 01/29/24 04:51
Physical Exam
-
Vital Signs:
Vital Signs
Temp Pulse Resp BP Pulse Ox
99.6 F 61 14 87/40 97
02/01/24 07:00 02/01/24 06:00 02/01/24 06:00 01/31/24 05:09 02/01/24 07:26
Cardiovascular:: Regular rate and rhythm
Respiratory:: Bilateral: Coarse
Lung Excursion:: Abnormal
Abdomen:: Nontender and Soft
Extremity Edema:: +1: Bilateral:
Borges Catheter: Yes
Other Findings::
GEN: Intubated but alert and interactive, follows commands
--- NOTE | 2024-02-01 08:49 | W.PN.ID1 ---
Date of Service
Date of Service: February 01, 2024
Today's Communication
sputum with s aureus - pbp2a negative - start cefazolin dosed for HD, stop meropenem
Patient remains critically ill on vent in intensive care unit.
Assessment / Plan
VDRF
KALI; now on intermittent HD
Hypotension
- resolved; now off pressors.
Clinical sepsis
- appears resolved. Cultures have remained negative.
Leukocytosis
- resolved
Lactic acidosis
HTN
Dyslipidemia
DM
Sleep apnea (CPAP)
Recommendations:
Leukocytosis now improving
sputum with s aureus - pbp2a negative - start cefazolin dosed for HD, stop meropenem
Pressors remain off
Monitor temperature curve.
Continue with supportive measures.
Patient remains critically ill on vent in intensive care unit.
����������������������������������������������������������
Chief Complaint
-: Clinical Sepsis and Pneumonia (HAP)
Subjective / Review of Systems
remains afebrile
bp remains stable
ongoing copious secretions
Vital Signs / Physical Exam
Vital Signs
Vital Signs
Temp Pulse Resp BP Pulse Ox
99.6 F 61 14 87/40 97
02/01/24 07:00 02/01/24 06:00 02/01/24 06:00 01/31/24 05:09 02/01/24 07:26
Physical Exam
Constitutional: No Acute Distress
Cardiovascular: Regular Rate and S1/S2; Negative Murmur or Rub
Pulmonary: Symmetric, Rales, Coarse and Non Labored; Negative Wheezes
Gastrointestinal: Soft, Non Tender, Non Distended and Normal Bowel Sounds
Skin: Warm and Dry; Negative Rash or Jaundice
Objective Data
Lab Data
Lab Results
02/01/24 04:47
02/01/24 04:47
PT 14.4 Sec (11.4-14.6) 01/26/24 03:59
INR 1.09 01/26/24 03:59
APTT 35.2 Sec (23.4-35.0) H 01/26/24 03:59
Estimated Creat Clear 36 ml/min 02/01/24 04:47
Lactic Acid 0.9 mmol/L (0.7-2.0) 01/29/24 19:48
Total Bilirubin 0.2 mg/dl (0.2-1.3) 01/29/24 04:51
GGT 34 U/L (15-73) 01/24/24 22:46
AST 23 U/L (17-59) 01/29/24 04:51
ALT 17 U/L (0-50) 01/29/24 04:51
Alkaline Phosphatase 80 U/L (38-126) 01/29/24 04:51
Most recent labs reviewed.
Micro Results:
01/30/24 09:37 Respiratory Culture - Preliminary
Sputum Staphylococcus aureus
Gram Stain - Preliminary
01/28/24 16:05 Respiratory Culture - Final
Endotracheal Usual Respiratory Laina
Gram Stain - Final
01/24/24 22:37 Blood Culture - Final
Blood/Venous No Growth - Final Report
01/24/24 22:37 Blood Culture - Final
Blood/Venous No Growth - Final Report
01/26/24 14:54 Respiratory Culture - Final
Sputum NO GROWTH
Gram Stain - Final
01/26/24 08:53 Urine Culture - Final
Urine NO GROWTH
01/25/24 10:10 MRSA Screen - Final
Nose No Methicillin Resistant Staphylococcus aureus isolated.
Imaging:
01/28/2024 CXR (portable): Extremely low lung volumes, with crowding of the central/vascular markings. No pneumothorax seen. No pneumothorax or significant pleural effusion seen. Please see full dictation for additional detail. Film personally
viewed.
01/25/2024 CXR (portable): Low lung volumes with mild left base atelectasis noted. No acute infiltrate seen. Please see full dictation for additional detail. Film personally viewed.
[2024-02-01] MEDS: LASIX 80 MG IV (08:59)
[2024-02-01] MEDS: ANCEF 5 IV (09:59)
[2024-02-01 10:23] LABS: HCO3 30.6 mmol/L (21-28); PCO2 44 mmHg (35-48); PO2 108 mmHg (83-108); pH 7.45 (7.35-7.45)
[2024-02-01 10:24] LABS: O2 Therapy CPAP 5/PS8
--- NOTE | 2024-02-01 12:02 | PTCARENOTE ---
pt awake and alert this am , he weaned on vent yesterday for over 12 hours , he started to wean on CPAP and PS today at 0800 , he tolerated well and was extubated at 1045, he is oriented and talking appropriately , he has a strong productive cough
for clear mucous , tube feeds are continued , he has had 80mg IV Lasix this am with 1250 output thus far , pt and daughter in room and updated on current plan of care and condition
--- NOTE | 2024-02-01 13:35 | W.PN.HOSP.TC ---
Today's Communication/Plan
-
abx per ID
monitor electrolytes/cr/UOP
lasix per nephro
extubation to be attempted today
Assessment / Plan
Assessment / Plan
1. Acute renal failure requiring CKRT
Hyperkalemia - resolved
Severe metabolic acidosis -resolved
Hyponatremia -resolved
Hyperphosphatemia - resolved
Hypocalcemia -resolved
Hypomagnesemia -resolved
-Reason for initial renal failure remains unclear,suspected combination of hypovolemia/shock related ATN with intrinsic renal disease
-Renal ultrasound showing renal cyst. Normal kidney parenchyma
-UA showed some pyuria, mild microalbuminuria and some hematuria
-Vasculitis panl neg. Complement level WNL.
-At admission creatinine greater than 28 requiring emergent dialysis catheter placement and initiation of CKRT
-Calcium/magnesium replacement as needed. RF Associated electrolyte imbalance has been improved
-Nephro will consider renal biopsy if continues to require HD support
-Patient off of CKRT, next HD on Friday
-Started on IV Lasix - UOP slowly increasing. cr stable around 2.8 today.
2. Septic shock - Improved
-Chest x-ray clear. UA showing some pyuria and bacteriuria
-Blood culture/respiratory culture remains NTD
-ID started empiric merrem based on ET tube gram stain showing gram neg organism
-WBC has trending down again
3. Lactic acidosis - resolved
4. Alcohol use disorder
Alcohol withdrawal
-At admission blood alcohol level of 12, reported 1 bottle of vodka drinking daily
-Despite being on fentanyl/propofol patient was not sedated at times
-Patient started on phenobarbital protocol with as needed Ativan
5. Chronic normocytic anemia
-suspecting alcohol use related bone marrow suppression
-B12/Folate/Iron studies normal
6. Hypothermia
-Likely with CKRT
-TSH/free T4 within normal limit. Random cortisol marginally low 8.1
7. Vent dependent respiratory failure
-Patient intubated for airway protection and with severe metabolic derangement
-Principal Database Developer attempt to extubate today
8. Thrombocytopenia -Resolved
-CKRT related? HIT is differential
-b12/folate wnl. was presumably septic but now better. not bacteremic
-continue monitor
Essential Hypertension - hold home antihypertensives
Hyperlipidemia
Type II DM - A1c 6 in dec 24
DVT PPX - heparin sq
Code status - Full Code
Total critical care time 36 mins. Total critical care time documented does not include time spent on separately billed procedures or the services of residents, students, nurses or physician assistants. I personally saw and examined the patient. I
have reviewed all diagnostic interpretations and treatment plans as written. I was present for the garcia portions of any procedures performed and the inclusive time noted in any critical care statement. Critical care time includes patient management
by me, time spent at the patients bedside, time to review lab and imaging results, discussing patient care, documentation in the medical record, and time spent with the family or caregiver.
Anticipated Discharge: > 48 hours
Subjective/Interval History
-
Date of Service: February 01, 2024
remains intubated,
no on pressors
no acute events overnight
afebrile
Objective Data
-
Labs:
Laboratory Results
02/01/24 02/01/24
04:47 10:12
WBC 13.6 H
Hgb 9.1 L
Hct 28.7 L
Plt Count 229 D
HCO3 30.6 H
Sodium 140
Potassium 4.2
Chloride 103
Carbon Dioxide 28
BUN 48 H
Creatinine 2.8 H
Glucose 141 H
Calcium 8.7
Vital Signs:
Vital Signs
Temp Pulse Resp BP Pulse Ox
99.5 F 67 30 134/83 93
02/01/24 11:00 02/01/24 12:00 02/01/24 12:00 02/01/24 12:00 02/01/24 11:57
I&O
01/31/24 02/01/24 02/02/24
06:59 06:59 06:59
Intake Total 1785 / 1785 1799.6 / 1799.6 394.2 / 394.2
Output Total 1385 / 1385 1400 / 1400 1900 / 1900
Balance 400 / 400 399.6 / 399.6 -1505.8 / -1505.8
Review of Systems
-
Unable to obtain full review of systems at this time due to: Acuity and Patient Intubation
Physical Exam
-
General: Comfortable
Respiratory: Clear to Auscultation and Other (intubated on MV)
Cardiac: Regular Rhythm and S1/S2; Negative Murmur or Rub
GI: Soft, Nontender and Nondistended
Musculoskeletal: Edema, Right Lower Extrem and Edema, Left Lower Extrem
Neuro: Awake (off sedation vacation)
Psych: Calm
--- NOTE | 2024-02-01 15:49 | PTCARENOTE ---
pt on 2L NC with sats of 94% , hes currently oob in chair assisted with lift device , continues to have good urine output , family at bedside and updated on current condition and plan of care
--- NOTE | 2024-02-01 20:20 | PTCARENOTE ---
Rec'd pt resting in bed, oriented, cooperative, follows commands, tylenol 650mg via tube given for headache, SR, bp stable, + pulses, + edema, skin warm/dry, RA, sat 95, lungs decr in basess, prod cough for clear secretions- using Willieuer, + bowel
sounds, rectal trumpet to str drainage bag draining brown liquid stool, R nares dobhoff- nepro at 50ml/hr & 10ml/hr h20 flush, no n/v, borges draining yellow urine
[2024-02-01] MEDS: TYLENOL ORAL SOLUTION 650 MG PO (20:31)
[2024-02-01] MEDS: MELATONIN 5 MG PO (23:00)
--- NOTE | 2024-02-01 23:07 | PTCARENOTE ---
red non raised rash noted on bilat flank- K Rosa Isela, FAMILY CONSUMER SCIENTIST in to check, no itching noted, will cont to observe, melatonin 5mg via tube given for sleep, changed to bipap 02/04 by resp therapist for the night
[2024-02-02] VITALS (25 sets, daily range): BP systolic 133–179; BP diastolic 71–122; PULSE 2–85; O2SAT 96; BMI 33.6
[2024-02-02] MEDS: TYLENOL ORAL SOLUTION 650 MG PO ×2 (00:08→06:04)
--- NOTE | 2024-02-02 00:10 | PTCARENOTE ---
sys reviewed, needs reorientation to time, trying to take off bipap- instructed of need for it during the night tylenol 650mg via tube given for temp chg bath done, linens changed
[2024-02-02 03:23] LABS: Hematocrit 26.2 % (39.0-52.0); Hemoglobin 8.8 g/dL (13.0-18.0); Mean Corp Hgb Conc. 33.6 g/dL (33.0-37.0); Mean Corpuscular Hgb 32.5 pg (27.0-31.0); Mean Corpuscular Volume 96.7 fL (80.0-94.0); Mean Platelet Volume 9.2 fL (7.4-10.4); Platelet Count 242 10^3/uL (130-400); Red Blood Cell Count 2.71 10^6/uL (4.70-6.10); Red Cell Dist. Width 14.3 % (11.5-14.5); White Blood Cell Count 13.5 10^3/uL (4.8-10.8)
[2024-02-02 03:34] LABS: Blood Urea Nitrogen 59 mg/dl (9-20); Calcium 8.8 mg/dl (8.4-10.2); Carbon Dioxide 31 mmol/L (22-30); Chloride 103 mmol/L (98-107); Estimated Creatinine Clearance 40 ml/min; Glucose 119 mg/dl (70-99); Potassium 4.1 mmol/L (3.5-5.1); Sodium 142 mmol/L (135-145); Triglycerides 206 mg/dl (10-149); eGFR 28.87
[2024-02-02] MEDS: APRESOLINE 10 MG IV ×3 (04:39→23:27)
--- NOTE | 2024-02-02 04:40 | PTCARENOTE ---
sys reviewed, Sarah Natarajan NP aware of bp, apresoline 10mg iv given as ordered
--- NOTE | 2024-02-02 05:05 | PTCARENOTE ---
bipap off at pt request
--- NOTE | 2024-02-02 06:14 | PTCARENOTE ---
pt pulled out mercedes
[2024-02-02] MEDS: DILAUDID 0.5 MG IV (06:37)
--- NOTE | 2024-02-02 06:37 | SUR.PHASEI ---
Sarah Natarajan NP aware of bp, dilaudid 0.5 mg iv given as ordered
[2024-02-02] MEDS: FOLVITE 1 MG PO (08:11)
[2024-02-02] MEDS: HEPARIN 5000 UNITS SC ×3 (08:11→23:27)
[2024-02-02] MEDS: VITAMIN B1 100 MG PO ×2 (08:11→20:25)
[2024-02-02] MEDS: PEPCID 10 MG TUBE (08:11)
[2024-02-02] MEDS: NSS (PRESERVATIVE FREE) IV (08:12)
--- NOTE | 2024-02-02 08:30 | PTCARENOTE ---
Received pt @ change of shift. Drowsy, awakens to verbal stimuli; oriented x3, forgetful @ x's. SR on monitor. SpO2 96% on RA. Auscultated clear breath sounds posteriorly. + productive cough w thick/clear sputum. +BS, abd round/obese. Pt. self
removed Dobbhoff overnight. Nursing swallow screen preformed, no s/s of asp noted w single sips; mild cough after a few consecutive sips; orders for TAB CARD PRESS OPERATOR eval. Rectal trumpet in place w brown/liq stool. Navarrete in place w yellow urine. [place] rash on
flank area; flat; not itchy. R IJ HD cath w pigtail in place; L midline in place; dressings c/d/i. Assisted x 2 to stand/pivot OOB to chair. Tolerating activity/chair position. Chair alarm active. Instructed on how to report care concerns and
call carmichael in reach.
--- NOTE | 2024-02-02 08:54 | W.PN.INTV ---
Today's Communication / Plan
Recommendations
Voiding trail
Continue cefazolin
RUE US pending
Transfer to Tele
Re-start home amlodipine
Restart diet
Assessment
-
58-year-old male with history of hypertension, hyperlipidemia, diabetes and alcohol use disorder presented with nausea, vomiting, no urine output for prior 3 days diagnosed with severe septic shock, severe acidosis, KALI with cr >28 requiring
intubation and emergent dialysis. Admitted to ICU for acute hypoxemic failure on mechanical ventilation, CRRT for KALI with severe acidosis and alcohol withdrawal. Now extubated 02/01/2024 and switched to HD.
#Sepsis of unclear source, possible UTI (UA + mod bacteria/+LE)
#Severe metabolic acidosis-ABG 01/24/2024--13/134/7.09
#Lactic acidosis
#KALI-BUN/creatinine-107/>28
#Respiratory failure-due to severe acidosis
Intubated 01/24/2024
Extubated 02/01/2024
#Alcohol use disorder with suspected withdrawal
#Leukocytosis-WBC 11.4
#Aspiration risk-left basilar infiltrate-atelectasis versus pneumonia
#Kpcuoy-dlxhjkrafk-ioprirjraa 10.8
#Hyperkalemia
#Mild hyponatremia
Conditions present prior to admission:
Hypertension
Hyperlipidemia
Diabetes
Alcohol use disorder
NIDDM
Plan
Neurology
-Alcohol use disorder
-Sedation with mechanical ventilation
-Off propofol and fentanyl 01/27
-Goal RAAS -1 to 0. At goal RAAS -1 to 0 talking and interactive
-MSAS/lorazepam for signs of withdrawal per nursing observations - did not require overnight
-PRN Dilaudid for pain - did require one 0.5 pushes overnight
-Thiamine and folic acid
-Finished phenobarb taper yesterday
-Interested in Rehab for alcohol use disorder
Respiratory
-Acute hypoxemic respiratory failure secondary to severe acidosis
-Intubated 01/24/2024 - extubated 02/01/2024
-SBT yesterday successful extubated yesterday
-On BIPAP overnight, now satting well on room air
-Repeat chest x-ray 01/29 am improved from prior
-Nebs not needed - not bronchospastic with no hx pulm disease
-Oxygen supplementation as needed
-Hx VICTORIA tolerant of CPAP
-Pt stated he has a CPAP machine at home that he uses
-CPAP overnight during hospital stay
Cardiovascular
-Shock 2/2 unclear source
-Weaned off levo, vasopressin and phenylephrine since 01/26 - currently hemodynamically stable
-Volume overload now resolved
-Increased left upper extremity edema compared to right -> LUE US superficial thrombosis - monitor
-Today increased RUE edema - RUE US pending
-Monitor I&O
-No clear cause for shock - cultures all (-)
-Repeat Echo LVEF 65-70% on 01/26/2024 , pulm artery pressure 39-56 mmHg with trace tricuspid regurg ruling out cardiac etiology for shock
-Elevated pulm artery pressures likely secondary to volume overload
-Hx HTN
-restart home amlodipine 5 once med list confirmed as now hypertensive
-PRN hydralazine 10 for SBP > 140 - one dose required overnight
GI
- Pulled out DHT overnight
- Speech eval okay for regular diet ->diabetic diet with thin clears
- Aspiration precaution
- [facility] and no [facility]x [facility]ER[facility]
- Rectal trumpet placed for ongoing loose stool ->will monitor how stools form now on diabetic diet
- LFTs all wnl
Renal
-Severe KALI
-Acidemia with severe metabolic acidosis
-Cr >28 on admission ->2.5 today
-Unclear etiology - likely pre-renal vs intra-renal combo?
-Renal US simple right renal cyst - unremarkable for post-renal causes, no hydronephrosis
-Suspect ATN per nephro
-Proteinase, myeloperoxidase and CHANDA IgG (-), complement wnl
-Cr is improving and good urinary output, last HD 01/29
-No HD today per nephro
-D/c HD line in am if cr continues to improve
-Replete electrolytes as needed
-Nephrology following
-Follow I&Os
-Voiding trial today to d/c borges
ID
-Shock secondary to unknown source
-Placed on antibiotics for presumed infx
-Original Urine, sputum, blood cultures (-), chest x-ray not suspicious for pneumonia, remains afebrile
-WBC 11.4 on 01/24, then downtrended wnl until 01/28 with WBC 11.9 -> now 13.5
-repeat Sputum culture revealved GNR - Meropenem 2 days
-Culture grew Staph aureas methicillin sensitive -> switched to cefazolin day 2
-Monitor WBC and temp
HemeOnc
-DVT SQ heparin q8
-Anemia
-Macrocytic anemia 12.1 on admission, folate and B12 wnl - chronic alcoholic
-Hg steady slow decline from admission 12.1 ->>>8.8 today in setting of volume overload
-Transfuse <7
-Thrombocytopenia
-130->96 drop from yesterday ->93 ->>>242 - resolving
-Unlikely to be HIT as today is day 5 of his hospital stay and now appears to be steady/improving
-More likely secondary to CRRT
-Monitor ptl
-Transfuse <15 or <50 if active bleed
Endocrine
-Hx DM2
-On metformin 2,000 hs at home
-Last hgA1c 12/07/23 6.0
-BG goals 140-180
-Monitor BG with now diabetic diet
-SSI d/c as pt has not needed a single dose his entire stay
-No hx of thyroid disorder
Imaging:
Chest x-ray 01/24/2024- no acute cardiopulmonary findings
Chest x-ray 01/25/2024-low lung volumes, mild left basilar atelectasis
Chest x-ray 01/28/2024 6:00 am- Low lung volumes, increase RLL airspace opacities from prior. Correct ET tube placement
Chest x-ray 01/28/2024 15:56 pm -low lung volumes, increased right lower lobe airspace opacities from a.m. x-ray
Chest x-ray 01/30/2024 improvement from prior with increased aeration in RLL. LLL mild hazy opacification remains
ECHO 12/02/14- Normal biventricular size and systolic function without regional wall motion abnormality. No significant valvular disease. No prior study available for comparison.
01/26/24- Normal biventricular size and systolic function without regional wall motion abnormality. Estimated LVEF 65-70%. Trace tricuspid regurgitation. Severely elevated PASP. Estimated pulmonary
artery pressure of 56 mmHg. Assuming a right atrial pressure of 15 mmHg. Compared to 12/02/14: PASP has increased from 39 mmHg to 56 mmHg.
Left Upper extremity peripheral venous US 01/30/24 - Occlusive thrombus in the proximal left basilic vein in the upper arm and nonocclusive thrombus in the mid to distal visualized basilic vein in the left upper arm. Please note, the basilic vein is
considered a part of the superficial venous system. No findings to confirm deep venous thrombosis of the left upper extremity.
Subjective Dataa
Subjective Data
Date of Service:
Date of Service: February 02, 2024
1 dose of hydralazine and 1 dose of hydromorphone overnight. Pulled out Dobbhoff tube. Taken off BiPAP Now satting well on room air. Patient is talkative, interactive and overall feeling well. Complains of headache after BiPAP was too tight, but
otherwise feels significantly better than before.
Chief Complaint: Patch Washer Follow Up
Review of Systems
General: Fever (n) and Chills (n)
HEENT: Oral/Throat Pain
Cardiopulmonary: Dyspnea (n), Cough (n) and Chest Pain (n)
GI: Abdominal Pain (n), Nausea (n), Vomiting (n), Diarrhea (n) and Constipation (n)
Neuro: Headache (tight BiPAP overnight. No neck stiffness or pain)
Genitourinary: Borges
Objective Data
Data Reviewed
Vital Signs / I&O / Oxygen:
Vital Signs
Temp Pulse Resp BP Pulse Ox
98.2 F 65 21 156/74 96
02/02/24 07:39 02/02/24 06:10 02/02/24 06:10 02/02/24 05:01 02/02/24 08:47
Intake and Output
02/01/24 02/02/24 02/03/24
06:59 06:59 06:59
Intake Total 1799.6 / 1799.6 1634.2 / 1634.2 120 / 120
Output Total 1400 / 1400 3650 / 3650
Balance 399.6 / 399.6 -2015.8 / -2015.8 120 / 120
SaO2 [CPAP/PSV] 93
SaO2 [A/C] 96
SaO2 96
Nasal Cannula flow liters per 2
minute
Physical Exam
General: Respiratory Distress (Mechanical intubation) and Fever (n)
HEENT: Normocephalic, Anicteric and Moist Mucous Membranes
Cardiovascular: S1-S2 and Regular Rhythm
Respiratory: Clear, Non-Labored Respirations and ET Tube
GI: Soft, Non Distended and Normal Bowel Sounds
Neurology: Awake, Alert, Oriented and Other (nodding yes/no)
Skin: Warm and Dry
Labs/Micro/Reports
Lab Data
02/02/24 03:06
02/02/24 03:06
Laboratory Results
02/01/24
10:12
pH 7.45
pCO2 44
pO2 108
HCO3 30.6 H
O2 Delivery Level Cpap 5/ps8
Microbiology
01/30/24 09:37 Sputum Respiratory Culture - Preliminary
Staphylococcus aureus
01/30/24 09:37 Sputum Gram Stain - Preliminary
01/28/24 16:05 Endotracheal Respiratory Culture - Final
Usual Respiratory Laina
01/28/24 16:05 Endotracheal Gram Stain - Final
[2024-02-02] MEDS: ANCEF 5 IV (09:13)
--- NOTE | 2024-02-02 09:29 | W.PN.HOSP.TC ---
Today's Communication/Plan
-
Transfer to tele
Please see below
Assessment / Plan
Assessment / Plan
Physical Exam
General: Comfortable
Respiratory: Clear to Auscultation Bilaterally
Cardiac: Regular Rhythm and S1/S2; Negative Murmur or Rub
GI: Soft, Nontender and Nondistended. Positive bowel sounds.
Musculoskeletal: Edema, Right Lower Extrem and Edema, Left Lower Extrem
Neuro: Awake (off sedation vacation)
Psych: Calm
#Acute renal failure requiring CKRT
Hyperkalemia - resolved
Severe metabolic acidosis -resolved
Hyponatremia -resolved
Hyperphosphatemia - resolved
Hypocalcemia -resolved
Hypomagnesemia -resolved
-Reason for initial renal failure remains unclear,suspected combination of hypovolemia/shock related ATN with intrinsic renal disease
-Renal ultrasound showing renal cyst. Normal kidney parenchyma
-UA showed some pyuria, mild microalbuminuria and some hematuria
-Vasculitis panl neg. Complement level WNL.
-At admission creatinine greater than 28 requiring emergent dialysis catheter placement and initiation of CKRT
-Calcium/magnesium replacement as needed. RF Associated electrolyte imbalance has been improved
-Nephro will consider renal biopsy if continues to require HD support
-Patient off of CRRT, continue to trend sCr and UOP; nephrology following and they will hold off on additional HD for now, and continue with diuresis while trending Cr and UOP
-Started on IV Lasix - UOP slowly increasing. cr stable around 2.8 today.
Ensure patient passed Navarrete Catheter voiding trial
#VDRF secondary to pulmonary edema and severe acidosis
#Abnormal CXR with retrocardiac opacification due to atelectasis versus pneumonia
#Abnormal sputum culture with MSSA suspicious for pneumonia
-Extubated on 02/01/24
-Wore BiPAP overnight
-As of 02/02/24, patient was on room air saturating 96%
-Continue Aspiration Precautions
-Continue Cefazolin
#Septic shock - Improved
-Chest x-ray clear. UA showing some pyuria and bacteriuria
-Blood culture/respiratory culture remains NTD
-ID started empiric merrem based on ET tube gram stain showing gram neg organism
-WBC has trending down again
#Lactic acidosis - resolved
#Alcohol use disorder
Alcohol withdrawal
-At admission blood alcohol level of 12, reported 1 bottle of vodka drinking daily
-Despite being on fentanyl/propofol patient was not sedated at times
-Patient started on phenobarbital protocol with as needed Ativan
#Chronic normocytic anemia
#Acute on chronic anemia (baseline Hb 10.5�12g/dL)
#Thrombocytopenia � now resolved and was likely due to CRRT
-suspecting alcohol use related bone marrow suppression
-B12/Folate/Iron studies normal
-MSAS with thiamine, folate and MVN
#RUE Swelling
#LUE US superficial thrombosis
-Check RUE duplex US to rule out DVT given swelling seen: occlusive thrombus in the cephalic vein along the antecubital fossa and proximal forearm.
-Continue supportive care
#Hypothermia
-Likely with CKRT
-TSH/free T4 within normal limit. Random cortisol marginally low 8.1
#VICTORIA
-Wears CPAP at home
#Essential Hypertension - restart home Amlodipine as now patient is hypertensive
#Hyperlipidemia
#Type II DM - A1c 6 in dec 24
Confirm home meds and resume if clinically appropriate
DVT Prophylaxis: Heparin subq
Diet: Diabetic, Thin liquid diet w/ single sips/bites, reflux precautions, meds in puree
Code status - Full Code
Anticipated Discharge: > 48 hours
Subjective/Interval History
-
Date of Service: February 02, 2024
Patient was seen and examined. He was sitting on a chair in his room, denied any symptoms or complaints.
Objective Data
-
Labs:
Laboratory Results
02/02/24
03:06
WBC 13.5 H
Hgb 8.8 L
Hct 26.2 L
Plt Count 242
Sodium 142
Potassium 4.1
Chloride 103
Carbon Dioxide 31 H
BUN 59 H
Creatinine 2.5 H
Glucose 119 H
Calcium 8.8
Vital Signs:
Vital Signs
Temp Pulse Resp BP Pulse Ox
98.2 F 65 21 156/74 96
02/02/24 07:39 02/02/24 06:10 02/02/24 06:10 02/02/24 05:01 02/02/24 08:47
I&O
02/01/24 02/02/24 02/03/24
06:59 06:59 06:59
Intake Total 1799.6 / 1799.6 1634.2 / 1634.2 120 / 120
Output Total 1400 / 1400 3650 / 3650
Balance 399.6 / 399.6 -2015.8 / -2015.8 120 / 120
--- NOTE | 2024-02-02 09:51 | CM ---
Addendum entered by Jeffery Restrepo 02/02/24 13:09:
Per [facility], there is a challenge to find outpatient D&A program with Medicare insurance and inpatient D&A rehab might be the only option.
Pt is aware and he stated he will agree with inpatient D&A rehab.
Original Note:
CM following re: discharge planning.
Discussed in Rounds, reviewed pt's chart,met with pt. per Rounds meeting, pt extubated yesterday, on room air, doing better and will be downgraded from ICU level of care.
Pt regrets he met with [facility] Junior and he agrees with a plan to go to [facility]. Pt stated: 'i was stupid not calling myself an alcoholic and after all I went through here I am calling myself an alcoholic. Cannot believe i did
not recognize it early, drinking a bottle of vodka daily... that's ugly. My brother and sisters as well as my and children tried to help and i have been rejecting it for years. Now, i am alcoholic, i need help and i will go to [facility].
Also, my neighbor is an alcoholic and he asked me to go with him to AA meetings and i was stupid rejecting it'. Emotional support with encouragement to get help offered and provided. Pt expressed his very positive feelings towards NAPOLEON Junior from
[facility] and he stated he wants help and [facility] will help him. Pt also expressed his appreciation to all staff for care he has been receiving.
D/C plan: home with PHP at [facility]. Pt is aware his PHP program is daily from 8:00 a.m till 2:00 p.m.
CM will follow with discharge plan updates ass hospitalization progresses
--- NOTE | 2024-02-02 11:10 | W.PN.NEPH.PH ---
Today's Communication / Plan
-
follow labs
ok for VT
Assessment/Plan
-
IMP:
Severe KALI
Acidemia with severe metabolic acidosis- A gap
hypotension
Hyperkalemia
Hyponatremia
Hypocalcemia
Hypomagnesemia
Hyperphosphatemia
suspected ETOH withdrawal-DTs
h/o HTN
NIDDM
Obesity
ETOH abuse
Plan:
A/w n/v, poor po intake
severe anuric KALI-cr over 28 on admit, baseline cr 0.9 in Dec
highly suspect ATN, neg serologies
renal u/s report : without significant findings
cr is improving to 2.5 and non oliguric , last HD 01/29
likely no further need of HD. if cr cont to improve-d/c HD line in am
ok for VT and follow bladder scan
he is extubated now and ok for prn lasix -wt are down
BP high-resume Amlodipine
d/w ICU and nursing
d/w pt -reports not going back to drink ETOH
-
-
Date of Service: February 02, 2024
CC / HPI / ROS
-
Chief Complaint:
KALI
History of Present Illness:
CRRT started for refractory acidosis and KALI, 01/24
BP stable, elevated
extubated 01/31, wt decreasing,
Last dialysis was on 01/29
cr down to 2.5
Review of Systems:
awake and alert
on RA
no n/v
no pain or sob
non oliguric via borges
Labs
-
Labs:
WBC 13.5 10^3/uL (4.8-10.8) H 02/02/24 03:06
RBC 2.71 10^6/uL (4.70-6.10) L 02/02/24 03:06
Hgb 8.8 g/dL (13.0-18.0) L 02/02/24 03:06
Hct 26.2 % (39.0-52.0) L 02/02/24 03:06
Plt Count 242 10^3/uL (130-400) 02/02/24 03:06
Sodium 142 mmol/L (135-145) 02/02/24 03:06
Potassium 4.1 mmol/L (3.5-5.1) 02/02/24 03:06
Chloride 103 mmol/L (98-107) 02/02/24 03:06
Carbon Dioxide 31 mmol/L (22-30) H 02/02/24 03:06
BUN 59 mg/dl (9-20) H 02/02/24 03:06
Creatinine 2.5 mg/dL (0.7-1.3) H 02/02/24 03:06
eGFR 28.87 02/02/24 03:06
Glucose 119 mg/dl (70-99) H 02/02/24 03:06
Calcium 8.8 mg/dl (8.4-10.2) 02/02/24 03:06
Phosphorus 3.8 mg/dl (2.5-4.5) 01/30/24 00:38
Albumin 2.3 g/dl (3.5-5.0) L 01/29/24 04:51
Physical Exam
-
Vital Signs:
Vital Signs
Temp Pulse Resp BP Pulse Ox
98.2 F 65 21 156/74 96
02/02/24 07:39 02/02/24 06:10 02/02/24 06:10 02/02/24 05:01 02/02/24 08:47
Cardiovascular:: Regular rate and rhythm
Respiratory:: Bilateral: CTA (decreased)
Lung Excursion:: Normal
Abdomen:: Nontender and Soft
Extremity Edema:: None: Bilateral: (trace)
Landon Catheter: Yes
--- NOTE | 2024-02-02 11:25 | W.PN.ID1 ---
Date of Service
Date of Service: February 02, 2024
Today's Communication
Continue with cefazolin. Monitor white count temperature curve.
Assessment / Plan
S/P VDRF
KALI; now on intermittent HD
Hypotension
- resolved; now off pressors.
Clinical sepsis
- appears resolved. Cultures have remained negative.
Leukocytosis
- resolved
Lactic acidosis
HTN
Dyslipidemia
DM
Sleep apnea (CPAP)
Recommendations:
Leukocytosis now improving
Sputum with S. aureus (MSSA)
Monitor temperature curve.
Continue with supportive measures.
����������������������������������������������������������
Chief Complaint
-: Clinical Sepsis and Pneumonia (HAP)
Subjective / Review of Systems
Patient seen and examined. Reports feeling well. Denies significant cough. No shortness of breath.
Review of Systems: No Fever and No Chills
Vital Signs / Physical Exam
Vital Signs
Vital Signs
Temp Pulse Resp BP Pulse Ox
98.6 F 65 21 156/74 96
02/02/24 11:14 02/02/24 06:10 02/02/24 06:10 02/02/24 05:01 02/02/24 08:47
Physical Exam
Constitutional: No Acute Distress, Comfortable and Non-toxic
Eyes: No Conjunctival Hemorrhage and Sclera Anicteric
Cardiovascular: Regular Rate and S1/S2; Negative Murmur or Rub
Pulmonary: Symmetric, Rales, Coarse and Non Labored; Negative Wheezes
Gastrointestinal: Soft, Non Tender, Non Distended and Normal Bowel Sounds
Skin: Warm and Dry; Negative Rash or Jaundice
Neurological: Awake and Alert
Psychological: Calm
Objective Data
Lab Data
Lab Results
02/02/24 03:06
02/02/24 03:06
PT 14.4 Sec (11.4-14.6) 01/26/24 03:59
INR 1.09 01/26/24 03:59
APTT 35.2 Sec (23.4-35.0) H 01/26/24 03:59
Estimated Creat Clear 40 ml/min 02/02/24 03:06
Lactic Acid 0.9 mmol/L (0.7-2.0) 01/29/24 19:48
Total Bilirubin 0.2 mg/dl (0.2-1.3) 01/29/24 04:51
GGT 34 U/L (15-73) 01/24/24 22:46
AST 23 U/L (17-59) 01/29/24 04:51
ALT 17 U/L (0-50) 01/29/24 04:51
Alkaline Phosphatase 80 U/L (38-126) 01/29/24 04:51
Most recent labs reviewed.
Micro Results:
01/30/24 09:37 Respiratory Culture - Final
Sputum S aureus-Methicillin Sensitive
Gram Stain - Final
01/28/24 16:05 Respiratory Culture - Final
Endotracheal Usual Respiratory Laina
Gram Stain - Final
01/24/24 22:37 Blood Culture - Final
Blood/Venous No Growth - Final Report
01/24/24 22:37 Blood Culture - Final
Blood/Venous No Growth - Final Report
01/26/24 14:54 Respiratory Culture - Final
Sputum NO GROWTH
Gram Stain - Final
01/26/24 08:53 Urine Culture - Final
Urine NO GROWTH
01/25/24 10:10 MRSA Screen - Final
Nose No Methicillin Resistant Staphylococcus aureus isolated.
Imaging:
01/28/2024 CXR (portable): Extremely low lung volumes, with crowding of the central/vascular markings. No pneumothorax seen. No pneumothorax or significant pleural effusion seen. Please see full dictation for additional detail. Film personally
viewed.
01/25/2024 CXR (portable): Low lung volumes with mild left base atelectasis noted. No acute infiltrate seen. Please see full dictation for additional detail. Film personally viewed.
--- NOTE | 2024-02-02 11:31 | PTOTSP ---
Dysphagia Evaluation
Patient has acute on chronic dysphagia risk factors (i.e., 8 day intubation; alcohol use disorder) and mild signs concerning for pharyngeal dysphagia.
Recommend:
1. Regular, Thin Liquids
2. Medications whole in puree
3. Strategies: upright to 90 degrees, small single sips/bites, slow rate, reflux precautions including upright for 30 minutes after PO intake
4. Oral care 2-3x daily
5. Brief follow up at the acute care level for instruction in compensations, ensure appropriate diet level, and determine if further objective swallowing assessment warranted
[2024-02-02] MEDS: NORVASC 5 MG PO (11:43)
[2024-02-02] MEDS: TYLENOL ORAL SOLUTION PO (11:43)
[2024-02-02] MEDS: TYLENOL 650 MG PO (13:12)
--- NOTE | 2024-02-02 13:41 | PTCARENOTE ---
Pt. remains OOB to chair; tolerating chair position and activity. Also tolerating meals. Navarrete removed per orders and pt. voided 75mL of clear/yellow urine in urinal; PVR- 0mL. Family @ bedside updated on plan of care.
--- NOTE | 2024-02-02 15:48 | PTCARENOTE ---
Report given to 3W RN. Pt. transported via bed to US on personnel monitor; plan to staff transport to new [facility] post imaging. Pt. belongings delivered to new ; message left for regarding room change. No further needs from this RN.
--- NOTE | 2024-02-02 16:56 | PTCARENOTE ---
1600 Pt received in bed from the unit. Pt oriented to staff, environment and call light system. All needs met.
[2024-02-02 17:33] LABS: Glucose - Point of Care 120 mg/dl (70-99)
[2024-02-02] MEDS: ANCEF 10 IV (21:01)
[2024-02-02] MEDS: MELATONIN 5 MG PO (21:02)
[2024-02-02 21:36] LABS: Glucose - Point of Care 124 mg/dl (70-99)
[2024-02-03 03:05] VITALS: BP 177/108
[2024-02-03] MEDS: APRESOLINE 10 MG IV (03:25)
[2024-02-03 06:00] VITALS: BMI 33.6
[2024-02-03 07:39] VITALS: BP 152/74
[2024-02-03 08:04] LABS: Glucose - Point of Care 112 mg/dl (70-99)
[2024-02-03 08:40] LABS: Hematocrit 27.9 % (39.0-52.0); Hemoglobin 9.1 g/dL (13.0-18.0); Mean Corp Hgb Conc. 32.6 g/dL (33.0-37.0); Mean Corpuscular Hgb 31.4 pg (27.0-31.0); Mean Corpuscular Volume 96.2 fL (80.0-94.0); Mean Platelet Volume 9.3 fL (7.4-10.4); Platelet Count 275 10^3/uL (130-400); Red Cell Dist. Width 14.3 % (11.5-14.5); White Blood Cell Count 12.1 10^3/uL (4.8-10.8)
[2024-02-03] MEDS: NORVASC 5 MG PO (08:44)
[2024-02-03] MEDS: VITAMIN B1 100 MG PO ×2 (08:44→21:05)
[2024-02-03] MEDS: FOLVITE 1 MG PO (08:45)
[2024-02-03] MEDS: HEPARIN 5000 UNITS SC ×3 (08:45→23:07)
[2024-02-03] MEDS: ANCEF 10 IV ×2 (08:46→21:04)
[2024-02-03 09:48] LABS: Blood Urea Nitrogen 51 mg/dl (9-20); Calcium 8.7 mg/dl (8.4-10.2); Carbon Dioxide 27 mmol/L (22-30); Chloride 102 mmol/L (98-107); Estimated Creatinine Clearance 56 ml/min; Glucose 107 mg/dl (70-99); Potassium 3.6 mmol/L (3.5-5.1); Sodium 140 mmol/L (135-145); eGFR 42.82
[2024-02-03 10:29] VITALS: BP 136/73
[2024-02-03 11:58] LABS: Glucose - Point of Care 215 mg/dl (70-99)
[2024-02-03 15:35] VITALS: BP 130/74
--- NOTE | 2024-02-03 15:55 | W.PN.NEPH.PH ---
Today's Communication / Plan
-
resume lasix daily
d/c HD line
follow labs
Assessment/Plan
-
IMP:
Severe KALI
Acidemia with severe metabolic acidosis- A gap
hypotension
Hyperkalemia
Hyponatremia
Hypocalcemia
Hypomagnesemia
Hyperphosphatemia
suspected ETOH withdrawal-DTs
h/o HTN
NIDDM
Obesity
ETOH abuse
Plan:
A/w n/v, poor po intake
severe anuric KALI-cr over 28 on admit, baseline cr 0.9 in Dec
highly suspect ATN, neg serologies
renal u/s report : without significant findings
cr is improving to 1.8 and non oliguric , last HD 01/29
d/c HD line
follow bladder scan now off borges , PVR 0cc
BP improving back on Amlodipine
mild edema-likely resume lasix
labs in am
-
-
Date of Service: February 03, 2024
CC / HPI / ROS
-
Chief Complaint:
KALI
History of Present Illness:
CRRT started for refractory acidosis and KALI, 01/24
BP stable,
extubated 01/31, wt unchanged
Last dialysis was on 01/29
cr down to 1.8
, BUN 51
Review of Systems:
awake and alert
on RA
no n/v
no pain or sob
Labs
-
Labs:
WBC 12.1 10^3/uL (4.8-10.8) H 02/03/24 06:57
RBC 2.90 10^6/uL (4.70-6.10) L 02/03/24 06:57
Hgb 9.1 g/dL (13.0-18.0) L 02/03/24 06:57
Hct 27.9 % (39.0-52.0) L 02/03/24 06:57
Plt Count 275 10^3/uL (130-400) 02/03/24 06:57
Sodium 140 mmol/L (135-145) 02/03/24 06:56
Potassium 3.6 mmol/L (3.5-5.1) 02/03/24 06:56
Chloride 102 mmol/L (98-107) 02/03/24 06:56
Carbon Dioxide 27 mmol/L (22-30) 02/03/24 06:56
BUN 51 mg/dl (9-20) H 02/03/24 06:56
Creatinine 1.8 mg/dL (0.7-1.3) H 02/03/24 06:56
eGFR 42.82 02/03/24 06:56
Glucose 107 mg/dl (70-99) H 02/03/24 06:56
Calcium 8.7 mg/dl (8.4-10.2) 02/03/24 06:56
Phosphorus 3.8 mg/dl (2.5-4.5) 01/30/24 00:38
Albumin 2.3 g/dl (3.5-5.0) L 01/29/24 04:51
Physical Exam
-
Vital Signs:
Vital Signs
Temp Pulse Resp BP Pulse Ox
98.4 F 81 15 130/74 97
02/03/24 15:35 02/03/24 15:35 02/03/24 15:35 02/03/24 15:35 02/03/24 15:35
Cardiovascular:: Regular rate and rhythm
Respiratory:: Bilateral: CTA
Lung Excursion:: Normal
Abdomen:: Nontender and Soft
Extremity Edema:: +1: Bilateral: (trace)
Borges Catheter: No
[2024-02-03 17:21] LABS: Glucose - Point of Care 106 mg/dl (70-99)
--- NOTE | 2024-02-03 17:24 | VATNOTE ---
Right IJ HD cath D/C'd per procedure,direct pressure held x 10 min , no active bleeding, occlusive dressing applied.
--- NOTE | 2024-02-03 17:32 | PTOTSP ---
ST Follow-Up
Pt exhibits oral, pharyngeal, and esophageal parameters that are WFL for safe PO intake of all solids and liquids. No skilled dysphagia services warranted at this time.
Recommendations:
- Continue with regular solids, thin liquids, meds as tolerated.
- Continue with general aspiration and reflux precautions.
- [employer] to sign off. Please re-consult if needed. Thank you.
--- NOTE | 2024-02-03 17:32 | W.PN.HOSP.TC ---
Today's Communication/Plan
-
Renal function improving
Stable
Continue antibiotics
Lasix
Assessment / Plan
Assessment / Plan
Physical Exam
General: Comfortable
Respiratory: Clear to Auscultation Bilaterally
Cardiac: Regular Rhythm and S1/S2; Negative Murmur or Rub
GI: Soft, Nontender and Nondistended. Positive bowel sounds.
Musculoskeletal: Edema, Right Lower Extrem and Edema, Left Lower Extrem
Neuro: Awake (off sedation vacation)
Psych: Calm
Assessment/Plan
#Acute renal failure - IMPROVING - requiring CRRT
Hyperkalemia - resolved
Severe metabolic acidosis -resolved
Hyponatremia -resolved
Hyperphosphatemia - resolved
Hypocalcemia -resolved
Hypomagnesemia -resolved
-Reason for initial renal failure remains unclear,suspected combination of hypovolemia/shock related ATN with intrinsic renal disease
-Renal ultrasound showing renal cyst. Normal kidney parenchyma
-UA showed some pyuria, mild microalbuminuria and some hematuria
-Vasculitis panl neg. Complement level WNL.
-At admission creatinine greater than 28 requiring emergent dialysis catheter placement and initiation of CRRT
-Calcium/magnesium replacement as needed. RF Associated electrolyte imbalance has been improved
-Nephro will consider renal biopsy if continues to require HD support -- but now renal function is improving
-Patient off of CRRT, continue to trend sCr and UOP; nephrology following and they will hold off on additional HD for now, and continue with diuresis while trending Cr and UOP
-Resume Lasix daily given mild edema
-No more Navarrete now
#VDRF secondary to pulmonary edema and severe acidosis
#Abnormal CXR with retrocardiac opacification due to atelectasis versus pneumonia
#Abnormal sputum culture with MSSA suspicious for pneumonia
-Extubated on 02/01/24
-Wore BiPAP overnight
-As of 02/02/24, patient was on room air saturating 96%
-Continue Aspiration Precautions
-Continue Cefazolin
#Septic shock - Improved
-Chest x-ray clear. UA showing some pyuria and bacteriuria
-Blood culture/respiratory culture remains NTD
-Continue antibiotics as above
-WBC has trending down again
#Lactic acidosis - resolved
#Alcohol use disorder
Alcohol withdrawal
-At admission blood alcohol level of 12, reported 1 bottle of vodka drinking daily
-Despite being on fentanyl/propofol patient was not sedated at times
-Patient was previously on phenobarbital protocol with as needed Ativan
#Chronic normocytic anemia
#Acute on chronic anemia (baseline Hb 10.5�12g/dL)
#Thrombocytopenia � now resolved and was likely due to CRRT
-Suspecting alcohol use related bone marrow suppression
-B12/Folate/Iron studies normal
-MSAS with thiamine, folate and MVN
#RUE Swelling
#LUE US superficial thrombosis
-Check RUE duplex US to rule out DVT given swelling seen: occlusive thrombus in the cephalic vein along the antecubital fossa and proximal forearm.
-Continue supportive care
#Hypothermia
-Likely with CKRT
-TSH/free T4 within normal limit. Random cortisol marginally low 8.1
#VICTORIA
-Wears CPAP at home
#Essential Hypertension - restart home Amlodipine as now patient is hypertensive
#Hyperlipidemia
#Type II DM - A1c 6 in dec 24
Confirm home meds and resume if clinically appropriate
DVT Prophylaxis: Heparin subq
Diet: Diabetic, Thin liquid diet w/ single sips/bites, reflux precautions, meds in puree
Code status - Full Code
Anticipated Discharge: 24 - 48 hours
Subjective/Interval History
-
Date of Service: February 03, 2024
Patient was seen and examined. He denied any symptoms or complaints.
Objective Data
-
Labs:
Laboratory Results
02/03/24 02/03/24
06:56 06:57
WBC 12.1 H
Hgb 9.1 L
Hct 27.9 L
Plt Count 275
Sodium 140
Potassium 3.6
Chloride 102
Carbon Dioxide 27
BUN 51 H
Creatinine 1.8 H
Glucose 107 H
Calcium 8.7
Vital Signs:
Vital Signs
Temp Pulse Resp BP Pulse Ox
98.4 F 81 15 130/74 97
02/03/24 15:35 02/03/24 15:35 02/03/24 15:35 02/03/24 15:35 02/03/24 15:35
I&O
02/02/24 02/03/24 02/04/24
06:59 06:59 06:59
Intake Total 1634.2 / 1634.2 960 / 960 720 / 720
Output Total 3650 / 3650 1275 / 1275 150 / 150
Balance -2015.8 / -2015.8 -315 / -315 570 / 570
[2024-02-03 19:47] VITALS: BP 108/60
[2024-02-03] MEDS: MELATONIN 5 MG PO (21:05)
--- NOTE | 2024-02-03 21:05 | W.PN.ID1 ---
Date of Service
Date of Service: February 03, 2024
Today's Communication
Continue abx.
Assessment / Plan
S/P VDRF
KALI
- creat improving.
Hypotension
- resolved; now off pressors.
Clinical sepsis
- appears resolved. Cultures have remained negative.
Leukocytosis
- resolved
Lactic acidosis
HTN
Dyslipidemia
DM
Sleep apnea (CPAP)
Recommendations:
Leukocytosis now improving
Sputum with S. aureus (MSSA)
Continue with cefazolin.
Monitor temperature curve.
Continue with supportive measures.
����������������������������������������������������������
Chief Complaint
-: Clinical Sepsis and Pneumonia (HAP)
Subjective / Review of Systems
Late entry. Patient seen at 4:45pm. Overall feels well. Breathing comfortable. No SOB. Some cough.
Vital Signs / Physical Exam
Vital Signs
Vital Signs
Temp Pulse Resp BP Pulse Ox
97.8 F 87 18 108/60 99
02/03/24 19:47 02/03/24 19:47 02/03/24 19:47 02/03/24 19:47 02/03/24 19:47
Physical Exam
Constitutional: No Acute Distress and Comfortable
Eyes: Sclera Anicteric
Cardiovascular: Regular Rate
Pulmonary: Coarse and Non Labored
Gastrointestinal: Soft and Non Distended
Skin: Warm and Dry; Negative Rash or Jaundice
Neurological: Awake and Alert
Psychological: Calm
Objective Data
Lab Data
Lab Results
02/03/24 06:57
02/03/24 06:56
PT 14.4 Sec (11.4-14.6) 01/26/24 03:59
INR 1.09 01/26/24 03:59
APTT 35.2 Sec (23.4-35.0) H 01/26/24 03:59
Estimated Creat Clear 56 ml/min 02/03/24 06:56
Lactic Acid 0.9 mmol/L (0.7-2.0) 01/29/24 19:48
Total Bilirubin 0.2 mg/dl (0.2-1.3) 01/29/24 04:51
GGT 34 U/L (15-73) 01/24/24 22:46
AST 23 U/L (17-59) 01/29/24 04:51
ALT 17 U/L (0-50) 01/29/24 04:51
Alkaline Phosphatase 80 U/L (38-126) 01/29/24 04:51
Most recent labs reviewed.
Micro Results:
01/30/24 09:37 Respiratory Culture - Final
Sputum S aureus-Methicillin Sensitive
Gram Stain - Final
01/28/24 16:05 Respiratory Culture - Final
Endotracheal Usual Respiratory Laina
Gram Stain - Final
01/24/24 22:37 Blood Culture - Final
Blood/Venous No Growth - Final Report
01/24/24 22:37 Blood Culture - Final
Blood/Venous No Growth - Final Report
01/26/24 14:54 Respiratory Culture - Final
Sputum NO GROWTH
Gram Stain - Final
01/26/24 08:53 Urine Culture - Final
Urine NO GROWTH
01/25/24 10:10 MRSA Screen - Final
Nose No Methicillin Resistant Staphylococcus aureus isolated.
Imaging:
01/28/2024 CXR (portable): Extremely low lung volumes, with crowding of the central/vascular markings. No pneumothorax seen. No pneumothorax or significant pleural effusion seen. Please see full dictation for additional detail. Film personally
viewed.
01/25/2024 CXR (portable): Low lung volumes with mild left base atelectasis noted. No acute infiltrate seen. Please see full dictation for additional detail. Film personally viewed.
[2024-02-03 21:25] LABS: Glucose - Point of Care 120 mg/dl (70-99)
[2024-02-03 23:42] VITALS: BP 134/84
[2024-02-04] VITALS (7 sets, daily range): BP systolic 137–157; BP diastolic 72–87; PULSE 79; O2SAT 97; BMI 33.8
[2024-02-04 08:07] LABS: Glucose - Point of Care 116 mg/dl (70-99)
[2024-02-04 08:20] LABS: Hematocrit 28.2 % (39.0-52.0); Hemoglobin 9.2 g/dL (13.0-18.0); Mean Corp Hgb Conc. 32.6 g/dL (33.0-37.0); Mean Corpuscular Hgb 31.4 pg (27.0-31.0); Mean Corpuscular Volume 96.2 fL (80.0-94.0); Mean Platelet Volume 8.8 fL (7.4-10.4); Platelet Count 301 10^3/uL (130-400); Red Blood Cell Count 2.93 10^6/uL (4.70-6.10); Red Cell Dist. Width 14.3 % (11.5-14.5)
[2024-02-04] MEDS: FOLVITE 1 MG PO (08:33)
[2024-02-04] MEDS: VITAMIN B1 100 MG PO ×2 (08:33→20:41)
[2024-02-04] MEDS: LASIX 20 MG PO (08:33)
[2024-02-04] MEDS: HEPARIN 5000 UNITS SC ×3 (08:34→23:04)
[2024-02-04] MEDS: NORVASC 5 MG PO (08:34)
[2024-02-04] MEDS: ANCEF 10 IV ×2 (08:38→20:41)
[2024-02-04 09:10] LABS: Blood Urea Nitrogen 41 mg/dl (9-20); Calcium 8.4 mg/dl (8.4-10.2); Carbon Dioxide 27 mmol/L (22-30); Chloride 101 mmol/L (98-107); Estimated Creatinine Clearance 72 ml/min; Glucose 106 mg/dl (70-99); Magnesium 1.4 mg/dl (1.6-2.3); Potassium 3.7 mmol/L (3.5-5.1); Sodium 140 mmol/L (135-145)
[2024-02-04 11:21] LABS: Glucose - Point of Care 109 mg/dl (70-99)
--- NOTE | 2024-02-04 12:36 | W.PN.ID1 ---
Date of Service
Date of Service: February 04, 2024
Today's Communication
Continue antibiotics.
Assessment / Plan
S/P VDRF
KALI
- creat improving.
Hypotension
- resolved; now off pressors.
Clinical sepsis
- appears resolved. Cultures have remained negative.
Leukocytosis
- resolved
Lactic acidosis
HTN
Dyslipidemia
DM
Sleep apnea (CPAP)
Recommendations:
Leukocytosis improving
Sputum with S. aureus (MSSA)
Continue with cefazolin (d#6 abx)
Monitor temperature curve.
Continue with supportive measures.
����������������������������������������������������������
Chief Complaint
-: Clinical Sepsis and Pneumonia (HAP)
Subjective / Review of Systems
Review of Systems: No Fever, No Chills, Cough (Slight) and No Sputum Production
Vital Signs / Physical Exam
Vital Signs
Vital Signs
Temp Pulse Resp BP Pulse Ox
97.9 F 68 18 137/80 98
02/04/24 11:11 02/04/24 11:11 02/04/24 11:11 02/04/24 11:11 02/04/24 11:11
Physical Exam
Constitutional: No Acute Distress and Comfortable
Eyes: Sclera Anicteric
Cardiovascular: Regular Rate
Pulmonary: Coarse and Non Labored
Gastrointestinal: Soft and Non Distended
Skin: Warm and Dry; Negative Rash or Jaundice
Neurological: Awake and Alert
Psychological: Calm
Objective Data
Lab Data
Lab Results
02/04/24 07:43
02/04/24 07:43
PT 14.4 Sec (11.4-14.6) 01/26/24 03:59
INR 1.09 01/26/24 03:59
APTT 35.2 Sec (23.4-35.0) H 01/26/24 03:59
Estimated Creat Clear 72 ml/min 02/04/24 07:43
Lactic Acid 0.9 mmol/L (0.7-2.0) 01/29/24 19:48
Total Bilirubin 0.2 mg/dl (0.2-1.3) 01/29/24 04:51
GGT 34 U/L (15-73) 01/24/24 22:46
AST 23 U/L (17-59) 01/29/24 04:51
ALT 17 U/L (0-50) 01/29/24 04:51
Alkaline Phosphatase 80 U/L (38-126) 01/29/24 04:51
Most recent labs reviewed.
Micro Results:
01/30/24 09:37 Respiratory Culture - Final
Sputum S aureus-Methicillin Sensitive
Gram Stain - Final
01/28/24 16:05 Respiratory Culture - Final
Endotracheal Usual Respiratory Laina
Gram Stain - Final
01/24/24 22:37 Blood Culture - Final
Blood/Venous No Growth - Final Report
01/24/24 22:37 Blood Culture - Final
Blood/Venous No Growth - Final Report
01/26/24 14:54 Respiratory Culture - Final
Sputum NO GROWTH
Gram Stain - Final
01/26/24 08:53 Urine Culture - Final
Urine NO GROWTH
01/25/24 10:10 MRSA Screen - Final
Nose No Methicillin Resistant Staphylococcus aureus isolated.
Imaging:
01/28/2024 CXR (portable): Extremely low lung volumes, with crowding of the central/vascular markings. No pneumothorax seen. No pneumothorax or significant pleural effusion seen. Please see full dictation for additional detail. Film personally
viewed.
01/25/2024 CXR (portable): Low lung volumes with mild left base atelectasis noted. No acute infiltrate seen. Please see full dictation for additional detail. Film personally viewed.
--- NOTE | 2024-02-04 12:45 | W.PN.NEPH.PH ---
Today's Communication / Plan
-
sign off
Can add back antihypertensives stepwise as needed as blood pressure improved
Assessment/Plan
-
IMP:
Severe KALI
Acidemia with severe metabolic acidosis- A gap
hypotension
Hyperkalemia
Hyponatremia
Hypocalcemia
Hypomagnesemia
Hyperphosphatemia
suspected ETOH withdrawal-DTs
h/o HTN
NIDDM
Obesity
ETOH abuse
Plan:
A/w n/v, poor po intake
severe anuric KALI-cr over 28 on admit, baseline cr 0.9 in Dec
highly suspected ATN, neg serologies
renal u/s report : without significant findings
cr is improving to 1.4 and non oliguric , last HD 01/29
KALI resolving , we will sign off
-
-
Date of Service: February 04, 2024
CC / HPI / ROS
-
Chief Complaint:
KALI
History of Present Illness:
CRRT started for refractory acidosis and KALI, 01/24
BP stable,
extubated 01/31, wt unchanged
Last dialysis was on 01/29
cr down to 1.4
Review of Systems:
awake and alert
on RA
no n/v
no pain or sob
Labs
-
Labs:
WBC 11.0 10^3/uL (4.8-10.8) H 02/04/24 07:43
RBC 2.93 10^6/uL (4.70-6.10) L 02/04/24 07:43
Hgb 9.2 g/dL (13.0-18.0) L 02/04/24 07:43
Hct 28.2 % (39.0-52.0) L 02/04/24 07:43
Plt Count 301 10^3/uL (130-400) 02/04/24 07:43
Sodium 140 mmol/L (135-145) 02/04/24 07:43
Potassium 3.7 mmol/L (3.5-5.1) 02/04/24 07:43
Chloride 101 mmol/L (98-107) 02/04/24 07:43
Carbon Dioxide 27 mmol/L (22-30) 02/04/24 07:43
BUN 41 mg/dl (9-20) H 02/04/24 07:43
Creatinine 1.4 mg/dL (0.7-1.3) H 02/04/24 07:43
eGFR 57.90 02/04/24 07:43
Glucose 106 mg/dl (70-99) H 02/04/24 07:43
Calcium 8.4 mg/dl (8.4-10.2) 02/04/24 07:43
Phosphorus 3.8 mg/dl (2.5-4.5) 01/30/24 00:38
Albumin 2.3 g/dl (3.5-5.0) L 01/29/24 04:51
Physical Exam
-
Vital Signs:
Vital Signs
Temp Pulse Resp BP Pulse Ox
97.9 F 68 18 137/80 98
02/04/24 11:11 02/04/24 11:11 02/04/24 11:11 02/04/24 11:11 02/04/24 11:11
Cardiovascular:: Regular rate and rhythm
Respiratory:: Bilateral: CTA
Lung Excursion:: Normal
Abdomen:: Nontender and Soft
Extremity Edema:: +1: Bilateral: (trace)
Navarrete Catheter: No
--- NOTE | 2024-02-04 15:57 | PTCARENOTE ---
patient denies complaints, tolerating diet, sitting oob in chair, cooperative with care, can be impulsive at times and attempt to transfer without assistance, despite being told to wait for assistance from staff, bed/chair alarm maintained, vss,
will continue to monitor.
[2024-02-04 17:05] LABS: Glucose - Point of Care 171 mg/dl (70-99)
--- NOTE | 2024-02-04 17:08 | W.PN.HOSP.TC ---
Today's Communication/Plan
-
Continue Cefazolin
Added back patient's home Coreg for better blood pressure control
Appreciate ID and Nephrology
Assessment / Plan
Assessment / Plan
Physical Exam
General: Not in acute distress
Respiratory: Clear to Auscultation Bilaterally
Cardiac: Regular Rhythm and S1/S2
GI: Soft, Nontender and Nondistended. Positive bowel sounds.
Musculoskeletal: Edema, Right Lower Extremity. Edema, Left Lower Extremity.
Neuro: AAOx3. Nonfocal/grossly intact.
Psych: Calm
Assessment/Plan
#Acute renal failure - IMPROVING - requiring CRRT
Hyperkalemia - resolved
Severe metabolic acidosis -resolved
Hyponatremia -resolved
Hyperphosphatemia - resolved
Hypocalcemia -resolved
Hypomagnesemia
-Reason for initial renal failure remains unclear,suspected combination of hypovolemia/shock related ATN with intrinsic renal disease
-Renal ultrasound showing renal cyst. Normal kidney parenchyma
-UA showed some pyuria, mild microalbuminuria and some hematuria
-Vasculitis panl neg. Complement level WNL.
-At admission creatinine greater than 28 requiring emergent dialysis catheter placement and initiation of CRRT
-Calcium/magnesium replacement as needed. RF Associated electrolyte imbalance has been improved
-Nephro will consider renal biopsy if continues to require HD support -- but now renal function is improving, and nephrology has signed off
-Patient off of CRRT, continue to trend sCr and UOP; nephrology following and they will hold off on additional HD for now, and continue with diuresis while trending Cr and UOP
-Continue home Lasix daily given mild edema
-No more Navarrete now
#VDRF secondary to pulmonary edema and severe acidosis
#Abnormal CXR with retrocardiac opacification due to atelectasis versus pneumonia
#Abnormal sputum culture with MSSA suspicious for pneumonia
-Extubated on 02/01/24
-Wore BiPAP overnight
-As of 02/02/24, patient was on room air saturating 96%
-Continue Aspiration Precautions
-Continue Cefazolin
#Septic shock - Improved
-Chest x-ray clear. UA showing some pyuria and bacteriuria
-Blood culture/respiratory culture remains NTD
-Continue antibiotics as above
-WBC has trending down again
#Lactic acidosis - resolved
#Alcohol use disorder
#Alcohol withdrawal
-At admission blood alcohol level of 12, reported 1 bottle of vodka drinking daily
-Despite being on fentanyl/propofol patient was not sedated at times
-Patient was previously on phenobarbital protocol with as needed Ativan
#Chronic normocytic anemia
#Acute on chronic anemia (baseline Hb 10.5�12g/dL)
#Thrombocytopenia � now resolved and was likely due to CRRT
-Suspecting alcohol use related bone marrow suppression
-B12/Folate/Iron studies normal
-MSAS with thiamine, folate and MVN
#RUE Swelling
#LUE US superficial thrombosis
-Check RUE duplex US to rule out DVT given swelling seen: occlusive thrombus in the cephalic vein along the antecubital fossa and proximal forearm.
-Continue supportive care
#Hypothermia
-Likely with CKRT
-TSH/free T4 within normal limit. Random cortisol marginally low 8.1
#VICTORIA
-Wears CPAP at home
#Essential Hypertension - restart home Amlodipine as now patient is hypertensive
#Hyperlipidemia
#Type II DM - A1c 6 in dec 24
Resume home medications when clinically appropriate.
DVT Prophylaxis: Heparin subq
Diet: Diabetic, Thin liquid diet w/ single sips/bites, reflux precautions, meds in puree
Code status - Full Code
Anticipated Discharge: > 48 hours
Subjective/Interval History
-
Date of Service: February 04, 2024
Patient was seen and examined. He denied any symptoms or complaints.
Objective Data
-
Labs:
Laboratory Results
02/04/24
07:43
WBC 11.0 H
Hgb 9.2 L
Hct 28.2 L
Plt Count 301
Sodium 140
Potassium 3.7
Chloride 101
Carbon Dioxide 27
BUN 41 H
Creatinine 1.4 H
Glucose 106 H
Calcium 8.4
Vital Signs:
Vital Signs
Temp Pulse Resp BP Pulse Ox
97.8 F 68 18 146/72 96
02/04/24 14:47 02/04/24 14:47 02/04/24 14:47 02/04/24 14:47 02/04/24 14:47
I&O
02/03/24 02/04/24 02/05/24
06:59 06:59 06:59
Intake Total 960 / 960 1200 / 1200
Output Total 1275 / 1275 400 / 400
Balance -315 / -315 800 / 800
[2024-02-04] MEDS: MAGNESIUM SULFATE 102 GRAMS IV (17:22)
[2024-02-04] MEDS: COREG 25 MG PO (20:42)
[2024-02-04] MEDS: MELATONIN 5 MG PO (21:19)
[2024-02-05 06:00] VITALS: BMI 33.5
[2024-02-05 07:36] VITALS: BP 116/82
[2024-02-05 08:06] LABS: Glucose - Point of Care 109 mg/dl (70-99)
[2024-02-05] MEDS: NORVASC 5 MG PO (08:55)
[2024-02-05] MEDS: VITAMIN B1 100 MG PO ×2 (08:55→20:01)
[2024-02-05] MEDS: LASIX 20 MG PO (08:58)
[2024-02-05] MEDS: COREG 25 MG PO ×2 (08:59→20:01)
[2024-02-05] MEDS: FOLVITE 1 MG PO (08:59)
[2024-02-05] MEDS: HEPARIN 5000 UNITS SC ×3 (09:00→23:14)
[2024-02-05] MEDS: ANCEF 10 IV (09:01)
[2024-02-05 09:18] LABS: Blood Urea Nitrogen 31 mg/dl (9-20); Carbon Dioxide 27 mmol/L (22-30); Chloride 102 mmol/L (98-107); Estimated Creatinine Clearance 91 ml/min; Glucose 105 mg/dl (70-99); Potassium 3.8 mmol/L (3.5-5.1); Sodium 141 mmol/L (135-145); eGFR > 60.00
[2024-02-05 11:29] VITALS: BP 103/52
[2024-02-05 11:43] LABS: Glucose - Point of Care 137 mg/dl (70-99)
--- NOTE | 2024-02-05 14:56 | W.PN.ID1 ---
Date of Service
Date of Service: February 05, 2024
Today's Communication
sign off
Assessment / Plan
S/P VDRF
KALI
- creat improving.
Hypotension
- resolved; now off pressors.
Clinical sepsis
- appears resolved. Cultures have remained negative.
Leukocytosis
- resolved
Lactic acidosis
HTN
Dyslipidemia
DM
Sleep apnea (CPAP)
Recommendations:
Leukocytosis improving
Sputum with S. aureus (MSSA)
Continue with antibiotics (d#7 abx). Transition to oral cephalexin for an additional 4 days of therapy.
Little more to offer from a Infectious Diseases standpoint.
Will see again at your request.
����������������������������������������������������������
Chief Complaint
-: Clinical Sepsis and Pneumonia (HAP)
Subjective / Review of Systems
Review of Systems: No Fever, No Chills and No Cough
Vital Signs / Physical Exam
Vital Signs
Vital Signs
Temp Pulse Resp BP Pulse Ox
99.3 F 67 12 103/52 98
02/05/24 11:29 02/05/24 11:29 02/05/24 11:29 02/05/24 11:29 02/05/24 11:29
Physical Exam
Constitutional: No Acute Distress and Comfortable
Eyes: Sclera Anicteric
Cardiovascular: Regular Rate
Pulmonary: Clear and Non Labored
Gastrointestinal: Soft and Non Distended
Skin: Warm and Dry; Negative Rash or Jaundice
Neurological: Awake and Alert
Psychological: Calm
Objective Data
Lab Data
Lab Results
02/04/24 07:43
02/05/24 07:35
PT 14.4 Sec (11.4-14.6) 01/26/24 03:59
INR 1.09 01/26/24 03:59
APTT 35.2 Sec (23.4-35.0) H 01/26/24 03:59
Estimated Creat Clear 91 ml/min 02/05/24 07:35
Lactic Acid 0.9 mmol/L (0.7-2.0) 01/29/24 19:48
Total Bilirubin 0.2 mg/dl (0.2-1.3) 01/29/24 04:51
GGT 34 U/L (15-73) 01/24/24 22:46
AST 23 U/L (17-59) 01/29/24 04:51
ALT 17 U/L (0-50) 01/29/24 04:51
Alkaline Phosphatase 80 U/L (38-126) 01/29/24 04:51
Most recent labs reviewed.
Micro Results:
01/30/24 09:37 Respiratory Culture - Final
Sputum S aureus-Methicillin Sensitive
Gram Stain - Final
01/28/24 16:05 Respiratory Culture - Final
Endotracheal Usual Respiratory Laina
Gram Stain - Final
01/24/24 22:37 Blood Culture - Final
Blood/Venous No Growth - Final Report
01/24/24 22:37 Blood Culture - Final
Blood/Venous No Growth - Final Report
01/26/24 14:54 Respiratory Culture - Final
Sputum NO GROWTH
Gram Stain - Final
01/26/24 08:53 Urine Culture - Final
Urine NO GROWTH
01/25/24 10:10 MRSA Screen - Final
Nose No Methicillin Resistant Staphylococcus aureus isolated.
Imaging:
01/28/2024 CXR (portable): Extremely low lung volumes, with crowding of the central/vascular markings. No pneumothorax seen. No pneumothorax or significant pleural effusion seen. Please see full dictation for additional detail. Film personally
viewed.
01/25/2024 CXR (portable): Low lung volumes with mild left base atelectasis noted. No acute infiltrate seen. Please see full dictation for additional detail. Film personally viewed.
[2024-02-05 15:00] VITALS: BP 142/72
--- NOTE | 2024-02-05 16:11 | CM ---
Placed a call to [facility] and spoke with Tal who stated that [facility] has left for the day, however his notes indicate that he has found an inpatient d&A facility, (Tal thinks [facility]). Will call [facility] in the am to get more clarification.
Plan: Case management will continue to follow and assist with discharge planning. Inpatient rehab when stable for discharge.
[2024-02-05 16:37] LABS: Glucose - Point of Care 98 mg/dl (70-99)
[2024-02-05] MEDS: KEFLEX 500 MG PO ×2 (16:51→21:27)
--- NOTE | 2024-02-05 16:55 | W.PN.HOSP.TC ---
Addendum entered and electronically signed by Néstor Birmingham MD 02/05/24 17:10:
Patient agreed to inpatient rehab and wants to go there, patient has already been arranged to get inpatient rehab, expected discharge tomorrow.
Original Note:
Today's Communication/Plan
-
Discharge today
Assessment / Plan
Assessment / Plan
Physical Exam
General: Not in acute distress
Respiratory: Clear to Auscultation Bilaterally
Cardiac: Regular Rhythm and S1/S2
GI: Soft, Nontender and Nondistended. Positive bowel sounds.
Musculoskeletal: Edema, Right Lower Extremity. Edema, Left Lower Extremity.
Neuro: AAOx3. Nonfocal/grossly intact.
Psych: Calm
Assessment/Plan
#Acute renal failure - RESOLVED
#Hyperkalemia - RESOLVED
#Severe metabolic acidosis - RESOLVED
#Hyponatremia - RESOLVED
#Hyperphosphatemia - RESOLVED
#Hypocalcemia - RESOLVED
#Hypomagnesemia
-Reason for initial renal failure remains unclear,suspected combination of hypovolemia/shock related ATN with intrinsic renal disease
-Renal ultrasound showing renal cyst. Normal kidney parenchyma
-UA showed some pyuria, mild microalbuminuria and some hematuria
-Vasculitis panl neg. Complement level WNL.
-At admission creatinine greater than 28 requiring emergent dialysis catheter placement and initiation of CRRT
-Calcium/magnesium replacement as needed. RF Associated electrolyte imbalance has been improved
-Nephro will consider renal biopsy if continues to require HD support -- but now renal function is improving, and nephrology has signed off
-Patient off of CRRT, continue to trend sCr and UOP; nephrology following and they will hold off on additional HD for now, and continue with diuresis while trending Cr and UOP
-Continue home Lasix daily given mild edema
-No more Navarrete now
#VDRF secondary to pulmonary edema and severe acidosis
#Abnormal CXR with retrocardiac opacification due to atelectasis versus pneumonia
#Abnormal sputum culture with MSSA suspicious for pneumonia
-Extubated on 02/01/24
-Wore BiPAP overnight
-As of 02/02/24, patient was on room air saturating 96%
-Continue Aspiration Precautions
-Status post Cefazolin
-Continue Cephalexin 500 mg QID for 4 more days
#Septic shock - RESOLVED
-Chest x-ray clear. UA showing some pyuria and bacteriuria
-Blood culture/respiratory culture remains NTD
-Continue antibiotics as above
-WBC has trending down again
#Lactic acidosis - RESOLVED
#Alcohol use disorder
#Alcohol withdrawal
-At admission blood alcohol level of 12, reported 1 bottle of vodka drinking daily
-Despite being on fentanyl/propofol patient was not sedated at times
-Patient was previously on phenobarbital protocol with as needed Ativan
#Chronic normocytic anemia
#Acute on chronic anemia (baseline Hb 10.5�12g/dL)
#Thrombocytopenia � now resolved and was likely due to CRRT
-Suspecting alcohol use related bone marrow suppression
-B12/Folate/Iron studies normal
-MSAS with thiamine, folate and MVN
#RUE Swelling
#LUE US superficial thrombosis/occlusive thrombus in the cephalic vein along the antecubital fossa and proximal forearm
-Check RUE duplex US to rule out DVT given swelling seen: occlusive thrombus in the cephalic vein along the antecubital fossa and proximal forearm.
-Continue supportive care
#Hypothermia
-Likely with CKRT
-TSH/free T4 within normal limit. Random cortisol marginally low 8.1
#VICTORIA
-Wears CPAP at home
#Essential Hypertension - restart home Amlodipine as now patient is hypertensive
#Hyperlipidemia
#Type II DM - A1c 6 in dec 24
DVT Prophylaxis: Heparin subq
Diet: Diabetic, Thin liquid diet w/ single sips/bites, reflux precautions, meds in puree
Code status - Full Code
More than 30 minutes spent in discharge including
Final examination of the patient
Summarizing hospital stay
Instructions for continuing care to all relevant caregivers
Preparation of discharge records, prescriptions, and referral forms
Total time spent (in minutes): 36
Anticipated Discharge: Today
Subjective/Interval History
-
Date of Service: February 05, 2024
Patient was seen and examined. He denied chest pain, SOB or any other complaints.
Objective Data
-
Labs:
Laboratory Results
02/05/24
07:35
Sodium 141
Potassium 3.8
Chloride 102
Carbon Dioxide 27
BUN 31 H
Creatinine 1.1
Glucose 105 H
Calcium 8.0 L
Vital Signs:
Vital Signs
Temp Pulse Resp BP Pulse Ox
98.4 F 68 17 142/72 99
02/05/24 15:00 02/05/24 15:00 02/05/24 15:00 02/05/24 15:00 02/05/24 15:00
I&O
02/04/24 02/05/24 02/06/24
06:59 06:59 06:59
Intake Total 1200 / 1200 1722 / 1722
Output Total 400 / 400 1950 / 1950
Balance 800 / 800 -228 / -228
[2024-02-05 18:22] LABS: Magnesium 1.2 mg/dl (1.6-2.3)
[2024-02-05 21:02] LABS: Glucose - Point of Care 135 mg/dl (70-99)
[2024-02-05] MEDS: MELATONIN 5 MG PO (21:27)
[2024-02-05] MEDS: MAGNESIUM OXIDE 500 MG PO (21:27)
[2024-02-05 23:00] VITALS: BP 117/64
[2024-02-06 05:56] LABS: Hemoglobin 8.9 g/dL (13.0-18.0); Mean Corp Hgb Conc. 31.8 g/dL (33.0-37.0); Mean Corpuscular Hgb 31.2 pg (27.0-31.0); Mean Corpuscular Volume 98.2 fL (80.0-94.0); Mean Platelet Volume 9.2 fL (7.4-10.4); Platelet Count 292 10^3/uL (130-400); Red Blood Cell Count 2.85 10^6/uL (4.70-6.10); Red Cell Dist. Width 14.2 % (11.5-14.5); White Blood Cell Count 11.9 10^3/uL (4.8-10.8)
[2024-02-06 06:00] VITALS: BMI 33.6
[2024-02-06 06:19] LABS: Blood Urea Nitrogen 25 mg/dl (9-20); Carbon Dioxide 25 mmol/L (22-30); Chloride 104 mmol/L (98-107); Estimated Creatinine Clearance 111 ml/min; Glucose 100 mg/dl (70-99); Magnesium 1.2 mg/dl (1.6-2.3); Sodium 140 mmol/L (135-145); eGFR > 60.00
[2024-02-06 07:40] VITALS: BP 125/68
[2024-02-06] MEDS: MAGNESIUM OXIDE 500 MG PO ×2 (07:52→19:38)
[2024-02-06] MEDS: NORVASC 5 MG PO (07:52)
[2024-02-06] MEDS: KEFLEX 500 MG PO ×4 (07:52→21:55)
[2024-02-06] MEDS: FOLVITE 1 MG PO (07:52)
[2024-02-06] MEDS: COREG 25 MG PO ×2 (07:52→19:38)
[2024-02-06] MEDS: VITAMIN B1 100 MG PO ×2 (07:52→19:38)
[2024-02-06] MEDS: HEPARIN 5000 UNITS SC (07:53)
[2024-02-06] MEDS: LASIX 20 MG PO (07:53)
[2024-02-06 08:50] VITALS: BP 104/64; PULSE 75; O2SAT 98
[2024-02-06] MEDS: MAGNESIUM SULFATE 50 IV ×2 (10:33→17:13)
--- NOTE | 2024-02-06 13:48 | CM ---
Reviewed chart, met with patient who stated that he spoke with Rip from [facility] this morning and everything is put into place for him. He was unclear of the details. Spoke with attending who stated that as long as patient's Mag looks better today
he will discharge. Patient stated that his will transport home. Patient signed IMM, it was reviewed and put on chart.
Placed a call to Rip from [facility] who stated that Patient is going to [facility] in [place] for a PHP which begins on Friday.
Plan: Case management will continue to follow and assist with discharge planning. Home with PHP starting week, 02/08.
[2024-02-06 14:58] VITALS: BP 123/63
[2024-02-06] MEDS: HEPARIN SC (16:10)
--- NOTE | 2024-02-06 16:29 | W.PN.HOSP.TC ---
Addendum entered and electronically signed by Néstor Birmingham MD 02/06/24 17:29:
Repeat Magnesium is 1.7, okay to discharge today with outpatient follow-up
Original Note:
Today's Communication/Plan
-
Magnesium not improving, consulted nephro
Assessment / Plan
Assessment / Plan
Physical Exam
General: Not in acute distress
Respiratory: Clear to Auscultation Bilaterally
Cardiac: Regular Rhythm and S1/S2
GI: Soft, Nontender and Nondistended. Positive bowel sounds.
Musculoskeletal: Edema, Right Lower Extremity. Edema, Left Lower Extremity.
Neuro: AAOx3. Nonfocal/grossly intact.
Psych: Calm
Assessment/Plan
#Acute renal failure - RESOLVED
#Hyperkalemia - RESOLVED
#Severe metabolic acidosis - RESOLVED
#Hyponatremia - RESOLVED
#Hyperphosphatemia - RESOLVED
#Hypocalcemia - RESOLVED
#Hypomagnesemia
-Reason for initial renal failure remains unclear,suspected combination of hypovolemia/shock related ATN with intrinsic renal disease
-Renal ultrasound showing renal cyst. Normal kidney parenchyma
-UA showed some pyuria, mild microalbuminuria and some hematuria
-Vasculitis panl neg. Complement level WNL.
-At admission creatinine greater than 28 requiring emergent dialysis catheter placement and initiation of CRRT
-Calcium/magnesium replacement as needed. RF Associated electrolyte imbalance has been improved
-Nephro will consider renal biopsy if continues to require HD support -- but now renal function is improving, and nephrology has signed off
-Patient off of CRRT, continue to trend sCr and UOP; nephrology following and they will hold off on additional HD for now, and continue with diuresis while trending Cr and UOP
-Continue home Lasix daily given mild edema
-No more Navarrete now
-Magnesium has been replaced with both IV and PO Magnesium, still not improved as of this morning, appreciate nephrology assistance
#VDRF secondary to pulmonary edema and severe acidosis
#Abnormal CXR with retrocardiac opacification due to atelectasis versus pneumonia
#Abnormal sputum culture with MSSA suspicious for pneumonia
-Extubated on 02/01/24
-Wore BiPAP overnight
-As of 02/02/24, patient was on room air saturating 96%
-Continue Aspiration Precautions
-Status post Cefazolin
-Continue Cephalexin 500 mg QID for 3 more days
#Septic shock - RESOLVED
-Chest x-ray clear. UA showing some pyuria and bacteriuria
-Blood culture/respiratory culture remains NTD
-Continue antibiotics as above
-WBC has trending down again
#Lactic acidosis - RESOLVED
#Alcohol use disorder
#Alcohol withdrawal
-At admission blood alcohol level of 12, reported 1 bottle of vodka drinking daily
-Despite being on fentanyl/propofol patient was not sedated at times
-Patient was previously on phenobarbital protocol with as needed Ativan
#Chronic normocytic anemia
#Acute on chronic anemia (baseline Hb 10.5�12g/dL)
#Thrombocytopenia � now resolved and was likely due to CRRT
-Suspecting alcohol use related bone marrow suppression
-B12/Folate/Iron studies normal
-MSAS with thiamine, folate and MVN
#RUE Swelling
#LUE US superficial thrombosis/occlusive thrombus in the cephalic vein along the antecubital fossa and proximal forearm
-Check RUE duplex US to rule out DVT given swelling seen: occlusive thrombus in the cephalic vein along the antecubital fossa and proximal forearm.
-Continue supportive care
#Hypothermia
-Likely with CKRT
-TSH/free T4 within normal limit. Random cortisol marginally low 8.1
#VICTORIA
-Wears CPAP at home
#Essential Hypertension - restart home Amlodipine as now patient is hypertensive
#Hyperlipidemia
#Type II DM - A1c 6 in dec 24
DVT Prophylaxis: Heparin subq through today, Lovenox starting tomorrow
Diet: Diabetic, Thin liquid diet w/ single sips/bites, reflux precautions, meds in puree
Code status - Full Code
Anticipated Discharge: 24 - 48 hours
Subjective/Interval History
-
Date of Service: February 06, 2024
Patient was seen and examined. He denied any chest pain, SOB or any other complaints.
Objective Data
-
Labs:
Laboratory Results
02/06/24 02/06/24 02/06/24
05:29 16:00 16:24
WBC 11.9 H
Hgb 8.9 L
Hct 28.0 L
Plt Count 292
Sodium 140 Cancelled Pending
Potassium 4.0 Cancelled Pending
Chloride 104 Cancelled Pending
Carbon Dioxide 25 Cancelled Pending
BUN 25 H Cancelled Pending
Creatinine 0.9 Cancelled Pending
Glucose 100 H Cancelled Pending
Calcium 8.0 L Cancelled Pending
Vital Signs:
Vital Signs
Temp Pulse Resp BP Pulse Ox
98.0 F 72 16 123/63 97
02/06/24 14:58 02/06/24 14:58 02/06/24 14:58 02/06/24 14:58 02/06/24 14:58
I&O
02/05/24 02/06/24 02/07/24
06:59 06:59 06:59
Intake Total 1722 / 1722 700 / 700 290 / 290
Output Total 1950 / 1950 800 / 800 1050 / 1050
Balance -228 / -228 -100 / -100 -760 / -760
[2024-02-06 17:21] LABS: Albumin 3.6 g/dl (3.5-5.0); Blood Urea Nitrogen 23 mg/dl (9-20); Calcium 8.2 mg/dl (8.4-10.2); Carbon Dioxide 24 mmol/L (22-30); Chloride 104 mmol/L (98-107); Estimated Creatinine Clearance > 125 ml/min; Glucose 99 mg/dl (70-99); Magnesium 1.7 mg/dl (1.6-2.3); Potassium 4.3 mmol/L (3.5-5.1); Sodium 139 mmol/L (135-145); eGFR > 60.00
--- NOTE | 2024-02-06 17:27 | W.PN.NEPH.PH ---
Today's Communication / Plan
-
see plan
Assessment/Plan
-
IMP:
Severe KALI
Acidemia with severe metabolic acidosis- A gap
hypotension
Hyperkalemia
Hyponatremia
Hypocalcemia
Hypomagnesemia
Hyperphosphatemia
suspected ETOH withdrawal-DTs
h/o HTN
NIDDM
Obesity
ETOH abuse
Plan:
reconsult for hypomagnesemia
cr now at baseline, k normal
persistent hypomagnesemia -not on PPI, no GI loss
no clear etiology , check Phos level to r/o refeeding , h/o ETOH abuse
repalce IV mg, increase po mg 500mg BID
Bp stable
cont lasix , has edema
BMP on Friday with mg and phos on Friday and f/u with PCP
d/w primary
-
-
Date of Service: February 06, 2024
CC / HPI / ROS
-
Chief Complaint:
KALI
History of Present Illness:
CRRT started for refractory acidosis and KALI, 01/24
BP stable, cr 0.8
Last dialysis was on 01/29
Review of Systems:
awake and alert
on RA
no n/v
no pain or sob
Labs
-
Labs:
WBC 11.9 10^3/uL (4.8-10.8) H 02/06/24 05:
RBC 2.85 10^6/uL (4.70-6.10) L 02/06/24 05:
Hgb 8.9 g/dL (13.0-18.0) L 02/06/24 05:
Hct 28.0 % (39.0-52.0) L 02/06/24 05:
Plt Count 292 10^3/uL (130-400) 02/06/24 05:29
Sodium 139 mmol/L (135-145) 02/06/24 16:38
Potassium 4.3 mmol/L (3.5-5.1) 02/06/24 16:38
Chloride 104 mmol/L (98-107) 02/06/24 16:38
Carbon Dioxide 24 mmol/L (22-30) 02/06/24 16:38
BUN 23 mg/dl (9-20) H 02/06/24 16:38
Creatinine 0.8 mg/dL (0.7-1.3) 02/06/24 16:38
eGFR > 60.00 02/06/24 16:38
Glucose 99 mg/dl (70-99) 02/06/24 16:38
Calcium 8.2 mg/dl (8.4-10.2) L 02/06/24 16:38
Phosphorus 3.8 mg/dl (2.5-4.5) 01/30/24 00:38
Albumin 3.6 g/dl (3.5-5.0) 02/06/24 16:38
Physical Exam
-
Vital Signs:
Vital Signs
Temp Pulse Resp BP Pulse Ox
98.0 F 72 16 123/63 97
02/06/24 14:58 02/06/24 14:58 02/06/24 14:58 02/06/24 14:58 02/06/24 14:58
Cardiovascular:: Regular rate and rhythm
Respiratory:: Bilateral: CTA
Lung Excursion:: Normal
Abdomen:: Nontender and Soft
Extremity Edema:: +1: Bilateral:
Navarrete Catheter: No
[2024-02-06 18:30] LABS: Phosphorus 3.5 mg/dl (2.5-4.5)
[2024-02-06] MEDS: MELATONIN 5 MG PO (21:56)
[2024-02-06 23:57] VITALS: BP 118/53
[2024-02-07 07:00] VITALS: BP 119/68
[2024-02-07 07:17] LABS: Blood Urea Nitrogen 19 mg/dl (9-20); Calcium 8.2 mg/dl (8.4-10.2); Carbon Dioxide 26 mmol/L (22-30); Chloride 104 mmol/L (98-107); Estimated Creatinine Clearance > 125 ml/min; Glucose 100 mg/dl (70-99); Magnesium 1.5 mg/dl (1.6-2.3); Potassium 4.3 mmol/L (3.5-5.1); Sodium 139 mmol/L (135-145); eGFR > 60.00
[2024-02-07 07:35] LABS: Hematocrit 26.9 % (39.0-52.0); Hemoglobin 8.6 g/dL (13.0-18.0); Mean Corpuscular Hgb 32.3 pg (27.0-31.0); Mean Corpuscular Volume 101.1 fL (80.0-94.0); Mean Platelet Volume 9.6 fL (7.4-10.4); Platelet Count 312 10^3/uL (130-400); Red Blood Cell Count 2.66 10^6/uL (4.70-6.10); Red Cell Dist. Width 14.4 % (11.5-14.5)
[2024-02-07 07:50] LABS: Phosphorus 3.8 mg/dl (2.5-4.5)
[2024-02-07] MEDS: MAGNESIUM SULFATE 50 IV (08:41)
[2024-02-07] MEDS: MAGNESIUM OXIDE 500 MG PO (08:42)
[2024-02-07] MEDS: FOLVITE 1 MG PO (08:42)
[2024-02-07] MEDS: LASIX 20 MG PO (08:42)
[2024-02-07] MEDS: VITAMIN B1 100 MG PO (08:42)
[2024-02-07] MEDS: NORVASC 5 MG PO (08:52)
[2024-02-07] MEDS: KEFLEX 500 MG PO ×3 (08:52→17:26)
[2024-02-07] MEDS: COREG 25 MG PO (08:52)
--- NOTE | 2024-02-07 13:45 | W.PN.HOSP.TC ---
Today's Communication/Plan
-
Discharge today
Assessment / Plan
Assessment / Plan
Physical Exam
General: Not in acute distress
Respiratory: Clear to Auscultation Bilaterally
Cardiac: Regular Rhythm and S1/S2
GI: Soft, Nontender and Nondistended. Positive bowel sounds.
Musculoskeletal: Edema, Right Lower Extremity. Edema, Left Lower Extremity.
Neuro: AAOx3. Nonfocal/grossly intact.
Psych: Calm
Assessment/Plan
#Acute renal failure - RESOLVED
#Hyperkalemia - RESOLVED
#Severe metabolic acidosis - RESOLVED
#Hyponatremia - RESOLVED
#Hyperphosphatemia - RESOLVED
#Hypocalcemia - RESOLVED
#Hypomagnesemia
-Reason for initial renal failure remains unclear,suspected combination of hypovolemia/shock related ATN with intrinsic renal disease
-Renal ultrasound showing renal cyst. Normal kidney parenchyma
-UA showed some pyuria, mild microalbuminuria and some hematuria
-Vasculitis panl neg. Complement level WNL.
-At admission creatinine greater than 28 requiring emergent dialysis catheter placement and initiation of CRRT
-Calcium/magnesium replacement as needed. RF Associated electrolyte imbalance has been improved
-Renal function improved significantly, so no diuresis needed at this time
-Patient off of CRRT, continue to trend sCr and UOP; nephrology following and they will hold off on additional HD for now, and continue with diuresis while trending Cr and UOP
-Continue home Lasix daily given mild edema
-No more Navarrete now
-Magnesium has been replaced with intravenous magnesium
-On discharge, continue with Magnesium 500 mg PO BID
-Recheck BMP, Magnesium and Phosphorus on 02/09/24 with primary care provider's office
#VDRF secondary to pulmonary edema and severe acidosis
#Abnormal CXR with retrocardiac opacification due to atelectasis versus pneumonia
#Abnormal sputum culture with S. aureus (MSSA)
#Leukocytosis - RESOLVED
-Extubated on 02/01/24
-Wore BiPAP overnight
-As of 02/02/24, patient was on room air saturating 96%
-Continue Aspiration Precautions
-Status post Cefazolin
-Continue Cephalexin 500 mg QID for 11 more doses
#Septic shock - RESOLVED
-Chest x-ray clear. UA showing some pyuria and bacteriuria
-Blood culture/respiratory culture remains NTD
-Continue antibiotics as above
-WBC has trending down again
#Lactic acidosis - RESOLVED
#Alcohol use disorder
#Alcohol withdrawal
-At admission blood alcohol level of 12, reported 1 bottle of vodka drinking daily
-Despite being on fentanyl/propofol patient was not sedated at times
-Patient earlier this hospitalization completed phenobarbital taper with as needed Ativan
-Required any prn Ativan?
-Rehab set up starting early next week
#Chronic normocytic anemia
#Macrocytic Anemia
#Acute on chronic anemia (baseline Hb 10.5�12g/dL)
#Thrombocytopenia � now resolved and was likely due to CRRT
-Suspecting alcohol use related bone marrow suppression
-B12/Folate/Iron studies normal
-MSAS with thiamine, folate and MVN
#RUE Swelling
#LUE US superficial thrombosis/occlusive thrombus in the cephalic vein along the antecubital fossa and proximal forearm
-Check RUE duplex US to rule out DVT given swelling seen: occlusive thrombus in the cephalic vein along the antecubital fossa and proximal forearm.
-Continue supportive care
#Hypothermia - RESOLVED
-Likely with CKRT
-TSH/free T4 within normal limit. Random cortisol marginally low 8.1
#VICTORIA
-Wears CPAP at home
-Follow-up with pulmonary
#Essential Hypertension - restarted home Amlodipine and Coreg as now patient is hypertensive
#Hyperlipidemia
#Type II DM - A1c 6 in dec 24
DVT Prophylaxis: Heparin subq through today, Lovenox starting tomorrow
Diet: Diabetic, Thin liquid diet w/ single sips/bites, reflux precautions, meds in puree
Code status - Full Code
More than 30 minutes spent in discharge including
Final examination of the patient
Summarizing hospital stay
Instructions for continuing care to all relevant caregivers
Preparation of discharge records, prescriptions, and referral forms
Total time spent (in minutes): 40
Anticipated Discharge: Today
Subjective/Interval History
-
Date of Service: February 07, 2024
Patient was seen and examined. He denied any chest pain, shortness of breath or any other complaints.
Objective Data
-
Labs:
Laboratory Results
02/07/24
06:01
WBC 10.0
Hgb 8.6 L
Hct 26.9 L
Plt Count 312
Sodium 139
Potassium 4.3
Chloride 104
Carbon Dioxide 26
BUN 19
Creatinine 0.8
Glucose 100 H
Calcium 8.2 L
Vital Signs:
Vital Signs
Temp Pulse Resp BP Pulse Ox
98.3 F 82 18 119/68 99
02/07/24 07:00 02/07/24 07:00 02/07/24 07:00 02/07/24 07:00 02/07/24 07:00
I&O
02/06/24 02/07/24 02/08/24
06:59 06:59 06:59
Intake Total 700 / 700 2390 / 2390
Output Total 800 / 800 1050 / 1050
Balance -100 / -100 1340 / 1340
[2024-02-07 15:00] VITALS: BP 131/79
--- NOTE | 2024-02-07 15:01 | W.PN.NEPH.PH ---
Today's Communication / Plan
-
po mg and labs on Friday with PCP
Assessment/Plan
-
IMP:
Severe KALI
Acidemia with severe metabolic acidosis- A gap
hypotension
Hyperkalemia
Hyponatremia
Hypocalcemia
Hypomagnesemia
Hyperphosphatemia
suspected ETOH withdrawal-DTs
h/o HTN
NIDDM
Obesity
ETOH abuse
Plan:
reconsult for hypomagnesemia on 02/05
cr now at baseline, k normal
persistent hypomagnesemia -not on PPI, no GI loss
normal phos, likely from ETOH abuse
cont po mg 500mg BID
Bp stable
cont lasix , has edema , elevate legs and use TEDs
BMP on Friday with mg and phos on Friday and f/u with PCP
d/w primary and pt
-
-
Date of Service: February 07, 2024
CC / HPI / ROS
-
Chief Complaint:
KALI
History of Present Illness:
CRRT started for refractory acidosis and KALI, 01/24
BP stable, cr 0.8
Last dialysis was on 01/29
mg low 1.5 s/p 4gm IV mg on 02/05
Review of Systems:
awake and alert
on RA
no n/v
no pain or sob
Labs
-
Labs:
WBC 10.0 10^3/uL (4.8-10.8) 02/07/24 06:01
RBC 2.66 10^6/uL (4.70-6.10) L 02/07/24 06:01
Hgb 8.6 g/dL (13.0-18.0) L 02/07/24 06:01
Hct 26.9 % (39.0-52.0) L 02/07/24 06:01
Plt Count 312 10^3/uL (130-400) 02/07/24 06:01
Sodium 139 mmol/L (135-145) 02/07/24 06:01
Potassium 4.3 mmol/L (3.5-5.1) 02/07/24 06:01
Chloride 104 mmol/L (98-107) 02/07/24 06:01
Carbon Dioxide 26 mmol/L (22-30) 02/07/24 06:01
BUN 19 mg/dl (9-20) 02/07/24 06:01
Creatinine 0.8 mg/dL (0.7-1.3) 02/07/24 06:01
eGFR > 60.00 02/07/24 06:01
Glucose 100 mg/dl (70-99) H 02/07/24 06:01
Calcium 8.2 mg/dl (8.4-10.2) L 02/07/24 06:01
Phosphorus Cancelled 02/07/24 07:27
Albumin 3.6 g/dl (3.5-5.0) 02/06/24 16:38
Physical Exam
-
Vital Signs:
Vital Signs
Temp Pulse Resp BP Pulse Ox
98.3 F 82 18 119/68 99
02/07/24 07:00 02/07/24 07:00 02/07/24 07:00 02/07/24 07:00 02/07/24 07:00
Cardiovascular:: Regular rate and rhythm
Respiratory:: Bilateral: CTA
Lung Excursion:: Normal
Abdomen:: Nontender and Soft
Extremity Edema:: +1: Bilateral:
Navarrete Catheter: No
== END 2024-02-07 17:30 | disposition home or self-care (01) | DRG 870 ==
LOC: 3 WEST ACU 21:31
PROVIDERS: Clinical Nurse Specialist Family Health; Emergency Medicine; Hospitalist; Internal Medicine; Internal Medicine Critical Care Medicine; Nurse Practitioner Family; Nurse Practitioner Primary Care; Radiology Diagnostic Radiology; Registered Nurse; Specialist; Student in an Organized Health Care Education/Training Program; ADMITTING PHYSICIAN Internal Medicine; ATTENDING PHYSICIAN Hospitalist; CONSULT PHYSICIAN Internal Medicine; CONSULT PHYSICIAN Internal Medicine Infectious Disease; EMERGENCY PHYSICIAN Emergency Medicine
PROC: 0BH17EZ Insertion of Endotracheal Airway into Trachea, Via Natural or Artificial Opening (ICD-10-PCS; 2024-01-24)
PROC: 5A1955Z Respiratory Ventilation, Greater than 96 Consecutive Hours (ICD-10-PCS; 2024-01-24)
PROC: 03HY32Z Insertion of Monitoring Device into Upper Artery, Percutaneous Approach (ICD-10-PCS; 2024-01-24)
PROC: 02HV33Z Insertion of Infusion Device into Superior Vena Cava, Percutaneous Approach (ICD-10-PCS; 2024-01-25)
PROC: 5A1D90Z Performance of Urinary Filtration, Continuous, Greater than 18 hours Per Day (ICD-10-PCS; 2024-01-25)
PROC: 5A1D70Z Performance of Urinary Filtration, Intermittent, Less than 6 Hours Per Day (ICD-10-PCS; 2024-01-30)
PROC: 5A09357 Assistance with Respiratory Ventilation, Less than 24 Consecutive Hours, Continuous Positive Airway Pressure (ICD-10-PCS; 2024-02-01)
DX: A41.9 Sepsis, unspecified organism (principal); J96.91 Respiratory failure, unspecified with hypoxia; N17.0 Acute kidney failure with tubular necrosis; R57.1 Hypovolemic shock; R65.21 Severe sepsis with septic shock; E87.29 Other acidosis; E87.1 Hypo-osmolality and hyponatremia; I82.612 Acute embolism and thrombosis of superficial veins of left upper extremity; F10.231 Alcohol dependence with withdrawal delirium; E11.9 Type 2 diabetes mellitus without complications; E78.00 Pure hypercholesterolemia, unspecified; I10 Essential (primary) hypertension; E83.39 Other disorders of phosphorus metabolism; E83.42 Hypomagnesemia; E83.51 Hypocalcemia; E87.5 Hyperkalemia; E86.0 Dehydration; E66.9 Obesity, unspecified; D53.9 Nutritional anemia, unspecified; D69.59 Other secondary thrombocytopenia; Z68.33 Body mass index [BMI] 33.0-33.9, adult; G47.33 Obstructive sleep apnea (adult) (pediatric); Y90.0 Blood alcohol level of less than 20 mg/100 ml; Z79.82 Long term (current) use of aspirin; Z79.84 Long term (current) use of oral hypoglycemic drugs; Z79.899 Other long term (current) drug therapy; Z82.49 Family history of ischemic heart disease and other diseases of the circulatory system; Z87.891 Personal history of nicotine dependence
CPT/HCPCS: 36556; 51702; 51798; 71045; 74018; 76775; 76937; 80048; 80053; 80202; 80306; 81003; 81015; 82010; 82040; 82077; 82248; 82330; 82533; 82550; 82570; 82607; 82652; 82746; 82805; 82962; 82977; 83516; 83540; 83550; 83605; 83735; 83930; 83935; 83970; 84100; 84300; 84439; 84443; 84478; 85025; 85027; 85576; 85610; 85730; 86038; 86160; 86704; 86706; 86803; 87040; 87070; 87086; 87147; 87186; 87205; 87340; 92526; 92610; 93005; 93306; 93970; 93971; 94002; 94003; 94660; 96361; 96365; 96375; 97116; 97163; 97167; 97530; 97535; 99291; C1752; G0257; J2997; J7030; P9047; Q9950

== ENCOUNTER → 2024-02-09 10:33 | Outpatient (REF) | payer MEDICARE, BC, SELFPAY ==
[2024-02-09 11:59] LABS: % Basophils 1.3 % (0-2); % Eosinophils 2.8 % (0-6); % Immature Granulocytes 1.1 % (0-0.5); % Lymphocytes 12.2 % (20.5-51.1); % Monocytes 9.1 % (1.7-9.3); % Neutrophils 73.5 % (42.2-75.2); Absolute Basophils 0.1 10^3/uL (0-0.2); Absolute Eosinophils 0.3 10^3/uL (0-0.7); Absolute Immature Granulocytes 0.1 10^3/uL (0-0.05); Absolute Lymphocytes 1.2 10^3/uL (1.2-3.4); Absolute Monocytes 0.9 10^3/uL (0.1-0.6); Absolute Neutrophils 7.3 10^3/uL (1.4-6.5); Hematocrit 28.3 % (39.0-52.0); Mean Corp Hgb Conc. 31.8 g/dL (33.0-37.0); Mean Corpuscular Hgb 32.5 pg (27.0-31.0); Mean Corpuscular Volume 102.2 fL (80.0-94.0); Mean Platelet Volume 9.8 fL (7.4-10.4); Nucleated Red Blood Cells % 0 % (-); Platelet Count 364 10^3/uL (130-400); Red Blood Cell Count 2.77 10^6/uL (4.70-6.10); Red Cell Dist. Width 14.1 % (11.5-14.5); White Blood Cell Count 9.9 10^3/uL (4.8-10.8)
[2024-02-09 12:23] LABS: ALT (SGPT) 26 U/L (0-50); AST (SGOT) 27 U/L (17-59); Albumin 3.6 g/dl (3.5-5.0); Alkaline Phosphatase 56 U/L (38-126); Blood Urea Nitrogen 16 mg/dl (9-20); Calcium 9.2 mg/dl (8.4-10.2); Carbon Dioxide 26 mmol/L (22-30); Chloride 106 mmol/L (98-107); Glucose 103 mg/dl (70-99); Magnesium 1.1 mg/dl (1.6-2.3); Sodium 140 mmol/L (135-145); Total Bilirubin 0.4 mg/dl (0.2-1.3); Total Protein 6.5 g/dl (6.3-8.2); eGFR > 60.00
== END ==
LOC: HWLAB 10:33
PROVIDERS: ATTENDING PHYSICIAN Family Medicine
DX: E83.42 Hypomagnesemia (principal); N17.9 Acute kidney failure, unspecified; F10.90 Alcohol use, unspecified, uncomplicated; A41.9 Sepsis, unspecified organism
CPT/HCPCS: 36415; 80053; 83735; 85025

== ENCOUNTER → 2024-02-20 06:30 | Outpatient (REF) | payer MEDICARE, BC, SELFPAY ==
[2024-02-20 09:40] LABS: Magnesium 1.6 mg/dl (1.6-2.3)
== END ==
LOC: HWLAB 06:30
PROVIDERS: ATTENDING PHYSICIAN Family Medicine
DX: E83.42 Hypomagnesemia (principal)
CPT/HCPCS: 36415; 83735

== ENCOUNTER → 2024-06-08 08:58 | Outpatient (REF) | payer OTHER, SELFPAY ==
[2024-06-08 12:01] LABS: % Basophils 0.7 % (0-2); % Eosinophils 1.2 % (0-6); % Immature Granulocytes 1.6 % (0-0.5); % Lymphocytes 18.4 % (20.5-51.1); % Neutrophils 68.1 % (42.2-75.2); Absolute Basophils 0.1 10^3/uL (0-0.2); Absolute Eosinophils 0.1 10^3/uL (0-0.7); Absolute Immature Granulocytes 0.2 10^3/uL (0-0.05); Absolute Lymphocytes 1.9 10^3/uL (1.2-3.4); Absolute Neutrophils 6.9 10^3/uL (1.4-6.5); Hematocrit 38.5 % (39.0-52.0); Hemoglobin 12.2 g/dL (13.0-18.0); Mean Corp Hgb Conc. 31.7 g/dL (33.0-37.0); Mean Corpuscular Hgb 27.2 pg (27.0-31.0); Mean Corpuscular Volume 85.9 fL (80.0-94.0); Mean Platelet Volume 9.6 fL (7.4-10.4); Nucleated Red Blood Cells % 0 % (-); Platelet Count 235 10^3/uL (130-400); Red Blood Cell Count 4.48 10^6/uL (4.70-6.10); Red Cell Dist. Width 14.3 % (11.5-14.5); White Blood Cell Count 10.2 10^3/uL (4.8-10.8)
[2024-06-08 12:22] LABS: ALT (SGPT) 20 U/L (0-50); AST (SGOT) 18 U/L (17-59); Albumin 3.9 g/dl (3.5-5.0); Alkaline Phosphatase 74 U/L (38-126); Blood Urea Nitrogen 18 mg/dl (9-20); Calcium 9.7 mg/dl (8.4-10.2); Carbon Dioxide 27 mmol/L (22-30); Chloride 105 mmol/L (98-107); Glucose 175 mg/dl (70-99); HDL Cholesterol 47 mg/dl; LDL Cholesterol, Calculated 60 mg/dl; Potassium 4.5 mmol/L (3.5-5.1); Sodium 139 mmol/L (135-145); Total Bilirubin 0.5 mg/dl (0.2-1.3); Total Cholesterol 137 mg/dl (50-199); Total Protein 6.9 g/dl (6.3-8.2); Triglyceride 151 mg/dl (10-149); Very Low Density Lipoprotein 30 mg/dl (0-30); eGFR > 60.00
[2024-06-08 12:30] LABS: Glycohemoglobin (HgbA1c) 8.7 % (4.0-5.6)
== END ==
LOC: HWLAB 08:58
PROVIDERS: ATTENDING PHYSICIAN Family Medicine
DX: E11.9 Type 2 diabetes mellitus without complications (principal); E78.5 Hyperlipidemia, unspecified; D64.9 Anemia, unspecified
CPT/HCPCS: 36415; 80053; 80061; 83036; 85025

== ENCOUNTER → 2024-07-13 08:26 | Outpatient (REF) | payer OTHER, SELFPAY ==
[2024-07-13 10:02] LABS: Urine Albumin Negative (Neg - Trace); Urine Bilirubin Negative (Negative); Urine Character Clear (Clear); Urine Color Yellow; Urine Glucose Negative (Negative); Urine Ketone Negative (Negative); Urine Leukocyte Negative (Negative); Urine Nitrite Negative (Negative); Urine Occult Blood Negative (Negative); Urine Urobilinogen Negative (Neg - 1+)
== END ==
LOC: HWLAB 08:26
PROVIDERS: ATTENDING PHYSICIAN Family Medicine
DX: R32 Unspecified urinary incontinence (principal)
CPT/HCPCS: 81003

== ENCOUNTER 2024-08-16 06:24 | Day surgery (SDC) | payer OTHER, SELFPAY ==
[2024-08-16 07:56] LABS: Glucose - Point of Care 146 mg/dl (70-99)
== END 2024-08-16 10:21 | disposition home or self-care (01) ==
LOC: GI 06:24
PROVIDERS: ATTENDING PHYSICIAN Internal Medicine Gastroenterology
DX: Z12.11 Encounter for screening for malignant neoplasm of colon (principal); D12.2 Benign neoplasm of ascending colon; D12.3 Benign neoplasm of transverse colon; K64.8 Other hemorrhoids; K29.70 Gastritis, unspecified, without bleeding
CPT/HCPCS: 45385; 45380; 43239; 88305; 82962; 88342

== ENCOUNTER → 2024-09-30 08:30 | Outpatient (REF) | payer OTHER, SELFPAY ==
[2024-09-30 10:36] LABS: Blood Urea Nitrogen 19 mg/dl (9-20); Calcium 9.1 mg/dl (8.4-10.2); Carbon Dioxide 24 mmol/L (22-30); Chloride 105 mmol/L (98-107); Glucose 151 mg/dl (70-99); Potassium 4.5 mmol/L (3.5-5.1); Sodium 136 mmol/L (135-145); eGFR > 60.00
[2024-09-30 11:03] LABS: Glycohemoglobin (HgbA1c) 7.7 % (4.0-5.6)
== END ==
LOC: HWLAB 08:30
PROVIDERS: ATTENDING PHYSICIAN Family Medicine
DX: E11.65 Type 2 diabetes mellitus with hyperglycemia (principal)
CPT/HCPCS: 36415; 80048; 83036

== ENCOUNTER → 2024-11-08 09:03 | Outpatient (REF) | payer OTHER, SELFPAY ==
--- NOTE | 2024-07-07 10:53 | PN.DIAED02 ---
Referral
DSME Class Series Code: [id number]
Referred For: Diabetes Self-Management Training, Management of Diabetes During , Medical Nutrition Therapy, Self-Blood Glucose Monitoring, Long-Term Complication Instruction, Accute Complication Instruction, Continuous Glucose Monitoring,
Medication management, Care Coordination, Disease Management
PHI Release Authorization Form Signed: Yes
Patient Problems:
Current Active Problems
Problem Status Onset
Type 2 diabetes mellitus without complications
Demographic
(1) Type 2 diabetes mellitus without complications
Status: Chronic Code(s): E11.9 - Type 2 diabetes mellitus without complications
Patient's primary language-: Urdu
Education: Vocation/Trade
Occupation: Retired
- Social
Primary Support Person: Self & spouse, Family
Primary Care Takers: Self, Self & spouse
Living Arrangements: Self & spouse, Family
- Learning Methods
Preferred Method: Group discussion
Barriers to Learning: None
Glycemic Control
- Blood Glucose Monitoring Assessment
Date: 06/08/24
Blood glucose monitoring at home: Yes
Monitor Brands: Accu-Chek (ACCU-CHEK GUIDE)
- Blood Glucose Monitoring Results
Source: lab (175 MG/DL)
- Hemoglobin A1c
Date: 06/08/24
A1C Percentage (%): 8.7
Medical History of Diabetes
Family Diabetes History: Mother, Father
Previous Diabetes Education: No
Previous visit with Dietitian: No
Complications/Comorbidity/Specialist: Hypertension (AMLODIPINE 5 MG QD, CARVEDILOL 25 MG QD, FUROSEMIDE 20 MG QD), Hyperlipidemia (ROSUVASTATIN 40 MG QD), Metabolic (DIABETES: METFORMIN ER 4 TABLETS IN AM QD), Other / symptoms (MG OXIDE 500 MG BID,
FOLIC ACIDE 1 MG QD, FEXOFENADINE HCL 180 MG QD FOR ALLERGIES)
Measures
- Anthropometrics
Height: 6 ft
Actual Weight: 286 lb 6.4 oz
- Blood Pressure / Pulse
Blood pressure: 116/70
Pulse: 65
- Diabetes Management
Medical Management for Diabetes: Complete physical exam (04/2024), Dental exam (04/2024), Dilated eye exam (05/2024), Flu Vaccination (01/2024), Monofilament testing (05/2024), Pneumonia vaccination (2022)
Self-Care
- Tobacco Usage
Do you now, or have you ever smoked?: Quit more than 1 year ago
- Alcohol & Drugs Usage
Drinks Alcohol: No (SOBER 6 MONTHS)
- Meals & Dining
Meals & Dining: Patient skips meals: Yes
Primary Food Fire Ranger: Self
Primary Data Entry Machine Operator: Self
Dining Out Frequency: 1-3x per week
- Physical Activity
Physical Limitation: Yes
Activity Types: walking
- Patient-Self Assessment
Diabetes Knowledge: Poor (38%)
Feelings About Diabetes: Acceptance
General Health: Good
Stress Level: Medium
Barriers to Diabetes Management: Nothing
Depression Survey Score: 3
- Diabetes Identification
Carries Diabetes Identification: No
Diabetes Identification Information Provided: Yes
Care Plan
- Education Needs
Patient Education Needs: Diabetes disease process, Chronic complications, Acute complications, Medication, Monitoring, Physical activity, Psychosocial Adjustment, Nutritional management, Goal setting & problem solving
Recommended Diabetes Training Program based on assessment: Outpatient Diabetes Education Program
- Plan of Care
Plan of Care:
07/05/2024 DSME INITIAL MEETING
Met with Mr. Arechiga today for registration and initiation of Diabetes Self-management. Pt was recommended by his PCP due to increased HbA1c of 8.7% from 06/08/2024. HbA1c previously was 6.0% ib 12/10/2023. He is a few months post op of R. TKR and
admits to going off track with diet. Currently attends PT sessions 3 times a week. He is 6 months into alcohol recovery, is motivated to attend class and make dietary and activity changes.
He was not checking glucose prior to appointment, received new glucose testing supplies ordered by PCP. I educated on proper glucose testing technique, he performed a successful repeat demonstration. I informed him per MD recommendations on the
prescription to test every day, we discussed alternate daily time testing: fasting in AM, 1-2 hours post prandial varying meals.
We reviewed glucose goals, HBA1c goals, benefits of healthy eating and exercise, end organ complications. He verbalized understanding. He was encouraged to outreach the office to review glucose numbers prior to DSME class.
Patient Call Notes
- Patient Call Notes
Evaluated By: Registered Nurse
Patient Note Types: Patient initiated call
--- NOTE | 2024-07-07 11:21 | PN.DIAED04 ---
Education Record
- Education Record
Class Attended: Other (INITIAL DSME CONSULT)
DSME Class Series Code: [id number]
Instructor: Registered Nurse (Veronica Pennington RN)
Pre-Program Knowledge: No knowledge
Pre-Test Score (%): 38
Goals
- Goal 1
Being Active: Exercise more often (3X A WEEK AT PT PLUS HOME EXERCISES)
Goals To Be Evaluated: Exercise more often
- Goal 2
Healthy Eating: Make better food choices
Goals To Be Evaluated: Make better food choices
- Goal 3
Monitoring: Follow monitoring schedule (ONCE DAILY, ALTERNATING FASTING, 1-2 HOURS POSTPRANDIAL MEALS)
Goals To Be Evaluated: Follow monitoring times
--- NOTE | 2024-11-09 12:17 | PN.DIAED14 ---
This is to notify you that your patient with diabetes, MITAIL FELIX ( 1965), has enrolled in our diabetes self-management classes that are being held at [facility].
These classes will include an introduction to diabetes, diet, medication, exercise and prevention of complications. At the end of our class series, you will receive a report of your patient's participation and progress for your records.
Please contact me at the Diabetes [facility], , if there is any particular information regarding your patient that might be helpful to me.
Sincerely,
Blayne THOMPSON-DM,[facility]
--- NOTE | 2024-11-09 12:18 | PN.DIAED04 ---
Education Record
- Education Record
Class Attended: Class 1
DSME Class Series Code: [id number]
Instructor: Nurse Practitioner (DONNA Wyman)
Class Curriculum:
Outpatient Diabetes Education Program:
Class 1 (120 minutes)
Describe the diabetes disease process and treatment options
Diabetes management
Develop personal strategies to promote health and behavior change
Integrate psychosocial adjustment for daily living
Monitor blood glucose and other parameters. Interpret and use the results for self-management decision making
Prevent, detect, and treat acute complications
Class Length (mins): 120
Post-Class 1 Test Score (%): 100
== END ==
LOC: DES 09:03
PROVIDERS: ATTENDING PHYSICIAN Family Medicine
DX: E11.9 Type 2 diabetes mellitus without complications (principal)
CPT/HCPCS: 99078

== ENCOUNTER → 2024-11-15 09:25 | Outpatient (REF) | payer OTHER, SELFPAY ==
--- NOTE | 2024-11-16 10:16 | PN.DIAED04 ---
Education Record
- Education Record
Class Attended: Class 2
DSME Class Series Code: [id number]
Instructor: Registered Dietitian (Roro Bob, RD, LDN, CDE)
Class Curriculum:
Outpatient Diabetes Education Program:
Class 2 (120 minutes)
Incorporate nutritional management into lifestyle
Understanding nutritional value
Understanding carbohydrate counting
Class Length (mins): 120
== END ==
LOC: DES 09:25
PROVIDERS: ATTENDING PHYSICIAN Family Medicine
DX: E11.9 Type 2 diabetes mellitus without complications (principal)
CPT/HCPCS: 99078

== ENCOUNTER → 2024-11-22 09:32 | Outpatient (REF) | payer OTHER, SELFPAY | LOC: DES 09:32 | PROVIDERS: ATTENDING PHYSICIAN Family Medicine | DX: E11.9 Type 2 diabetes mellitus without complications (principal) | CPT/HCPCS: 99078 ==

== ENCOUNTER → 2024-11-29 09:48 | Outpatient (REF) | payer OTHER, SELFPAY | LOC: DES 09:48 | PROVIDERS: ATTENDING PHYSICIAN Family Medicine | DX: E11.9 Type 2 diabetes mellitus without complications (principal) | CPT/HCPCS: 99078 ==

== ENCOUNTER → 2024-12-06 09:04 | Outpatient (REF) | payer OTHER, SELFPAY ==
--- NOTE | 2024-12-08 08:33 | PN.DIAED04 ---
Education Record
- Education Record
Class Attended: Class 5
DSME Class Series Code: [id number]
Instructor: Registered Nurse (Veronica Pennington RN)
Class Curriculum:
Outpatient Diabetes Education Program:
Class 5 (120 minutes)
Prevent, detect, and treat acute complications
Prevent, detect, and treat chronic complications through risk reduction
Develop personal strategies to address psychosocial issues and concerns
Development of diabetes self-management support plan
Letter to physician with DSMS plan attached sent
Class Length (mins): 120
Post-Program Knowledge: Needs review / Assistance
Post-Test Score (%): 77 (did improve from his 38% preclass)
Post-Program Assessment
- Post-Program Assessment
Actual Weight: 301 lb
Blood pressure: 130/78
Post-Program Depression Survey Score: 2
Reviewing Previous Goals?: Yes
Pre-Program Depression Survey Score: 3
- Goals 1 Evaluation
Goals To Be Evaluated: Exercise more often
- Goals 2 Evaluation
Goals To Be Evaluated: Make better food choices
- Goals 3 Evaluation
Goals To Be Evaluated: Follow monitoring times
--- NOTE | 2024-12-08 08:34 | PN.DIAED16 ---
This is to notify you that your patient with diabetes, MITALI FELIX ( 1965), has attended the entire series of Diabetes Self-Management Education Classes.
Class 1 (120 minutes): Diabetes Overview - monitoring, stress/psychosocial adjustment, support, goal setting
Class 2 (120 minutes): Meal Planning - serving sizes, menu plans
Class 3 (120 minutes): Introduction to Carbohydrate Counting, Analyzing Food Labels
Class 4 (120 minutes): Medication, Exercise and Activity
Class 5 (120 minutes): Sick Day Management, Strategies to Reduce Complications, Problem Solving, Resources
The following behavioral goals were identified:
Exercise more often
Make better food choices
Follow monitoring times
A follow-up call will be made within three to six months to evaluate attainment of these goals and to check post-program Hemoglobin A1c and overall progress. All class participants are encouraged to contact me if I can be any further assistance in
learning how to manage their diabetes.
Sincerely,
Blayne THOMPSON-DM, [facility]
== END ==
LOC: DES 09:04
PROVIDERS: ATTENDING PHYSICIAN Family Medicine
DX: E11.9 Type 2 diabetes mellitus without complications (principal)
CPT/HCPCS: 99078

== ENCOUNTER → 2025-01-14 09:45 | Outpatient (REF) | payer OTHER, SELFPAY ==
[2025-01-14 11:53] LABS: Blood Urea Nitrogen 12 mg/dl (9-20); Calcium 8.8 mg/dl (8.4-10.2); Carbon Dioxide 30 mmol/L (22-30); Chloride 105 mmol/L (98-107); Glucose 148 mg/dl (70-99); Potassium 4.6 mmol/L (3.5-5.1); Sodium 137 mmol/L (135-145); eGFR > 60.00
[2025-01-14 12:40] LABS: Glycohemoglobin (HgbA1c) 8.1 % (4.0-5.9)
== END ==
LOC: HWLAB 09:45
PROVIDERS: ATTENDING PHYSICIAN Family Medicine
DX: E11.65 Type 2 diabetes mellitus with hyperglycemia (principal)
CPT/HCPCS: 36415; 80048; 83036